=== PATIENT | female | born 1940 | race Caucasian/White ===

== ENCOUNTER 2021-03-12 18:55 | Inpatient (IN) ==
[2021-03-12] MEDS ORDERED: dilTIAZem HCl 5 MG/ML 5 ML VIAL IV STA (19:20)
[2021-03-12 19:34] LABS: Basophils # (auto) 0.01 K/uL (0-0.2); Basophils % (auto) 0.1 %; Eosinophils # (auto) 0.03 K/uL (0-0.5); Eosinophils % (auto) 0.2 %; Hematocrit (blood only) 48.7 % (37-47); Hemoglobin 17.2 g/dL (12.0-16.0); Immature Granulocytes # (auto) 0.07 K/uL (0.00-0.02); Immature Granulocytes % (auto) 0.4 %; Lymphocytes # (auto) 1.26 K/uL (1.2-3.4); Lymphocytes % (auto) 7.8 %; Mean Corpuscular Hgb Conc 35.3 g/dL (32-36); Mean Platelet Volume 10.3 fL (7.4-10.4); Monocytes # (auto) 0.76 K/uL (0.11-0.59); Monocytes % (auto) 4.7 %; Neutrophils # (auto) 14.06 K/uL (1.4-6.5); Neutrophils % (auto) 86.8 %; Platelet Count 441 K/uL (130-400); RDW Coefficient of Variation 13.1 % (11.5-14.5); RDW Standard Deviation 40.4 fL (36.4-46.3); Red Blood Count 5.73 M/uL (4.2-5.4); White Blood Count 16.19 K/uL (4.8-10.8)
[2021-03-12] MEDS ORDERED: STAT IV Infusion **Titration per Protocol STA (19:37)
--- NOTE | 2021-03-12 19:43 | Emergency Department Note ---
Impression & Plan Weakness, Atrial fibrillation with rapid ventricular response, Fall ED Provider Note Provider: Jsoeph Mcdaniel MD DATE OF SERVICE: 03/12/2021 CHIEF COMPLAINT: Weakness HISTORY OF PRESENT ILLNESS: Patient is a 80-year-old female denies significant past medical history lives at home by herself reports over the past week is developed head cold symptoms with generalized weakness and decreased appetite and food intake. Has been trying to hydrate. Occasional some nausea. Denies chest pain but at times has been a little bit winded. Evidently family have been hurt for several days and EMS was summoned. She was found on the floor of her house. Patient states she had been on the floor for several hours after trying to walk and became weak and lowered her self to the ground. She states she did mildly bump her head but did not lose consciousness and just felt generally weak. She denies sensation of palpitations or history of A. fib. EMS found the patient be in rapid A. fib without intervention otherwise prior to arrival. Patient denies new numbness or weakness. She denies significant neck pain or injury to the extremities. Patient denies Covid vaccination. She is concerned that she could have Covid. REVIEW OF SYSTEMS: A total of 10 review of systems was obtained and negative except as stated above in the HPI. PAST MEDICAL HISTORY: As noted above MEDICATIONS: No current prescription medications SOCIAL HISTORY: , lives at home, non-smoker PHYSICAL EXAM: GENERAL: alert and oriented in no acute distress on stretcher fatigued in appearance Head: normocephalic and atraumatic EYES: No injection, discharge or icterus. PERRL NECK: Trachea midline. Supple. ENT: Mucous membranes pink and moist. LUNGS: Airway patent. No retractions. Breath sounds clear HEART: Irregularly irregular tachycardic rate and rhythm. No chest wall tenderness ABDOMEN: Soft and non-tender, without guarding or rebound. SKIN: Acyanotic, warm, dry, without rashes EXTREMITIES: Without swelling, tenderness or deformity NEUROLOGICAL: No focal deficits. No aphasia. No facial droop or slurred speech. Normal strength and tone in the extremities. Sensation to gross touch normal. EK bpm atrial fibrillation with rapid ventricular response. QTC 557 with a right axis. Some inferior ST depression/T wave inversions noted. Some nonspecific anterior lateral elevation noted. CONTINUOUS CARDIAC MONITORING: was ordered and showed a heart rate of 100s-150s bpm in atrial fibrillation Patient's laboratory studies and imaging reviewed. Differential includes Infection, dehydration, metabolic abnormality, hypo/hyperglycemia, electrolyte disturbance, anemia, hypoxia, cardiac sources, intracerebral event, toxicologic, neurologic, as well as other pathologies. IMPRESSION/MEDICAL DECISION MAKING: High suspicion the patient who is unvaccinated to be suffering from Covid. R apid A. fib upon arrival. Given diltiazem and started diltiazem drip to help with rate control. X-ray, Covid test, basic labs sent. Given that she fell in with her age although no LOC or significant anticoagulation CT head and cervical spine were completed. No other evidence of significant traumatic injury on clinical exam. Patient without focal neurological deficit I doubt acute CVA or stroke. CK was sent to the edition to exclude rhabdomyolysis. Given a small amount of IV fluid hydration as she has had decreased intake. Heart rate did improve with diltiazem but drip being increased is still not great control. Afebrile here. White blood cell count is noticed with some elevated procalcitonin. Lactate and blood cultures ordered. Chest x-ray per radiology without concerning findings for pneumonia at this time. Covid and flu negative surprisingly. Again a fairly benign abdomen. CT of the head and cervical spine with acute traumatic injury. Make the patient aware of the qu estionable finding of the thoracic spine on the CT which will need follow-up. Given some potassium for hypokalemia. Will cover with broad-spectrum antibiotics with the lab findings. No indicative findings of acute rhabdomyolysis. Discussed the patient need for further care here at the hospital. Hospitalist was contacted. Urine without findings consistent with UTI. Blood cultures again are pending. DIAGNOSIS: Rapid atrial fibrillation, weakness, fall, hypokalemia DISPOSITION: Hospitalist will evaluate Patient was agreeable with this plan. Critical Care I have personally spent 38 minutes of critical care time in the direct management of this patient. This includes bedside care, interpretation of diagnostic studies, and testing, discussion with consultants, patient, and other required patient management activities. These 38 minutes is in excess of all separately billable procedures. Past Med/Surg History Social History Smoking Status: Never smoker Feels Safe at Home: Yes Results & Data (ED) Vital Signs Vital Signs - 24 hr 03/12/21 19:11 03/12/21 19:19 03/12/21 19:21 Temperature 36.5 C Temperature Source Oral Pulse Rate 142 H 150 H Pulse Rate [Finger] 152 H Pulse Rhythm Irregular Irregular Pulse Rhythm [Finger] Irregular Pulse Strength Normal Pulse Strength [Finger] Normal Respiratory Rate 20 20 18 Respiratory Effort / Characteristics Non-Labored Non-Labored Respiratory Depth Normal Normal Respiratory Pattern Regular Blood Pressure 103/69 Blood Pressure [Right Arm] 103/69 Blood Pressure Mean 80 Blood Pressure Mean [Right Arm] 80 Blood Pressure Position Lying Blood Pressure Position [Right Arm] Lying Pulse Oximetry 94 95 95 Oxygen Delivery Method Room Air Room Air Room Air Sepsis Recent Fever Within 48 Hours No Sepsis New/Unexplained Change in Mental Status No Sepsis Action Taken by Nursing No Action Required 03/12/21 19:31 03/12/21 21:00 03/12/21 21:13 Temperature Temperature Source Pulse Rate Pulse Rate [Finger] 118 H 133 H 129 H Pulse Rhythm Pulse Rhythm [Finger] Irregular Irregular Irregular Pulse Strength Pulse Strength [Finger] Normal Normal Normal Respiratory Rate 18 20 16 Respiratory Effort / Characteristics Non-Labored Non-Labored Non-Labored Respiratory Depth Normal Normal Normal Respiratory Pattern Regular Blood Pressure Blood Pressure [Right Arm] 121/72 101/64 108/79 Blood Pressure Mean Blood Pressure Mean [Right Arm] 88 76 88 Blood Pressure Position Blood Pressure Position [Right Arm] Lying Sitting Sitting Pulse Oximetry 95 93 93 Oxygen Delivery Method Room Air Room Air Room Air Sepsis Recent Fever Within 48 Hours Sepsis New/Unexplained Change in Mental Status Sepsis Action Taken by Nursing 03/12/21 21:46 03/12/21 21:51 03/12/21 22:11 Temperature Temperature Source Pulse Rate Pulse Rate [Finger] 119 H 128 H 128 H Pulse Rhythm Pulse Rhythm [Finger] Irregular Irregular Irregular Pulse Strength Pulse Strength [Finger] Normal Respiratory Rate 20 20 18 Respiratory Effort / Characteristics Non-Labored Non-Labored Non-Labored Respiratory Depth Normal Normal Normal Respiratory Pattern Blood Pressure Blood Pressure [Right Arm] 98/72 L 104/77 100/79 Blood Pressure Mean Blood Pressure Mean [Right Arm] 80 86 86 Blood Pressure Position Blood Pressure Position [Right Arm] Sitting Sitting Pulse Oximetry 93 93 Oxygen Delivery Method Room Air Room Air Sepsis Recent Fever Within 48 Hours Sepsis New/Unexplained Change in Mental Status Sepsis Action Taken by Nursing Laboratory Data Result diagrams: 03/12/21 19:20 03/12/21 19:20 Lab Results 12/03/12/21 03/12/21 Range/Units 19:20 19:20 19:20 WBC 16.19 H (4.8-10.8) K/uL RBC 5.73 H (4.2-5.4) M/uL Hgb 17.2 H (12.0-16.0) g/dL Hct 48.7 H (37-47) % MCV 85.0 (80-100) fL MCH 30.0 (25-34) pg MCHC 35.3 (32-36) g/dL RDW Std Deviation 40.4 (36.4-46.3) fL RDW Coeff of Mali[place] 13.1 (11.5-14.5) % Plt Count 441 H (130-400) K/uL MPV 10.3 (7.4-10.4) fL Immature Gran % (Auto) 0.4 % Neut % (Auto) 86.8 % Lymph % (Auto) 7.8 % Grady % (Auto) 4.7 % Eos % (Auto) 0.2 % Baso % (Auto) 0.1 % Neut # (Auto) 14.06 H (1.4-6.5) K/uL Lymph # (Auto) 1.26 (1.2-3.4) K/uL Grady # (Auto) 0.76 H (0.11-0.59) K/uL Eos # (Auto) 0.03 (0-0.5) K/uL Baso # (Auto) 0.01 (0-0.2) K/uL Immature Gran # (Auto) 0.07 H (0.00-0.02) K/uL PT 10.8 (9.0-12.0) Seconds INR 1.1 (0.9-1.1) APTT (21.0-31.0) Seconds PTT Ratio Sodium 130 L (136-145) mmol/L Potassium 3.0 L (3.5-5.1) mmol/L Chloride 84 L (98-107) mmol/L Carbon Dioxide 27 (21-32) mmol/L Anion Gap 18.0 H (3-11) BUN 85 H (7-18) mg/dl Creatinine 1.25 H (0.6-1.2) mg/dl Est Cr Clr Drug Dosing 33.6 ml/min Est GFR ( Amer) 47.0 ml/min Est GFR (Non-Af Amer) 40.6 ml/min BUN/Creatinine Ratio 68.2 H (10-20) Glucose 119 H (70-99) mg/dl Lactate (0.4-2.0) mmol/L Calcium 9.4 (8.5-10.1) mg/dl Magnesium 2.9 H (1.8-2.4) mg/dl Total Bilirubin 1.2 H (0.2-1) mg/dl AST 14 L (15-37) U/L ALT 22 (12-78) Alkaline Phosphatase 82 (45-117) U/L Total Creatine Kinase 72 (26-192) U/L Troponin I 0.108 H* (0-0.045) ng/ml Total Protein 7.8 (6.4-8.2) gm/dl Albumin 3.4 (3.4-5.0) gm/dl Globulin 4.4 H (2.5-4.0) gm/dl Albumin/Globulin Ratio 0.8 L (0.9-2) Lipase 263 (73-393) U/L Procalcitonin (0-0.5) ng/ml TSH 0.259 L (0.300-4.500) uIu/ml Free T4 1.88 H (0.8-1.6) ng/dl Urine Color Urine Appearance (Clear) Urine pH (4.5-7.5) Ur Specific [place] (1.000-1.030) Urine Protein (Negative) Urine Glucose (UA) (Negative) Urine Ketones (Negative) Urine Blood (Negative) Urine Nitrite (Negative) Urine Bilirubin (Negative) Urine Urobilinogen (Negative) Ur Leukocyte Esterase (Negative) Urine WBC (Auto) (0-5) /hpf Urine RBC (Auto) (0-4) /hpf U Hyaline Cast (Auto) (0-5) /lpf U Epithel Cells (Auto) (0-5) /lpf Urine Bacteria (Auto) (Negative) SARS-CoV-2 (PCR) (Negative) Influenza Type A (PCR) (Neg) Influenza Type B (PCR) (Neg) RSV (RT-PCR) (Neg) 03/12/21 03/12/21 03/12/21 Range/Units 19:20 19:20 19:35 WBC (4.8-10.8) K/uL RBC (4.2-5.4) M/uL Hgb (12.0-16.0) g/dL Hct (37-47) % MCV (80-100) fL MCH (25-34) pg MCHC (32-36) g/dL RDW Std Deviation (36.4-46.3) fL RDW Coeff of Maliha (11.5-14.5) % Plt Count (130-400) K/uL MPV (7.4-10.4) fL Immature Gran % (Auto) % Neut % (Auto) % Lymph % (Auto) % Grady % (Auto) % Eos % (Auto) % Baso % (Auto) % Neut # (Auto) (1.4-6.5) K/uL Lymph # (Auto) (1.2-3.4) K/uL Grady # (Auto) (0.11-0.59) K/uL Eos # (Auto) (0-0.5) K/uL Baso # (Auto) (0-0.2) K/uL Immature Gran # (Auto) (0.00-0.02) K/uL PT (9.0-12.0) Seconds INR (0.9-1.1) APTT 25.9 (21.0-31.0) Seconds PTT Ratio 1.0 Sodium (136-145) mmol/L Potassium (3.5-5.1) mmol/L Chloride (98-107) mmol/L Carbon Dioxide (21-32) mmol/L Anion Gap (3-11) BUN (7-18) mg/dl Creatinine (0.6-1.2) mg/dl Est Cr Clr Drug Dosing ml/min Est GFR ( Amer) ml/min Est GFR (Non-Af Amer) ml/min BUN/Creatinine Ratio (10-20) Glucose (70-99) mg/dl Lactate (0.4-2.0) mmol/L Calcium (8.5-10.1) mg/dl Magnesium (1.8-2.4) mg/dl Total Bilirubin (0.2-1) mg/dl AST (15-37) U/L ALT (12-78) Alkaline Phosphatase (45-117) U/L Total Creatine Kinase (26-192) U/L Troponin I (0-0.045) ng/ml Total Protein (6.4-8.2) gm/dl Albumin (3.4-5.0) gm/dl Globulin (2.5-4.0) gm/dl Albumin/Globulin Ratio (0.9-2) Lipase (73-393) U/L Procalcitonin 1.25 H (0-0.5) ng/ml TSH (0.300-4.500) uIu/ml Free T4 (0.8-1.6) ng/dl Urine Color Urine Appearance (Clear) Urine pH (4.5-7.5) Ur Specific [place] (1.000-1.030) Urine Protein (Negative) Urine Glucose (UA) (Negative) Urine Ketones (Negative) Urine Blood (Negative) Urine Nitrite (Negative) Urine Bilirubin (Negative) Urine Urobilinogen (Negative) Ur Leukocyte Esterase (Negative) Urine WBC (Auto) (0-5) /hpf Urine RBC (Auto) (0-4) /hpf U Hyaline Cast (Auto) (0-5) /lpf U Epithel Cells (Auto) (0-5) /lpf Urine Bacteria (Auto) (Negative) SARS-CoV-2 (PCR) NEGATIVE (Negative) Influenza Type A (PCR) Negative (Neg) Influenza Type B (PCR) Negative (Neg) RSV (RT-PCR) Negative (Neg) 03/12/21 03/12/21 Range/Units 21:39 21:50 WBC (4.8-10.8) K/uL RBC (4.2-5.4) M/uL Hgb (12.0-16.0) g/dL Hct (37-47) % MCV (80-100) fL MCH (25-34) pg MCHC (32-36) g/dL RDW Std Deviation (36.4-46.3) fL RDW Coeff of Maliha (11.5-14.5) % Plt Count (130-400) K/uL MPV (7.4-10.4) fL Immature Gran % (Auto) % Neut % (Auto) % Lymph % (Auto) % Grady % (Auto) % Eos % (Auto) % Baso % (Auto) % Neut # (Auto) (1.4-6.5) K/uL Lymph # (Auto) (1.2-3.4) K/uL Grady # (Auto) (0.11-0.59) K/uL Eos # (Auto) (0-0.5) K/uL Baso # (Auto) (0-0.2) K/uL Immature Gran # (Auto) (0.00-0.02) K/uL PT (9.0-12.0) Seconds INR (0.9-1.1) APTT (21.0-31.0) Seconds PTT Ratio Sodium (136-145) mmol/L Potassium (3.5-5.1) mmol/L Chloride (98-107) mmol/L Carbon Dioxide (21-32) mmol/L Anion Gap (3-11) BUN (7-18) mg/dl Creatinine (0.6-1.2) mg/dl Est Cr Clr Drug Dosing ml/min Est GFR ( Amer) ml/min Est GFR (Non-Af Amer) ml/min BUN/Creatinine Ratio (10-20) Glucose (70-99) mg/dl Lactate 2.1 H* (0.4-2.0) mmol/L Calcium (8.5-10.1) mg/dl Magnesium (1.8-2.4) mg/dl Total Bilirubin (0.2-1) mg/dl AST (15-37) U/L ALT (12-78) Alkaline Phosphatase (45-117) U/L Total Creatine Kinase (26-192) U/L Troponin I (0-0.045) ng/ml Total Protein (6.4-8.2) gm/dl Albumin (3.4-5.0) gm/dl Globulin (2.5-4.0) gm/dl Albumin/Globulin Ratio (0.9-2) Lipase (73-393) U/L Procalcitonin (0-0.5) ng/ml TSH (0.300-4.500) uIu/ml Free T4 (0.8-1.6) ng/dl Urine Color Yellow Urine Appearance Clear (Clear) Urine pH 5.0 (4.5-7.5) Ur Specific [place] 1.018 (1.000-1.030) Urine Protein Negative (Negative) Urine Glucose (UA) Negative (Negative) Urine Ketones 1+ H (Negative) Urine Blood 1+ H (Negative) Urine Nitrite Negative (Negative) Urine Bilirubin Negative (Negative) Urine Urobilinogen Negative (Negative) Ur Leukocyte Esterase Negative (Negative) Urine WBC (Auto) 1-5 (0-5) /hpf Urine RBC (Auto) 5-10 H (0-4) /hpf U Hyaline Cast (Auto) >30 H (0-5) /lpf U Epithel Cells (Auto) 5-10 H (0-5) /lpf Urine Bacteria (Auto) Negative (Negative) SARS-CoV-2 (PCR) (Negative) Influenza Type A (PCR) (Neg) Influenza Type B (PCR) (Neg) RSV (RT-PCR) (Neg) Administered Medications Diltiazem HCl 125 mg/ Dextrose 125 mls @ 5 mls/hr IV .Q24H [facility]; Protocol Stop: 04/11/21 19:44 Last Titration: 03/12/21 22:12 Dose: 15 mg/hr, 15 mls/hr Documented by: [id number] Cosigned by: [id number] Titration: 03/12/21 21:00 Dose: 10 mg/hr, 10 mls/hr Documented by: [id number] Cosigned by: [id number] Admin: 03/12/21 20:22 Dose: 5 mg/hr, 5 mls/hr Documented by: [id number] Cosigned by: [id number] Discontinued Medications Aspirin (Aspirin 81 Mg Chew) 324 mg PO NOW STA Stop: 03/12/21 20:27 Last Admin: 03/12/21 20:38 Dose: 324 mg Documented by: [id number] Diltiazem HCl (Diltiazem Hcl 5 Mg/Ml 5 Ml Vial) 10 mg IV NOW STA Stop: 03/12/21 19:21 Last Admin: 03/12/21 19:27 Dose: 10 mg Documented by: [id number] Cosigned by: [id number] Sodium Chloride (Nss 1000ml) 1,000 mls @ 999 mls/hr IV .Q1H1M ONE Stop: 03/12/21 21:25 Last Infusion: 03/12/21 22:29 Dose: 999 mls/hr Documented by: [id number] Infusion: 03/12/21 21:28 Dose: 999 mls/hr Documented by: [id number] Admin: 03/12/21 20:32 Dose: 999 mls/hr Documented by: [id number] Ceftriaxone Sodium (Rocephin) 2,000 mg in 70 mls @ 140 mls/hr IV NOW STA Stop: 03/12/21 21:04 Last Infusion: 03/12/21 22:35 Dose: 140 mls/hr Documented by: [id number] Admin: 03/12/21 22:05 Dose: 140 mls/hr Documented by: [id number] Miscellaneous (Stat Iv Infusion Titration Per Protocol) 1 ea N/A NOW STA Stop: 03/12/21 19:38 Last Admin: 03/12/21 23:36 Dose: Not Given Documented by: [id number] Potassium Chloride (Potassium Chloride Crtab 20 Meq Tabcr) 20 meq PO NOW STA Stop: 03/12/21 20:31 Last Admin: 03/12/21 20:38 Dose: 20 meq Documented by: [id number] Imaging Data Radiologist's Impression: Chest X-Ray 03/12/21 19:17 XR chest 1V portable HISTORY: Shortness of breath. Atypical chest pain. weakness COMPARISON: None. FINDINGS: The cardiac silhouette is mildly enlarged. Mild interstitial thick ening which is likely chronic. No focal lung consolidations to suggest pneumonia. No evidence for pulmonary edema. No pleural effusions. No pneumothorax. Advanced degenerative changes noted within the shoulders. IMPRESSION: Mild cardiomegaly. Otherwise, no acute process within the chest. ACT 112: Negative or not required by law. Electronically signed by: Samuel Gonzales M.D. 03/12/2021 8:[address] 03/12/21 19:[address] DOSE: HISTORY: fall weak TECHNIQUE: Multiaxial CT images of the head were performed without the use of intravenous contrast. Automated exposure control was utilized for this study. A dose lowering technique was utilized adhering to the principles of ALARA. Comparison: None. Findings: The paranasal sinuses and mastoid air cells are clear. The calvarium and skull base are intact. There is no mass, hematoma, midline shift, acute infarct. White matter hypodensity is nonspecific but suggestive of microvascular ischemic change. The ventricles and sulci demonstrate mild age-related involutional changes. Impression: No acute intracranial abnormality. Atrophy and microvascular ischemic changes. ACT 112: Negative or not required by law. Electronically signed by: Samuel Gonzales M.D. 03/12/2021 8:[address] 03/12/21 19:[address] DOSE: 920.33 mGy.cm HISTORY: Neck pain. fall TECHNIQUE: Multiaxial CT images of the cervical spine were performed and reformatted in the sagittal and coronal plane without the use of contrast. A dose lowering technique was utilized adhering to the principles of ALARA. COMPARISON: None. FINDINGS: No fractures. No subluxation. Prevertebral soft tissues and the C1-C2 interval are intact. No pneumothorax. Mild to moderate degenerative changes within the mid to lower cervical spine. There is a 1.3 cm lucent lesion within the T1 vertebral body. This is indeterminate but could represent a hemangioma given the sclerotic edges. No additional suspicious lesions identified within the cervical spine. IMPRESSION: 1. No fractures within the cervical spine. 2. An indeterminate 1.3 cm lucent lesion within the T1 vertebral body. The absence of the known malignancy this could represent a benign lesion such as a hemangioma. A follow-up nonemergent nuclear medicine bone scan can be used for further evaluation to assess for a metabolically active lesion. ACT 112: Negative or not required by law. Electronically signed by: Samuel Gonzales M.D. 03/12/2021 8:27 PM Discharge Plan Visit Data Chief Complaint: Illness Stated Complaint: illness ED Provider: Joseph Mcdaniel Discharge Problem: Weakness, Atrial fibrillation with rapid ventricular response, Fall Patient Disposition: Being Evaluated by Hospitalist Forms Stand Alone Forms: [facility] Referrals Referrals: Edison Saldana MD [Surgeon] - Discharge Problem: Fall Qualifiers: Encounter type: initial encounter Qualified Code(s): W19.XXXA - Unspecified fall, initial encounter
[2021-03-12 19:47] LABS: INR 1.1 (0.9-1.1); Prothrombin Time 10.8 Seconds (9.0-12.0)
[2021-03-12 19:58] LABS: Albumin Level 3.4 gm/dl (3.4-5.0); BUN Creatinine Ratio 68.2 (10-20); Calcium 9.4 mg/dl (8.5-10.1); Creatinine Clr Calc Pharmacy 33.6 ml/min; Est GFR (Non-African American) 40.6 ml/min; Magnesium 2.9 mg/dl (1.8-2.4)
[2021-03-12 20:01] LABS: Partial Thromboplastin Time 25.9 Seconds (21.0-31.0)
--- NOTE | 2021-03-12 20:10 | XRay Report ---
XR chest 1V portable HISTORY: Shortness of breath. Atypical chest pain. weakness COMPARISON: None. FINDINGS: The cardiac silhouette is mildly enlarged. Mild interstitial thickening which is likely chr onic. No focal lung consolidations to suggest pneumonia. No evidence for pulmonary edema. No pleural effusions. No pneumothorax. Advanced degenerative changes noted within the shoulders. IMPRESSION: Mild cardiomegaly. Otherwise, no acute process within the chest. ACT 112: Negative or not required by law. Electronically signed by: Samuel Gonzales M.D. 03/12/2021 8:08 PM
[2021-03-12 20:13] LABS: Albumin Globulin Ratio 0.8 (0.9-2); Bilirubin,Total 1.2 mg/dl (0.2-1); Globulin 4.4 gm/dl (2.5-4.0); Thyroid Stimulating Hormone 0.259 uIu/ml (0.300-4.500); Total Protein 7.8 gm/dl (6.4-8.2); Troponin I 0.108 ng/ml (0-0.045)
[2021-03-12] MEDS: dilTIAZem HCL 125 MG in DEXTROSE 5% 100 ML IV SCH (20:22)
--- NOTE | 2021-03-12 20:23 | CT Scan Report ---
HEAD CT NONCONTRAST CT DOSE: HISTORY: fall weak TECHNIQUE: Multiaxial CT images of the head were performed without the use of intravenous contrast. A utomated exposure control was utilized for this study. A dose lowering technique was utilized adheri ng to the principles of ALARA. Comparison: None. Findings: The paranasal sinuses and mastoid air cells are clear. The calvarium and skull base are int act. There is no mass, hematoma, midline shift, acute infarct. White matter hypodensity is nonspecifi c but suggestive of microvascular ischemic change. The ventricles and sulci demonstrate mild age-rela armen involutional changes. Impression: No acute intracranial abnormality. Atrophy and microvascular ischemic changes. ACT 112: Negative or not required by law. Electronically signed by: Samuel Gonzales M.D. 03/12/2021 8:21 PM
[2021-03-12] MEDS ORDERED: SODIUM CHLORIDE 0.9% 1000ML 1,000 ML IV ONE (20:25)
[2021-03-12] MEDS ORDERED: ASPIRIN 81 MG CHEW PO STA (20:26)
[2021-03-12 20:27] LABS: T4 Free Thyroxine 1.88 ng/dl (0.8-1.6)
--- NOTE | 2021-03-12 20:29 | CT Scan Report ---
CERVICAL SPINE CT CT DOSE: 920.33 mGy.cm HISTORY: Neck pain. fall TECHNIQUE: Multiaxial CT images of the cervical spine were performed and reformatted in the sagittal and coronal plane without the use of contrast. A dose lowering technique was utilized adhering to th e principles of ALARA. COMPARISON: None. FINDINGS: No fractures. No subluxation. Prevertebral soft tissues and the C1-C2 interval are intact. No pneumothorax. Mild to moderate degenerative changes within the mid to lower cervical spine. There is a 1.3 cm lucent lesion within the T1 vertebral body. This is indeterminate but could represent a h emangioma given the sclerotic edges. No additional suspicious lesions identified within the cervical spine. IMPRESSION: 1. No fractures within the cervical spine. 2. An indeterminate 1.3 cm lucent lesion within the T1 vertebral body. The absence of the known malig mukund this could represent a benign lesion such as a hemangioma. A follow-up nonemergent nuclear medi cine bone scan can be used for further evaluation to assess for a metabolically active lesion. ACT 112: Negative or not required by law. Electronically signed by: Samuel Gonzales M.D. 03/12/2021 8:27 PM
[2021-03-12] MEDS ORDERED: POTASSIUM CHLORIDE CRTAB 20 MEQ TABCR PO STA (20:30)
[2021-03-12 20:33] LABS: Influenza A virus by PCR Negative (Neg); Influenza B virus by PCR Negative (Neg); RSV by PCR Negative (Neg); SARS CoV2 RNA(COVID-19) InHosp NEGATIVE (Negative)
[2021-03-12] MEDS ORDERED: cefTRIAXone SODIUM 2,000 MG/70 ML BAG IV STA (20:35)
[2021-03-12 22:04] LABS: Appearance Urine Clear (Clear); Bacteria Urine Automated Negative (Negative); Bilirubin Urine Negative (Negative); Blood Urine 1+ (Negative); Color Urine Yellow; Glucose Urine UA Negative (Negative); Ketones Urine 1+ (Negative); Leukocyte Esterase Urine Negative (Negative); Nitrite Urine Negative (Negative); Protein Urine Negative (Negative); Specific Gravity Urine 1.018 (1.000-1.030); Urobilinogen Urine Negative (Negative)
[2021-03-12 22:18] LABS: Cast Urine Automated >30 /lpf (0-5)
[2021-03-13] MEDS ORDERED: ACETAMINOPHEN 325 MG TAB PO PRN (00:22)
[2021-03-13] MEDS ORDERED: Heparin IV Adult Wt-Based Standard *NO* Bolus Protocol IV ONE (00:22)
[2021-03-13] MEDS ORDERED: PATIENT'S ALLERGY INFO NEEDS ENTERED STA (00:30)
--- NOTE | 2021-03-13 00:45 | History & Physical Report ---
Date of Service March 12, 2021 Assessment & Plan (1) Fall: Plan: 80 yo F w/ no significant past medical history presents after acute illness and fall found to be in atrial fibrillation with rapid rate. Fall likely due to weakness from recent illness - IVF ordered NSS + 10mEq K X2 bags @ 125/h - PT ordered Atrial fibrillation w/ RVR, new onset [id number] 3 points for age and gender - cardiology consulted - Heparin drip ordered - patient states she does not wish to be on this medication right now. Would initiate DOAC if amenable after discussing risks and benefits - continue diltiazem drip for rate control with plan to calculate requirement and convert to oral over the day - ECHO ordered Hypokalemia, 3 likely due to poor intake and vomiting - given potassium in the ER - recheck and replete as needed Elevated Cr. to 1.25 likely due to prerenal given BUN/cr > 20 and pt has poor intake and vomiting - fluid as above - recheck in AM DVT: SCDs Code: DNR/DNI Diet: regular (2) Atrial fibrillation with rapid ventricular response: Admission and Anticipated Discharge Date Admission Date: March 12, 2021 History of Present Illness Chief Complaint: fall Primary Care Provider: Estevan Awad MD Dede Bowling has no past medical history but has not seen her PCP Dr. Awad in, "years". She does not take any prescriptions but takes vitamins and supplements. She has been sick for one week with sore throat, head cold, conge stion, and when her lung congestions started to clear she started to vomit with meals several times a day. Her last meal was on Thursday 7 days ago. She had a fall today where she fell to the ground while feeling weak. She did not lose consciousness and had a similar event a few days prior. She lives at home alone since her after and has 2 levels to her home. She does not use any assisted devices. When I brought up that she would potentially need to start custodial medication for her heart rate and potentially for a risk of stroke she was resistant stating that she would not like to be on medications. She has concerns about the side effects of the medications and would prefer natural medicine. I discussed that there may not be natural alternatives to the medications and that we would discuss the risks and benefits of medications with her. She was okay with all of her current treatments with the exception of her Heparin drip. ER course: ASA, Dilt. drip, Ceftriaxone, IVF 1L, KCl Allergies Allergy/AdvReac Type Severity Reaction Status Date / Time No Known Allergies Allergy Verified 03/13/21 02:00 Past Med/Surg History Social History Smoking Status: Never smoker Hx Alcohol Use: No Hx Substance Use: No Preferred Language: Yoruba Communication Ability: Effective Riveter Portable Machine Required: No Beliefs That Will Affect Care: None Current Living Situation: Alone Other Information That Helps Us Care for You: No Feels Safe at Home: Yes Safety Concerns: Feels Safe At This Time Assistive Devices: Glasses Review of Systems Review of Systems: Constitutional: denies fevers, chills admits nausea and vomiting Head: denies LOC, headache, vision changes admits lightheadedness ENT: denies current rhinorrhea, sore throat Cardiac: denies chest pain, palpitations, leg edema Pulm.: denies cough, shortness of breath GI: denies diarrhea, constipation, blood in stool admits indigestion LBM 1 week ago : denies urgency, dysuria admits polyuria chronically no worsened Physical Exam Constitutional: well developed and well nourished; no acute distress Eyes: PERRL, conjunctivae normal, anicteric sclerae ENMT: external ear and nose normal, oropharynx normal Neck: normal visual inspection Respiratory: normal respiratory effort, lungs clear to auscultation Cardiovascular: Rate/Rhythm: + tachycardic and + irregularly irregular Gastrointestinal (Abdomen): normal bowel sounds, soft, nontender, no hepatosplenomegaly Musculoskeletal: no cyanosis or clubbing, extremities motor strength 5/5 Skin: no rashes, warm and dry Neurologic: no focal motor deficits Psychiatric: Orientation: alert and oriented x 3 Results & Data Results & Data ([facility]) Vital Signs (Past 12 Hours) Vital Signs Temp Pulse Pulse Resp BP BP Pulse Ox 03/12/21 22:11 128 H 18 100/79 93 03/12/21 21:51 128 H 20 104/77 03/12/21 21:46 119 H 20 98/72 L 93 03/12/21 21:13 129 H 16 108/79 93 03/12/21 21:00 133 H 20 101/64 93 03/12/21 19:31 118 H 18 121/72 95 03/12/21 19:21 150 H 18 95 03/12/21 19:19 152 H 20 103/69 95 03/12/21 19:11 36.5 C 142 H 20 103/69 94 CBC Results Results Complete Blood Count Results: RBC 5.73 M/uL (4.2-5.4) H 03/12/21 WBC 16.19 K/uL (4.8-10.8) H 03/12/21 Hgb 17.2 g/dL (12.0-16.0) H 03/12/21 Hct 48.7 % (37-47) H 03/12/21 Plt Count 441 K/uL (130-400) H 03/12/21 Chemistry (BMP) Results BMP Results: 2 Sodium 130 mmol/L (136-145) L 03/12/21 Potassium 3.0 mmol/L (3.5-5.1) L 03/12/21 Chloride 84 mmol/L (98-107) L 03/12/21 Carbon Dioxide 27 mmol/L (21-32) 03/12/21 Anion Gap 18.0 (3-11) H 03/12/21 BUN 85 mg/dl (7-18) H 03/12/21 Creatinine 1.25 mg/dl (0.6-1.2) H 03/12/21 Glucose 119 mg/dl (70-99) H 03/12/21 Code Status & VTE Plan VTE Prophylaxis Plan VTE Prophylaxis will be ordered: Yes Supervising Physician Co-Signing Physician Notes Patient seen and examined, chart reviewed, case discussed with Dr. Hobson and I agree with his assessment and plan as above. In brief, patient is an 80yo female with no significant past medical or surgical history, she does not receive routine medical care - presenting with weakness, nausea, poor oral intake and congestion. Patient lives at home alone, is recently . On exam she is afebrile, tachycardic with stable BP. AA&O x 3 Skin - warm, dry , intact HEENT - dry MM, neck supple Heart - +S1/S2, irregularly irregular, 2/6 TITI Lungs - CTA, no rales/rhonchi/wheezes Abd - +BS, soft, NT, ND Ext - warm, well perfused, no clubbing/cyanosis or edema Labs and images reviewed Assessment/Plan - New onset atrial fibrillation. Patient presently on Cardizem gtt initiated in ER. She refuses heparin gtt at this time -Tele -Check Echo -Continue Cardizem - transition to PO in AM -Encourage blood thinner -Remainder of plan as above Resident Activity Tracking Resident Involvement: Resident Care Provided Care Provided: Adult Hospital Medicine (1) Fall Encounter type: initial encounter Qualified Code(s): W19.XXXA - Unspecified fall, initial encounter
[2021-03-13] MEDS: HEPARIN SODIUM/DEXTROSE 25,000 UNITS/500 ML BAG IV SCH (01:38)
--- NOTE | 2021-03-13 02:46 | Billing Data ---
Date of Service March 12, 2021 Coding Level of Care Code 94522 Initial Inpt Care Lvl 2
[2021-03-13] MEDS: POTASSIUM CHLORIDE 10 MEQ in SODIUM CHLORIDE 0.9% 1000ML 1,000 ML IV SCH ×2 (03:21→13:13)
[2021-03-13] MEDS: ONDANSETRON INJ 2 MG/ML 2 ML VIAL IV PRN ×2 (03:21→21:19)
[2021-03-13] MEDS: dilTIAZem HCL 125 MG in DEXTROSE 5% 100 ML IV SCH ×3 (04:48→23:03)
[2021-03-13 06:31] LABS: Basophils # (auto) 0.01 K/uL (0-0.2); Basophils % (auto) 0.1 %; Eosinophils # (auto) 0.02 K/uL (0-0.5); Eosinophils % (auto) 0.1 %; Hematocrit (blood only) 43.5 % (37-47); Immature Granulocytes # (auto) 0.03 K/uL (0.00-0.02); Immature Granulocytes % (auto) 0.2 %; Lymphocytes # (auto) 1.01 K/uL (1.2-3.4); Lymphocytes % (auto) 7.2 %; Mean Corpuscular Hemoglobin 29.1 pg (25-34); Mean Corpuscular Hgb Conc 34.5 g/dL (32-36); Mean Corpuscular Volume 84.5 fL (80-100); Mean Platelet Volume 10.4 fL (7.4-10.4); Monocytes # (auto) 1.06 K/uL (0.11-0.59); Monocytes % (auto) 7.5 %; Neutrophils # (auto) 11.97 K/uL (1.4-6.5); Neutrophils % (auto) 84.9 %; Platelet Count 418 K/uL (130-400); RDW Coefficient of Variation 13.1 % (11.5-14.5); RDW Standard Deviation 40.3 fL (36.4-46.3); Red Blood Count 5.15 M/uL (4.2-5.4)
[2021-03-13 07:09] LABS: BUN Creatinine Ratio 77.2 (10-20); Calcium 8.9 mg/dl (8.5-10.1); Creatinine Clr Calc Pharmacy 37.8 ml/min; Est GFR (African American) 54.3 ml/min; Est GFR (Non-African American) 46.9 ml/min; Potassium 2.6 mmol/L (3.5-5.1)
[2021-03-13] MEDS ORDERED: POTASSIUM CHLORIDE CRTAB 20 MEQ TABCR PO STA (07:17)
[2021-03-13 07:29] LABS: Troponin I 0.101 ng/ml (0-0.045)
[2021-03-13 08:38] LABS: Chol HDL Ratio 3; Cholesterol 134 mg/dl (0-200); HDL Cholesterol 48 mg/dl; LDL Cholesterol Calculated 60 mg/dl; Triglycerides 129 mg/dl (0-150); VLDL Cholesterol 26 mg/dl
[2021-03-13 09:03] LABS: Estimated Average Glucose 108 mg/dl; Hemoglobin A1C 5.4 % (4.5-5.6)
[2021-03-13] MEDS: POTASSIUM CHLORIDE / WTR 10 MEQ/100 ML PLCT IV SCH ×4 (09:04→13:14)
[2021-03-13 12:35] LABS: Partial Thromboplastin Ratio 1.5; Partial Thromboplastin Time 38.6 Seconds (21.0-31.0)
[2021-03-13 12:37] LABS: Hematocrit (blood only) 45.3 % (37-47); Hemoglobin 15.5 g/dL (12.0-16.0)
[2021-03-13] MEDS: PANTOprazole 40 MG TAB PO SCH (13:14)
--- NOTE | 2021-03-13 14:06 | XCELERA ---
[id number] [id number]
[2021-03-13 14:48] LABS: BUN Creatinine Ratio 57.2 (10-20); Calcium 8.7 mg/dl (8.5-10.1); Creatinine Clr Calc Pharmacy 33.6 ml/min; Est GFR (Non-African American) 40.6 ml/min; Potassium 3.8 mmol/L (3.5-5.1)
--- NOTE | 2021-03-13 16:32 | Medical Student Progress Note ---
Date of Service March 13, 2021 Assessment & Plan (1) Atrial fibrillation with rapid ventricular response: Plan: 80-year-old woman with no documented medical history last seen by a provider in 2006 presented to the ED after falling with a 1-week history of diffuse weakness and dysphagia Atrial fibrillation with rapid ventricular response: - EKG 03/12: A fib with premature ventricular or aberrantly conducted complexes, left bundle branch block, T wave amp increased in anterior leads, T wave inversion evident in lateral leads - Heparin drip for anticoagulation, can consider DOAC at discharge - troponin downtrending (.108 to .101) - Diltiazem drip for rate control, - ECHO- normal LV size/systolic function, EF 55-60%, septal motion consistent with conduction abn (bundle-branch block), no regional wall motion abnormalities, moderate concentric LV hypertrophy, severe left atrial dilation, sclerotic aortic valve, severe mitral annular calcification, trace to small pericardial effusion, A fib with PVCs - Electrolyte optimization: K>4, Mag >2, monitor calcium Hyperthyroidism - Free T3 1.86, TSH 0.259, T4 1.88 - may be interference in assays from biotin intake - will order thyroid US for evaluation Dysphagia: - consult GI - try antacids/PPI for reflux - EGD for assessment - IV Zofran for nausea/vomiting 4 mg q6h Fall: - secondary to weakness vs. ongoing afib RVR vs. orthostatic hypotension - blood cultures pending, procal 1.25 but without WBC elevation, fever - workup as above - IVF NSS + 10mEq potassium x 2 bags @ 125/hr - PT consult Electrolyte Disturbances Hypokalemia - potassium 2.6 this AM - likely secondary to decreased PO intake and vomiting - Potassium chloride 10 meq IV with maintenance fluid - Repleted 40 mEQ IV in addition to 40 meQ PO - Potassium improved to 3.8 after repletion Hyponatremia - Na 125, on normal saline maintenance fluid - downtrending despite fluds Elevated BUN/Cr ratio - BUN 72. CR 125 - BUN/CR >20, poor PO intake and vomiting - Fluids as above - trend BMPs daily - considered GIB as cause of elevated BUN however h&h stable, BUN improving with fluids Incidental CT finding: - complaining of chronic back pain - Spine CT: 1.3 lucent lesion within T1 vertebral body -DVT: heparin drip -Code: DNR/DNI -Diet: regular Dispo: PCU while continuing workup and stabilization of electrolytes (2) Dysphagia: (3) Fall: Encounter type: initial encounter Qualified Code(s): W19.XXXA - Unspecified fall, initial encounter (4) Elevated serum creatinine: (5) Hypokalemia: (6) Weakness: (7) Elevated BUN: (8) Back pain: (9) Hyperthyroidism: Admission and Anticipated Discharge Date Admission Date: March 12, 2021 Supervising Attestation Medical Student Supervision Note: I was personally present during medical student patient encounter and independently interviewed and examined the patient and verified the morris history and physical, reviewed labs and image studies, discussed the case with Sarai Hercules and agree with the findings and care plan. A fib with RVR - rate control, AC, echo, Dysphagia - GI consult. Full liquid diet. follow Troponin elevation - likely demand ischemia from RVR Hyperthyroid - thyroid US, Free T3, antibodies. Subjective No acute events overnight. Cardiac monitoring overnight and this morning 03/13: persistent Atrial fibrillation with IVCD, PVCs, rate in the 90s-110s. 80-year-old woman with no documented medical history last seen by a provider in 2006 presented to the ED after falling with a 1-week history of diffuse weakness and dysphagia. Approximately 1 week ago she had a new onset inability to keep down foods or liquids. She attests to symptoms of nausea, emesis, regurgitation of food. Denies hematemesis or coffee ground emesis. No bowel movements for the past week. She does have some mild abdominal pain near her sternum. She also reportedly experienced palpitations a few nights ago, but this has not been persistent. She is not on any prescribed medications, and takes multiple vitamins including: Vitamin D3, Garlique, CoQ-10, EDTA, Biotin, All-day energy greens, red beet juice. When she fell, she described a sensation of losing balance and passing out. She shares that she was independent before this, ambulating without any assistance. She says that since she has not been able to eat or drink, she noticed decrease strength in her arms and legs. She describes a sensation of fatigue throughout her body that was not isolated to any particular limb. says the weakness was always her whole body and didnt start with any limb. This morning, she shares that she is dizzy and her head is not right. She feels the same as she has for the last week. She denies headache, nausea, lightheadedness. She does feel warm but denies chills. She denies vision or hearing changes but states that she has cataracts and normally wears glasses but does not have them and that her hearing is normally pretty bad. She is still having issues with food/liquid lingering in her throat. She had eaten orange slices and orange juice this morning and was keeping it down. Review of Systems Constitutional: + fatigue and + weakness Respiratory: as per Subjective / HPI; no cough and no hemoptysis Cardiovascular: as per Subjective / HPI Additional Comments: chest discomfort with GI distress and when regurgitation Gastrointestinal: + abdominal pain, + nausea, + vomiting, + dysphagia and + change in bowel habits Genitourinary: no dysuria, no urinary frequency, no urinary hesitancy and no urinary urgency Musculoskeletal: + back pain Neurologic: + unsteadiness, + falls, + generalized weakness and + syncope Endocrine: + fatigue Physical Exam Constitutional: WD/WN, vitals as above well developed, well nourished, + ill appearing and + lethargic Eyes: PERRL, conjunctivae normal, anicteric sclerae ENMT: external ear and nose normal, oropharynx normal Neck: trachea midline, no thyromegaly Respiratory: normal respiratory effort, lungs clear to auscultation symmetric chest movement Cardiovascular: Rate/Rhythm: + irregularly irregular Gastrointestinal (Abdomen): Inspection/Auscultation: abdomen normal to inspe ction and + hypoactive bowel sounds Percussion/Palpation: + abdomen tender, abdomen soft and + abdominal mass LRQ small, non-mobile, non-tender lump Musculoskeletal: no cyanosis or clubbing, extremities motor strength 5/5 diffuse lower back pain Skin: no rashes, warm and dry Neurologic: patellar DTR's 2+ bilat, sensation intact and PERRL, EOMI, accommodation nl, no face palsy, no dysarthria Psychiatric: A+Ox3, euthymic affect Results & Data ([facility]) Vital Signs (Past 12 Hours) Vital Signs Temp Pulse Resp BP Pulse Ox 03/13/21 15:44 36.6 C 94 H 17 106/68 91 03/13/21 11:26 36.4 C L 91 H 16 109/64 91 03/13/21 06:44 36.4 C L 97 H 19 138/80 95 Laboratory Results Laboratory Results - last 24 hr 03/12/21 03/12/21 03/12/21 19:20 19:20 19:20 WBC 16.19 H RBC 5.73 H Hgb 17.2 H Hct 48.7 H MCV 85.0 MCH 30.0 MCHC 35.3 RDW Std Deviation 40.4 RDW Coeff of [place] 13.1 Plt Count 441 H MPV 10.3 Immature Gran % (Auto) 0.4 Neut % (Auto) 86.8 Lymph % (Auto) 7.8 [place] % (Auto) 4.7 Eos % (Auto) 0.2 Baso % (Auto) 0.1 Neut # (Auto) 14.06 H Lymph # (Auto) 1.26 [place] # (Auto) 0.76 H Eos # (Auto) 0.03 Baso # (Auto) 0.01 Immature Gran # (Auto) 0.07 H PT 10.8 INR 1.1 APTT PTT Ratio Sodium 130 L Potassium 3.0 L Chloride 84 L Carbon Dioxide 27 Anion Gap 18.0 H BUN 85 H Creatinine 1.25 H Est Cr Clr Drug Dosing 33.6 Est GFR ( Amer) 47.0 Est GFR (Non-Af Amer) 40.6 BUN/Creatinine Ratio 68.2 H Glucose 119 H Estimat Average Glucose Hemoglobin A1c Lactate Calcium 9.4 Magnesium 2.9 H Total Bilirubin 1.2 H AST 14 L ALT 22 Alkaline Phosphatase 82 Total Creatine Kinase 72 Troponin I 0.108 H* Total Protein 7.8 Albumin 3.4 Globulin 4.4 H Albumin/Globulin Ratio 0.8 L Triglycerides Cholesterol LDL Cholesterol, Calc VLDL Cholesterol, Calc HDL Cholesterol Cholesterol/HDL Ratio Lipase 263 Procalcitonin TSH 0.259 L Free T4 1.88 H Free T3 Urine Color Urine Appearance Urine pH Ur Specific [place] Urine Protein Urine Glucose (UA) Urine Ketones Urine Blood Urine Nitrite Urine Bilirubin Urine Urobilinogen Ur Leukocyte Esterase Urine WBC (Auto) Urine RBC (Auto) U Hyaline Cast (Auto) U Epithel Cells (Auto) Urine Bacteria (Auto) SARS-CoV-2 (PCR) Influenza Type A (PCR) Influenza Type B (PCR) RSV (RT-PCR) 03/12/21 03/12/21 03/12/21 19:20 19:20 19:35 WBC RBC Hgb Hct MCV MCH MCHC RDW Std Deviation RDW Coeff of [place] Plt Count MPV Immature Gran % (Auto) Neut % (Auto) Lymph % (Auto) [place] % (Auto) Eos % (Auto) Baso % (Auto) Neut # (Auto) Lymph # (Auto) [place] # (Auto) Eos # (Auto) Baso # (Auto) Immature Gran # (Auto) PT INR APTT 25.9 PTT Ratio 1.0 Sodium Potassium Chloride Carbon Dioxide Anion Gap BUN Creatinine Est Cr Clr Drug Dosing Est GFR ( Amer) Est GFR (Non-Af Amer) BUN/Creatinine Ratio Glucose Estimat Average Glucose Hemoglobin A1c Lactate Calcium Magnesium Total Bilirubin AST ALT Alkaline Phosphatase Total Creatine Kinase Troponin I Total Protein Albumin Globulin Albumin/Globulin Ratio Triglycerides Cholesterol LDL Cholesterol, Calc VLDL Cholesterol, Calc HDL Cholesterol Cholesterol/HDL Ratio Lipase Procalcitonin 1.25 H TSH Free T4 Free T3 Urine Color Urine Appearance Urine pH Ur Specific [place] Urine Protein Urine Glucose (UA) Urine Ketones Urine Blood Urine Nitrite Urine Bilirubin Urine Urobilinogen Ur Leukocyte Esterase Urine WBC (Auto) Urine RBC (Auto) U Hyaline Cast (Auto) U Epithel Cells (Auto) Urine Bacteria (Auto) SARS-CoV-2 (PCR) NEGATIVE Influenza Type A (PCR) Negative Influenza Type B (PCR) Negative RSV (RT-PCR) Negative 03/12/21 03/12/21 03/12/21 21:39 21:50 23:46 WBC RBC Hgb Hct MCV MCH MCHC RDW Std Deviation RDW Coeff of [place] Plt Count MPV Immature Gran % (Auto) Neut % (Auto) Lymph % (Auto) [place] % (Auto) Eos % (Auto) Baso % (Auto) Neut # (Auto) Lymph # (Auto) [place] # (Auto) Eos # (Auto) Baso # (Auto) Immature Gran # (Auto) PT INR APTT PTT Ratio Sodium Potassium Chloride Carbon Dioxide Anion Gap BUN Creatinine Est Cr Clr Drug Dosing Est GFR ( Amer) Est GFR (Non-Af Amer) BUN/Creatinine Ratio Glucose Estimat Average Glucose Hemoglobin A1c Lactate 2.1 H* 1.6 Calcium Magnesium Total Bilirubin AST ALT Alkaline Phosphatase Total Creatine Kinase Troponin I Total Protein Albumin Globulin Albumin/Globulin Ratio Triglycerides Cholesterol LDL Cholesterol, Calc VLDL Cholesterol, Calc HDL Cholesterol Cholesterol/HDL Ratio Lipase Procalcitonin TSH Free T4 Free T3 Urine Color Yellow Urine Appearance Clear Urine pH 5.0 Ur Specific [place] 1.018 Urine Protein Negative Urine Glucose (UA) Negative Urine Ketones 1+ H Urine Blood 1+ H Urine Nitrite Negative Urine Bilirubin Negative Urine Urobilinogen Negative Ur Leukocyte Esterase Negative Urine WBC (Auto) 1-5 Urine RBC (Auto) 5-10 H U Hyaline Cast (Auto) >30 H U Epithel Cells (Auto) 5-10 H Urine Bacteria (Auto) Negative SARS-CoV-2 (PCR) Influenza Type A (PCR) Influenza Type B (PCR) RSV (RT-PCR) 03/13/21 03/13/21 03/13/21 05:39 05:39 05:39 WBC 14.10 H RBC 5.15 Hgb 15.0 Hct 43.5 MCV 84.5 MCH 29.1 MCHC 34.5 RDW Std Deviation 40.3 RDW Coeff of [place] 13.1 Plt Count 418 H MPV 10.4 Immature Gran % (Auto) 0.2 Neut % (Auto) 84.9 Lymph % (Auto) 7.2 [place] % (Auto) 7.5 Eos % (Auto) 0.1 Baso % (Auto) 0.1 Neut # (Auto) 11.97 H Lymph # (Auto) 1.01 L [place] # (Auto) 1.06 H Eos # (Auto) 0.02 Baso # (Auto) 0.01 Immature Gran # (Auto) 0.03 H PT INR APTT PTT Ratio Sodium 127 L Potassium 2.6 L Chloride 84 L Carbon Dioxide 31 Anion Gap 12.0 H BUN 86 H Creatinine 1.11 Est Cr Clr Drug Dosing 37.8 Est GFR ( Amer) 54.3 Est GFR (Non-Af Amer) 46.9 BUN/Creatinine Ratio 77.2 H Glucose 158 H Estimat Average Glucose 108 Hemoglobin A1c 5.4 Lactate Calcium 8.9 Magnesium Total Bilirubin AST ALT Alkaline Phosphatase Total Creatine Kinase Troponin I 0.101 H* Total Protein Albumin Globulin Albumin/Globulin Ratio Triglycerides Cholesterol LDL Cholesterol, Calc VLDL Cholesterol, Calc HDL Cholesterol Cholesterol/HDL Ratio Lipase Procalcitonin TSH Free T4 Free T3 Urine Color Urine Appearance Urine pH Ur Specific [place] Urine Protein Urine Glucose (UA) Urine Ketones Urine Blood Urine Nitrite Urine Bilirubin Urine Urobilinogen Ur Leukocyte Esterase Urine WBC (Auto) Urine RBC (Auto) U Hyaline Cast (Auto) U Epithel Cells (Auto) Urine Bacteria (Auto) SARS-CoV-2 (PCR) Influenza Type A (PCR) Influenza Type B (PCR) RSV (RT-PCR) 03/13/21 03/13/21 03/13/21 05:39 12:03 12:03 WBC RBC Hgb 15.5 Hct 45.3 MCV MCH MCHC RDW Std Deviation RDW Coeff of [place] Plt Count MPV Immature Gran % (Auto) Neut % (Auto) Lymph % (Auto) [place] % (Auto) Eos % (Auto) Baso % (Auto) Neut # (Auto) Lymph # (Auto) [place] # (Auto) Eos # (Auto) Baso # (Auto) Immature Gran # (Auto) PT INR APTT PTT Ratio Sodium Potassium Chloride Carbon Dioxide Anion Gap BUN Creatinine Est Cr Clr Drug Dosing Est GFR ( Amer) Est GFR (Non-Af Amer) BUN/Creatinine Ratio Glucose Estimat Average Glucose Hemoglobin A1c Lactate Calcium Magnesium Total Bilirubin AST ALT Alkaline Phosphatase Total Creatine Kinase Troponin I Total Protein Albumin Globulin Albumin/Globulin Ratio Triglycerides 129 Cholesterol 134 LDL Cholesterol, Calc 60 VLDL Cholesterol, Calc 26 HDL Cholesterol 48 Cholesterol/HDL Ratio 3 Lipase Procalcitonin TSH Free T4 Free T3 1.86 L Urine Color Urine Appearance Urine pH Ur Specific [place] Urine Protein Urine Glucose (UA) Urine Ketones Urine Blood Urine Nitrite Urine Bilirubin Urine Urobilinogen Ur Leukocyte Esterase Urine WBC (Auto) Urine RBC (Auto) U Hyaline Cast (Auto) U Epithel Cells (Auto) Urine Bacteria (Auto) SARS-CoV-2 (PCR) Influenza Type A (PCR) Influenza Type B (PCR) RSV (RT-PCR) 03/13/21 03/13/21 12:15 13:55 WBC RBC Hgb Hct MCV MCH MCHC RDW Std Deviation RDW Coeff of [place] Plt Count MPV Immature Gran % (Auto) Neut % (Auto) Lymph % (Auto) [place] % (Auto) Eos % (Auto) Baso % (Auto) Neut # (Auto) Lymph # (Auto) [place] # (Auto) Eos # (Auto) Baso # (Auto) Immature Gran # (Auto) PT INR APTT 38.6 H PTT Ratio 1.5 Sodium 125 L Potassium 3.8 D Chloride 84 L Carbon Dioxide 31 Anion Gap 10.0 BUN 72 H Creatinine 1.25 H Est Cr Clr Drug Dosing 33.6 Est GFR ( Amer) 47.0 Est GFR (Non-Af Amer) 40.6 BUN/Creatinine Ratio 57.2 H Glucose 174 H Estimat Average Glucose Hemoglobin A1c Lactate Calcium 8.7 Magnesium Total Bilirubin AST ALT Alkaline Phosphatase Total Creatine Kinase Troponin I Total Protein Albumin Globulin Albumin/Globulin Ratio Triglycerides Cholesterol LDL Cholesterol, Calc VLDL Cholesterol, Calc HDL Cholesterol Cholesterol/HDL Ratio Lipase Procalcitonin TSH Free T4 Free T3 Urine Color Urine Appearance Urine pH Ur Specific [place] Urine Protein Urine Glucose (UA) Urine Ketones Urine Blood Urine Nitrite Urine Bilirubin Urine Urobilinogen Ur Leukocyte Esterase Urine WBC (Auto) Urine RBC (Auto) U Hyaline Cast (Auto) U Epithel Cells (Auto) Urine Bacteria (Auto) SARS-CoV-2 (PCR) Influenza Type A (PCR) Influenza Type B (PCR) RSV (RT-PCR)
--- NOTE | 2021-03-13 17:36 | Gastrointestinal Consultation ---
Date of Consultation March 13, 2021 Assessment & Plan (1) Nausea and vomiting: (2) Odynophagia: One week episode of odoynophagia, nausea and vomiting related to new onset of atrial fibrillation with RVR, resulting in severe dehydration, electrolyte abnormalities, prerenal azotemia. Currently the patient is tolerating some clear liquids and is refusing further testing and evluation for odynophagia, nausea, vomiting, she will not consent to any further testing. I recommend cautiously advancing the diet and observation for further symptoms, continue ondansetron for nausea/vomiting control. Advance to full liquids this evening and observe. We will follow and assist in care as needed History of Present Illness Reason for Consultation: Dysphagia, Nausea and Vomiting Attending Physician: Celeste Newman MD History of Present Illness Ms. Bowling is an 80 yo woman admitted with one week of intractable nausea and vomiting, unable to eat, and odynophagia, and found to have atrial fibrillation with rapid ventricular response. At the time of my consultation at 1700, the patient stated that she felt much better, nausea relieved and she was able to tolerate clear liquids without odynophagia, nausea, vomiting. She stated that she did not want any more tests done to evaluate nausea and vomiting. She denied any digestive problems prior to her symptoms over the past week. She denied symptoms of dysphagia, nausea and vomiting, and weight loss. There may have been some reduction in oral intake over the past 3 weeks due to stress over the of her spouse. Allergies Allergy/AdvReac Type Severity Reaction Status Date / Time No Known Allergies Allergy Verified 03/13/21 02:00 Patient History Social History Smoking Status: Never smoker Hx Alcohol Use: No Hx Substance Use: No Preferred Language: Cook Islander Communication Ability: Effective Behavioral Intervention Specialist Required: No Beliefs That Will Affect Care: None marital status: / Current Living Situation: Alone How many Children do You have: 2 Other Information That Helps Us Care for You: No Feels Safe at Home: Yes Safety Concerns: Feels Safe At This Time Assistive Devices: Cane and Walker Review of Systems Review of Systems: All systems reviewed & are unremarkable except as noted in Subjective Physical Exam Constitutional: She is in no distress at rest, denies nausea and vomiting Respiratory: normal respiratory effort, lungs clear to auscultation Cardiovascular: Irregularly Irregular rhythm with rate 90-100 and loud Grade 3/6 systolic murmur Gastrointestinal (Abdomen): normal bowel sounds, soft, nontender, no hepatosplenomegaly Neurologic: No focal neurologic signs Psychiatric: A+Ox3, euthymic affect Results & Data ([facility]) Vital Signs (Past 12 Hours) Vital Signs Temp Pulse Resp BP Pulse Ox 03/13/21 15:44 36.6 C 94 H 17 106/68 91 03/13/21 11:26 36.4 C L 91 H 16 109/64 91 03/13/21 06:44 36.4 C L 97 H 19 138/80 95
[2021-03-13 19:53] LABS: Partial Thromboplastin Time 51.3 Seconds (21.0-31.0)
[2021-03-14] MEDS: HEPARIN SODIUM/DEXTROSE 25,000 UNITS/500 ML BAG IV SCH (00:23)
[2021-03-14] MEDS: dilTIAZem HCL 125 MG in DEXTROSE 5% 100 ML IV SCH ×2 (07:54→13:39)
[2021-03-14 08:26] LABS: Basophils # (auto) 0.01 K/uL (0-0.2); Basophils % (auto) 0.1 %; Eosinophils # (auto) 0.04 K/uL (0-0.5); Eosinophils % (auto) 0.3 %; Hemoglobin 13.7 g/dL (12.0-16.0); Immature Granulocytes # (auto) 0.03 K/uL (0.00-0.02); Immature Granulocytes % (auto) 0.2 %; Lymphocytes # (auto) 0.98 K/uL (1.2-3.4); Lymphocytes % (auto) 8.1 %; Mean Corpuscular Hemoglobin 28.8 pg (25-34); Mean Corpuscular Hgb Conc 33.4 g/dL (32-36); Mean Corpuscular Volume 86.3 fL (80-100); Mean Platelet Volume 10.2 fL (7.4-10.4); Monocytes # (auto) 0.81 K/uL (0.11-0.59); Monocytes % (auto) 6.7 %; Neutrophils # (auto) 10.23 K/uL (1.4-6.5); Neutrophils % (auto) 84.6 %; Platelet Count 375 K/uL (130-400); RDW Coefficient of Variation 13.1 % (11.5-14.5); RDW Standard Deviation 41.7 fL (36.4-46.3); Red Blood Count 4.75 M/uL (4.2-5.4)
--- NOTE | 2021-03-14 08:32 | Ultrasound Report ---
THYROID ULTRASOUND HISTORY: new hyperthyroidism COMPARISON: None. FINDINGS: Right lobe: 5.4 x 1.6 x 2.4 cm. There are few scattered nodules. Dominant hypoechoic nodule within th e upper pole measures 15 x 12 x 7 mm. This is primarily solid with a few small cystic foci. There is an additional heterogeneous solid nodule within the lower pole measuring 14 x 13 x 12 mm. These do no t meet sonographic criteria for biopsy at this time but should be followed to ensure stability. Left lobe: 5.3 x 1.4 x 2.2 cm. There is a single subcentimeter cyst measuring 5 mm. Isthmus: 4 mm in thickness. No nodules. IMPRESSION: A few right thyroid nodules as described above. These do not meet sonographic criteria for biopsy at this time but should be followed to ensure stability ACT 112: Negative or not required by law. Electronically signed by: Samuel Gonzales M.D. 03/14/2021 8:31 AM
[2021-03-14] MEDS: PANTOprazole 40 MG TAB PO SCH (08:33)
[2021-03-14 08:53] LABS: Partial Thromboplastin Ratio 1.9; Prothrombin Time 10.4 Seconds (9.0-12.0)
[2021-03-14 09:01] LABS: Albumin Level 2.7 gm/dl (3.4-5.0); BUN Creatinine Ratio 53.5 (10-20); Calcium 8.7 mg/dl (8.5-10.1); Creatinine Clr Calc Pharmacy 43.3 ml/min; Est GFR (African American) 63.9 ml/min; Est GFR (Non-African American) 55.2 ml/min; Potassium 3.3 mmol/L (3.5-5.1)
[2021-03-14 09:14] LABS: Albumin Globulin Ratio 0.8 (0.9-2); Bilirubin,Total 0.7 mg/dl (0.2-1); Globulin 3.6 gm/dl (2.5-4.0); Total Protein 6.3 gm/dl (6.4-8.2)
--- NOTE | 2021-03-14 09:58 | Medical Student Progress Note ---
Date of Service March 14, 2021 Assessment & Plan (1) Atrial fibrillation with rapid ventricular response: Plan: 80-year-old woman with no documented medical history last seen by a provider in 2006 presented to the ED after falling with a 1-week history of diffuse weakness and dysphagia Atrial fibrillation with rapid ventricular response: - EKG 03/13: A fib with premature ventricular or aberrantly conducted complexes, LBBB, T wave amp increased in anterior leads, T wave inversion evident in lateral leads - Heparin drip for anticoagulation, can consider DOAC when able - Discontinue Diltiazem drip for rate control and switch to PO Beta Keith - ECHO- normal LV size/systolic function, EF 55-60%, septal motion consistent with conduction abn (bundle-branch block), no RWMA, moderate concentric LVH,severe left atrial dilation,sclerotic aortic valve, severe mitral annular calcification, trace to small pericardial effusion, A fib with PVCs - continue cardiac monitoring - Electrolyte optimization: K>4, Mag >2, monitor calcium Hyperthyroidism - Free T3 1.86, TSH 0.259, T4 1.88 - may be interference in assays from biotin intake in one of her at-home supplements - thyroid antibody tests pending - thyroid U/S 03/14: few scattered right thyroid nodules, right lobe measures 5.4 x 1.6 x 2.4 cm. There are few scattered nodules. Dominant hypoechoic nodule within the upper pole measures 15 x 12 x 7 mm. This is primarily solid with a few small cystic foci. There is an additional heterogeneous solid nodule within the lower pole measuring 14 x 13 x 12 mm. These do not meet sonographic criteria for biopsy at this time but should be followed to ensure stability. Left lobe: 5.3 x 1.4 x 2.2 cm. There is a single subcentimeter cyst measuring 5 mm. - follow up in outpatient setting Dysphagia: - agreeable to EGD, coordinating with GI - add PPI - IV Zofran for nausea/vomiting 4 mg q6h Elevated troponin/Demand ischemia due to RVR - troponin downtrending (.108, .101, .035), - no concern of ACS Electrolyte Disturbances Hypokalemia - potassium 3.3 this AM (03/14) - likely secondary to decreased PO intake and vomiting - Potassium improved to 3.8 after repletion (03/13) Hyponatremia - Na 128, - up to 128 from 125 on 03/13 - likely sec to vomiting and hypovolemia. - monitor. Elevated BUN/Cr ratio - BUN 52. CR .97 - BUN/CR >20, poor PO intake and vomiting - Fluids as above - trend BMPs daily - considered GIB as cause of elevated BUN however h&h stable, BUN improving with fluids Incidental CT finding: - complaining of chronic back pain - Spine CT: 1.3 lucent lesion within T1 vertebral body Fall: - secondary to weakness vs. ongoing afib RVR vs. orthostatic hypotension - blood cultures pending, procal 1.25 but without WBC elevation, fever - workup as above - PT consult -DVT: heparin drip -Code: DNR/DNI -Diet: regular Dispo: PCU while continuing workup and stabilization of electrolytes (2) Hyperthyroidism: (3) Dysphagia: (4) Elevated serum creatinine: (5) Hypokalemia: (6) Elevated BUN: (7) Back pain: (8) Fall: Encounter type: initial encounter Qualified Code(s): W19.XXXA - Unspecified fall, initial encounter Admission and Anticipated Discharge Date Admission Date: March 12, 2021 Supervising Attestation Medical Student Supervision Note: I was personally present during medical student patient encounter and independently interviewed and examined the patient and verified the morris history and physical, reviewed labs and image studies, discussed the case with Sarai Hercules and agree with the findings and care plan. A fib RVR - switch to b keith. dysphagia - for EGD. ? sec to severe atrial dilation monitor and replete electrolytes Subjective No acute events overnight. This morning she was resting flat, comfortably in bed. Yesterday evening, patient states she noticed pink on the toilet paper with wiping for the first time. She has had green emesis the last 2 days, though it was brown at home. She still has not had a bowel movement (>1 week). She is still concerned about her lower abdomen being tender and her chest hurting when she eats. She did eat a few spoonfuls of cream of wheat, orange juice, milk, and марина aaron this morning and has thus far kept it down. Patient denies palpitations since admission. Yesterday, she met with Dr. Lindo from GI and said that she did not want more testing. This morning, however, she shares that she is considering further testing. She is anxious about side effects and costs of tests. She has anxiety regarding issues at home and costs associated with the passing of her . On revisit this afternoon, she would like to proceed with EGD tomorrow morning and will be meeting with a GI provider for further instructions. Review of Systems Review of Systems: All systems reviewed & are unremarkable except as noted in HPI & below Constitutional: as per Subjective / HPI Eyes: as per Subjective / HPI Ear, Nose, Mouth, Throat: + dysphagia Cardiovascular: + chest pain (with eating) Gastrointestinal: + abdominal pain (lower abdominal pain) and + vomiting (green emesis ) Genitourinary: + hematuria (pink staining of toilet paper post-urination) Physical Exam Constitutional: WD/WN, vitals as above well developed, + ill appearing, + frail appearing and cooperative Eyes: PERRL, conjunctivae normal, anicteric sclerae ENMT: external ear and nose normal, oropharynx normal Neck: trachea midline, no thyromegaly normal visual inspection Respiratory: normal respiratory effort, lungs clear to auscultation Cardiovascular: Rate/Rhythm: + irregularly irregular Heart Sounds: + murmur Vessels: no JVD, no carotid bruit and no abdominal aortic bruit Gastrointestinal (Abdomen): Inspection/Auscultation: abdomen normal to in spection, + visible herniation (LRQ) and + hypoactive bowel sounds Percussion/Palpation: + abdomen tender (lower abdominal) Musculoskeletal: no cyanosis or clubbing, extremities motor strength 5/5 Skin: no rashes, warm and dry Neurologic: PERRL, EOMI, accommodation nl, no face palsy, no dysarthria Psychiatric: A+Ox3, euthymic affect Results & Data ([facility]) Vital Signs (Past 12 Hours) Vital Signs Temp Pulse Pulse Resp BP Pulse Ox 03/14/21 07:55 87 03/14/21 07:04 36.8 C 75 16 108/72 92 03/14/21 04:12 36.9 C 55 L 15 114/82 95 03/13/21 23:04 36.7 C 77 16 107/68 98 Laboratory Results Laboratory Results - last 24 hr 03/13/21 03/14/21 03/14/21 19:19 07:57 07:57 WBC 12.10 H RBC 4.75 Hgb 13.7 Hct 41.0 MCV 86.3 MCH 28.8 MCHC 33.4 RDW Std Deviation 41.7 RDW Coeff of Mali[place] 13.1 Plt Count 375 MPV 10.2 Immature Gran % (Auto) 0.2 Neut % (Auto) 84.6 Lymph % (Auto) 8.1 [facility] % (Auto) 6.7 Eos % (Auto) 0.3 Baso % (Auto) 0.1 Neut # (Auto) 10.23 H Lymph # (Auto) 0.98 L [facility] # (Auto) 0.81 H Eos # (Auto) 0.04 Baso # (Auto) 0.01 Immature Gran # (Auto) 0.03 H PT 10.4 INR 1.0 APTT 51.3 H* 49.3 H* PTT Ratio 2.0 1.9 Sodium Potassium Chloride Carbon Dioxide Anion Gap BUN Creatinine Est Cr Clr Drug Dosing Est GFR ( Amer) Est GFR (Non-Af Amer) BUN/Creatinine Ratio Glucose Calcium Total Bilirubin AST ALT Alkaline Phosphatase Troponin I Total Protein Albumin Globulin Albumin/Globulin Ratio 03/14/21 03/14/21 07:57 10:20 WBC RBC Hgb Hct MCV MCH MCHC RDW Std Deviation RDW Coeff of Mal[place]ha Plt Count MPV Immature Gran % (Auto) Neut % (Auto) Lymph % (Auto) [facility] % (Auto) Eos % (Auto) Baso % (Auto) Neut # (Auto) Lymph # (Auto) [facility] # (Auto) Eos # (Auto) Baso # (Auto) Immature Gran # (Auto) PT INR APTT PTT Ratio Sodium 128 L Potassium 3.3 L Chloride 87 L Carbon Dioxide 32 Anion Gap 9.0 BUN 52 H Creatinine 0.97 Est Cr Clr Drug Dosing 43.3 Est GFR ( Amer) 63.9 Est GFR (Non-Af Amer) 55.2 BUN/Creatinine Ratio 53.5 H Glucose 119 H Calcium 8.7 Total Bilirubin 0.7 D AST 10 L ALT 16 Alkaline Phosphatase 67 Troponin I 0.035 Total Protein 6.3 L Albumin 2.7 L Globulin 3.6 Albumin/Globulin Ratio 0.8 L
[2021-03-14] MEDS ORDERED: SODIUM CHLORIDE 0.9% 1000ML 500 ML IV ONE (10:06)
[2021-03-14 10:16] LABS: Partial Thromboplastin Time 49.3 Seconds (21.0-31.0)
[2021-03-14] MEDS: POTASSIUM CHLORIDE / WTR 10 MEQ/100 ML PLCT IV SCH ×4 (11:06→15:11)
[2021-03-14] MEDS ORDERED: ENOXAPARIN 80 MG/0.8 ML SYR SQ SCH (12:00)
[2021-03-14] MEDS: dilTIAZem HCl 60 MG TAB PO SCH ×2 (12:38→19:17)
[2021-03-14] MEDS ORDERED: MECLIZINE HCL 25 MG TAB PO STA (15:51)
[2021-03-15] MEDS: dilTIAZem HCl 60 MG TAB PO SCH ×5 (00:51→23:42)
[2021-03-15 06:06] LABS: Partial Thromboplastin Time 27.3 Seconds (21.0-31.0); Prothrombin Time 9.9 Seconds (9.0-12.0)
[2021-03-15 06:07] LABS: Basophils # (auto) 0.01 K/uL (0-0.2); Basophils % (auto) 0.1 %; Eosinophils # (auto) 0.11 K/uL (0-0.5); Eosinophils % (auto) 1.2 %; Hemoglobin 12.4 g/dL (12.0-16.0); Immature Granulocytes # (auto) 0.06 K/uL (0.00-0.02); Immature Granulocytes % (auto) 0.6 %; Lymphocytes # (auto) 1.47 K/uL (1.2-3.4); Lymphocytes % (auto) 15.6 %; Mean Corpuscular Hemoglobin 28.4 pg (25-34); Mean Corpuscular Hgb Conc 32.6 g/dL (32-36); Mean Corpuscular Volume 87.2 fL (80-100); Mean Platelet Volume 9.8 fL (7.4-10.4); Monocytes # (auto) 0.73 K/uL (0.11-0.59); Monocytes % (auto) 7.7 %; Neutrophils # (auto) 7.04 K/uL (1.4-6.5); Neutrophils % (auto) 74.8 %; Platelet Count 332 K/uL (130-400); RDW Coefficient of Variation 13.2 % (11.5-14.5); RDW Standard Deviation 42.1 fL (36.4-46.3); Red Blood Count 4.36 M/uL (4.2-5.4); White Blood Count 9.42 K/uL (4.8-10.8)
[2021-03-15 06:56] LABS: BUN Creatinine Ratio 35.7 (10-20); Calcium 8.7 mg/dl (8.5-10.1); Est GFR (African American) 94.8 ml/min; Est GFR (Non-African American) 81.8 ml/min; Magnesium 2.3 mg/dl (1.8-2.4); Phosphorus 2.2 mg/dl (2.5-4.9); Potassium 3.5 mmol/L (3.5-5.1)
[2021-03-15] MEDS ORDERED: POTASSIUM CHLORIDE CRTAB 20 MEQ TABCR PO SCH (08:30)
[2021-03-15] MEDS ORDERED: D5W AND LACTATED RINGERS 1,000 ML IV SCH (09:00)
--- NOTE | 2021-03-15 10:21 | Medical Student Progress Note ---
Date of Service March 15, 2021 Assessment & Plan (1) Atrial fibrillation with rapid ventricular response: Plan: 80-year-old woman with no documented medical history last seen by a provider in 2006 presented to the ED after falling with a 1-week history of diffuse weakness and dysphagia Atrial fibrillation with rapid ventricular response: - EKG 03/13: A fib with premature ventricular or aberrantly conducted complexes, LBBB, T wave amp increased in anterior leads, T wave inversion evident in lateral leads; similar findings on 03/14 EKG - Heparin drip for anticoagulation, can consider DOAC when able - Continue 60 mg Diltiazem PO q6h and switch to PO Beta Keith when able - ECHO: normal LV size/systolic function, EF 55-60%, septal motion consistent with conduction abn (bundle-branch block), no RWMA, moderate concentric LVH,severe left atrial dilation,sclerotic aortic valve, severe mitral annular calcification, trace to small pericardial effusion, A fib with PVCs - continue cardiac monitoring - Electrolyte optimization: K>4, Mag >2, monitor calcium Hyperthyroidism - Free T3 1.86, TSH 0.259, T4 1.88 - may be interference in assays from biotin intake in one of her at-home supplements - thyroid antibody tests pending - thyroid U/S 03/14: few scattered right thyroid nodules, right lobe measures 5.4 x 1.6 x 2.4 cm. There are few scattered nodules. Dominant hypoechoic nodule within the upper pole measures 15 x 12 x 7 mm. This is primarily solid with a few small cystic foci. There is an additional heterogeneous solid nodule within the lower pole measuring 14 x 13 x 12 mm. These do not meet sonographic criteria for biopsy at this time but should be followed to ensure stability. Left lobe: 5.3 x 1.4 x 2.2 cm. There is a single subcentimeter cyst measuring 5 mm. - follow up in outpatient setting Dysphagia: - EGD later today - add PPI - IV Zofran for nausea/vomiting 4 mg q6h - add IVF (D5W and Lactated Ringers) 100 mls/hour PRN for hunger due to NPO status for EGD Elevated troponin/Demand ischemia due to RVR - troponin downtrending (.108, .101, .035), - no concern of ACS Electrolyte Disturbances Hypokalemia - potassium 3.3 this AM (03/14) - likely secondary to decreased PO intake and vomiting - Potassium improved to 3.8 after repletion (03/13) Hyponatremia - Na 131 - up to 131 from 125on 03/15 - likely sec to vomiting and hypovolemia. - monitor Elevated BUN/Cr ratio - BUN 25. CR .7 - BUN/CR >20, poor PO intake and vomiting - Fluids as above - trend BMPs daily - considered GIB as cause of elevated BUN however h&h stable, BUN improving with fluids Incidental CT finding: - complaining of chronic back pain - Spine CT: 1.3 lucent lesion within T1 vertebral body Fall: - secondary to weakness vs. ongoing afib RVR vs. orthostatic hypotension - blood cultures pending, procal 1.25 but without WBC elevation, fever - workup as above - PT consult - able to ambulate to bathroom with minimal assistance -DVT: heparin drip -Code: DNR/DNI -Diet: regular Dispo: PCU while continuing workup and stabilization of electrolytes Admission and Anticipated Discharge Date Admission Date: March 12, 2021 Supervising Attestation I have seen and evaluated the patient. I have discussed the case with Sarai Hercules and agree with his plan as documented. Sterling Moreira MD PGY-3 Attending Physicain Medical Student Supervision Note: I independently interviewed and examined the patient and verified the morris history and physical, reviewed labs and image studies, discussed the case with the medical student Sarai Hercules and the Resident physician Dr. Ramila Moreira and agree with the findings and care plan. s/p EGD - had 1800ml fluid drained with severe esophagitis. PPI. advance diet continue rest same. anticipate d/c home in am. Subjective No acute events overnight. She appeared mildly uncomfortable and tired, laying flat in bed this morning. She was very hungry this morning and was nervous about having to wait several hours for her EGD procedure in order to eat solid food. She still has not passed a bowel movement in 1.5 weeks. She has been able to keep all of the food and drink she consumed yesterday down thus far. She states that it feels like she has "pills stuck in her throat". She denies pain in her chest, throat, and abdomen. She is able to urinate without dysuria, urgency, or frequency. Her abdominal pain and discomfort has resolved. She denied any headache, dizziness, shortness of breath, heart palpitations, chest pain, chest tightness, ligh theadedness, calf pain. Review of Systems Review of Systems: All systems reviewed & are unremarkable except as noted in HPI & below Constitutional: + fatigue, + weakness and + increased appetite Cardiovascular: no chest pain, no palpitations, no lightheadedness, no edema and no calf pain Gastrointestinal: + pain with swallowing and + change in bowel habits (no bm in 1.5 weeks) Genitourinary: no dysuria, no difficulty urinating, no urinary frequency, no urinary hesitancy and no urinary urgency Neurologic: + generalized weakness Psychiatric: + depression, + irritability and + anxiety Endocrine: + fatigue Physical Exam Constitutional: well developed, + ill appearing and + frail appearing Eyes: PERRL, conjunctivae normal, anicteric sclerae ENMT: external ear and nose normal, oropharynx normal Neck: trachea midline, no thyromegaly normal visual inspection Respiratory: normal respiratory effort, lungs clear to auscultation Cardiovascular: Rate/Rhythm: + irregularly irregular Heart Sounds: + murmur Vessels: no JVD Extremities: no calf tenderness, no pedal edema and no edema Gastrointestinal (Abdomen): Inspection/Auscultation: + hypoactive bowel sounds Percussion/Palpation: abdomen soft and + hernia (LRQ); abdomen nontender Musculoskeletal: Extremities: extremities normal to inspection Skin: no rashes, warm and dry Neurologic: PERRL, EOMI, accommodation nl, no face palsy, no dysarthria Psychiatric: Orientation: alert and oriented x 3 Affect: + depressed affect and + flat affect Mood: + depressed mood and + irritable mood Results & Data ([facility]) Vital Signs (Past 12 Hours) Vital Signs Temp Pulse Resp BP Pulse Ox 03/15/21 08:00 36.8 C 85 20 139/59 L 95 03/15/21 03:57 36.7 C 92 H 18 126/76 95 03/14/21 23:27 36.9 C 88 16 114/68 91 Laboratory Results Laboratory Results - last 24 hr 03/15/21 03/15/21 03/15/21 05:32 05:32 05:32 WBC 9.42 RBC 4.36 Hgb 12.4 Hct 38.0 MCV 87.2 MCH 28.4 MCHC 32.6 RDW Std Deviation 42.1 RDW Coeff of Maliha 13.2 Plt Count 332 MPV 9.8 Immature Gran % (Auto) 0.6 Neut % (Auto) 74.8 Lymph % (Auto) 15.6 [facility] % (Auto) 7.7 Eos % (Auto) 1.2 Baso % (Auto) 0.1 Neut # (Auto) 7.04 H Lymph # (Auto) 1.47 Henry # (Auto) 0.73 H Eos # (Auto) 0.11 Baso # (Auto) 0.01 Immature Gran # (Auto) 0.06 H PT 9.9 INR 1.0 APTT 27.3 PTT Ratio 1.0 Sodium 131 L Potassium 3.5 Chloride 94 L Carbon Dioxide 31 Anion Gap 6.0 BUN 25 H D Creatinine 0.70 Est Cr Clr Drug Dosing 60.0 Est GFR ( Amer) 94.8 Est GFR (Non-Af Amer) 81.8 BUN/Creatinine Ratio 35.7 H Glucose 96 Calcium 8.7 Phosphorus 2.2 L Magnesium 2.3
[2021-03-15] MEDS ORDERED: PANTOprazole 40 MG in SYRINGE 0 ML IV SCH (11:00)
[2021-03-15] MEDS: PANTOprazole 40 MG TAB PO SCH ×2 (12:00→20:01)
--- NOTE | 2021-03-15 13:49 | History & Physical Report ---
Date of Service March 15, 2021 Assessment & Plan (1) Dysphagia: Plan: EGD with prn dilatation for dysphagia. Procedure and risks explained to patient which include but not limited to medication reaction, bleeding, perforation, aspiration, and missed lesions. Admission and Anticipated Discharge Date Admission Date: March 12, 2021 History of Present Illness Chief Complaint: dysphagia, vomiting Primary Care Provider: Estevan Awad MD Pt with some dysphagia and vomiting for EGD today. Allergies Allergy/AdvReac Type Severity Reaction Status Date / Time No Known Allergies Allergy Verified 03/13/21 02:00 Past Med/Surg History Social History Smoking Status: Never smoker Hx Alcohol Use: No Hx Substance Use: No Preferred Language: Serbian Communication Ability: Effective Feather Separator Required: No Beliefs That Will Affect Care: None marital status: / Current Living Situation: Alone How many Children do You have: 2 Other Information That Helps Us Care for You: No Feels Safe at Home: Yes Safety Concerns: Feels Safe At This Time Assistive Devices: Walker Physical Exam Constitutional: WD/WN, vitals as above Respiratory: normal respiratory effort, lungs clear to auscultation Gastrointestinal (Abdomen): normal bowel sounds, soft, nontender, no hepatosplenomegaly Results & Data ([facility]) Vital Signs (Past 12 Hours) Vital Signs Temp Pulse Resp BP Pulse Ox 03/15/21 13:38 36.6 C 84 18 107/73 92 03/15/21 08:00 36.8 C 85 20 139/59 L 95 03/15/21 03:57 36.7 C 92 H 18 126/76 95 Code Status & VTE Plan VTE Prophylaxis Plan VTE Prophylaxis will be ordered: Yes
--- NOTE | 2021-03-15 13:57 | Anesthesiology Consultation ---
Date of Service March 15, 2021 Assessment & Plan Chart Review Chart Review: Acceptable Risk for Surgery and Patient NOT seen in Pre Admission Testing Consults Requested none ASA ASA3 Proposed Anesthesia Anesthesia Type: MAC Risk / Benefits Reviewed With: PT / POA / Parent / Guardian, Accepts Plan and Informed Consent Obtained History Surgery Operation Date: 03/15/21 15:30 Proposed Procedures p Esophagogastroduodenoscopy Dr Xuan Govea Height/Weight Height: 5 ft 6 in Weight: 70.1 kg Allergies Allergy/AdvReac Type Severity Reaction Status Date / Time No Known Allergies Allergy Verified 03/13/21 02:00 Medications Active Medications Generic Name Dose Route Start Last Admin Trade Name Freq PRN Reason Stop Dose Admin Diltiazem HCl 60 mg 03/14/21 12:00 03/15/21 12:00 Diltiazem Hcl 60 Mg Tab PO 04/13/21 11:59 60 mg Q6 KEREN Administration Enoxaparin Sodium 70 mg 03/14/21 12:00 03/14/21 12:38 Enoxaparin 80 Mg/0.8 Ml Syr SQ 04/13/21 11:59 70 mg Q12H KEREN Administration Dextrose/Lactated Ringer's 1,000 mls @ 100 mls/hr 03/15/21 09:00 03/15/21 09:36 D5w And Lactated Ringers IV 03/15/21 18:59 100 mls/hr .Q10H KEREN Administration Ondansetron HCl 4 mg 03/13/21 00:22 03/13/21 21:19 Ondansetron Inj 2 Mg/Ml 2 Ml Vial IV 04/12/21 00:21 4 mg Q6H PRN Administration Nausea Pantoprazole Sodium 40 mg 03/13/21 11:30 03/15/21 12:00 Pantoprazole 40 Mg Tab PO 04/12/21 11:29 40 mg QAM KEREN Administration NPO Date Last Intake of Fluids: 03/15/21 Time Last Intake of Fluids: 11:30 Last Intake of Fluids Comment: sips with meds Date Last Intake of Solids: 03/14/21 Time Last Intake of Solids: 17:00 Exercise / Class Metabolic Activity II 4-5 Yardwork/Stairs/Walk up hill Past Anesthesia History No Hx of Anesthesia Complications and No Family Hx of Anesthesia Complications History of PONV No Hx of PONV and No Hx of Motion Sickness Social History Smoking Status: Never smoker Hx Alcohol Use: No Hx Substance Use: No Physical Exam Vital Signs Last Vital Signs Temp 36.6 C 03/15/21 13:38 Pulse 84 03/15/21 13:38 Resp 18 03/15/21 13:38 BP 107/73 03/15/21 13:38 Pulse Ox 92 03/15/21 13:38 ENMT Mouth: no dentition abnormality Thyromental Distance: > or= 3.5 Finger Breadths Mallampati Class: II Neck normal visual inspection Respiratory normal respiratory effort Auscultation: lungs clear to auscultation bilaterally Cardiovascular Rate/Rhythm: regular rhythm; + abnormal rate (afib) Psychiatric Orientation: alert Testing Laboratory Results 03/15/21 05:32 03/15/21 05:32 PT 9.9 Seconds (9.0-12.0) 03/15/21 05:32 INR 1.0 (0.9-1.1) 03/15/21 05:32 APTT 27.3 Seconds (21.0-31.0) 03/15/21 05:32 Hemoglobin A1c 5.4 % (4.5-5.6) 03/13/21 05:39 Urine Color Yellow 03/12/21 21:50 Urine Appearance Clear (Clear) 03/12/21 21:50 Urine pH 5.0 (4.5-7.5) 03/12/21 21:50 Ur Specific [place] 1.018 (1.000-1.030) 03/12/21 21:50 Urine Protein Negative (Negative) 03/12/21 21:50 Urine Glucose (UA) Negative (Negative) 03/12/21 21:50 Urine Ketones 1+ (Negative) H 03/12/21 21:50 Urine Nitrite Negative (Negative) 03/12/21 21:50 Ur Leukocyte Esterase Negative (Negative) 03/12/21 21:50 Urine WBC (Auto) 1-5 /hpf (0-5) 03/12/21 21:50 Urine RBC (Auto) 5-10 /hpf (0-4) H 03/12/21 21:50 U Hyaline Cast (Auto) >30 /lpf (0-5) H 03/12/21 21:50 U Epithel Cells (Auto) 5-10 /lpf (0-5) H 03/12/21 21:50 Urine Bacteria (Auto) Negative (Negative) 03/12/21 21:50 03/12/21 21:39 Aerobic Blood Culture - Preliminary Blood No growth in Aerobic bottle after 48 hours. Anaerobic Blood Culture - Preliminary No growth in Anaerobic bottle after 48 hours. 03/12/21 21:40 Aerobic Blood Culture - Preliminary Blood No growth in Aerobic bottle after 48 hours. Anaerobic Blood Culture - Final
[2021-03-15] MEDS ORDERED: PROPOFOL IV EMULSION 10 MG/ML 20 ML VIAL IV ONE (14:22)
[2021-03-15] MEDS ORDERED: LIDOCAINE 2% 2 ML VIAL/AMP(20MG/ML) INFIL ONE (14:22)
--- NOTE | 2021-03-15 15:08 | GI REPORT ---
Patient Name: Dede Bowling Procedure Date: 03/15/2021 1:52 PM Date of : 1940 Admit Type: Inpatient Age: 80 Gender: Female Attending MD: Ralf Govea MD Procedure: Upper GI endoscopy Providers: Ralf Govea MD Referring MD: Celeste Newman Indications: Dysphagia, Nausea with vomiting Medicines: Monitored Anesthesia Care Complications: No immediate complications. Estimated blood loss: Minimal. Estimated Blood Loss: Estimated blood loss was minimal. Procedure: Pre-Anesthesia Assessment: - The risks and benefits of the procedure and the sedation options and risks were discussed with the patient. All questions were answered and informed consent was obtained. After obtaining informed consent, the endoscope was passed under direct vision. Throughout the procedure, the patient's blood pressure, pulse, and oxygen saturations were monitored continuously. The Endoscope was introduced through the mouth, and advanced to the second part of duodenum. The upper GI endoscopy was accomplished without difficulty. The patient tolerated the procedure well. Procedure and risks explained to patient which include but not limited to medication reaction, bleeding, perforation, aspiration , and missed lesions. Judicious gas insufflation was used and gas removal done on the way out. The lumen was always visualized when advancing the scope. Prep was good. Washes and suctioning used as needed to get good visualization of the mucosa. Retroflexion to look at the fundus and cardia of the stomach and GE junction was done. Findings: Esophagogastric landmarks were identified: the Z-line was found at 38 cm from the incisors. There were esophageal mucosal changes consistent with long-segment Johnson's esophagus present in the lower third of the esophagus. The maximum longitudinal extent of these mucosal changes was 8 cm in length. Biopsies were taken with a cold forceps for histology. Estimated blood loss was minimal. Few superficial esophageal ulcers were found in the lower third of the esophagus. 1800 ml of fluid removed from the stomach with some residual remaining. Lesions could be missed in the stomach. Excessive fluid was found in the entire examined stomach. Multiple diminutive sessile polyps were found in the gastric body. The in the duodenum was normal. The exam was otherwise without abnormality. Impression: - Esophagogastric landmarks identified. 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 Biopsied. - Esophageal ulcers. 1800 ml of fluid removed from the stomach with some residual remaining. Lesions could be missed in the stomach. - Excessive gastric fluid. - Multiple gastric polyps. - Normal. - The examination was otherwise normal. Recommendation: - Await pathology results. - [facility] care. - Increase PPI to bid. Full liquid diet or equivalent for gastroparesis. Would repeat EGD with general anesthesia as outpt on clear liquid diet for 24 hours prior to look for stomach lesions and also do more extensive biopsy of Barretts Ralf oGvea M.D. Ralf Govea MD 03/15/2021 3:07:57 PM This report has been signed electronically. Note Initiated On: 03/15/2021 1:52 PM Number of Addenda: 0 I attest to the content of the Intraoperative Record and orders documented therein, exceptions below {[id number]}
--- NOTE | 2021-03-15 16:07 | Anesthesiology Progress Note ---
Date of Service March 15, 2021 Anesthesia Post Procedure Vital Signs Vital Signs: Temp Pulse Pulse Resp BP Pulse Ox 03/15/21 15:16 79 18 110/59 L 94 03/15/21 15:01 75 16 91/59 L 94 03/15/21 13:38 36.6 C 84 18 107/73 92 03/15/21 08:00 36.8 C 85 20 139/59 L 95 03/15/21 03:57 36.7 C 92 H 18 126/76 95 03/14/21 23:27 36.9 C 88 16 114/68 91 03/14/21 19:52 36.7 C 92 H 20 116/69 91 03/14/21 16:57 92 H 03/14/21 15:57 36.7 C 59 L 18 107/70 90 Transfer of Care Handoff Completed per policy Notes Mental Status: alert / awake / arousable and participated in evaluation Patient Amnestic to Procedure: Yes Nausea / Vomiting: adequately controlled Pain: adequately controlled Airway Patency, RR, SpO2: stable & adequate BP & HR: stable & adequate Hydration State: stable & adequate Anesthetic Complications: no major complications apparent and Pt Satisfied with anesthetic care
--- NOTE | 2021-03-15 19:30 | Electrocardiogram Report ---
Test Reason : Blood Pressure : / mmHG Vent. Rate : 144 BPM Atrial Rate : 150 BPM P-R Int : 000 ms QRS Dur : 152 ms QT Int : 360 ms P-R-T Axes : 000 133 -20 degrees QTc Int : 557 ms Atrial fibrillation with rapid ventricular response Right axis deviation Left bundle branch block Abnormal ECG No previous ECGs available Confirmed by Yung Valerio ([id number]) on 03/15/2021 7:30:16 PM Referred By: REFERRED SELF Confirmed By:Yung Valerio
--- NOTE | 2021-03-15 19:45 | Electrocardiogram Report ---
Test Reason : Blood Pressure : / mmHG Vent. Rate : 098 BPM Atrial Rate : 089 BPM P-R Int : 000 ms QRS Dur : 166 ms QT Int : 370 ms P-R-T Axes : 000 033 263 degrees QTc Int : 472 ms Atrial fibrillation with premature ventricular or aberrantly conducted complexes Left bundle branch block Abnormal ECG When compared with ECG of 12-MAR-2021 19:11, (unconfirmed) HR has decreased QRS axis Shifted left T wave amplitude has increased in Anterior leads T wave inversion now evident in Lateral leads Confirmed by Yung Valerio ([id number]) on 03/15/2021 7:44:38 PM Referred By: REFERRED SELF Confirmed By:Yung Valerio
--- NOTE | 2021-03-15 21:50 | Electrocardiogram Report ---
Test Reason : Blood Pressure : / mmHG Vent. Rate : 097 BPM Atrial Rate : 110 BPM P-R Int : 000 ms QRS Dur : 152 ms QT Int : 428 ms P-R-T Axes : 000 035 247 degrees QTc Int : 543 ms Atrial fibrillation with premature ventricular or aberrantly conducted complexes Left bundle branch block Abnormal ECG When compared with ECG of 13-MAR-2021 03:42, (unconfirmed) No significant change Confirmed by Yung Valerio ([id number]) on 03/15/2021 9:50:21 PM Referred By: REFERRED SELF Confirmed By:Yung Valerio
[2021-03-16] MEDS: dilTIAZem HCl 60 MG TAB PO SCH ×2 (05:55→12:10)
[2021-03-16 07:21] LABS: Hematocrit (blood only) 40.1 % (37-47); Hemoglobin 13.4 g/dL (12.0-16.0); Mean Corpuscular Hemoglobin 29.3 pg (25-34); Mean Corpuscular Hgb Conc 33.4 g/dL (32-36); Mean Corpuscular Volume 87.6 fL (80-100); Mean Platelet Volume 9.9 fL (7.4-10.4); Platelet Count 358 K/uL (130-400); RDW Coefficient of Variation 13.3 % (11.5-14.5); RDW Standard Deviation 42.2 fL (36.4-46.3); Red Blood Count 4.58 M/uL (4.2-5.4); White Blood Count 10.09 K/uL (4.8-10.8)
[2021-03-16 07:35] LABS: Partial Thromboplastin Time 25.9 Seconds (21.0-31.0); Prothrombin Time 9.8 Seconds (9.0-12.0)
[2021-03-16 07:56] LABS: BUN Creatinine Ratio 23.1 (10-20); Calcium 8.9 mg/dl (8.5-10.1); Creatinine Clr Calc Pharmacy 61.8 ml/min; Est GFR (African American) 95.8 ml/min; Est GFR (Non-African American) 82.6 ml/min; Magnesium 2.1 mg/dl (1.8-2.4); Phosphorus 2.4 mg/dl (2.5-4.9); Potassium 3.4 mmol/L (3.5-5.1)
[2021-03-16] MEDS: PANTOprazole 40 MG TAB PO SCH (08:21)
--- NOTE | 2021-03-16 10:21 | Discharge Summary ---
Date of Service March 16, 2021 Admission HPI Per Admitting Provider Dede Bowling has no past medical history but has not seen her PCP Dr. Awad in, "years". She does not take any prescriptions but takes vitamins and supplements. She has been sick for one week with sore throat, head cold, congestion, and when her lung congestions started to clear she started to vomit with meals several times a day. Her last meal was on Thursday 7 days ago. She had a fall today where she fell to the ground while feeling weak. She did not lose consciousness and had a similar event a few days prior. She lives at home alone since her after [place] and has 2 levels to her home. She does not use any assisted devices. When I brought up that she would potentially need to start penitentiary medication for her heart rate and potentially for a risk of stroke she was resistant stating that she would not like to be on medications. She has concerns about the side effects of the medications and would prefer natural medicine. I discussed that there may not be natural alternatives to the medications and that we would discuss the risks and benefits of medications with her. She was okay with all of her current treatments with the exception of her Heparin drip. ER course: ASA, Dilt. drip, Ceftriaxone, IVF 1L, KCl Admission Exam Per Admitting Provider Constitutional: well developed and well nourished; no acute distress Eyes: PERRL, conjunctivae normal, anicteric sclerae ENMT: external ear and nose normal, oropharynx normal Neck: normal visual inspection Respiratory: normal respiratory effort, lungs clear to auscultation Cardiovascular: Rate/Rhythm: + tachycardic and + irregularly irregular Gastrointestinal (Abdomen): normal bowel sounds, soft, nontender, no hepatospl enomegaly Musculoskeletal: no cyanosis or clubbing, extremities motor strength 5/5 Skin: no rashes, warm and dry Neurologic: no focal motor deficits Psychiatric: Orientation: alert and oriented x 3 Principal Diagnosis Afib with RVR Discharge Data Allergies Allergy/AdvReac Type Severity Reaction Status Date / Time No Known Allergies Allergy Verified 03/13/21 02:00 Consultations 03/12/21 20:57 ED Decision to Admit Stat 03/14/21 10:08 Consult Gastroenterology Routine 03/15/21 16:05 Consult Behavioral Health Liaison Routine Procedures Performed Operation Date: 03/15/21 15:30 Actual Procedures p EGD Biopsy Cytology - Ralf Govea Ordered Studies 03/12/21 19:17 CT head/brain wo con Stat 03/12/21 19:36 CT cervical spine wo con Stat 03/13/21 15:40 US thyroid Routine Hospital Course (1) Atrial fibrillation with rapid ventricular response: Total Time Total Time Spent Total Time Spent (In Minutes): See attending attestation Discharge Plan Discharge Items Reason For Visit: AF WITH RVR Follow-up/Referrals: Estevan Awad MD [Primary Care Provider] - Admission Data Admit Date/Time: 03/12/21 22:34 Attending Provider: Celeste Newman Admit Provider: Christie Moreira Primary Care Provider: Estevan Awad Other Providers: Christie Moreira ; Alex Lindo ; Lala Herring at [place] ; [facility] ; [facility] Other Interventions: Discharge Summary Assessment (RN) Last Done: 03/15/21 15:28
--- NOTE | 2021-03-16 12:26 | Gastroenterology Progress Note ---
Date of Service March 16, 2021 Assessment & Plan (1) Dysphagia: Plan: - EGD with severe esophagitis - PPI BID - soft diet as tolerated (may need FLD, see below) - symptom control (2) Nausea and vomiting: Plan: - etiology unclear, timeline unclear, 1800mL in stomach suggest mechanical/motility issue - would obtain CT with IV and PO contrast - pending results, maybe due to constipation? - No BM in 2 weeks - recommend bowel regime (may need clean out) - will likely need repeat EGD to clear remainder of stomach - outpatient f/up w/ GES may be indicated (3) Esophagitis: Plan: - see above, outpt follow up Admission and Anticipated Discharge Date Admission Date: March 12, 2021 Subjective No acute events overnight. EGD yesterday with severe esophagitis and 1800 mL suctioned from stomach. No obvious obstruction. Denies any abdominal pain. Eat soft diet this AM, doesn't "sit well", no nausea or vomiting. Depressed with recent passing of . Reports weight loss 15 lbs and poor appetite since. No bowel movement. Physical Exam Physical Exam: NAD, resting comfortable in chair Respiratory: no resp distress Cardiovascular: see tele Gastrointestinal (Abdomen): soft, NT, ND, no guarding/rebound Skin: warm dry intact Neurologic: AOx3 moves all 4 ext Results & Data ([facility]) Vital Signs (Past 12 Hours) Vital Signs Temp Pulse Pulse Resp BP BP Pulse Ox 03/16/21 12:14 36.5 C 102 H 18 115/70 93 03/16/21 08:00 36.5 C 70 20 109/64 97 03/16/21 07:14 75 03/16/21 05:28 105/67 111/69 03/16/21 04:33 36.7 C 86 20 113/60 91 03/16/21 00:29 84
--- NOTE | 2021-03-16 15:08 | Hospitalist Progress Note ---
Date of Service March 16, 2021 Assessment & Plan (1) Atrial fibrillation with rapid ventricular response: Plan: 80-year-old woman with no documented medical history last seen by a provider in 2006 presented to the ED after falling with a 1-week history of diffuse weakness and dysphagia Atrial fibrillation with rapid ventricular response: - EKG 03/13: A fib with premature ventricular or aberrantly conducted complexes, LBBB, T wave amp increased in anterior leads, T wave inversion evident in lateral leads; similar findings on 03/14 EKG - ECHO: normal LV size/systolic function, EF 55-60%. Septal motion consistent with conduction abn (bundle-branch block). No RWMA, moderate concentric LVH, severe left atrial dilation,sclerotic aortic valve, severe mitral annular calcification, trace to small pericardial effusion, A fib with PVCs. - Heparin drip transitioned to lovenox - Transitioned to Eliquis 5mg po BID on 03/16. - Diltiazem drip started on admission. Converted to 60 mg Diltiazem PO q6h. Transitioned to metoprolol tartrate 50mg po BID as of 03/16. Can provide additional lopressor IV as needed. Dysphagia w/ Nausea/Vomiting, Esophagitis - GI consulted. 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 Biopsied, pending. Esophageal ulcers. 1800mL of fluid removed from the stomach w/ some residual remaining. Multiple gastric polyps. - Recommend repeat EGD with general anesthesia as outpatient on clear liquid diet x24 hours prior to look for stomach lesions and to do more extensive biopsy of Barretts. - Started on PPI BID on 03/15 - Started on Miralax BID on 03/16 per GI recommendations - CT abd/pelvis w/ oral and IV contrast ordered per GI recommendations to assess for possible gastric outlet obstruction - change diet to full liquid Elevated troponin/Demand ischemia due to RVR - Troponin appropriately downtrended after admission: .108, .101, .035 - No concern of ACS Hyperthyroidism - Free T3 1.86, TSH 0.259, T4 1.88 - Consider interference in assays from biotin intake in one of her at-home supplements - Thyroid antibody tests pending - Thyroid U/S 03/14: few scattered right thyroid nodules, right lobe measures5. 4 x 1.6 x 2.4 cm. There are few scattered nodules. Dominant hypoechoic nodule within the upper pole measures 15 x 12 x 7 mm. This is primarily solid with a few small cystic foci. There is an additional heterogeneous solid nodule within the lower pole measuring 14 x 13 x 12 mm. These do not meet sonographic criteria for biopsy at this time but should be followed to ensure stability. Left lobe: 5.3 x 1.4 x 2.2 cm. There is a single subcentimeter cyst measuring 5 mm. - Recommend follow up in outpatient setting Electrolyte Disturbances: corrected during hospitalization - Hypokalemia - likely secondary to decreased PO intake and vomiting - Hyponatremia - likely sec to vomiting and hypovolemia. - Continue to check BMP qAM and replete as indicated. Weakness/Deconditioning - PT evaluated patient and recommended inpatient rehab - Patient initially refusing rehab and home health/PT. However, as of 03/16, patient is now agreeable to rehab placement. - Appreciate case management's support and assistance. - Patient's daughter, Jennifer, called and updated on plan. She is in agreement with placement/rehab Incidental CT finding: - complaining of chronic back pain - Spine CT: 1.3 lucent lesion within T1 vertebral body - Recommend outpatient follow up Fall: - Secondary to weakness vs. ongoing afib RVR vs. orthostatic hypotension - Blood cultures negative - PT consult (see above) DVT: eliquis Code: DNR/DNI Diet: full liquid Dispo: PCU; pending placement for rehab Admission and Anticipated Discharge Date Admission Date: March 12, 2021 Supervising Physician Co-Signing Physician Notes Resident Physician Supervision Note: I independently interviewed and examined the patient and verified the morris history and physical, reviewed labs and image studies and agree with resident Dr. Mercado findings and care plan. Subjective No acute events overnight. Patient seen and evaluated at bedside this morning. Reports increasing fatigue and weakness. Patient w/ flat affect. She denies abdominal pain, nausea, vomiting, CP, or SOB. Review of Systems Review of Systems: See HPI Physical Exam Physical Exam: GENERAL: No acute distress. Well developed. Vital signs rev iewed as above. EYES: EOMI. Anicteric sclerae. HENT: Moist mucous membranes. RESPIRATORY: Clear to auscultation bilaterally. No wheezing, rales, or rhonchi. CARDIOVASCULAR: Regular rate. Irregularly irregular rhythm. + murmur. No edema. ABDOMEN: Soft, non-tender and non-distended. Normal bowel sounds. EXTREMITIES: No edema. Non-tender. SKIN: Warm, dry. NEUROLOGIC: A/O x3. No focal neurological deficits. PSYCHIATRIC: Cooperative. Flat affect. Results & Data Results & Data ([facility]) Vital Signs (Past 12 Hours) Vital Signs Temp Pulse Pulse Resp BP BP Pulse Ox 03/16/21 14:52 108 H 03/16/21 12:14 36.5 C 102 H 18 115/70 93 03/16/21 08:00 36.5 C 70 20 109/64 97 03/16/21 07:14 75 03/16/21 05:28 105/67 111/69 03/16/21 04:33 36.7 C 86 20 113/60 91 Laboratory Results 03/16/21 03/16/21 03/16/21 Range/Units 06:56 06:56 06:56 WBC 10.09 (4.8-10.8) K/uL RBC 4.58 (4.2-5.4) M/uL Hgb 13.4 (12.0-16.0) g/dL Hct 40.1 (37-47) % MCV 87.6 (80-100) fL MCH 29.3 (25-34) pg MCHC 33.4 (32-36) g/dL RDW Std Deviation 42.2 (36.4-46.3) fL RDW Coeff of [place] 13.3 (11.5-14.5) % Plt Count 358 (130-400) K/uL MPV 9.9 (7.4-10.4) fL PT 9.8 (9.0-12.0) Seconds INR 1.0 (0.9-1.1) APTT 25.9 (21.0-31.0) Seconds PTT Ratio 1.0 Sodium 134 L (136-145) mmol/L Potassium 3.4 L (3.5-5.1) mmol/L Chloride 96 L (98-107) mmol/L Carbon Dioxide 29 (21-32) mmol/L Anion Gap 8.0 (3-11) BUN 16 (7-18) mg/dl Creatinine 0.68 (0.6-1.2) mg/dl Est Cr Clr Drug Dosing 61.8 ml/min Est GFR ( Amer) 95.8 ml/min Est GFR (Non-Af Amer) 82.6 ml/min BUN/Creatinine Ratio 23.1 H (10-20) Glucose 99 (70-99) mg/dl Calcium 8.9 (8.5-10.1) mg/dl Phosphorus 2.4 L (2.5-4.9) mg/dl Magnesium 2.1 (1.8-2.4) mg/dl Resident Activity Tracking Resident Involvement: Resident Care Provided Care Provided: Adult [facility]
[2021-03-16] MEDS ORDERED: METOPROLOL TARTRATE 1 MG/ML VIAL IV STA (15:13)
[2021-03-16] MEDS ORDERED: OPTIRAY 320 100ml IV ONE (16:23)
--- NOTE | 2021-03-16 16:47 | CT Scan Report ---
CT SCAN OF THE ABDOMEN AND PELVIS WITH IV CONTRAST CLINICAL HISTORY: Nausea and vomiting. Recent endoscopy. COMPARISON STUDY: No priors. TECHNIQUE: Following the IV administration of 95 cc of Optiray 320, CT scan of the abdomen and pelvi s is performed from the lung bases to the proximal femora. Images are reviewed in the axial, sagittal , and coronal planes. IV contrast was administered without complication. Oral contrast was utilized. A dose lowering technique was utilized adhering to the principles of ALARA. CT DOSE: 777.27 mGycm FINDINGS: Lung bases: The heart is in the lower and without pericardial effusion. The mitral annulus is densely calcified. The lung bases are clear noting bibasilar scarring/atelectasis. Liver: The contrast-enhanced liver is normal in size, contour, and attenuation. There is no intrahepa tic biliary ductal dilatation. The hepatic veins and portal veins are patent. A 15 mm benign-appearin g calcification is incidentally noted in the dome of the liver. Gallbladder: There is calcification of the gallbladder wall. The gallbladder is otherwise normal as v isualized. Spleen: Normal in size and attenuation. Pancreas: There are scattered parenchymal calcifications. The pancreas is otherwise grossly unremarka ble. Adrenal glands: Unremarkable. Kidneys: The contrast enhanced kidneys are normal in size and without hydronephrosis. The kidneys enh ance symmetrically. There is a septated left renal cyst which measures up to 7.7 cm. Abdominal vasculature: The abdominal aorta is normal in course and caliber noting moderate to advance d atherosclerotic calcification. Bowel: The stomach is markedly distended and fluid-filled, as are the small bowel loops. Small bowel loops measure up to 4.5 cm in diameter. A loop of small bowel is contained within a right inguinal he rnia, and the small bowel loop distal to the hernia is decompressed, as is the colon. Findings are co nsistent with a high-grade small bowel obstruction secondary to an incarcerated inguinal hernia. The small bowel within the hernia is thick-walled and hyperemic as seen on image #376. There is a tiny fo cus of extra luminal gas seen on image #381. There is also fluid within the hernia sac. No pneumatosi s intestinalis or portal venous gas is seen. There is mild colonic diverticulosis without CT evidence of acute diverticulitis. The appendix is not visualized. Peritoneum: No intraperitoneal free air seen below the diaphragm. As noted above, there is a small fo cus of extraluminal gas present within the right inguinal hernia a small one of free fluid is seen in the pelvis.. There is a fat and fluid containing umbilical hernia. Lymphadenopathy: None. Pelvic viscera: The bladder is distended but otherwise normal in appearance. There are numerous uteri ne masses, several of which are calcified. These are typical for fibroids. No adnexal lesion is seen. Skeletal structures: The skeletal structures are osteopenic. There is advanced lumbar sacral spondylo sis. There is a severe chronic-appearing compression deformity of T12 with mildly retropulsed fragmen ts. Arthritic change is noted in the hips. No lytic or blastic lesions are seen. IMPRESSION: 1. Findings are consistent with a high-grade small bowel obstruction secondary to an incarcerated rig ht inguinal hernia. Surgical assessment is advised. 2. The loop of small bowel within the hernia appears thick-walled and hyperemic, and there is fluid a nd a small focus of extraluminal gas within the hernia sac. A small perforation is not excluded. 3. No intraperitoneal free air is seen below the diaphragm. No pneumatosis intestinalis or portal carmen ous gas is identified. 4. A small volume of free fluid in the pelvis is likely reactive. 5. Numerous calcified uterine masses are pathologically indeterminant but typical for fibroids. 6. There is calcification of the gallbladder wall which can be seen with porcelain gallbladder. 7. Cardiomegaly. 8. Additional findings as above. ACT 112: Negative or not required by law. Electronically signed by: Kaz Paredes M.D. 03/16/2021 4:46 PM
[2021-03-16] MEDS: POLYETHYLENE (MIRALAX) 17 GM PACK PO SCH (16:59)
[2021-03-16] MEDS: LACTATED RINGER'S 1,000 ML IV SCH (17:52)
[2021-03-16] MEDS ORDERED: ePHEDrine sulfate 50 MG/ML AMP IV PRN (19:08)
[2021-03-16] MEDS ORDERED: ONDANSETRON INJ 2 MG/ML 2 ML VIAL IV PRN (19:08)
[2021-03-16] MEDS ORDERED: ATROPINE SULFATE 0.1 MG/ML 10ML SYR IV PRN (19:08)
[2021-03-16] MEDS ORDERED: HYDROmorphone INJ 2 MG/ML SYR/VIAL IV PRN (19:08)
[2021-03-16] MEDS ORDERED: fentaNYL citrate 100 MCG/2 ML VIAL IV PRN (19:08)
--- NOTE | 2021-03-16 19:08 | Anesthesiology Consultation ---
Date of Service March 16, 2021 Assessment & Plan ASA ASA4E Proposed Anesthesia Anesthesia Type: General Risk / Benefits Reviewed With: PT / POA / Parent / Guardian, Accepts Plan and Informed Consent Obtained Additional Comments: will place ng tube prior to induction. rsi History Surgery Operation Date: 03/15/21 15:30 Proposed Procedures p Esophagogastroduodenoscopy Dr Govea - Ralf Govea Operation Date: 03/16/21 19:00 Proposed Procedures p Laparoscopic Bowel Resection - Kevin Mackey DO, FACS Height/Weight Height: 5 ft 6 in Weight: 68.2 kg Allergies Allergy/AdvReac Type Severity Reaction Status Date / Time No Known Allergies Allergy Verified 03/13/21 02:00 Medications Active Medications Generic Name Dose Route Start Last Admin Trade Name Freq PRN Reason Stop Dose Admin Lactated Ringer's 1,000 mls @ 100 mls/hr 03/16/21 17:15 03/16/21 17:52 Lr IV 04/15/21 17:14 100 mls/hr .Q10H KEREN Administration Ondansetron HCl 4 mg 03/13/21 00:22 03/16/21 19:20 Ondansetron Inj 2 Mg/Ml 2 Ml Vial IV 04/12/21 00:21 4 mg Q6H PRN Administration Nausea Pantoprazole Sodium 40 mg 03/15/21 21:00 03/16/21 08:21 Pantoprazole 40 Mg Tab PO 04/14/21 20:59 Not Given BID KEREN Polyethylene Glycol 17 gm 03/16/21 13:00 03/16/21 16:59 Polyethylene (Miralax) 17 Gm Pack PO 04/15/21 12:59 Not Given BID KEREN NPO Date Last Intake of Fluids: 03/15/21 Time Last Intake of Fluids: 11:30 Last Intake of Fluids Comment: sips with meds Date Last Intake of Solids: 03/14/21 Time Last Intake of Solids: 17:00 Past Medical History Medical History (Updated 03/16/21 @ 19:12 by Kevin Mackey DO, FACS) Incarcerated right inguinal hernia Small bowel obstruction Exercise / Class Metabolic Activity II 4-5 Yardwork/Stairs/Walk up hill Past Anesthesia History No Hx of Anesthesia Complications and No Family Hx of Anesthesia Complications History of PONV No Hx of PONV and No Hx of Motion Sickness Social History Smoking Status: Never smoker Hx Alcohol Use: No Hx Substance Use: No Review of Systems denies fever/cough/ colds/ chest pain/ SOB/ SHABANA denies SHABANA Physical Exam Vital Signs Last Vital Signs Temp 36.5 C 03/16/21 12:14 Pulse 121 H 03/16/21 15:39 Resp 18 03/16/21 15:39 BP 112/73 03/16/21 15:39 Pulse Ox 91 03/16/21 15:39 ENMT Mouth: no TMJ abnormality and no dentition abnormality Thyromental Distance: > or= 3.5 Finger Breadths Mallampati Class: II Neck neck extension not limited Respiratory normal respiratory effort; no respiratory distress Auscultation: lungs clear to auscultation bilaterally Cardiovascular Rate/Rhythm: + tachycardic; + abnormal rhythm Neurologic moves all extremities Psychiatric Orientation: alert and oriented x 3 Testing Laboratory Results 03/16/21 06:56 03/16/21 06:56 PT 9.8 Seconds (9.0-12.0) 03/16/21 06:56 INR 1.0 (0.9-1.1) 03/16/21 06:56 APTT 25.9 Seconds (21.0-31.0) 03/16/21 06:56 Hemoglobin A1c 5.4 % (4.5-5.6) 03/13/21 05:39 Urine Color Yellow 03/12/21 21:50 Urine Appearance Clear (Clear) 03/12/21 21:50 Urine pH 5.0 (4.5-7.5) 03/12/21 21:50 Ur Specific Sumner 1.018 (1.000-1.030) 03/12/21 21:50 Urine Protein Negative (Negative) 03/12/21 21:50 Urine Glucose (UA) Negative (Negative) 03/12/21 21:50 Urine Ketones 1+ (Negative) H 03/12/21 21:50 Urine Nitrite Negative (Negative) 03/12/21 21:50 Ur Leukocyte Esterase Negative (Negative) 03/12/21 21:50 Urine WBC (Auto) 1-5 /hpf (0-5) 03/12/21 21:50 Urine RBC (Auto) 5-10 /hpf (0-4) H 03/12/21 21:50 U Hyaline Cast (Auto) >30 /lpf (0-5) H 03/12/21 21:50 U Epithel Cells (Auto) 5-10 /lpf (0-5) H 03/12/21 21:50 Urine Bacteria (Auto) Negative (Negative) 03/12/21 21:50 03/12/21 21:39 Aerobic Blood Culture - Preliminary Blood No growth in Aerobic bottle after 48 hours. Anaerobic Blood Culture - Preliminary No growth in Anaerobic bottle after 48 hours. 03/12/21 21:40 Aerobic Blood Culture - Preliminary Blood No growth in Aerobic bottle after 48 hours. Anaerobic Blood Culture - Final
--- NOTE | 2021-03-16 19:18 | Surgery Consultation ---
Date of Consultation March 16, 2021 Assessment & Plan (1) Incarcerated right inguinal hernia: 80y/o female with incarcerated right inguinal hernia with small bowel obstruction and question of possible perforation or ischemia. plan for diagnostic laparoscopy, laparoscopic right inguinal hernia repair, possible open, possible bowel resection risks discussed to include but not limited to bleeding, infection, recurrence, chronic pain, damage to surrounding structures including testicle, need for future or more extensive surgery, and risks of anesthesia After discussion with the patient regarding her CODE STATUS she stated that she would agree to CPR and intubation for lifesaving measures in the perioperative period. She does not want to be kept alive artificially which as she defined it meant having to be on the ventilator for long periods of time or in a coma. We will update the daughter for an after surgery. (2) Small bowel obstruction: (3) Atrial fibrillation with rapid ventricular response: History of Present Illness Attending Physician: Celeste Newman MD History of Present Illness 80-year-old female admitted with A. fib with RVR and vertigo several days ago. She had increasing abdominal distention and had a EGD which showed distal esophagitis along with distended fluid-filled stomach. CT scan performed today showed small bowel obstruction with a right inguinal hernia as the lead point with possible ischemia or perforation. She denies any prior abdominal surgery. She knows she has the hernia but does not think it is changed much. It is tender. She feels like her abdomen is distended. Last dose of Lovenox yesterday, was to start Eliquis this evening. Allergies Allergy/AdvReac Type Severity Reaction Status Date / Time No Known Allergies Allergy Verified 03/13/21 02:00 Patient History Medical History (Updated 03/16/21 @ 19:12 by Kevin Mackey DO, FACS) Incarcerated right inguinal hernia Small bowel obstruction Social History Smoking Status: Never smoker Hx Alcohol Use: No Hx Substance Use: No Preferred Language: Yakut Communication Ability: Effective Continuous Improvement Intern Required: No Beliefs That Will Affect Care: None marital status: / Current Living Situation: Alone How many Children do You have: 2 Other Information That Helps Us Care for You: No Feels Safe at Home: Yes Safety Concerns: Feels Safe At This Time Assistive Devices: Walker Review of Systems Review of Systems: All systems reviewed & are unremarkable except as noted in HPI & below Physical Exam Constitutional: WD/WN, vitals as above + acute distress (Moderate) Respiratory: normal respiratory effort, lungs clear to auscultation Cardiovascular: Rate/Rhythm: + irregularly irregular Gastrointestinal (Abdomen): Inspection/Auscultation: + abdomen distended Percussion/Palpation: + abdomen tender, abdomen soft and + hernia (Incarcerated right inguinal hernia); no guarding, abdomen not rigid and no hepatosplenomegaly Results & Data ([facility]) Vital Signs (Past 12 Hours) Vital Signs Temp Pulse Pulse Resp BP BP BP 03/16/21 15:39 121 H 121 H 18 112/73 03/16/21 14:52 108 H 03/16/21 12:14 36.5 C 102 H 18 115/70 03/16/21 08:00 36.5 C 70 20 109/64 03/16/21 07:14 75 Pulse Ox 03/16/21 15:39 91 03/16/21 14:52 03/16/21 12:14 93 03/16/21 08:00 97 03/16/21 07:14 Laboratory Results Laboratory Results - last 24 hr 03/16/21 03/16/21 03/16/21 06:56 06:56 06:56 WBC 10.09 RBC 4.58 Hgb 13.4 Hct 40.1 MCV 87.6 MCH 29.3 MCHC 33.4 RDW Std Deviation 42.2 RDW Coeff of Maliha 13.3 Plt Count 358 MPV 9.9 PT 9.8 INR 1.0 APTT 25.9 PTT Ratio 1.0 Sodium 134 L Potassium 3.4 L Chloride 96 L Carbon Dioxide 29 Anion Gap 8.0 BUN 16 Creatinine 0.68 Est Cr Clr Drug Dosing 61.8 Est GFR ( Amer) 95.8 Est GFR (Non-Af Amer) 82.6 BUN/Creatinine Ratio 23.1 H Glucose 99 Calcium 8.9 Phosphorus 2.4 L Magnesium 2.1 Diagnostic Findings [place], [place] [phone] CT Scan Report Patient:PRABHAKAR DODSON Admit Date:03/12/21 MR#:[id number] Address1:[address] [place] [address] Acct ID:[id number] Address2: Date:1940 [facility] Zip:[place] [address] Age:80 Location: Sex:F Room/Bed:[facility] Att Phy:Celeste Newman MD Diagnosis:AF WITH RVR Petty Phy:Estevan Awad MD Service Date:03/16/21 [facility] Phy: Interpreting Phy:Kaz Paredes MDAdmit Phy:Christie Moreira D.O. Ordering Phy:Leelee Mercado DO cc: ~ CT SCAN OF THE ABDOMEN AND PELVIS WITH IV CONTRAST CLINICAL HISTORY: Nausea and vomiting. Recent endoscopy. COMPARISON STUDY: No priors. TECHNIQUE: Following the IV administration of 95 cc of Optiray 320, CT scan of the abdomen and pelvis is performed from the lung bases to the proximal femora. Images are reviewed in the axial, sagittal, and coronal planes. IV contrast was administered without complication. Oral contrast was utilized. A dose lowering technique was utilized adhering to the principles of ALARA. CT DOSE: 777.27 mGycm FINDINGS: Lung bases: The heart is in the lower and without pericardial effusion. The mitral annulus is densely calcified. The lung bases are clear noting bibasilar scarring/atelectasis. Liver: The contrast-enhanced liver is normal in size, contour, and attenuation. There is no intrahepatic biliary ductal dilatation. The hepatic veins and portal veins are patent. A 15 mm benign-appearing calcification is incidentally noted in the dome of the liver. Gallbladder: There is calcification of the gallbladder wall. The gallbladder is otherwise normal as visualized. Spleen: Normal in size and attenuation. Pancreas: There are scattered parenchymal calcifications. The pancreas is otherwise grossly unremarkable. Adrenal glands: Unremarkable. Kidneys: The contrast enhanced kidneys are normal in size and without hydronephrosis. The kidneys enhance symmetrically. There is a septated left renal cyst which measures up to 7.7 cm. Abdominal vasculature: The abdominal aorta is normal in course and caliber noting moderate to advanced atherosclerotic calcification. Bowel: The stomach is markedly distended and fluid-filled, as are the small bowel loops. Small bowel loops measure up to 4.5 cm in diameter. A loop of small bowel is contained within a right inguinal hernia, and the small bowel loop distal to the hernia is decompressed, as is the colon. Findings are consistent with a high-grade small bowel obstruction secondary to an incarcerated inguinal hernia. The small bowel within the hernia is thick-walled and hyperemic as seen on image #376. There is a tiny focus of extra luminal gas seen on image #381. There is also fluid within the hernia sac. No pneumatosis intestinalis or portal venous gas is seen. There is mild colonic diverticulosis without CT evidence of acute diverticulitis. The appendix is not visualized. Peritoneum: No intraperitoneal free air seen below the diaphragm. As noted above, there is a small focus of extraluminal gas present within the right inguinal hernia a small one of free fluid is seen in the pelvis.. There is a fat and fluid containing umbilical hernia. Lymphadenopathy: None. Pelvic viscera: The bladder is distended but otherwise normal in appearance. There are numerous uterine masses, several of which are calcified. These are typical for fibroids. No adnexal lesion is seen. Skeletal structures: The skeletal structures are osteopenic. There is advanced lumbar sacral spondylosis. There is a severe chronic-appearing compression deformity of T12 with mildly retropulsed fragments. Arthritic change is noted in the hips. No lytic or blastic lesions are seen. IMPRESSION: 1. Findings are consistent with a high-grade small bowel obstruction secondary to an incarcerated right inguinal hernia. Surgical assessment is advised. 2. The loop of small bowel within the hernia appears thick-walled and hyperemic, and there is fluid and a small focus of extraluminal gas within the hernia sac. A small perforation is not excluded. 3. No intraperitoneal free air is seen below the diaphragm. No pneumatosis intestinalis or portal venous gas is identified. 4. A small volume of free fluid in the pelvis is likely reactive. 5. Numerous calcified uterine masses are pathologically indeterminant but typical for fibroids. 6. There is calcification of the gallbladder wall which can be seen with porcelain gallbladder. 7. Cardiomegaly. 8. Additional findings as above. PG Care Time/CCT Total # of Minutes Spent Total Time Spent with Patient: Total time spent is greater than 50% in coordination of care (as documented) at patient's floor/unit and/or counseling patient: Coding Level of Care Code 83146 Initial Inpt Care Lvl 2 Diagnoses Incarcerated right inguinal hernia K40.30 Small bowel obstruction K56.609 Atrial fibrillation with rapid ventricular response I48.91
[2021-03-16] MEDS: ONDANSETRON INJ 2 MG/ML 2 ML VIAL IV PRN (19:20)
[2021-03-16] MEDS ORDERED: ROCURONIUM BROMIDE 10 MG/ML 5 ML VIAL IV ONE (19:46)
[2021-03-16] MEDS ORDERED: LIDOCAINE 2% 2 ML VIAL/AMP(20MG/ML) INFIL ONE (19:46)
[2021-03-16] MEDS ORDERED: SUCCINYLCHOLINE 100MG/5ML SYR IV ONE (19:46)
[2021-03-16] MEDS ORDERED: PROPOFOL IV EMULSION 10 MG/ML 20 ML VIAL IV ONE (19:46)
[2021-03-16] MEDS ORDERED: KETAMINE 50 MG/5 ML SYRINGE ONE (19:47)
[2021-03-16] MEDS ORDERED: MIDAZOLAM HCL 1 MG/ML 2ML VIAL ONE (19:47)
[2021-03-16] MEDS ORDERED: fentaNYL citrate 100 MCG/2 ML VIAL ONE ×3 (20:19→22:07)
[2021-03-16] MEDS ORDERED: ESMOLOL HCL INJ 10 MG/ML 10ML VIAL IV ONE (20:35)
[2021-03-16] MEDS ORDERED: ceFAZolin 2000MG 2,000 MG/15 ML SYR IV ONE (20:56)
[2021-03-16] MEDS ORDERED: APIXABAN 5 MG TABLET PO SCH (21:00)
[2021-03-16] MEDS ORDERED: METOPROLOL TARTRATE 50 MG TAB PO SCH (21:00)
[2021-03-16] MEDS ORDERED: NEOSTIGMINE METHYLSULFATE 1 MG/ML 10ML VIAL ONE (21:04)
[2021-03-16] MEDS ORDERED: GLYCOPYRROLATE 0.2 MG/ML VIAL ONE (21:04)
[2021-03-16] MEDS ORDERED: PHENYLEPHRINE 100MCG/ML 5ML SYR ONE (21:26)
[2021-03-16] MEDS ORDERED: BUPIVACAINE LIPOSOME 1.3% 266 MG/20 ML VIAL ONE (21:35)
[2021-03-16] MEDS ORDERED: ePHEDrine sulfate 50 MG/ML SYR ONE (22:07)
[2021-03-16] MEDS ORDERED: BUPIVACAINE 0.5 % 5 MG/1 ML MPF 30ML VIAL INFIL ONE (22:24)
--- NOTE | 2021-03-16 22:33 | Post Operative Brief Note ---
PG Immediate Post Op with CF Date of Surgery March 16, 2021 Pre & Post Diagnosis Operation Date: 03/16/21 19:00 Pre-Op Diagnosis: Incarcerated Right Inguinal Hernia Post-Op Diagnosis: Strangulated Right Femoral Hernia I identified the patient and participated in the time-out.: Yes Procedure Operation Date: 03/16/21 19:00 Actual Procedures p Diagnostic Laparoscopy, Open Right Femoral Hernia Repair, Laparotomy, Small Bowel Resection with Anastamosis(Right) - Kevin Mackey DO, FACS Surgeon Kevin Mackey DO, FACS [employer] [facility] Estimated Blood Loss 20 Findings Consistent with Post-Op Diagnosis Diagnostic laparoscopy performed, incarcerated right femoral hernia that began to tear with minimal manipulation. Converted to right femoral exploration. Hernia sac opened, ischemic bowel, unable to complete resection through femoral incision, small laparotomy performed, ischemic and perforated small bowel excised, [id number] functional end-to-end anastomosis completed. Abdomen irrigated. Femoral hernia closed with interrupted 0 Nurolon. Inguinal ligament closed with interrupted 0 Nurolon sutures. Prior to closure of the midline, bladder instilled with saline and no evidence of leak. Wounds irrigated, Exparel injected, skin closed with yajaira. Specimens Specimen Description: A. Hernia Sac (Right Inguinal) B. Strangulated Bowel with Perforation Drains Oliva Catheter Anesthesia Type General Complications none Disposition Accompanied Patient To Recovery: No Disposition: Recovery Room
--- NOTE | 2021-03-16 23:23 | Anesthesiology Progress Note ---
Date of Service March 16, 2021 Anesthesia Post Procedure Vital Signs Vital Signs: Temp Pulse Pulse Pulse Resp BP BP 03/16/21 23:05 105 H 22 03/16/21 22:55 99 H 20 03/16/21 22:46 36.8 C 111 H 18 03/16/21 15:39 121 H 121 H 18 112/73 03/16/21 14:52 108 H 03/16/21 12:14 36.5 C 102 H 18 03/16/21 08:00 36.5 C 70 20 109/64 03/16/21 07:14 75 03/16/21 05:28 105/67 03/16/21 04:33 36.7 C 86 20 03/16/21 00:29 84 03/15/21 23:40 37 C 89 18 BP Pulse Ox 03/16/21 23:05 101/54 L 96 03/16/21 22:55 92/51 L 97 03/16/21 22:46 101/57 L 96 03/16/21 15:39 91 03/16/21 14:52 03/16/21 12:14 115/70 93 03/16/21 08:00 97 03/16/21 07:14 03/16/21 05:28 111/69 03/16/21 04:33 113/60 91 03/16/21 00:29 03/15/21 23:40 120/74 92 Pain Intensity Abdomen: Pain Intensity: 3 Transfer of Care Handoff Completed per policy Notes Mental Status: alert / awake / arousable and participated in evaluation Patient Amnestic to Procedure: Yes Nausea / Vomiting: adequately controlled Pain: adequately controlled Airway Patency, RR, SpO2: stable & adequate BP & HR: stable & adequate Hydration State: stable & adequate Anesthetic Complications: no major complications apparent and Pt Satisfied with anesthetic care
--- NOTE | 2021-03-16 23:30 | Operative Report ---
PG Post Operative Report Pre & Post Diagnosis Operation Date: 03/16/21 19:00 Pre-Op Diagnosis: Incarcerated Right Inguinal Hernia Post-Op Diagnosis: Strangulated Right Femoral Hernia I identified the patient and participated in the time-out.: Yes Procedure Operation Date: 03/16/21 19:00 Actual Procedures p Diagnostic Laparoscopy, Open Right Femoral Hernia Repair, Laparotomy, Small Bowel Resection with Anastamosis(Right) - Kevin Mackey DO, JANET Surgeon Kevin Mackey DO, JANET [employer] [facility] Estimated Blood Loss 20 Findings Consistent with Post-Op Diagnosis Diagnostic laparoscopy performed, incarcerated right femoral hernia with perforation that began to tear with minimal manipulation. Converted to right femoral exploration. Hernia sac opened, ischemic bowel, unable to complete resection through femoral incision, small laparotomy performed, ischemic and perforated small bowel excised, [id number] functional end-to-end anastomosis completed. Abdomen irrigated. Femoral hernia closed with interrupted 0 Nurolon. Inguinal ligament closed with interrupted 0 Nurolon sutures. Prior to closure of the midline, bladder instilled with saline and no evidence of leak. Wounds irrigated, Exparel injected, skin closed with yajaira. Specimens hernia sac strangulated small bowel with perforation Anesthesia Type General Complications none Disposition Accompanied Patient To Recovery: No Disposition: Recovery Room Indications 80-year-old female admitted after fall for A. fib with RVR. During her hospital day she had increasing distention and a CT scan revealed an incarcerated right inguinal hernia with high-grade small bowel obstruction and possible perforation or ischemia. Plan for emergent diagnostic laparoscopy, laparoscopic right inguinal hernia repair, possible open, possible bowel resection. The risks of the procedure were discussed, all questions were answered, and the patient agreed to proceed with surgery as planned. Description of Procedure The patient was properly identified, consented, and taken to the operating room where she was placed in the supine position. An NG tube was placed. General endotracheal anesthesia was induced. SCDs, Oliva catheter, and a safety belt were placed. Preoperative antibiotics were administered. The patient's groins and abdomen were prepped and draped in the standard sterile fashion. A surgical timeout was performed and all parties were in agreement that this was the correct patient and procedure to be performed and we continued as planned. An incision was made in the left upper quadrant and the Veress needle was inserted. Saline drop test confirmed entry to the abdomen. The patient's abdomen was insufflated with carbon dioxide which she tolerated without incident. The abdomen was then entered using the Optiview technique with a 5 mm port and a 30 degree scope. Entry into the abdomen was confirmed. The abdomen is explored and no damage from initial trocar placement or Veress needle was noted. A 5 mm port was then placed in the right upper quadrant. The patient was placed in Trendelenburg position. Small bowel was dilated and there was a clear incarcerated right femoral hernia present. The bowel was decompressed distal to this. During examination of this area it was clear that there was a perforation that appeared to be right at the hernia ring and began to tear with minimal manipulation. At this point I elected to convert to open. Laparoscopy was ceased. An oblique incision was made in the right groin o verlying the femoral hernia and deepened down to subcutaneous tissue with electrocautery. The transversalis fascia was opened revealing the hernia sac. There was inflamed and partially necrotic preperitoneal fat and hernia sac The hernia sac was opened and strangulated bowel was identified along with the perforation. This was suctioned. In order to reduce the bowel a small incision was made in the femoral ring along the conjoined tendon. I attempted to eviscerate the bowel through the incision in order to attempt to resection through the groin incision. However I was unsuccessful at this and a laparotomy was required A low midline laparotomy was performed and deepened down through the subcutaneous tissue and into the fascia. Fascia was incised and the peritoneum was entered. The hernia was then reduced and the small bowel eviscerated. There was a 4 cm segment of ischemic bowel with a perforation. A window was created along the mesenteric border of the bowel. A rowland loaded 606mm Endo MARIA T stapler was used to divide the bowel at both these points. Approximately 15 cm of bowel were excised. The mesentery was scored with cautery and divided using the harmonic scalpel. This was passed off the table as specimen. The incision was draped with towels and the antimesenteric corner of the staple line was excised creating enterotomies in both pieces of small bowel. A pull sucker was inserted into the proximal bowel and approximately a liter of enteric contents was suctioned. A [id number] functional end and small bowel anastomosis was then created with sequential firings of the Endo MARIA T rowland loaded stapler x2. The staple line and common enterotomy were then excised using sequential firings of the Endo MARIA T rowland loaded stapler. Staple line was reinforced with 3-0 silk Lembert sutures. The mesenteric defect was closed with a running 3-0 Vicryl. The bowel was milked and there was no evidence of leak along the staple line. The remaining hernia sac with the inflamed and partially ischemic preperitoneal fat was then excised. It appeared that there may be a sliding component of the bladder and I was concerned about bladder injury. The bladder was then instill ed with 400 cc of saline and there was no evidence of a leak. The abdomen was irrigated with 2 L of saline. Attention then turned to the right femoral defect. Due to the spillage and strangulation I elected not to place mesh. The defect was not very large I elected for a primary interrupted repair. A interrupted Nivia repair was performed by suturing Antonio's ligament to to the conjoined tendon from the pubic tubercle laterally to the femoral vein. This was performed with interrupted 0 Nurolon sutures. The inguinal ligament was then sutured to the conjoined tendon starting medially at the rectus and working laterally with interrupted 0 Nurolon sutures. Care was taken not to compress the femoral vein. The rectus sheath was partially incised for a relaxing incision. The wound was irrigated. Hemostasis was confirmed. This was explored from the laparotomy incision and it appeared that the defect was closed. The NG tube placement was confirmed. Exparel mixed with 0.5% Marcaine was injected in the fascia and soft tissues of both the groin and low midline incisions. The wounds were irrigated. The skin was then closed with yajaira. Sterile dressings were applied. The patient was extubated in the operating room and taken to the PACU for recovery without apparent incident. The Oliva and NG tube remained in place. All sponge, instrument, and needle counts were correct at the conclusion of the procedure. The patient tolerated the procedure well. I attest to the content of the Intraoperative Record and any orders documented therein. Any exceptions are noted below.
[2021-03-16] MEDS ORDERED: MoRPHine SULFATE 4 MG/ML 1 ML CARP\\VIAL IV PRN (23:51)
[2021-03-16] MEDS ORDERED: ACETAMINOPHEN 1,000 MG/100 ML VIAL IV PRN (23:51)
[2021-03-16] MEDS ORDERED: PIPERACILL/TAZOBAC CONSULT ACTIVE PRN (23:51)
[2021-03-16] MEDS ORDERED: MoRPHine SULFATE 2 MG/ML CARP IV PRN (23:51)
[2021-03-17] MEDS ORDERED: PIPERACILLIN/TAZOBACTAM 3.375 GM in DEXTROSE 5% 100 ML IV STA (00:19)
[2021-03-17] MEDS: KETOROLAC TROMETHAMINE 15 MG/ML VIAL IV SCH ×4 (00:41→17:39)
[2021-03-17] MEDS ORDERED: METOPROLOL TARTRATE 1 MG/ML VIAL IV STA (00:48)
--- NOTE | 2021-03-17 00:51 | Communication Note ---
Date of Service: March 17, 2021 Contacted by nursing overnight for AFib with RVR HR 120-150 following surgery. In short, patient was admitted for fall with GI illness. Today CTAP showed incarcerated right inguinal hernia with small bowel obstruction and concern for possible perforation/ischemia. She underwent emergent surgery (laparoscopic ultimately transitioned to open) for small bowel perforation and incarceration femoral hernia repair. She was transferred to PACU and then to PCU in stable condition. Shortly after arriving upstairs the patient was noted to have elevation in HR. On my evaluation patient was complaining of pain but felt otherwise well. BP was 100s systolic. Patient was given toradol and metoprolol 5mg IV x1 with improvement in HR to 90s-100s, with drop in BP to 94/62. Did speak with daughter to update her on patient's surgery. Daughter questioned if AFib could be secondary to current clinical picture. I let her know that AFib is relatively common in her mother's age group, and given that she has not seen a doctor in over a decade it is certainly possible that she has had AFib and just has not had palpitations, especially given her significantly dilated left atrium. However, it is also possible that her HR has been better controlled at home prior to her acute illness. I let her know that her mother's need for AFib medications for home would ultimately be determined by the day team, with risk/benefit discussed with the patient and her daughter.
[2021-03-17] MEDS: PANTOprazole 40 MG TAB PO SCH ×2 (01:00→10:50)
[2021-03-17] MEDS: POLYETHYLENE (MIRALAX) 17 GM PACK PO SCH (01:01)
[2021-03-17] MEDS: LACTATED RINGER'S 1,000 ML IV SCH ×3 (01:25→21:16)
[2021-03-17] MEDS: ACETAMINOPHEN 1,000 MG/100 ML VIAL IV SCH ×4 (02:07→21:14)
[2021-03-17] MEDS ORDERED: SODIUM CHLORIDE 0.9% 1000ML 1,000 ML IV ONE (02:11)
[2021-03-17 05:43] LABS: Hematocrit (blood only) 35.3 % (37-47); Hemoglobin 11.5 g/dL (12.0-16.0); Mean Corpuscular Hemoglobin 29.3 pg (25-34); Mean Corpuscular Hgb Conc 32.6 g/dL (32-36); Mean Corpuscular Volume 90.1 fL (80-100); Mean Platelet Volume 9.4 fL (7.4-10.4); Platelet Count 345 K/uL (130-400); RDW Coefficient of Variation 13.6 % (11.5-14.5); RDW Standard Deviation 44.5 fL (36.4-46.3); Red Blood Count 3.92 M/uL (4.2-5.4)
[2021-03-17 06:14] LABS: BUN Creatinine Ratio 20.7 (10-20); Calcium 7.8 mg/dl (8.5-10.1); Creatinine Clr Calc Pharmacy 55.3 ml/min; Est GFR (African American) 85.9 ml/min; Est GFR (Non-African American) 74.1 ml/min; Magnesium 1.5 mg/dl (1.8-2.4); Phosphorus 2.7 mg/dl (2.5-4.9); Potassium 3.9 mmol/L (3.5-5.1)
[2021-03-17] MEDS: PIPERACILLIN/TAZOBACTAM 3.375 GM in DEXTROSE 5% 100 ML IV SCH ×3 (06:14→21:43)
[2021-03-17] MEDS ORDERED: POTASSIUM PHOS 3 MMOL/1 ML INFUSION IV STA (06:16)
[2021-03-17] MEDS: METOPROLOL TARTRATE 1 MG/ML VIAL IV SCH ×3 (06:29→17:38)
[2021-03-17] MEDS ORDERED: POTASSIUM PHOSPHATE 15 MMOL in SODIUM CHLORIDE 0.9% 250 ML IV ONE (06:30)
[2021-03-17] MEDS ORDERED: DIGOXIN 250 MCG in SYRINGE 9 ML IV ONE (06:30)
--- NOTE | 2021-03-17 06:54 | Hospitalist Progress Note ---
Date of Service March 17, 2021 Assessment & Plan (1) Atrial fibrillation with rapid ventricular response: Plan: 80-year-old woman with no documented medical history last seen by a provider in 2006 presented to the ED after falling with a 1-week history of diffuse weakness and dysphagia and found to be afib w/ rvr. Also found to have strangulated R femoral hernia hernia and s/p open femoral exploration w/ small part of small bowel resected. Strangulated femoral hernia repair with small bowel resection - noted on 03/16 CT abd ordered to assess persistent nausea after EGD. - s/p laparatomy and bowel resection/hernia repair 03/16 - NPO. Holding anticoagulation per surgery. - Continue Zosyn Atrial fibrillation with rapid ventricular response: - EKG 03/13: A fib with premature ventricular or aberrantly conducted complexes, LBBB, T wave amp increased in anterior leads, T wave inversion evident in lateral leads; similar findings on 03/14 EKG - ECHO: normal LV size/systolic function, EF 55-60%. Septal motion consistent with conduction abn (bundle-branch block). No RWMA, moderate concentric LVH,severe left atrial dilation,sclerotic aortic valve, severe mitral annular calcification, trace to small pericardial effusion, A fib with PVCs. - Currently on Metoprolol 5 IV pushes as pressure permits. As NPO, metoprolol succ PO on hold. Provided 1 dose Digoxin 250mcg 03/17 AM. Check Digoxin lvl in AM and continue Digoxin. - Heparin drip transitioned to lovenox - Planning to transition to Eliquis mg PO BID when able. Held s/p abd surgery - to resume anticoagulation once ok by surgery Hypomag - repleting Dysphagia w/ Nausea/Vomiting, Esophagitis - GI consulted. 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 Biopsied, pending. Esophageal ulcers. 1800mL of fluid removed from the stomach w/ some residual remaining. Multiple gastric polyps. - Started on PPI BID on 03/15. Transitioned to IV - presentation likely due to underlying strangulated bowel incarcerated hernia Elevated troponin/Demand ischemia due to RVR - demand ischemia Hyperthyroidism - Free T3 1.86, TSH 0.259, T4 1.88 - Thyroid U/S 03/14: few scattered right thyroid nodules, right lobe measures 5.4 x 1.6 x 2.4 cm. There are few scattered nodules. Dominant hypoechoic nodule within the upper pole measures 15 x 12 x 7 mm. This is primarily solid with a few small cystic foci. There is an additional heterogeneous solid nodule within the lower pole measuring 14 x 13 x 12 mm. These do not meet sonographic criteria for biopsy at this time but should be followed to ensure stability. Left lobe: 5.3 x 1.4 x 2.2 cm. There is a single subcentimeter cyst measuring 5 mm. - Recommend follow up in outpatient setting Electrolyte Disturbances: including hyponatremia corrected during hospitalization Weakness/Deconditioning - Patient initially refused rehab but later agreeable. - Patient's daughter, Jennifer updated on plan. - Per case management, most facilities require covid immunization - will need reassessment by PT after recovery from bowel surgery. Incidental CT finding: - complaining of chronic back pain - Spine CT: 1.3 lucent lesion within T1 vertebral body - Recommend outpatient follow up Fall: - Secondary to weakness vs. ongoing afib RVR vs. orthostatic hypotension Anticoag: held in setting of recent surgery Code: DNR/DNI Diet: NPO. LR 100/hr. Dispo: PCU; pending placement for rehab Admission and Anticipated Discharge Date Admission Date: March 12, 2021 Supervising Physician Co-Signing Physician Notes Resident Physician Supervision Note: I independently interviewed and examined the patient and verified the morris history and physical, reviewed labs and image studies and agree with resident Dr. Kerr findings and care plan. Subjective Feeling ok, better than yesterday. Tired. Some lower abd pain, mild. No f/c/v currently. No cp/sob. Inquiring about when she can go home and when NG can be removed. V last night before the surgery 1L vomiting 1800ng No BM x 2 wks Review of Systems Review of Systems: All systems reviewed & are unremarkable except as noted in HPI & below Physical Exam Physical Exam: General: Grossly A&O. NAD. Cooperative. HEENT: Atraumatic, normocephalic. Pulm: CTAB. -wheezes, -rales, -rhonchi. No respiratory distress. Cardiac: tachycardic, irregR, -mrg. No LE edema. Abdominal: nondistended, soft. Bandage is c/d/i. Results & Data Results & Data ([facility]) Vital Signs (Past 12 Hours) Vital Signs HR 100s-120s o/n. See telemetry. BP 90s/60. 2L NC 97% sat. afeb. bp 97/60 while in room Temp Pulse Pulse Resp BP BP Pulse Ox 03/17/21 06:29 110 H 94/59 L 03/17/21 06:19 124 H 92/59 L 03/17/21 05:32 103 H 93/62 L 03/17/21 04:40 100 H 100/62 03/17/21 04:04 110 H 97/62 L 03/17/21 02:21 36.6 C 100 H 20 90/51 L 95 03/17/21 01:21 36.8 C 105 H 18 94/62 L 97 03/17/21 00:56 130 H 101/57 L 03/17/21 00:53 130 H 101/57 L 03/17/21 00:21 37 C 115 H 18 99/58 L 97 03/16/21 23:51 37.3 C 113 H 16 105/63 95 03/16/21 23:35 112 H 22 107/58 L 93 03/16/21 23:15 36.7 C 119 H 22 105/63 93 03/16/21 23:05 105 H 22 101/54 L 96 03/16/21 22:55 99 H 20 92/51 L 97 03/16/21 22:46 36.8 C 111 H 18 101/57 L 96 Laboratory Results wbc 9.42->10.09->13.5. Hb 12.4->13.4->11.5. Na 133, stable/improving. K 3.4- >3.9. Cr .76 stable. Ca 8.9->7.8 (uncorrected). Mg 1.5L. 03/16 CT abd: see A/P. 03/17 cxr s/p NG tube. 03/12 BC NG x 48hrs. 03/14 ecg w/ afib w/ PVCs and LBBB. 03/13 echo EF 55-60, severe L atrial dilation and severe mitral annular calcif ication Diagnostic Findings Abdomen/Pelvis CT 03/16/21 12:55 CT SCAN OF THE ABDOMEN AND PELVIS WITH IV CONTRAST CLINICAL HISTORY: Nausea and vomiting. Recent endoscopy. COMPARISON STUDY: No priors. TECHNIQUE: Following the IV administration of 95 cc of Optiray 320, CT scan of the abdomen and pelvis is performed from the lung bases to the proximal femora. Images are reviewed in the axial, sagittal, and coronal planes. IV contrast was administered without complication. Oral contrast was utilized. A dose lowering technique was utilized adhering to the principles of ALARA. CT DOSE: 777.27 mGycm FINDINGS: Lung bases: The heart is in the lower and without pericardial effusion. The mitral annulus is densely calcified. The lung bases are clear noting bibasilar scarring/atelectasis. Liver: The contrast-enhanced liver is normal in size, contour, and attenuation. There is no intrahepatic biliary ductal dilatation. The hepatic veins and portal veins are patent. A 15 mm benign-appearing calcification is incidentally noted in the dome of the liver. Gallbladder: There is calcification of the gallbladder wall. The gallbladder is otherwise normal as visualized. Spleen: Normal in size and attenuation. Pancreas: There are scattered parenchymal calcifications. The pancreas is otherwise grossly unremarkable. Adrenal glands: Unremarkable. Kidneys: The contrast enhanced kidneys are normal in size and without hydronephrosis. The kidneys enhance symmetrically. There is a septated left renal cyst which measures up to 7.7 cm. Abdominal vasculature: The abdominal aorta is normal in course and caliber noting moderate to advanced atherosclerotic calcification. Bowel: The stomach is markedly distended and fluid-filled, as are the small bowel loops. Small bowel loops measure up to 4.5 cm in diameter. A loop of small bowel is contained within a right inguinal hernia, and the small bowel loop distal to the hernia is decompressed, as is the colon. Findings are consistent with a high-grade small bowel obstruction secondary to an incarcerated inguinal hernia. The small bowel within the hernia is thick-walled and hyperemic as seen on image #376. There is a tiny focus of extra luminal gas seen on image #381. There is also fluid within the hernia sac. No pneumatosis intestinalis or portal venous gas is seen. There is mild colonic diverticulosis without CT evidence of acute diverticulitis. The appendix is not visualized. Peritoneum: No intraperitoneal free air seen below the diaphragm. As noted above, there is a small focus of extraluminal gas present within the right inguinal hernia a small one of free fluid is seen in the pelvis.. There is a fat and fluid containing umbilical hernia. Lymphadenopathy: None. Pelvic viscera: The bladder is distended but otherwise normal in appearance. There are numerous uterine masses, several of which are calcified. These are typical for fibroids. No adnexal lesion is seen. Skeletal structures: The skeletal structures are osteopenic. There is advanced lumbar sacral spondylosis. There is a severe chronic-appearing compression defor mity of T12 with mildly retropulsed fragments. Arthritic change is noted in the hips. No lytic or blastic lesions are seen. IMPRESSION: 1. Findings are consistent with a high-grade small bowel obstruction secondary to an incarcerated right inguinal hernia. Surgical assessment is advised. 2. The loop of small bowel within the hernia appears thick-walled and hyperemic, and there is fluid and a small focus of extraluminal gas within the hernia sac. A small perforation is not excluded. 3. No intraperitoneal free air is seen below the diaphragm. No pneumatosis intestinalis or portal venous gas is identified. 4. A small volume of free fluid in the pelvis is likely reactive. 5. Numerous calcified uterine masses are pathologically indeterminant but typical for fibroids. 6. There is calcification of the gallbladder wall which can be seen with porcelain gallbladder. 7. Cardiomegaly. 8. Additional findings as above. ACT 112: Negative or not required by law. Electronically signed by: Kaz Paredes M.D. 03/16/2021 4:46 PM Chest X-Ray 03/17/21 01:39 XR chest 1V portable HISTORY: 80 years-old Female post NGT status post placement of an enteric tube COMPARISON: Chest radiograph 03/12/2021 TECHNIQUE: Portable AP view of the chest FINDINGS: Cardiac silhouette is enlarged. Calcified plaque of the thoracic aorta. No pneumothorax, pleural effusion, airspace consolidation or overt pulmonary edema. Unchanged mild interstitial coarsening. Status post placement of an enteric tube which terminates the expected location of the gastric body. IMPRESSION: Status post placement of an enteric tube which terminates within the gastric body. ACT 112: Negative or not required by law. The above report was generated using voice recognition software. It may contain grammatical, syntax or spelling errors. Electronically signed by: Piero Moreland M.D. 03/17/2021 7:55 AM Resident Activity Tracking Resident Involvement: Resident Care Provided Care Provided: [facility]
[2021-03-17] MEDS: MAGNESIUM SULFATE / D5W 1 GM/100 ML BAG IV SCH ×4 (07:39→13:48)
--- NOTE | 2021-03-17 07:56 | XRay Report ---
XR chest 1V portable HISTORY: 80 years-old Female post NGT status post placement of an enteric tube COMPARISON: Chest radiograph 03/12/2021 TECHNIQUE: Portable AP view of the chest FINDINGS: Cardiac silhouette is enlarged. Calcified plaque of the thoracic aorta. No pneumothorax, pleural effu debbie, airspace consolidation or overt pulmonary edema. Unchanged mild interstitial coarsening. Status post placement of an enteric tube which terminates the expected location of the gastric body. IMPRESSION: Status post placement of an enteric tube which terminates within the gastric body. ACT 112: Negative or not required by law. The above report was generated using voice recognition software. It may contain grammatical, syntax o r spelling errors. Electronically signed by: Piero Moreland M.D. 03/17/2021 7:55 AM
--- NOTE | 2021-03-17 11:08 | Surgery Progress Note ---
Date of Service March 17, 2021 Assessment & Plan (1) History of femoral hernia repair: Plan: POD #1 strangulated femoral hernia repair with small bowel resection and anastomosis Continue NG tube, continue Oliva Potential ambulation later this afternoon Continue antibiotics Await return of bowel function Hold anticoagulation Surgery will continue to follow, call with questions or concerns (2) History of resection of small bowel: Admission and Anticipated Discharge Date Admission Date: March 12, 2021 Subjective 80-year-old female POD #1 repair of strangulated right femoral hernia with small bowel resection and anastomosis. Somewhat somnolent this morning, likely due to anesthesia. Continues in A. fib with RVR. Physical Exam Constitutional: WD/WN, vitals as above Gastrointestinal (Abdomen): Inspection/Auscultation: + abdominal surgical incision (Dressings clean dry and intact) Percussion/Palpation: + abdomen tender (Probably tender to palpation); no guarding, abdomen not rigid and no hernia (No evidence of recurrence) Results & Data ([facility]) Vital Signs (Past 12 Hours) Vital Signs Temp Pulse Pulse Resp BP BP Pulse Ox 03/17/21 07:39 127 H 03/17/21 07:21 36.9 C 71 16 97/58 L 97 03/17/21 07:00 123 H 03/17/21 06:29 110 H 94/59 L 03/17/21 06:19 124 H 92/59 L 03/17/21 05:32 103 H 93/62 L 03/17/21 04:40 100 H 100/62 03/17/21 04:04 110 H 97/62 L 03/17/21 02:21 36.6 C 100 H 20 90/51 L 95 03/17/21 01:21 36.8 C 105 H 18 94/62 L 97 03/17/21 00:56 130 H 101/57 L 03/17/21 00:53 130 H 101/57 L 03/17/21 00:21 37 C 115 H 18 99/58 L 97 03/16/21 23:51 37.3 C 113 H 16 105/63 95 03/16/21 23:35 112 H 22 107/58 L 93 03/16/21 23:15 36.7 C 119 H 22 105/63 93 PG Care Time/CCT Total # of Minutes Spent Total Time Spent with Patient: Total time spent is greater than 50% in coordination of care (as documented) at patient's floor/unit and/or counseling patient: Coding Level of Care Code None Diagnoses History of femoral hernia repair Z98.890; Z87.19 History of resection of small bowel Z90.49
[2021-03-17] MEDS ORDERED: PIPERACILL/TAZOBAC CONSULT ACTIVE PRN (11:13)
[2021-03-17] MEDS ORDERED: PIPERACILLIN/TAZOBACTAM 3.375 GM in DEXTROSE 5% 100 ML IV SCH (11:15)
[2021-03-17] MEDS: PANTOprazole 40 MG in SYRINGE 0 ML IV SCH ×2 (11:16→21:15)
[2021-03-18] MEDS: KETOROLAC TROMETHAMINE 15 MG/ML VIAL IV SCH ×4 (00:47→18:10)
[2021-03-18] MEDS: METOPROLOL TARTRATE 1 MG/ML VIAL IV SCH ×3 (00:50→11:19)
[2021-03-18] MEDS: ACETAMINOPHEN 1,000 MG/100 ML VIAL IV SCH ×3 (06:10→21:42)
[2021-03-18] MEDS: PIPERACILLIN/TAZOBACTAM 3.375 GM in DEXTROSE 5% 100 ML IV SCH ×3 (06:12→22:41)
[2021-03-18] MEDS: LACTATED RINGER'S 1,000 ML IV SCH ×3 (07:16→20:19)
--- NOTE | 2021-03-18 07:29 | Hospitalist Progress Note ---
Date of Service March 18, 2021 Assessment & Plan (1) Atrial fibrillation with rapid ventricular response: Plan: 80-year-old woman with no documented medical history last seen by a provider in 2006 presented to the ED after falling with a 1-week history of diffuse weakness and dysphagia and found to be afib w/ rvr. Also found to have strangulated R femoral hernia hernia and s/p open femoral exploration w/ small part of small bowel resected. #Strangulated femoral hernia repair with small bowel resection POD 2 - noted on 03/16 CT abd ordered to assess persistent nausea after EGD. s/p laparatomy and bowel resection/hernia repair 03/16 -Surgery Consulted - NPO. Holding anticoagulation -NG tube still in place - Continue Zosyn #Atrial fibrillation with rapid ventricular response: - EKG 03/13: A fib with premature ventricular or aberrantly conducted complexes, LBBB, T wave amp increased in anterior leads, T wave inversion evident in lateral leads; similar findings on 03/14 EKG - ECHO: normal LV size/systolic function, EF 55-60%. Septal motion consistent with conduction abn (bundle-branch block). No RWMA, moderate concentric LVH,severe left atrial dilation,sclerotic aortic valve, severe mitral annular calcification, trace to small pericardial effusion, A fib with PVCs. - Currently on Metoprolol 5 IV pushes as pressure permits. As NPO, metoprolol succ PO on hold. Provided 1 dose Digoxin 250mcg 03/17 AM. Check Digoxin lvl in AM and continue Digoxin. -Hold metoprolol pending evaluation by cardiology -500 mL boluses as needed for BP - Heparin drip transitioned to lovenox - Planning to transition to Eliquis mg PO BID when able. Held s/p abd surgery - to resume anticoagulation once ok by surgery -consulted cardiology appreciate recs #Hypomag - repleting #Dysphagia w/ Nausea/Vomiting, Esophagitis - GI consulted. 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 Biopsied, pending. Esophageal ulcers. 1800mL of fluid removed from the stomach w/ some residual remaining. Multiple gastric polyps. - Started on PPI BID on 03/15. Transitioned to IV - presentation likely due to underlying strangulated bowel incarcerated hernia #Elevated troponin/Demand ischemia due to RVR - demand ischemia #Hyperthyroidism - Free T3 1.86, TSH 0.259, T4 1.88 - Thyroid U/S 03/14: few scattered right thyroid nodules, right lobe measures 5.4 x 1.6 x 2.4 cm. There are few scattered nodules. Dominant hypoechoic nodule within the upper pole measures 15 x 12 x 7 mm. This is primarily solid with a few small cystic foci. There is an additional heterogeneous solid nodule within the lower pole measuring 14 x 13 x 12 mm. These do not meet sonographic criteria for biopsy at this time but should be followed to ensure stability. Left lobe: 5.3 x 1.4 x 2.2 cm. There is a single subcentimeter cyst measuring 5 mm. - Recommend follow up in outpatient setting #Electrolyte Disturbances: including hyponatremia corrected during hospitalization #Weakness/Deconditioning - Patient initially refused rehab but later agreeable. - Patient's daughter, Jennifer updated on plan. - Per case management, most facilities require covid immunization - will need reassessment by PT after recovery from bowel surgery. #Incidental CT finding: - complaining of chronic back pain - Spine CT: 1.3 lucent lesion within T1 vertebral body - Recommend outpatient follow up #Fall: - Secondary to weakness vs. ongoing afib RVR vs. orthostatic hypotension Anticoag: held in setting of recent surgery Code: DNR/DNI Diet: NPO. LR 100/hr. Dispo: PCU; pending placement for rehab Admission and Anticipated Discharge Date Admission Date: March 12, 2021 Supervising Physician Co-Signing Physician Notes Patient seen and examined, chart reviewed, case discussed with Dr. Moreira and I agree with the assessment and plan as above except as otherwise noted 80-year-old female presents with dysphagia to is admitted for and treated for atrial fibrillation, weakness/deconditioning, strangulated femoral hernia status post operative repair 03/16/2021, SBO, and esophagitis. Continuing to follow for return of bowel function, intermittent hypotension fluid responsive. Patient feels she is doing okay today, and awakens easily from sleep. Reports she is passing flatus today. No bowel movements yet. NGT remains in place, Continue Zosyn., . Abdomen with mild tenderness at surgical site, otherwise soft without rigidity/guarding. Breathing unlabored, symmetrical chest rise. Radial pulse intact with regular rate. No acute distress. Continue Protonix twice daily for esophagitis, continue to follow for BM. N.p.o. at this time. Prophylactic Lovenox added, defer therapeutic anticoagulation per surgical recommendations. Patient with history of A. fib with RVR, currently with adequate rate control converted to metoprolol 5 mg IV pushes with pressure hold parameters while n.p.o. and digoxin. EF 55% on echo this admission. DVT anticoagulation at this time as noted, continue to hold A. fib anticoagulation as noted. Subjective Patient lying in bed this morning in no acute distress postoperative day 2 status post incarcerated femoral hernia repair. Patient reports pain is well controlled, denying resumption of bowel function, she is voiding, and sleeping well. Acute concerns relate to when her NG tube will be DC'd and resolution of SBO. Physical Exam Physical Exam: General: No acute distress HEENT: Normocephalic atraumatic Neck: Normal visual inspection Cardiac: Irregularly irregular, I did not appreciate significant murmurs rubs or gallops, 1+ pedal edema, no calf tenderness Respiratory: Clear to auscultation bilaterally with symmetrical chest expansion did not appreciate significant wheezes, rales, rhonchi GI: Soft, tender around the surgical site, surgical site is clean dry and intact, no rebound, no guarding MSK: Moves all extremities Neuro: Alert and oriented x4 Psych: Calm and cooperative with interview Results & Data Results & Data ([facility]) Vital Signs (Past 12 Hours) Vital Signs Temp Pulse Pulse Resp BP BP Pulse Ox 03/18/21 06:10 108 H 107/65 03/18/21 06:08 108 H 107/65 03/18/21 05:40 110 H 03/18/21 04:00 36.7 C 98 H 16 104/63 97 03/18/21 00:50 102 H 96/44 L 03/18/21 00:00 36.4 C L 102 H 16 96/44 L 95 03/17/21 20:00 36.5 C 102 H 18 106/57 L 98 Laboratory Results 03/18/21 03/18/21 03/18/21 Range/Units 07:42 07:42 07:42 WBC 13.10 H (4.8-10.8) K/uL RBC 3.92 L (4.2-5.4) M/uL Hgb 11.4 L (12.0-16.0) g/dL Hct 35.5 L (37-47) % MCV 90.6 (80-100) fL MCH 29.1 (25-34) pg MCHC 32.1 (32-36) g/dL RDW Std Deviation 45.8 (36.4-46.3) fL RDW Coeff of Maliha 13.9 (11.5-14.5) % Plt Count 337 (130-400) K/uL MPV 9.2 (7.4-10.4) fL Immature Gran % (Auto) 0.3 % Neut % (Auto) 89.5 % Lymph % (Auto) 6.9 % [facility] % (Auto) 2.0 % Eos % (Auto) 1.2 % Baso % (Auto) 0.1 % Neut # (Auto) 11.72 H (1.4-6.5) K/uL Lymph # (Auto) 0.91 L (1.2-3.4) K/uL [facility] # (Auto) 0.26 (0.11-0.59) K/uL Eos # (Auto) 0.16 (0-0.5) K/uL Baso # (Auto) 0.01 (0-0.2) K/uL Immature Gran # (Auto) 0.04 H (0.00-0.02) K/uL Sodium 136 (136-145) mmol/L Potassium 3.7 (3.5-5.1) mmol/L Chloride 100 (98-107) mmol/L Carbon Dioxide 29 (21-32) mmol/L Anion Gap 7.0 (3-11) BUN 14 (7-18) mg/dl Creatinine 0.74 (0.6-1.2) mg/dl Est Cr Clr Drug Dosing 56.8 ml/min Est GFR ( Amer) 88.7 ml/min Est GFR (Non-Af Amer) 76.5 ml/min BUN/Creatinine Ratio 18.8 (10-20) Glucose 91 (70-99) mg/dl Calcium 8.1 L (8.5-10.1) mg/dl Magnesium 2.4 (1.8-2.4) mg/dl Total Bilirubin 0.5 (0.2-1) mg/dl AST 20 (15-37) U/L ALT 24 (12-78) Alkaline Phosphatase 62 (45-117) U/L Total Protein 5.0 L (6.4-8.2) gm/dl Albumin 1.7 L (3.4-5.0) gm/dl Globulin 3.3 (2.5-4.0) gm/dl Albumin/Globulin Ratio 0.5 L (0.9-2) Digoxin 0.7 L (0.8-2.0) ng/ml Medications Administered Current Inpatient Medications Lactated Ringer's (Lr) 1,000 mls @ 100 mls/hr IV .Q10H [facility], 1928[facility]1983 Stop: 04/15/21 17:14 Last Admin: 03/17/21 21:16 Dose: 100 mls/hr Documented by: Piperacillin Sod/Tazobactam (Sod 3.375 gm/ Dextrose) 115 mls @ 28.75 mls/hr IV Q8H [facility], [facility]1983; Protocol Stop: 03/24/21 23:59 Last Admin: 03/18/21 06:12 Dose: 28.8 mls/hr Documented by: Acetaminophen (Ofirmev) 1,000 mg in 100 mls @ 400 mls/hr IV Q8 [facility], [facility]1983 Stop: 03/20/21 00:59 Last Admin: 03/18/21 06:10 Dose: Not Given Documented by: Pantoprazole Sodium 40 mg/ (Syringe) 10 mls @ 5 mls/min IV BID [facility], [facility]1983 Stop: 04/16/21 10:44 Last Admin: 03/17/21 21:15 Dose: 5 mls/min Documented by: Ketorolac Tromethamine (Ketorolac Tromethamine 15 Mg/Ml Vial) 15 mg IV Q6 [facility]1983 Stop: 03/22/21 00:14 Last Admin: 03/18/21 06:10 Dose: 15 mg Documented by: Metoprolol Tartrate (Metoprolol Tartrate 1 Mg/Ml Vial) 5 mg IV Q6 [facility]1983 Stop: 04/16/21 05:59 Last Admin: 03/18/21 06:10 Dose: 5 mg Documented by: Miscellaneous Information (Piperacill/Tazobac Consult Active) 1 ea N/A UD PRN PRN Reason: Consult Stop: 04/15/21 23:50 Morphine Sulfate (Morphine Sulfate 2 Mg/Ml Carp) 2 mg IV Q3H PRN PRN Reason: Pain (1,2,3,4,5) & Pre PT Stop: 03/30/21 23:50 Morphine Sulfate (Morphine Sulfate 4 Mg/Ml 1 Ml Carp\Vial) 4 mg IV Q3H PRN PRN Reason: Pain (6,7,8,9,10) Stop: 03/30/21 23:50 Ondansetron HCl (Ondansetron Inj 2 Mg/Ml 2 Ml Vial) 4 mg IV Q6H PRN PRN Reason: Nausea Stop: 04/12/21 00:21 Last Admin: 03/16/21 19:20 Dose: 4 mg Documented by:
[2021-03-18 08:00] LABS: Basophils # (auto) 0.01 K/uL (0-0.2); Basophils % (auto) 0.1 %; Eosinophils # (auto) 0.16 K/uL (0-0.5); Eosinophils % (auto) 1.2 %; Hematocrit (blood only) 35.5 % (37-47); Hemoglobin 11.4 g/dL (12.0-16.0); Immature Granulocytes # (auto) 0.04 K/uL (0.00-0.02); Immature Granulocytes % (auto) 0.3 %; Lymphocytes # (auto) 0.91 K/uL (1.2-3.4); Lymphocytes % (auto) 6.9 %; Mean Corpuscular Hemoglobin 29.1 pg (25-34); Mean Corpuscular Hgb Conc 32.1 g/dL (32-36); Mean Corpuscular Volume 90.6 fL (80-100); Mean Platelet Volume 9.2 fL (7.4-10.4); Monocytes # (auto) 0.26 K/uL (0.11-0.59); Neutrophils # (auto) 11.72 K/uL (1.4-6.5); Neutrophils % (auto) 89.5 %; Platelet Count 337 K/uL (130-400); RDW Coefficient of Variation 13.9 % (11.5-14.5); RDW Standard Deviation 45.8 fL (36.4-46.3); Red Blood Count 3.92 M/uL (4.2-5.4)
[2021-03-18] MEDS: PANTOprazole 40 MG in SYRINGE 0 ML IV SCH ×2 (08:18→20:21)
[2021-03-18 08:29] LABS: Albumin Level 1.7 gm/dl (3.4-5.0); BUN Creatinine Ratio 18.8 (10-20); Calcium 8.1 mg/dl (8.5-10.1); Creatinine Clr Calc Pharmacy 56.8 ml/min; Est GFR (African American) 88.7 ml/min; Est GFR (Non-African American) 76.5 ml/min; Magnesium 2.4 mg/dl (1.8-2.4); Potassium 3.7 mmol/L (3.5-5.1)
[2021-03-18 08:35] LABS: Albumin Globulin Ratio 0.5 (0.9-2); Bilirubin,Total 0.5 mg/dl (0.2-1); Globulin 3.3 gm/dl (2.5-4.0)
--- NOTE | 2021-03-18 09:39 | Gastroenterology Progress Note ---
Date of Service March 18, 2021 Assessment & Plan (1) Dysphagia: Plan: - EGD with severe esophagitis - Continue PPI BID - soft diet as tolerated (may need FLD, see below) - symptom control (2) Nausea and vomiting: Plan: - Will require outpatient follow-up with family and EGD as outpatient - outpatient f/up w/ [facility] may be indicated (3) Esophagitis: Plan: - see above, outpatient follow up (4) Small bowel obstruction: Plan: - follow surgery recommendations - appreciate input on calcified gallbladder noted on CT A/P Admission and Anticipated Discharge Date Admission Date: March 12, 2021 Supervising Physician Co-Signing Physician Notes I have seen and examined the patient. I agree with note above by GABRIEL Patricio except as noted below. HPI Pt awake and alert. 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 Subjective The patient was sleeping but woke with verbal stimuli. She reports her pain is a 5-6 out of 10 with any movement or feeding tube tube manipulation. Well- controlled pain at rest. Reports she is passing flatus. Denies bowel movement. Reports some nausea last night but denies nausea or vomiting this morning. Review of Systems Review of Systems: All systems reviewed & are unremarkable except as noted in HPI & below Physical Exam Constitutional: WD/WN, vitals as above Gastrointestinal (Abdomen): Inspection/Auscultation: + abdominal surgical incision (Dressings clean dry and intact) Percussion/Palpation: + abdomen tender (Probably tender to palpation); no guarding and abdomen not rigid Results & Data ([facility]) Vital Signs (Past 12 Hours) Vital Signs Temp Pulse Pulse Resp BP BP Pulse Ox 03/18/21 07:56 36.5 C 87 18 89/51 L 96 03/18/21 07:08 101 H 03/18/21 06:10 108 H 107/65 03/18/21 06:08 108 H 107/65 03/18/21 05:40 110 H 03/18/21 04:00 36.7 C 98 H 16 104/63 97 03/18/21 00:50 102 H 96/44 L 03/18/21 00:00 36.4 C L 102 H 16 96/44 L 95 Laboratory Results Laboratory Results - last 24 hr 03/18/21 03/18/21 03/18/21 07:42 07:42 07:42 WBC 13.10 H RBC 3.92 L Hgb 11.4 L Hct 35.5 L MCV 90.6 MCH 29.1 MCHC 32.1 RDW Std Deviation 45.8 RDW Coeff of Maliha 13.9 Plt Count 337 MPV 9.2 Immature Gran % (Auto) 0.3 Neut % (Auto) 89.5 Lymph % (Auto) 6.9 [place] % (Auto) 2.0 Eos % (Auto) 1.2 Baso % (Auto) 0.1 Neut # (Auto) 11.72 H Lymph # (Auto) 0.91 L [place] # (Auto) 0.26 Eos # (Auto) 0.16 Baso # (Auto) 0.01 Immature Gran # (Auto) 0.04 H Sodium 136 Potassium 3.7 Chloride 100 Carbon Dioxide 29 Anion Gap 7.0 BUN 14 Creatinine 0.74 Est Cr Clr Drug Dosing 56.8 Est GFR ( Amer) 88.7 Est GFR (Non-Af Amer) 76.5 BUN/Creatinine Ratio 18.8 Glucose 91 Calcium 8.1 L Magnesium 2.4 Total Bilirubin 0.5 AST 20 ALT 24 Alkaline Phosphatase 62 Total Protein 5.0 L Albumin 1.7 L Globulin 3.3 Albumin/Globulin Ratio 0.5 L Digoxin 0.7 L
[2021-03-18] MEDS ORDERED: LACTATED RINGER'S 500 ML IV ONE ×2 (10:26→18:29)
--- NOTE | 2021-03-18 12:43 | Surgery Progress Note ---
Date of Service March 18, 2021 Assessment & Plan (1) History of femoral hernia repair: Plan: POD #2 strangulated femoral hernia repair with small bowel resection and anastomosis, continues to improve Continue NG tube until return of bowel function continue Oliva, may DC if ambulating PT/OT consults Ambulation, out of bed to chair, incentive spirometry Continue antibiotics Await return of bowel function May restart prophylactic Lovenox, hold on therapeutic anticoagulation Surgery will continue to follow, call with questions or concerns (2) History of resection of small bowel: Admission and Anticipated Discharge Date Admission Date: March 12, 2021 Subjective 80-year-old female POD #2 repair of strangulated femoral hernia with small bowel resection and anastomosis. More awake this morning. Feels weak but not having any abdominal pain except at the incisions. No flatus. Physical Exam Constitutional: WD/WN, vitals as above Cardiovascular: Rate/Rhythm: regular rate Gastrointestinal (Abdomen): Inspection/Auscultation: + abdominal surgical incision (No evidence of infection); abdomen not distended Percussion/Palpation: + abdomen tender (Appropriately tender to palpation at incision sites) and abdomen soft; no guarding, abdomen not rigid and no hepatosplenomegaly Results & Data ([facility]) Vital Signs (Past 12 Hours) Vital Signs Temp Pulse Pulse Resp BP BP Pulse Ox 03/18/21 11:17 36.6 C 95 H 19 98/64 L 95 03/18/21 07:56 36.5 C 87 18 89/51 L 96 03/18/21 07:08 101 H 03/18/21 06:10 108 H 107/65 03/18/21 06:08 108 H 107/65 03/18/21 05:40 110 H 03/18/21 04:00 36.7 C 98 H 16 104/63 97 03/18/21 00:50 102 H 96/44 L PG Care Time/CCT Total # of Minutes Spent Total Time Spent with Patient: Total time spent is greater than 50% in coordination of care (as documented) at patient's floor/unit and/or counseling patient: Coding Level of Care Code None Diagnoses History of femoral hernia repair Z98.890; Z87.19 History of resection of small bowel Z90.49
[2021-03-18] MEDS ORDERED: DIGOXIN 0.125 MG/2.5 ML UDP PO SCH (17:15)
--- NOTE | 2021-03-18 17:38 | Cardiology Consultation ---
Date of Consultation March 18, 2021 Assessment & Plan (1) Atrial fibrillation with rapid ventricular response: (2) LBBB (left bundle branch block): (3) Hypotension: ASSESSMENT/PLAN: 1. Atrial fibrillation: AFib appears persistent. Has severe left atrial dilation and therefore may be difficult to achieve rhythm control. She adamantly refuses anticoagulation therapy. We discussed increased stroke risk and the role of anticoagulation for stroke risk reduction. She still refuses. She is not yet cleared for anticoagulation therapy by surgery but if she is not willing to use anticoagulation therapy on discharge, would not likely initiate here, especially in postoperative state. We discussed the diagnosis in detail and treatment strategies. She is not interested in cardioversion, which is not a great option given that she has been in AFib for greater than 48 hours and ref uses anticoagulation therapy. She also has severe esophagitis and would require transesophageal echo. Recommend rate control strategy. Heart rate has improved on digoxin. When blood pressure improves, would recommend beta-michelle therapy. She states that she plans on using holistic approach on discharge in hopes of weaning off any prescribed medications but she would at least be willing to use a rate-controlling medication to begin with. Continue digoxin for now. Monitor level. 2. Left bundle-branch block: Asymptomatic. 3. Hypotension: Blood pressure intermittently hypotensive. If she becomes symptomatic or more profoundly hypotensive, or with evidence of end-organ damage, would increase IV fluids. No changes made at this time. Defer to primary service. 4. Disposition: Cardiology will continue to follow. Please call with questions or concerns. Thank you for allowing me to participate in the care of your patient. Please call for any other questions or concerns. Sincerely, Richy Herman M.D. History of Present Illness Reason for Consultation: Atrial fibrillation with rapid ventricular response. Requesting Physician: Sterling Moreira Attending Physician: Apolinar Reyes MD History of Present Illness Mrs. Bowling is a pleasant 80-year-old female who was admitted on 03/12/2021 with strangulated femoral hernia, AFib with RVR, Johnson's esophagus, esophageal ulcers and multiple gastric polyps. Her presenting symptoms were nausea and vomiting. She was unable to keep any food or drink down for several days prior to presentation. Prior to that, she was ill with sore throat, congestion, and head cold. She underwent repair of her strangulated femoral hernia with small bowel resection on 03/16/[address] Mackey. She underwent EGD on 03/15/2021 which demonstrated Johnson's esophagus, esophageal ulcers, and multiple gastric polyps. She was noted to be in AFib with RVR on presentation. She has received intermittent metoprolol 5 mg IV for rate control. She received 1 dose this morning at 6:10 a.m., which is the only dose today/yesterday. She has intermittently been mildly hypotensive, but asymptomatic. She received digoxin 250 mcg on 03/17/2021 and is written for 125 mcg p.o. to start today. She is completely asymptomatic in regards to AFib. She denies palpitations, chest pain, shortness of breath. She denies edema, melena, hematochezia, hematuria, or hematemesis. She has not been seen by a physician since at least 2006. She denies any past medical history and does not take any medications at home. She stated today that she prefers holistic approach. Her abdominal pain is improving postoperatively. When she is at home, she is active, including lawn care and other activities. Review of systems: As above. Review of systems otherwise negative/unremarkable. Family history: Mother and father from [place] in their late 60s. Social history: She denies tobacco, alcohol, or drug abuse. She is a . Her the day following Thanksgiving in 2020. She has 2 children, 1 in [place] and 1 year [place]. She has a grandchild in [place]. She worked at [employer] in [place] but is now retired. She was unaccompanied in her hospital room. Allergies Allergy/AdvReac Type Severity Reaction Status Date / Time No Known Allergies Allergy Verified 03/13/21 02:00 Patient History Medical History (Updated 03/18/21 @ 17:49 by Juan Carlos Herman MD) Incarcerated right inguinal hernia Small bowel obstruction Surgical History (Updated 03/18/21 @ 09:50 by Roma Briceño RN) History of femoral hernia repair (03/16/21) Diagnostic Laparoscopy, Open Right Femoral Hernia Repair, Laparotomy, Small Bowel Resection with Anastamosis(Right) - Kevin Mackey DO, FACS 03/16/2021 History of resection of small bowel (03/16/21) Diagnostic Laparoscopy, Open Right Femoral Hernia Repair, Laparotomy, Small Bowel Resection with Anastamosis(Right) - Kevin Mackey DO, FACS 03/16/2021 Social History Smoking Status: Never smoker Hx Alcohol Use: No Hx Substance Use: No Preferred Language: Bruneian Communication Ability: Effective Board Runner Required: No Beliefs That Will Affect Care: None marital status: / Current Living Situation: Alone How many Children do You have: 2 Other Information That Helps Us Care for You: No Feels Safe at Home: Yes Safety Concerns: Feels Safe At This Time Physical Exam Physical Exam: Gen.: No acute distress. Alert and oriented. HEENT: Anicteric sclera. Neck: No JVD. No bruits. Normal carotid upstrokes bilaterally. Cardiac: PMI was nondisplaced. No ventricular heave. Irregularly irregular. Normal S1-S2. 1/6 systolic murmur. No rubs or gallops. Pulmonary: Clear to auscultation bilaterally without wheezes, rales, or rhonchi. Abdomen: Soft and nondistended. Quiet abdomen (no auscultated bowel sounds). No bruits noted. Extremities: 2+ radial pulses bilaterally. 2+ posterior tibialis pulses bilaterally. No edema or cyanosis. Psychiatric: Affect appears appropriate. Results & Data ([facility]) Vital Signs (Past 12 Hours) Vital Signs Temp Pulse Pulse Resp BP BP Pulse Ox 03/18/21 16:02 37.4 C 84 84/54 L 94 03/18/21 15:00 114 H 03/18/21 11:17 36.6 C 95 H 19 98/64 L 95 03/18/21 07:56 36.5 C 87 18 89/51 L 96 03/18/21 07:08 101 H 03/18/21 06:10 108 H 107/65 03/18/21 06:08 108 H 107/65 03/18/21 05:40 110 H Laboratory Results Laboratory Results - last 24 hr 03/18/21 03/18/21 03/18/21 07:42 07:42 07:42 WBC 13.10 H RBC 3.92 L Hgb 11.4 L Hct 35.5 L MCV 90.6 MCH 29.1 MCHC 32.1 RDW Std Deviation 45.8 RDW Coeff of [place] 13.9 Plt Count 337 MPV 9.2 Immature Gran % (Auto) 0.3 Neut % (Auto) 89.5 Lymph % (Auto) 6.9 [place] % (Auto) 2.0 Eos % (Auto) 1.2 Baso % (Auto) 0.1 Neut # (Auto) 11.72 H Lymph # (Auto) 0.91 L [place] # (Auto) 0.26 Eos # (Auto) 0.16 Baso # (Auto) 0.01 Immature Gran # (Auto) 0.04 H Sodium 136 Potassium 3.7 Chloride 100 Carbon Dioxide 29 Anion Gap 7.0 BUN 14 Creatinine 0.74 Est Cr Clr Drug Dosing 56.8 Est GFR ( Amer) 88.7 Est GFR (Non-Af Amer) 76.5 BUN/Creatinine Ratio 18.8 Glucose 91 Calcium 8.1 L Magnesium 2.4 Total Bilirubin 0.5 AST 20 ALT 24 Alkaline Phosphatase 62 Total Protein 5.0 L Albumin 1.7 L Globulin 3.3 Albumin/Globulin Ratio 0.5 L Digoxin 0.7 L Diagnostic Findings Telemetry personally reviewed: AFib mostly in the 100s today. Heart rate has improved throughout the hospitalization. Echo 03/13/2021: Normal LV size, wall motion, systolic function. EF 55-60%. Septal motion consistent with conduction abnormality. Moderate LVH. Severe left atrial dilation. Sclerotic aortic valve. Severe MAC. Normal RVSP. Trace to small pericardial effusion. ECGs personally reviewed: ECG 03/12/2021 at 7:11 p.m.: AFib with RVR 144 beats per minute. LBBB. ECG 03/13/2021 at 3:42 a.m.: AFib 98 beats per minute. PVCs versus aberrantly conducted complexes. LBBB. ECG 03/14/2021 at 10:01 a.m.: AFib 97 beats per minute. LBBB. Chart reviewed. EGD report reviewed from 03/15/2021. Operative note reviewed from 03/16/2021. Medications Administered Current Inpatient Medications Digoxin (Digoxin 0.125 Mg/2.5 Ml Udp) 0.125 mg PO DAILY@1600 [facility] Stop: 04/17/21 17:14 Enoxaparin Sodium (Enoxaparin Inj 40 Mg/0.4 Ml Syr) 40 mg SQ Q24H [facility] Stop: 04/17/21 16:59 Lactated Ringer's (Lr) 1,000 mls @ 100 mls/hr IV .Q10H [facility] Stop: 04/15/21 17:14 Last Admin: 03/18/21 12:54 Dose: 100 mls/hr Documented by: Piperacillin Sod/Tazobactam (Sod 3.375 gm/ Dextrose) 115 mls @ 28.75 mls/hr IV Q8H [facility]; Protocol Stop: 03/24/21 23:59 Last Admin: 03/18/21 16:06 Dose: 28.8 mls/hr Documented by: Acetaminophen ([facility]) 1,000 mg in 100 mls @ 400 mls/hr IV Q8 [facility] Stop: 03/20/21 00:59 Last Infusion: 03/18/21 15:08 Dose: Infused Documented by: Pantoprazole Sodium 40 mg/ (Syringe) 10 mls @ 5 mls/min IV BID [facility] Stop: 04/16/21 10:44 Last Admin: 03/18/21 08:18 Dose: 5 mls/min Documented by: Ketorolac Tromethamine (Ketorolac Tromethamine 15 Mg/Ml Vial) 15 mg IV Q6 [facility] Stop: 03/22/21 00:14 Last Admin: 03/18/21 11:32 Dose: Not Given Documented by: Metoprolol Tartrate (Metoprolol Tartrate 1 Mg/Ml Vial) 5 mg IV Q6 [facility] Stop: 04/16/21 05:59 Last Admin: 03/18/21 11:19 Dose: Not Given Documented by: Miscellaneous Information (Piperacill/Tazobac Consult Active) 1 ea N/A UD PRN PRN Reason: Consult Stop: 04/15/21 23:50 Morphine Sulfate (Morphine Sulfate 2 Mg/Ml Carp) 2 mg IV Q3H PRN PRN Reason: Pain (1,2,3,4,5) & Pre PT Stop: 03/30/21 23:50 Morphine Sulfate (Morphine Sulfate 4 Mg/Ml 1 Ml Carp\Vial) 4 mg IV Q3H PRN PRN Reason: Pain (6,7,8,9,10) Stop: 03/30/21 23:50 Ondansetron HCl (Ondansetron Inj 2 Mg/Ml 2 Ml Vial) 4 mg IV Q6H PRN PRN Reason: Nausea Stop: 04/12/21 00:21 Last Admin: 03/16/21 19:20 Dose: 4 mg Documented by: PG Care Time/CCT Total # of Minutes Spent Total Time Spent with Patient: Total time spent is greater than 50% in coordination of care (as documented) at patient's floor/unit and/or counseling patient: Coding Level of Care Code 31153 Initial Inpt Care Lvl 3 Diagnoses Atrial fibrillation with rapid ventricular response I48.91 LBBB (left bundle branch block) I44.7 Hypotension I95.9
[2021-03-18] MEDS: ENOXAPARIN INJ 40 MG/0.4 ML SYR SQ SCH (17:58)
[2021-03-18] MEDS: DIGOXIN 0.125 MG/2.5 ML UDP NG SCH (19:35)
[2021-03-19] MEDS: KETOROLAC TROMETHAMINE 15 MG/ML VIAL IV SCH ×4 (01:12→17:03)
[2021-03-19] MEDS: LACTATED RINGER'S 1,000 ML IV SCH ×3 (04:24→22:45)
[2021-03-19] MEDS: ACETAMINOPHEN 1,000 MG/100 ML VIAL IV SCH ×3 (05:38→22:19)
[2021-03-19] MEDS: PIPERACILLIN/TAZOBACTAM 3.375 GM in DEXTROSE 5% 100 ML IV SCH ×3 (05:40→22:21)
[2021-03-19 07:29] LABS: Basophils # (auto) 0.01 K/uL (0-0.2); Basophils % (auto) 0.1 %; Eosinophils # (auto) 0.16 K/uL (0-0.5); Eosinophils % (auto) 1.4 %; Hematocrit (blood only) 30.9 % (37-47); Hemoglobin 9.8 g/dL (12.0-16.0); Immature Granulocytes # (auto) 0.04 K/uL (0.00-0.02); Immature Granulocytes % (auto) 0.3 %; Lymphocytes # (auto) 0.76 K/uL (1.2-3.4); Lymphocytes % (auto) 6.6 %; Mean Corpuscular Hemoglobin 28.5 pg (25-34); Mean Corpuscular Hgb Conc 31.7 g/dL (32-36); Mean Corpuscular Volume 89.8 fL (80-100); Mean Platelet Volume 9.1 fL (7.4-10.4); Monocytes % (auto) 5.2 %; Neutrophils # (auto) 10.02 K/uL (1.4-6.5); Neutrophils % (auto) 86.4 %; Platelet Count 302 K/uL (130-400); RDW Coefficient of Variation 13.9 % (11.5-14.5); RDW Standard Deviation 45.8 fL (36.4-46.3); Red Blood Count 3.44 M/uL (4.2-5.4); White Blood Count 11.59 K/uL (4.8-10.8)
[2021-03-19 08:13] LABS: Albumin Globulin Ratio 0.5 (0.9-2); Albumin Level 1.5 gm/dl (3.4-5.0); Bilirubin,Total 0.5 mg/dl (0.2-1); Calcium 8.1 mg/dl (8.5-10.1); Creatinine Clr Calc Pharmacy 93.1 ml/min; Est GFR (African American) 106.6 ml/min; Globulin 3.3 gm/dl (2.5-4.0); Potassium 3.1 mmol/L (3.5-5.1); Total Protein 4.8 gm/dl (6.4-8.2)
--- NOTE | 2021-03-19 08:16 | Hospitalist Progress Note ---
Date of Service March 19, 2021 Assessment & Plan (1) Atrial fibrillation with rapid ventricular response: Plan: 80-year-old woman with no documented medical history last seen by a provider in 2006 presented to the ED after falling with a 1-week history of diffuse weakness and dysphagia and found to be afib w/ rvr. Also found to have strangulated R femoral hernia hernia and s/p open femoral exploration w/ small part of small bowel resected. #Strangulated femoral hernia repair with small bowel resection POD 3 noted on 03/16 CT abd ordered to assess persistent nausea after EGD. s/p laparatomy and bowel resection/hernia repair 03/16 -Surgery Consulted - May resume prophylactic Lovenox, no therapeutic anticoagulation yet - DC NG tube -> sips and chips - Continue Zosyn - Continue NG until bowel function returns - Plan to address calcified gallbladder as an outpatient #Atrial fibrillation with rapid ventricular response: EKG 03/13: A fib with premature ventricular or aberrantly conducted complexes, LBBB, T wave amp increased in anterior leads, T wave inversion evident in lateral leads; similar findings on 03/14 EKG. ECHO: normal LV size/systolic function, EF 55-60%. Septal motion consistent with conduction abn (bundle-branch block). No RWMA, moderate concentric LVH,severe left atrial dilation,sclerotic aortic valve, severe mitral annular calcification, trace to small pericardial effusion, A fib with PVCs. Heparin drip transitioned to lovenox - Planning to transition to Eliquis mg PO BID when able. - A/C Held s/p abd surgery -to resume anticoagulation once ok by surgery -Consulted cardiology following recs -patient refuses anticoagulation therapy -Recommend rate control strategy -start metoprolol succinate 50 mg daily -Continue digoxin as long as patient will tolerate it -500 mL boluses as required to maintain pressures #Dysphagia w/ Nausea/Vomiting, Esophagitis - GI consulted. 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 Biopsied, pending. Esophageal ulcers. 1800mL of fluid removed from the stomach w/ some residual remaining. Multiple gastric polyps. - Started on PPI BID on 03/15. Transitioned to IV - presentation likely due to underlying strangulated bowel incarcerated hernia #Elevated troponin/Demand ischemia due to RVR - demand ischemia #Hyperthyroidism - Free T3 1.86, TSH 0.259, T4 1.88 - Thyroid U/S 03/14: few scattered right thyroid nodules, right lobe measures 5.4 x 1.6 x 2.4 cm. There are few scattered nodules. Dominant hypoechoic nodule within the upper pole measures 15 x 12 x 7 mm. This is primarily solid with a few small cystic foci. There is an additional heterogeneous solid nodule within the lower pole measuring 14 x 13 x 12 mm. These do not meet sonographic criteria for biopsy at this time but should be followed to ensure stability. Left lobe: 5.3 x 1.4 x 2.2 cm. There is a single subcentimeter cyst measuring 5 mm. - Recommend follow up in outpatient setting #Electrolyte Disturbances: including hyponatremia corrected during hospitalization -repleted KCL #Weakness/Deconditioning - Patient initially refused rehab but later agreeable. - Patient's daughter, Jennifer updated on plan. - Per case management, most facilities require covid immunization - will need reassessment by PT after recovery from bowel surgery. #Incidental CT finding: - complaining of chronic back pain - Spine CT: 1.3 lucent lesion within T1 vertebral body - Recommend outpatient follow up #Fall: - Secondary to weakness vs. ongoing afib RVR vs. orthostatic hypotension Anticoag: held in setting of recent surgery Code: DNR/DNI Diet: NPO. LR 100/hr. Dispo: PCU Admission and Anticipated Discharge Date Admission Date: March 12, 2021 Supervising Physician Co-Signing Physician Notes Patient seen and examined, chart reviewed, case discussed with Dr. Moreira and I agree with the assessment and plan as above except as otherwise noted 80-year-old female presents with dysphagia to is admitted for and treated for atrial fibrillation, weakness/deconditioning, strangulated femoral hernia status post operative repair 03/16/2021, SBO, and esophagitis. At bedside is nondistressed, lying in bed. Reports she is passing gas, no nausea, feels better overall and would like to start trying liquids. Reportedly refused to get up to bed today, she reports "I am too tired, I just cannot ". Encouragement provided, discussed importance of getting up to chair and also mobility to help continue her clinical progression. Patient agreeable with encouragement to get up to the chair today. Abdomen soft, no rebound, no guarding. Appropriate postsurgical tenderness overlying surgical incisions. Irregularly irregular pulse, tachycardic to 97. Small bowel obstruction: Progressing well, diet advancing today, continuing to have flatus and loose BM. 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 Recommended by GI for elective gallbladder surgery as this has malignant potential. Discussed with surgery. Esophagitis: Continue Protonix twice daily A. fib: Persistent. Has refused anticoagulation on stroke risk discussion with both cardiology and primary team. Patient also does not want to take multiple medications. Willing to take metoprolol for rate control. Again discussed and encouraged to consider anticoagulation for stroke risk reduction patient reports will consider and at this time will continue digoxin, continue metoprolol. Seen by cardiology, appreciate recommendations Subjective Patient lying in bed this morning in no acute distress. Reporting significant improvement since yesterday. She reports that she has been passing gas and feels that her bowels function is beginning to resume. She has been voiding, n.p.o., sleeping overnight. NG tube was in place, plan to DC today. Patient is eager to be discharged. We spent an extensive amount of time reviewing the r isks and benefits related to chronic atrial fibrillation and the need for anticoagulation. Acute concerns are related to improvement in her overall condition and desire to be discharged. Physical Exam Physical Exam: General: No acute distress HEENT: Normocephalic atraumatic Neck: Normal visual inspection Cardiac: Irregularly irregular, I did not appreciate significant murmurs rubs or gallops, 1+ pedal edema, no calf tenderness Respiratory: Clear to auscultation bilaterally with symmetrical chest expansion did not appreciate significant wheezes, rales, rhonchi GI: Soft, tender around the surgical site, surgical site is clean dry and intact, no rebound, no guarding MSK: Moves all extremities Neuro: Alert and oriented x4 Psych: Calm and cooperative with interview Results & Data Results & Data ([facility]) Vital Signs (Past 12 Hours) Vital Signs Temp Pulse Pulse Resp BP Pulse Ox 03/19/21 07:08 36.5 C 96 H 16 110/72 93 03/19/21 00:20 104 H 03/18/21 23:09 36.8 C 98 H 18 129/69 94 Laboratory Results 03/19/21 03/19/21 03/19/21 Range/Units 07:09 07:09 07:09 WBC 11.59 H (4.8-10.8) K/uL RBC 3.44 L (4.2-5.4) M/uL Hgb 9.8 L (12.0-16.0) g/dL Hct 30.9 L (37-47) % MCV 89.8 (80-100) fL MCH 28.5 (25-34) pg MCHC 31.7 L (32-36) g/dL RDW Std Deviation 45.8 (36.4-46.3) fL RDW Coeff of Maliha 13.9 (11.5-14.5) % Plt Count 302 (130-400) K/uL MPV 9.1 (7.4-10.4) fL Immature Gran % (Auto) 0.3 % Neut % (Auto) 86.4 % Lymph % (Auto) 6.6 % [place] % (Auto) 5.2 % Eos % (Auto) 1.4 % Baso % (Auto) 0.1 % Neut # (Auto) 10.02 H (1.4-6.5) K/uL Lymph # (Auto) 0.76 L (1.2-3.4) K/uL [place] # (Auto) 0.60 H (0.11-0.59) K/uL Eos # (Auto) 0.16 (0-0.5) K/uL Baso # (Auto) 0.01 (0-0.2) K/uL Immature Gran # (Auto) 0.04 H (0.00-0.02) K/uL Sodium 137 (136-145) mmol/L Potassium 3.1 L D (3.5-5.1) mmol/L Chloride 103 (98-107) mmol/L Carbon Dioxide 25 (21-32) mmol/L Anion Gap 9.0 (3-11) BUN 14 (7-18) mg/dl Creatinine 0.49 L (0.6-1.2) mg/dl Est Cr Clr Drug Dosing 93.1 ml/min Est GFR ( Amer) 106.6 ml/min Est GFR (Non-Af Amer) 92.0 ml/min BUN/Creatinine Ratio 29.0 H (10-20) Glucose 74 (70-99) mg/dl Calcium 8.1 L (8.5-10.1) mg/dl Magnesium (1.8-2.4) mg/dl Total Bilirubin 0.5 (0.2-1) mg/dl AST 13 L (15-37) U/L ALT 17 (12-78) Alkaline Phosphatase 61 (45-117) U/L Total Protein 4.8 L (6.4-8.2) gm/dl Albumin 1.5 L (3.4-5.0) gm/dl Globulin 3.3 (2.5-4.0) gm/dl Albumin/Globulin Ratio 0.5 L (0.9-2) Digoxin Pending (0.8-2.0) ng/ml 03/18/21 03/18/21 Range/Units 07:42 07:42 WBC (4.8-10.8) K/uL RBC (4.2-5.4) M/uL Hgb (12.0-16.0) g/dL Hct (37-47) % MCV (80-100) fL MCH (25-34) pg MCHC (32-36) g/dL RDW Std Deviation (36.4-46.3) fL RDW Coeff of Mal[place]ha (11.5-14.5) % Plt Count (130-400) K/uL MPV (7.4-10.4) fL Immature Gran % (Auto) % Neut % (Auto) % Lymph % (Auto) % [place] % (Auto) % Eos % (Auto) % Baso % (Auto) % Neut # (Auto) (1.4-6.5) K/uL Lymph # (Auto) (1.2-3.4) K/uL [place] # (Auto) (0.11-0.59) K/uL Eos # (Auto) (0-0.5) K/uL Baso # (Auto) (0-0.2) K/uL Immature Gran # (Auto) (0.00-0.02) K/uL Sodium 136 (136-145) mmol/L Potassium 3.7 (3.5-5.1) mmol/L Chloride 100 (98-107) mmol/L Carbon Dioxide 29 (21-32) mmol/L Anion Gap 7.0 (3-11) BUN 14 (7-18) mg/dl Creatinine 0.74 (0.6-1.2) mg/dl Est Cr Clr Drug Dosing 56.8 ml/min Est GFR ( Amer) 88.7 ml/min Est GFR (Non-Af Amer) 76.5 ml/min BUN/Creatinine Ratio 18.8 (10-20) Glucose 91 (70-99) mg/dl Calcium 8.1 L (8.5-10.1) mg/dl Magnesium 2.4 (1.8-2.4) mg/dl Total Bilirubin 0.5 (0.2-1) mg/dl AST 20 (15-37) U/L ALT 24 (12-78) Alkaline Phosphatase 62 (45-117) U/L Total Protein 5.0 L (6.4-8.2) gm/dl Albumin 1.7 L (3.4-5.0) gm/dl Globulin 3.3 (2.5-4.0) gm/dl Albumin/Globulin Ratio 0.5 L (0.9-2) Digoxin 0.7 L (0.8-2.0) ng/ml Medications Administered Current Inpatient Medications Digoxin (Digoxin 0.125 Mg/2.5 Ml Udp) 0.125 mg NG DAILY@1600 [facility] Stop: 04/17/21 17:59 Last Admin: 03/18/21 19:35 Dose: 0.125 mg Documented by: Enoxaparin Sodium (Enoxaparin Inj 40 Mg/0.4 Ml Syr) 40 mg SQ Q24H [facility] Stop: 04/17/21 16:59 Last Admin: 03/18/21 17:58 Dose: 40 mg Documented by: Lactated Ringer's (Lr) 1,000 mls @ 100 mls/hr IV .Q10H [facility] Stop: 04/15/21 17:14 Last Admin: 03/19/21 04:24 Dose: 100 mls/hr Documented by: Piperacillin Sod/Tazobactam (Sod 3.375 gm/ Dextrose) 115 mls @ 28.75 mls/hr IV Q8H [facility]; Protocol Stop: 03/24/21 23:59 Last Admin: 03/19/21 05:40 Dose: 28.8 mls/hr Documented by: Acetaminophen (Ofirmev) 1,000 mg in 100 mls @ 400 mls/hr IV Q8 [facility] Stop: 03/20/21 00:59 Last Admin: 03/19/21 05:38 Dose: Not Given Documented by: Pantoprazole Sodium 40 mg/ (Syringe) 10 mls @ 5 mls/min IV BID [facility] Stop: 04/16/21 10:44 Last Admin: 03/18/21 20:21 Dose: Not Given Documented by: Potassium Chloride (K Chris / Wtr) 10 meq in 100 mls @ 100 mls/hr IV Q1H [facility]; Protocol Stop: 03/19/21 09:14 Ketorolac Tromethamine (Ketorolac Tromethamine 15 Mg/Ml Vial) 15 mg IV Q6 [facility] Stop: 03/22/21 00:14 Last Admin: 03/19/21 05:38 Dose: Not Given Documented by: Metoprolol Tartrate (Metoprolol Tartrate 1 Mg/Ml Vial) 5 mg IV Q6 [facility] Stop: 04/16/21 05:59 Last Admin: 03/18/21 11:19 Dose: Not Given Documented by: Miscellaneous Information (Piperacill/Tazobac Consult Active) 1 ea N/A UD PRN PRN Reason: Consult Stop: 04/15/21 23:50 Morphine Sulfate (Morphine Sulfate 2 Mg/Ml Carp) 2 mg IV Q3H PRN PRN Reason: Pain (1,2,3,4,5) & Pre PT Stop: 03/30/21 23:50 Morphine Sulfate (Morphine Sulfate 4 Mg/Ml 1 Ml Carp\\Vial) 4 mg IV Q3H PRN PRN Reason: Pain (6,7,8,9,10) Stop: 03/30/21 23:50 Ondansetron HCl (Ondansetron Inj 2 Mg/Ml 2 Ml Vial) 4 mg IV Q6H PRN PRN Reason: Nausea Stop: 04/12/21 00:21 Last Admin: 03/16/21 19:20 Dose: 4 mg Documented by:
[2021-03-19] MEDS: PANTOprazole 40 MG in SYRINGE 0 ML IV SCH ×2 (08:19→22:18)
--- NOTE | 2021-03-19 09:19 | Surgery Progress Note ---
Date of Service March 19, 2021 Assessment & Plan (1) History of femoral hernia repair: Plan: POD#3 laparoscopic converted to open right femoral hernia repair with small bowel resection + anastomosis Patient feeling well this AM. WBC 11 NGT with no output...pt believes she is passing flatus. We will trial removing NGT today. Can start sips/chips Abdomen is soft, some expected discomfort to palpation nicole-incisionally. Wounds c/d/i with yajaira Recommend pt getting OOB today, work with PT/OT Rose may be removed when patient more ambulatory...it required to be flushed overnight apparently Admission and Anticipated Discharge Date Admission Date: March 12, 2021 Supervising Physician Co-Signing Physician Notes pnt S&E, agree with above. POD#3 strangulated right femoral hernia repair with small bowel resection. Feeling better, +bm. ng tube removed, tolerating clears. abd soft, mild ttp, incision w/o infection. wbc down to 11.6. hgb down slightly, continue to monitor. cont clears, likely advance diet tomorrow. Subjective Patient says she is feeling better this AM. Denies nausea/vomiting. She believes she has been starting to pass flatus. No BM yet. No nausea/vomiting. Is thirsty. Has not been out of bed yet but wants to. Said her rose catheter needed flushed overnight. Physical Exam Physical Exam: awake Gastrointestinal (Abdomen): Inspection/Auscultation: + abdominal surgical incision (c/d/i with surgical yajaira, no signs of infection); abdomen not distended Percussion/Palpation: + abdomen tender (nicole-incisional ttp) and abdomen soft Results & Data ([facility]) Vital Signs (Past 12 Hours) Vital Signs Temp Pulse Pulse Resp BP Pulse Ox 03/19/21 07:08 36.5 C 96 H 16 110/72 93 03/19/21 00:20 104 H 03/18/21 23:09 36.8 C 98 H 18 129/69 94 PG Care Time/CCT Total # of Minutes Spent Total Time Spent with Patient: Total time spent is greater than 50% in coordination of care (as documented) at patient's floor/unit and/or counseling patient: Coding Level of Care Code None Diagnoses History of femoral hernia repair Z98.890; Z87.19
[2021-03-19] MEDS: POTASSIUM CHLORIDE / WTR 10 MEQ/100 ML PLCT IV SCH ×4 (09:22→12:58)
--- NOTE | 2021-03-19 09:31 | Gastroenterology Progress Note ---
Date of Service March 19, 2021 Assessment & Plan (1) Esophagitis: Plan: Dysphagia: - EGD with severe esophagitis - Continue PPI BID Nausea and vomiting: - Will require outpatient follow-up with family and EGD as outpatient - outpatient f/up w/ GES may be indicated Esophagitis: - see above, outpatient follow up Small bowel obstruction: - follow surgery recommendations - appreciate input on calcified gallbladder (? porcelain gallbladder) noted on CT A/P (2) Odynophagia: Admission and Anticipated Discharge Date Admission Date: March 12, 2021 Supervising Physician Co-Signing Physician Notes I have seen and examined the patient. I agree with note above by GABRIEL Patricio except as noted below. HPI Pt awake and alert. Denies abd pain. Per pateint tolerating liquid diet. Per nursing 8 loose bms today PE Abdomen pos bs, soft, no guarding nor rebound A/P esophagitis--reviewed path from EGD and no Barretts seen--recommend PPI bid and repeat EGD as outpt to document healing and assess for barretts ? porcelain GB--recommend elective GB surgery if patient/family are agreeable as this has malignant potential SB obstruction from hernia--post op--bowels moving, further per surgery Subjective Patient sleeping. EMR and nursing notes are reviewed. No nausea or vomiting. NGT intact to right nare. Remains NPO. Physical Exam Constitutional: + ill appearing Respiratory: normal respiratory effort; no respiratory distress and no labored breathing Results & Data ([facility]) Vital Signs (Past 12 Hours) Vital Signs Temp Pulse Pulse Resp BP Pulse Ox 03/19/21 07:08 36.5 C 96 H 16 110/72 93 03/19/21 00:20 104 H 03/18/21 23:09 36.8 C 98 H 18 129/69 94 Laboratory Results Laboratory Results - last 24 hr 03/19/21 03/19/21 03/19/21 07:09 07:09 07:09 WBC 11.59 H RBC 3.44 L Hgb 9.8 L Hct 30.9 L MCV 89.8 MCH 28.5 MCHC 31.7 L RDW Std Deviation 45.8 RDW Coeff of [place] 13.9 Plt Count 302 MPV 9.1 Immature Gran % (Auto) 0.3 Neut % (Auto) 86.4 Lymph % (Auto) 6.6 [place] % (Auto) 5.2 Eos % (Auto) 1.4 Baso % (Auto) 0.1 Neut # (Auto) 10.02 H Lymph # (Auto) 0.76 L [place] # (Auto) 0.60 H Eos # (Auto) 0.16 Baso # (Auto) 0.01 Immature Gran # (Auto) 0.04 H Sodium 137 Potassium 3.1 L D Chloride 103 Carbon Dioxide 25 Anion Gap 9.0 BUN 14 Creatinine 0.49 L Est Cr Clr Drug Dosing 93.1 Est GFR ( Amer) 106.6 Est GFR (Non-Af Amer) 92.0 BUN/Creatinine Ratio 29.0 H Glucose 74 Calcium 8.1 L Total Bilirubin 0.5 AST 13 L ALT 17 Alkaline Phosphatase 61 Total Protein 4.8 L Albumin 1.5 L Globulin 3.3 Albumin/Globulin Ratio 0.5 L Digoxin Pending
[2021-03-19] MEDS ORDERED: METOPROLOL SUCC 50MG EXT REL TAB PO STA (12:10)
--- NOTE | 2021-03-19 13:34 | Cardiology Progress Note ---
Date of Service March 19, 2021 Assessment & Plan (1) Atrial fibrillation with rapid ventricular response: (2) LBBB (left bundle branch block): (3) Hypotension: Plan: ASSESSMENT/PLAN: 1. Atrial fibrillation: AFib appears persistent. Has severe left atrial dil ation and therefore may be difficult to achieve rhythm control. She adamantly refuses anticoagulation therapy despite discussions regarding stroke risk reduction. Heart rate not adequately controlled. Notified by nursing staff after initial visit today stating that she is now okay for p.o. medications. Start metoprolol succinate 50 mg once daily. She has been open about that she is not likely to take medication long after discharge after initiating her holistic approach. Nursing staff has reported that she has refused medications while here as well, orally and IV. Will attempt to achieve adequate rate control with 1 medication to hopefully improve medication compliance. She is also on digoxin currently. Can continue for now if she is willing to take. Monitor digoxin level periodically. 2. Left bundle-branch block: Asymptomatic. 3. Hypotension: Normotensive today. 4. Disposition: Cardiology will continue to follow. Please call with questions or concerns. Admission and Anticipated Discharge Date Admission Date: March 12, 2021 Subjective She was seen this morning. She denies chest pain, shortness of breath, palpitations, syncope. She has some abdominal discomfort. She was wishing to eat. She still had NG tube in place at that time. Review of systems: As above. Physical Exam Physical Exam: Gen.: No acute distress. Alert and oriented. HEENT: Anicteric sclera. Neck: No JVD. Cardiac: PMI was nondisplaced. No ventricular heave. Irregularly irregular. Normal S1-S2. 1/6 systolic murmur. No rubs or gallops. Pulmonary: Clear to auscultation bilaterally without wheezes, rales, or rhonchi. Abdomen: Soft and nondistended. Hypoactive bowel sounds. No bruits noted. Extremities: 2+ radial pulses bilaterally. 2+ posterior tibialis pulses b ilaterally. No edema or cyanosis. Psychiatric: Affect appears appropriate. Results & Data ([facility]) Vital Signs (Past 12 Hours) Vital Signs Temp Pulse Pulse Resp BP Pulse Ox 03/19/21 12:16 36.4 C L 90 136/80 94 03/19/21 11:19 109 H 03/19/21 07:08 36.5 C 96 H 16 110/72 93 Laboratory Results Laboratory Results - last 24 hr 03/19/21 03/19/21 03/19/21 07:09 07:09 07:09 WBC 11.59 H RBC 3.44 L Hgb 9.8 L Hct 30.9 L MCV 89.8 MCH 28.5 MCHC 31.7 L RDW Std Deviation 45.8 RDW Coeff of [place] 13.9 Plt Count 302 MPV 9.1 Immature Gran % (Auto) 0.3 Neut % (Auto) 86.4 Lymph % (Auto) 6.6 [place] % (Auto) 5.2 Eos % (Auto) 1.4 Baso % (Auto) 0.1 Neut # (Auto) 10.02 H Lymph # (Auto) 0.76 L [place] # (Auto) 0.60 H Eos # (Auto) 0.16 Baso # (Auto) 0.01 Immature Gran # (Auto) 0.04 H Sodium 137 Potassium 3.1 L D Chloride 103 Carbon Dioxide 25 Anion Gap 9.0 BUN 14 Creatinine 0.49 L Est Cr Clr Drug Dosing 93.1 Est GFR ( Amer) 106.6 Est GFR (Non-Af Amer) 92.0 BUN/Creatinine Ratio 29.0 H Glucose 74 Calcium 8.1 L Total Bilirubin 0.5 AST 13 L ALT 17 Alkaline Phosphatase 61 Total Protein 4.8 L Albumin 1.5 L Globulin 3.3 Albumin/Globulin Ratio 0.5 L Digoxin 0.5 L Diagnostic Findings Telemetry personally reviewed: Atrial fibrillation with rapid ventricular response. Medications Administered Current Inpatient Medications Digoxin (Digoxin 0.125 Mg/2.5 Ml Udp) 0.125 mg NG DAILY@1600 [facility] Stop: 04/17/21 17:59 Last Admin: 03/18/21 19:35 Dose: 0.125 mg Documented by: Enoxaparin Sodium (Enoxaparin Inj 40 Mg/0.4 Ml Syr) 40 mg SQ Q24H [facility] Stop: 04/17/21 16:59 Last Admin: 03/18/21 17:58 Dose: 40 mg Documented by: Lactated Ringer's (Lr) 1,000 mls @ 115 mls/hr IV .Q8H42M [facility] Stop: 04/15/21 17:14 Last Infusion: 03/19/21 12:01 Dose: 115 mls/hr Documented by: Piperacillin Sod/Tazobactam (Sod 3.375 gm/ Dextrose) 115 mls @ 28.75 mls/hr IV Q8H [facility]; Protocol Stop: 03/24/21 23:59 Last Infusion: 03/19/21 09:40 Dose: Infused Documented by: Acetaminophen (Ofirmev) 1,000 mg in 100 mls @ 400 mls/hr IV Q8 [facility] Stop: 03/20/21 00:59 Last Admin: 03/19/21 05:38 Dose: Not Given Documented by: Pantoprazole Sodium 40 mg/ (Syringe) 10 mls @ 5 mls/min IV BID [facility] Stop: 04/16/21 10:44 Last Admin: 03/19/21 08:19 Dose: 5 mls/min Documented by: Ketorolac Tromethamine (Ketorolac Tromethamine 15 Mg/Ml Vial) 15 mg IV Q6 [facility] Stop: 03/22/21 00:14 Last Admin: 03/19/21 12:30 Dose: 15 mg Documented by: Metoprolol Succinate (Metoprolol Succ 50mg Ext Rel Tab) 50 mg PO QAM [facility] Stop: 04/19/21 08:59 Metoprolol Tartrate (Metoprolol Tartrate 1 Mg/Ml Vial) 5 mg IV Q6 [facility] Stop: 04/16/21 05:59 Last Admin: 03/18/21 11:19 Dose: Not Given Documented by: Miscellaneous Information (Piperacill/Tazobac Consult Active) 1 ea N/A UD PRN PRN Reason: Consult Stop: 04/15/21 23:50 Morphine Sulfate (Morphine Sulfate 2 Mg/Ml Carp) 2 mg IV Q3H PRN PRN Reason: Pain (1,2,3,4,5) & Pre PT Stop: 03/30/21 23:50 Morphine Sulfate (Morphine Sulfate 4 Mg/Ml 1 Ml Carp\Vial) 4 mg IV Q3H PRN PRN Reason: Pain (6,7,8,9,10) Stop: 03/30/21 23:50 Ondansetron HCl (Ondansetron Inj 2 Mg/Ml 2 Ml Vial) 4 mg IV Q6H PRN PRN Reason: Nausea Stop: 04/12/21 00:21 Last Admin: 03/16/21 19:20 Dose: 4 mg Documented by: PG Care Time/CCT Total # of Minutes Spent Total Time Spent with Patient: Total time spent is greater than 50% in coordination of care (as documented) at patient's floor/unit and/or counseling patient: Coding Level of Care Code 81781 Subseq Hosp Care Lvl 3 Diagnoses Atrial fibrillation with rapid ventricular response I48.91 LBBB (left bundle branch block) I44.7 Hypotension I95.9
[2021-03-19] MEDS: DIGOXIN 0.125 MG/2.5 ML UDP NG SCH (17:03)
[2021-03-19] MEDS: ENOXAPARIN INJ 40 MG/0.4 ML SYR SQ SCH (17:05)
[2021-03-20] MEDS: KETOROLAC TROMETHAMINE 15 MG/ML VIAL IV SCH ×5 (01:28→23:41)
[2021-03-20] MEDS: PIPERACILLIN/TAZOBACTAM 3.375 GM in DEXTROSE 5% 100 ML IV SCH ×3 (05:18→22:01)
--- NOTE | 2021-03-20 07:12 | Hospitalist Progress Note ---
Date of Service March 20, 2021 Assessment & Plan (1) Atrial fibrillation with rapid ventricular response: Plan: 80-year-old woman with no documented medical history last seen by a provider in 2006 presented to the ED after falling with a 1-week history of diffuse weakness and dysphagia and found to be afib w/ rvr. Also found to have strangulated R femoral hernia hernia and s/p open femoral exploration w/ small part of small bowel resected. #Strangulated femoral hernia repair with small bowel resection POD 3 noted on 03/16 CT abd ordered to assess persistent nausea after EGD. s/p laparatomy and bowel resection/hernia repair 03/16 -Surgery Consulted - May resume prophylactic Lovenox, no therapeutic anticoagulation yet - Continue Zosyn - Tolerating sips and chips diet has been advanced to Full liquids, if she tolerates could consider low fiber - Plan to address calcified gallbladder as an outpatient #Atrial fibrillation with rapid ventricular response: EKG 03/13: A fib with premature ventricular or aberrantly conducted complexes, LBBB, T wave amp increased in anterior leads, T wave inversion evident in lateral leads; similar findings on 03/14 EKG. ECHO: normal LV size/systolic function, EF 55-60%. Septal motion consistent with conduction abn (bundle-branch block). No RWMA, moderate concentric LVH,severe left atrial dilation,sclerotic aortic valve, severe mitral annular calcification, trace to small pericardial effusion, A fib with PVCs. Heparin drip transitioned to lovenox - Planning to transition to Eliquis mg PO BID when able. -Consulted cardiology following recs -patient refuses anticoagulation therapy -Recommend rate control strategy -start metoprolol succinate 50 mg daily -Continue digoxin as long as patient will continue to take the medication - patient's pressures have been stable #Dysphagia w/ Nausea/Vomiting, Esophagitis - GI consulted. 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 Biopsied, pending. Esophageal ulcers. 1800mL of fluid removed from the stomach w/ some residual remaining. Multiple gastric polyps. - Started on PPI BID on 03/15. Transitioned to IV - presentation likely due to underlying strangulated bowel incarcerated hernia - requires outpt followup #Elevated troponin/Demand ischemia due to RVR - demand ischemia #Hyperthyroidism - Free T3 1.86, TSH 0.259, T4 1.88 - Thyroid U/S 03/14: few scattered right thyroid nodules, right lobe measures 5.4 x 1.6 x 2.4 cm. There are few scattered nodules. Dominant hypoechoic nodule within the upper pole measures 15 x 12 x 7 mm. This is primarily solid with a few small cystic foci. There is an additional heterogeneous solid nodule within the lower pole measuring 14 x 13 x 12 mm. These do not meet sonographic criteria for biopsy at this time but should be followed to ensure stability. Left lobe: 5.3 x 1.4 x 2.2 cm. There is a single subcentimeter cyst measuring 5 mm. - Recommend follow up in outpatient setting #Electrolyte Disturbances: including hyponatremia corrected during hospitalization -repleted KCL #Weakness/Deconditioning - Patient initially refused rehab but later agreeable. - Patient's daughter, Jennifer updated on plan. - Per case management, most facilities require covid immunization -Patient will ultimately need SNF on discharge. Stressed the importance of her need to participate in daily physical and occupational therapy to improve her overall condition and progress towards discharge #Incidental CT finding: - complaining of chronic back pain - Spine CT: 1.3 lucent lesion within T1 vertebral body - Recommend outpatient follow up #Fall: - Secondary to weakness vs. ongoing afib RVR vs. orthostatic hypotension Anticoag: Lovenox, refusing full anticoagulation for atrial fibrillation Code: DNR/DNI Diet: Full liquids, if she tolerates advance to low fiber Dispo: PCU Admission and Anticipated Discharge Date Admission Date: March 12, 2021 Supervising Physician Co-Signing Physician Notes Patient seen and examined, chart reviewed, case discussed with Dr. Moreira and I agree with the assessment and plan as above except as otherwise noted 80-year-old female presented with dysphagia to is admitted for and treated for atrial fibrillation, weakness/deconditioning, strangulated femoral hernia status post operative repair 03/16/2021, SBO, and esophagitis. Chest rise symmetrical, radial pulse intact irregularly irregular without tachycardia, respirations clear and unlabored without wheezes/rales/rhonchi. Abdomen: Postsurgical incisions intact, 2X port sites on right/left lower abdomen, infraumbilical incision, and aortic incision all intact and well- healing without dehiscence/discharge/erythema. [place] remain in place, initially placed 03/16. Abdomen with appropriate postsurgical tenderness overlying incisions, otherwise nontender//without rebound. Passing flatus, diet advanced to full liquids and anticipate to low fiber if continuing to do well. Hemodynamically stable. A. fib/RVR with adequate rate control at this time, continue metoprolol 100 mg every morning. Discussed with cardiology, patient is highly resistant to multiple medications and unlikely to be compliant with multiple medications will attempt to manage with maximized metoprolol and hold on digoxin at this time. Continues on DVT prophylactic anticoagulation, continues to refuse therapeutic anticoagulation for A. fib despite risk/benefits discussion regarding risk of stroke and morbidity of cardioembolic stroke. Subjective Patient lying in bed this morning reports that she is feeling down. She reports she did well overnight, tolerating her diet, voiding, stooling, no acute distress. She states that she is upset because normally at home she eats organic food however at the hospital she has been required to eat processed food. She is very eager for discharge. We discussed discharge criteria including active participation with PT and OT. Otherwise patient's bowel function appears to be returning, she has not had a bowel movement today, she is tolerating her diet, voiding, sleeping at night. Acute concerns relate to discharge and advancing her diet. Physical Exam Physical Exam: General: No acute distress HEENT: Normocephalic atraumatic Neck: Normal visual inspection Cardiac: Irregularly irregular, I did not appreciate significant murmurs rubs or gallops, 1+ pedal edema, no calf tenderness Respiratory: Clear to auscultation bilaterally with symmetrical chest expansion did not appreciate significant wheezes, rales, rhonchi GI: Soft, tender around the surgical site, surgical site is clean dry and intact, no rebound, no guarding MSK: Moves all extremities Neuro: Alert and oriented x4 Psych: Calm and cooperative with interview Results & Data Results & Data ([facility]) Vital Signs (Past 12 Hours) Vital Signs Temp Pulse Pulse Resp BP Pulse Ox 03/20/21 03:48 36.6 C 76 18 108/57 L 99 03/19/21 23:52 36.5 C 55 L 18 113/72 90 03/19/21 22:20 92 H 03/19/21 19:24 36.4 C L 84 18 106/66 99 Laboratory Results 03/19/21 03/19/21 03/19/21 Range/Units 07:09 07:09 07:09 WBC 11.59 H (4.8-10.8) K/uL RBC 3.44 L (4.2-5.4) M/uL Hgb 9.8 L (12.0-16.0) g/dL Hct 30.9 L (37-47) % MCV 89.8 (80-100) fL MCH 28.5 (25-34) pg MCHC 31.7 L (32-36) g/dL RDW Std Deviation 45.8 (36.4-46.3) fL RDW Coeff of [place]ha 13.9 (11.5-14.5) % Plt Count 302 (130-400) K/uL MPV 9.1 (7.4-10.4) fL Immature Gran % (Auto) 0.3 % Neut % (Auto) 86.4 % Lymph % (Auto) 6.6 % [place] % (Auto) 5.2 % Eos % (Auto) 1.4 % Baso % (Auto) 0.1 % Neut # (Auto) 10.02 H (1.4-6.5) K/uL Lymph # (Auto) 0.76 L (1.2-3.4) K/uL [place] # (Auto) 0.60 H (0.11-0.59) K/uL Eos # (Auto) 0.16 (0-0.5) K/uL Baso # (Auto) 0.01 (0-0.2) K/uL Immature Gran # (Auto) 0.04 H (0.00-0.02) K/uL Sodium 137 (136-145) mmol/L Potassium 3.1 L D (3.5-5.1) mmol/L Chloride 103 (98-107) mmol/L Carbon Dioxide 25 (21-32) mmol/L Anion Gap 9.0 (3-11) BUN 14 (7-18) mg/dl Creatinine 0.49 L (0.6-1.2) mg/dl Est Cr Clr Drug Dosing 93.1 ml/min Est GFR ( Amer) 106.6 ml/min Est GFR (Non-Af Amer) 92.0 ml/min BUN/Creatinine Ratio 29.0 H (10-20) Glucose 74 (70-99) mg/dl Calcium 8.1 L (8.5-10.1) mg/dl Total Bilirubin 0.5 (0.2-1) mg/dl AST 13 L (15-37) U/L ALT 17 (12-78) Alkaline Phosphatase 61 (45-117) U/L Total Protein 4.8 L (6.4-8.2) gm/dl Albumin 1.5 L (3.4-5.0) gm/dl Globulin 3.3 (2.5-4.0) gm/dl Albumin/Globulin Ratio 0.5 L (0.9-2) Digoxin 0.5 L (0.8-2.0) ng/ml Medications Administered Current Inpatient Medications Digoxin (Digoxin 0.125 Mg/2.5 Ml Udp) 0.125 mg NG DAILY@1600 [facility] Stop: 04/17/21 17:59 Last Admin: 03/19/21 17:03 Dose: 0.125 mg Documented by: Enoxaparin Sodium (Enoxaparin Inj 40 Mg/0.4 Ml Syr) 40 mg SQ Q24H [facility] Stop: 04/17/21 16:59 Last Admin: 03/19/21 17:05 Dose: Not Given Documented by: Lactated Ringer's (Lr) 1,000 mls @ 115 mls/hr IV .Q8H42M [facility] Stop: 04/15/21 17:14 Last Admin: 03/19/21 22:45 Dose: 115 mls/hr Documented by: Piperacillin Sod/Tazobactam (Sod 3.375 gm/ Dextrose) 115 mls @ 28.75 mls/hr IV Q8H [facility]; Protocol Stop: 03/24/21 23:59 Last Admin: 03/20/21 05:18 Dose: 28.8 mls/hr Documented by: Pantoprazole Sodium 40 mg/ (Syringe) 10 mls @ 5 mls/min IV BID [facility] Stop: 04/16/21 10:44 Last Admin: 03/19/21 22:18 Dose: 5 mls/min Documented by: Ketorolac Tromethamine (Ketorolac Tromethamine 15 Mg/Ml Vial) 15 mg IV Q6 [facility] Stop: 03/22/21 00:14 Last Admin: 03/20/21 05:21 Dose: Not Given Documented by: Metoprolol Succinate (Metoprolol Succ 50mg Ext Rel Tab) 50 mg PO QAM [facility] Stop: 04/19/21 08:59 Metoprolol Tartrate (Metoprolol Tartrate 1 Mg/Ml Vial) 5 mg IV Q6 [facility] Stop: 04/16/21 05:59 Last Admin: 03/18/21 11:19 Dose: Not Given Documented by: Miscellaneous Information (Piperacill/Tazobac Consult Active) 1 ea N/A UD PRN PRN Reason: Consult Stop: 04/15/21 23:50 Morphine Sulfate (Morphine Sulfate 2 Mg/Ml Carp) 2 mg IV Q3H PRN PRN Reason: Pain (1,2,3,4,5) & Pre PT Stop: 03/30/21 23:50 Morphine Sulfate (Morphine Sulfate 4 Mg/Ml 1 Ml Carp\Vial) 4 mg IV Q3H PRN PRN Reason: Pain (6,7,8,9,10) Stop: 03/30/21 23:50 Ondansetron HCl (Ondansetron Inj 2 Mg/Ml 2 Ml Vial) 4 mg IV Q6H PRN PRN Reason: Nausea Stop: 04/12/21 00:21 Last Admin: 03/16/21 19:20 Dose: 4 mg Documented by:
[2021-03-20 07:35] LABS: Basophils # (auto) 0.02 K/uL (0-0.2); Basophils % (auto) 0.2 %; Eosinophils # (auto) 0.22 K/uL (0-0.5); Eosinophils % (auto) 2.4 %; Immature Granulocytes # (auto) 0.08 K/uL (0.00-0.02); Immature Granulocytes % (auto) 0.9 %; Lymphocytes # (auto) 1.13 K/uL (1.2-3.4); Lymphocytes % (auto) 12.3 %; Mean Corpuscular Hgb Conc 32.1 g/dL (32-36); Mean Corpuscular Volume 90.3 fL (80-100); Monocytes # (auto) 0.48 K/uL (0.11-0.59); Monocytes % (auto) 5.2 %; Neutrophils # (auto) 7.25 K/uL (1.4-6.5); Platelet Count 327 K/uL (130-400); RDW Standard Deviation 46.2 fL (36.4-46.3); White Blood Count 9.18 K/uL (4.8-10.8)
[2021-03-20 08:07] LABS: Calcium 7.8 mg/dl (8.5-10.1); Creatinine Clr Calc Pharmacy 84.3 ml/min; Est GFR (African American) 102.7 ml/min; Est GFR (Non-African American) 88.6 ml/min; Potassium 3.3 mmol/L (3.5-5.1)
--- NOTE | 2021-03-20 08:10 | Surgery Progress Note ---
Date of Service March 20, 2021 Assessment & Plan (1) History of femoral hernia repair: Plan: POD#4 laparoscopic converted to open right femoral hernia repair with small bowel resection + anastomosis Patient appears to be improving. WBC 9. Hbg 9 (9.8) Pt is tolerating clear liquids, no BM yet today but was having + bowel function yesterday Abdomen is soft, expected tenderness around incisions. no signs of infection Can trial advancing diet to full liquids this AM, and then to low fiber if continues to do well Reviewed findings of calcified gallbladder on imaging, will discuss this with pt at outpt follow up Continue to encourage patient getting out of bed and ambulating Admission and Anticipated Discharge Date Admission Date: March 12, 2021 Supervising Physician Co-Signing Physician Notes pnt S&E, agree with above. POD#4 strangulated right femoral hernia repair with small bowel resection. Feeling better, +bm. tolerating fulls. abd soft, mild ttp, incision w/o infection. wbc normal. hgb down slightly, continue to monitor. ambulate, is, oobtc, pt/ot Subjective Patient says she's "not sure how i feel yet this am". She is sitting up in her bed drinking her clears. She is tolerating them without issue. Had + BM's yesterday. Denies nausea/vomiting. Pain is controlled. She is hungry for something more substantial. Physical Exam Physical Exam: awake, sitting up in bed eating bfast Respiratory: normal respiratory effort Gastrointestinal (Abdomen): Inspection/Auscultation: + abdominal surgical incision (c/d/i with surgical yajaira in place. no signs of infection); abdomen not distended Percussion/Palpation: + abdomen tender (some expected nicole- incisional ttp) and abdomen soft Results & Data ([facility]) Vital Signs (Past 12 Hours) Vital Signs Temp Pulse Pulse Resp BP Pulse Ox 03/20/21 07:00 101 H 03/20/21 03:48 36.6 C 76 18 108/57 L 99 03/19/21 23:52 36.5 C 55 L 18 113/72 90 03/19/21 22:20 92 H PG Care Time/CCT Total # of Minutes Spent Total Time Spent with Patient: Total time spent is greater than 50% in coordination of care (as documented) at patient's floor/unit and/or counseling patient: Coding Level of Care Code None Diagnoses History of femoral hernia repair Z98.890; Z87.19
--- NOTE | 2021-03-20 08:23 | Gastroenterology Progress Note ---
Date of Service March 20, 2021 Assessment & Plan (1) Esophagitis: Plan: Esophagitis: Continue PPI twice daily and repeat EGD as outpatient to document healing and assess for Johnson's Small bowel obstruction from hernia: Postop, bowels moving, follow surgery sebastián mmendations Calcified gallbladder: Surgical notes are reviewed. Will discuss plan for findings of calcified gallbladder (? Porcelain gallbladder) noted on CT A/P at outpatient follow-up visit. Please refer to supervising physician addendum for further recommendations. Admission and Anticipated Discharge Date Admission Date: March 12, 2021 Supervising Physician Co-Signing Physician Notes I have seen and examined the patient. I agree with note above by GABRIEL Patricio except as noted below. HPI Pt denies abd pain. Per nursing the diet is being advanced to solid food for supper. PE Abdomen pos bs, soft, no guarding nor rebound A/P A/P esophagitis-- path from EGD no Barretts seen--recommend PPI bid and repeat EGD as outpt to document healing and assess for barretts ? porcelain GB--recommend elective GB surgery if patient/family are agreeable as this has malignant potential SB obstruction from hernia--post op- further per surgery Will sign off. Please call for further questions. Subjective Patient awake alert and oriented this morning.'s states she feels rather hopeless this morning. She just does not see an end in sight with her admission. She is tolerating a clear liquid diet this morning. She is very unhappy with her dietary choices as she eats primarily organic foods at home. Denies any abdominal pain. NG tube was removed. She did have a bowel movement yesterday and through the night. Review of Systems Review of Systems: All systems reviewed & are unremarkable except as noted in Subjective Physical Exam Gastrointestinal (Abdomen): Inspection/Auscultation: normal bowel sounds Results & Data ([facility]) Vital Signs (Past 12 Hours) Vital Signs Temp Pulse Pulse Resp BP Pulse Ox 03/20/21 08:03 37.0 C 99 H 18 115/70 98 03/20/21 07:00 101 H 03/20/21 03:48 36.6 C 76 18 108/57 L 99 03/19/21 23:52 36.5 C 55 L 18 113/72 90 03/19/21 22:20 92 H Laboratory Results Laboratory Results - last 24 hr 03/19/21 03/20/21 03/20/21 07:09 07:14 07:14 WBC 9.18 RBC 3.10 L Hgb 9.0 L Hct 28.0 L MCV 90.3 MCH 29.0 MCHC 32.1 RDW Std Deviation 46.2 RDW Coeff of Maliha 14.0 Plt Count 327 MPV 9.0 Immature Gran % (Auto) 0.9 Neut % (Auto) 79.0 Lymph % (Auto) 12.3 [place] % (Auto) 5.2 Eos % (Auto) 2.4 Baso % (Auto) 0.2 Neut # (Auto) 7.25 H Lymph # (Auto) 1.13 L [place] # (Auto) 0.48 Eos # (Auto) 0.22 Baso # (Auto) 0.02 Immature Gran # (Auto) 0.08 H Sodium 139 Potassium 3.3 L Chloride 105 Carbon Dioxide 28 Anion Gap 7.0 BUN 13 Creatinine 0.55 L Est Cr Clr Drug Dosing 84.3 Est GFR ( Amer) 102.7 Est GFR (Non-Af Amer) 88.6 BUN/Creatinine Ratio 23.0 H Glucose 150 H Calcium 7.8 L Digoxin 0.5 L 03/20/21 07:14 WBC RBC Hgb Hct MCV MCH MCHC RDW Std Deviation RDW Coeff of Maliha Plt Count MPV Immature Gran % (Auto) Neut % (Auto) Lymph % (Auto) [place] % (Auto) Eos % (Auto) Baso % (Auto) Neut # (Auto) Lymph # (Auto) [place] # (Auto) Eos # (Auto) Baso # (Auto) Immature Gran # (Auto) Sodium Potassium Chloride Carbon Dioxide Anion Gap BUN Creatinine Est Cr Clr Drug Dosing Est GFR ( Amer) Est GFR (Non-Af Amer) BUN/Creatinine Ratio Glucose Calcium Digoxin Pending
[2021-03-20] MEDS: PANTOprazole 40 MG in SYRINGE 0 ML IV SCH ×2 (08:38→21:55)
[2021-03-20] MEDS ORDERED: METOPROLOL SUCC 50MG EXT REL TAB PO SCH (09:00)
[2021-03-20] MEDS ORDERED: METOPROLOL SUCC 50MG EXT REL TAB PO STA (12:01)
--- NOTE | 2021-03-20 13:28 | Cardiology Progress Note ---
Date of Service March 20, 2021 Assessment & Plan (1) Atrial fibrillation with rapid ventricular response: (2) LBBB (left bundle branch block): (3) Hypotension: Plan: ASSESSMENT/PLAN: 1. Atrial fibrillation: Persistent. Has severe left atrial dilation and the refore may be difficult to achieve rhythm control. She adamantly refuses anticoagulation therapy despite discussions regarding stroke risk reduction. Heart rate has been elevated but improving. Metoprolol succinate initiated on 03/19/2021 when able to take p.o.. Would increase metoprolol succinate to 100 mg today. Discontinue digoxin as she admits that she may not continue medical therapy after she leaves the hospital. One rate-controlling medication may improve compliance. This was discussed with her. Also, would be concerned about follow-up with digoxin as she does not and has not followed with providers and would try to avoid medication that requires monitoring of levels. 2. Left bundle-branch block: Asymptomatic. 3. Hypotension: Resolved. Now normotensive. 4. Disposition: Cardiology will continue to follow. Please call with questions or concerns. Plan of care discussed with Dr. Moreland and team. Admission and Anticipated Discharge Date Admission Date: March 12, 2021 Subjective She was seen earlier today seated in a chair at the bedside. She admits that she feels better today than yesterday. She was able to consume soup today. Abdominal pain has improved. She denies chest pain, shortness of breath, palpitations, edema, or bleeding. Review of systems: As above. Physical Exam Physical Exam: Gen.: No acute distress. Alert and oriented. HEENT: Anicteric sclera. Neck: No JVD. Cardiac: Irregularly irregular. Normal S1-S2. 1/6 systolic murmur. No rubs or gallops. Pulmonary: Clear to auscultation bilaterally without wheezes, rales, or rhonchi. Abdomen: Soft and nondistended. Improved bowel sounds. No bruits noted. Extremities: 2+ radial pulses bilaterally. 2+ posterior tibialis pulses bilaterally. No edema or cyanosis. Psychiatric: Affect appears appropriate. Results & Data ([facility]) Vital Signs (Past 12 Hours) Vital Signs Temp Pulse Pulse Resp BP Pulse Ox 03/20/21 11:55 37.0 C 97 H 20 115/66 98 03/20/21 08:03 37.0 C 99 H 18 115/70 98 03/20/21 07:00 101 H 03/20/21 03:48 36.6 C 76 18 108/57 L 99 Laboratory Results Laboratory Results - last 24 hr 03/20/21 03/20/21 03/20/21 07:14 07:14 07:14 WBC 9.18 RBC 3.10 L Hgb 9.0 L Hct 28.0 L MCV 90.3 MCH 29.0 MCHC 32.1 RDW Std Deviation 46.2 RDW Coeff of Maliha 14.0 Plt Count 327 MPV 9.0 Immature Gran % (Auto) 0.9 Neut % (Auto) 79.0 Lymph % (Auto) 12.3 [place] % (Auto) 5.2 Eos % (Auto) 2.4 Baso % (Auto) 0.2 Neut # (Auto) 7.25 H Lymph # (Auto) 1.13 L [place] # (Auto) 0.48 Eos # (Auto) 0.22 Baso # (Auto) 0.02 Immature Gran # (Auto) 0.08 H Sodium 139 Potassium 3.3 L Chloride 105 Carbon Dioxide 28 Anion Gap 7.0 BUN 13 Creatinine 0.55 L Est Cr Clr Drug Dosing 84.3 Est GFR ( Amer) 102.7 Est GFR (Non-Af Amer) 88.6 BUN/Creatinine Ratio 23.0 H Glucose 150 H Calcium 7.8 L Digoxin 0.6 L Diagnostic Findings Telemetry personally reviewed: Atrial fibrillation. Heart rate improved. Medications Administered Current Inpatient Medications Enoxaparin Sodium (Enoxaparin Inj 40 Mg/0.4 Ml Syr) 40 mg SQ Q24H [facility] Stop: 04/17/21 16:59 Last Admin: 03/19/21 17:05 Dose: Not Given Documented by: Lactated Ringer's (Lr) 1,000 mls @ 115 mls/hr IV .Q8H42M [facility] Stop: 04/15/21 17:14 Last Infusion: 03/20/21 10:17 Dose: Infused Documented by: Piperacillin Sod/Tazobactam (Sod 3.375 gm/ Dextrose) 115 mls @ 28.75 mls/hr IV Q8H [facility]; Protocol Stop: 03/24/21 23:59 Last Infusion: 03/20/21 10:16 Dose: Infused Documented by: Pantoprazole Sodium 40 mg/ (Syringe) 10 mls @ 5 mls/min IV BID [facility] Stop: 04/16/21 10:44 Last Admin: 03/20/21 08:38 Dose: 5 mls/min Documented by: Ketorolac Tromethamine (Ketorolac Tromethamine 15 Mg/Ml Vial) 15 mg IV Q6 [facility] Stop: 03/22/21 00:14 Last Admin: 03/20/21 13:12 Dose: 15 mg Documented by: Metoprolol Succinate (Metoprolol Succ 50mg Ext Rel Tab) 100 mg PO QAM [facility] Stop: 04/20/21 08:59 Metoprolol Tartrate (Metoprolol Tartrate 1 Mg/Ml Vial) 5 mg IV Q6 [facility] Stop: 04/16/21 05:59 Last Admin: 03/18/21 11:19 Dose: Not Given Documented by: Miscellaneous Information (Piperacill/Tazobac Consult Active) 1 ea N/A UD PRN PRN Reason: Consult Stop: 04/15/21 23:50 Morphine Sulfate (Morphine Sulfate 2 Mg/Ml Carp) 2 mg IV Q3H PRN PRN Reason: Pain (1,2,3,4,5) & Pre PT Stop: 03/30/21 23:50 Morphine Sulfate (Morphine Sulfate 4 Mg/Ml 1 Ml Carp\Vial) 4 mg IV Q3H PRN PRN Reason: Pain (6,7,8,9,10) Stop: 03/30/21 23:50 Ondansetron HCl (Ondansetron Inj 2 Mg/Ml 2 Ml Vial) 4 mg IV Q6H PRN PRN Reason: Nausea Stop: 04/12/21 00:21 Last Admin: 03/16/21 19:20 Dose: 4 mg Documented by: PG Care Time/CCT Total # of Minutes Spent Total Time Spent with Patient: Total time spent is greater than 50% in coordination of care (as documented) at patient's floor/unit and/or counseling patient: Coding Level of Care Code 08742 Subseq Hosp Care Lvl 3 Diagnoses Atrial fibrillation with rapid ventricular response I48.91 LBBB (left bundle branch block) I44.7 Hypotension I95.9
[2021-03-20] MEDS: LACTATED RINGER'S 1,000 ML IV SCH (16:30)
[2021-03-20] MEDS: ENOXAPARIN INJ 40 MG/0.4 ML SYR SQ SCH (16:32)
--- NOTE | 2021-03-20 17:39 | Billing Data ---
Date of Service March 20, 2021 Coding Level of Care Code 55899 Subseq Hosp Care Lvl 2
[2021-03-21] MEDS: LACTATED RINGER'S 1,000 ML IV SCH (01:21)
[2021-03-21] MEDS: PIPERACILLIN/TAZOBACTAM 3.375 GM in DEXTROSE 5% 100 ML IV SCH ×3 (05:53→22:11)
[2021-03-21] MEDS: KETOROLAC TROMETHAMINE 15 MG/ML VIAL IV SCH ×3 (05:54→17:27)
[2021-03-21 06:49] LABS: Creatinine Clr Calc Pharmacy 81.3 ml/min; Est GFR (African American) 101.5 ml/min; Est GFR (Non-African American) 87.6 ml/min
[2021-03-21 08:21] LABS: Basophils # (auto) 0.02 K/uL (0-0.2); Basophils % (auto) 0.2 %; Eosinophils # (auto) 0.31 K/uL (0-0.5); Eosinophils % (auto) 3.8 %; Hematocrit (blood only) 27.8 % (37-47); Hemoglobin 8.8 g/dL (12.0-16.0); Immature Granulocytes # (auto) 0.08 K/uL (0.00-0.02); Lymphocytes # (auto) 1.49 K/uL (1.2-3.4); Lymphocytes % (auto) 18.5 %; Mean Corpuscular Hemoglobin 28.7 pg (25-34); Mean Corpuscular Hgb Conc 31.7 g/dL (32-36); Mean Corpuscular Volume 90.6 fL (80-100); Mean Platelet Volume 8.9 fL (7.4-10.4); Monocytes # (auto) 0.54 K/uL (0.11-0.59); Monocytes % (auto) 6.7 %; Neutrophils # (auto) 5.62 K/uL (1.4-6.5); Neutrophils % (auto) 69.8 %; Platelet Count 352 K/uL (130-400); RDW Coefficient of Variation 14.2 % (11.5-14.5); RDW Standard Deviation 46.6 fL (36.4-46.3); Red Blood Count 3.07 M/uL (4.2-5.4); White Blood Count 8.06 K/uL (4.8-10.8)
--- NOTE | 2021-03-21 08:26 | Hospitalist Progress Note ---
Date of Service March 21, 2021 Assessment & Plan (1) Atrial fibrillation with rapid ventricular response: Plan: 80-year-old woman with no documented medical history last seen by a provider in 2006 presented to the ED after falling with a 1-week history of diffuse weakness and dysphagia and found to be afib w/ rvr. Also found to have strangulated R femoral hernia hernia and s/p open femoral exploration w/ small part of small bowel resected. #Strangulated femoral hernia repair with small bowel resection POD 5 noted on 03/16 CT abd ordered to assess persistent nausea after EGD. s/p laparatomy and bowel resection/hernia repair 03/16 -Surgery Consulted - May resume prophylactic Lovenox, no therapeutic anticoagulation yet - Continue Zosyn -Tolerating low fiber diet - Plan to address calcified gallbladder as an outpatient #Atrial fibrillation with rapid ventricular response: EKG 03/13: A fib with premature ventricular or aberrantly conducted complexes, LBBB, T wave amp increased in anterior leads, T wave inversion evident in lateral leads; similar findings on 03/14 EKG. ECHO: normal LV size/systolic function, EF 55-60%. Septal motion consistent with conduction abn (bundle-branch block). No RWMA, moderate concentric LVH,severe left atrial dilation,sclerotic aortic valve, severe mitral annular calcification, trace to small pericardial effusion, A fib with PVCs. Heparin drip transitioned to lovenox - Planning to transition to Eliquis mg PO BID when able. -Consulted cardiology following recs -patient refuses anticoagulation therapy -Recommend rate control strategy - HR has been increasing on 100mg Metoprolol Succinate -> increase to 150 - patient's pressures have been stable #Dysphagia w/ Nausea/Vomiting, Esophagitis - GI consulted. 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 Biopsied, pending. Esophageal ulcers. 1800mL of fluid removed from the stomach w/ some residual remaining. Multiple gastric polyps. - Started on PPI BID on 03/15. Transitioned to IV - presentation likely due to underlying strangulated bowel incarcerated hernia - requires outpt followup #Elevated troponin/Demand ischemia due to RVR - demand ischemia #Hyperthyroidism - Free T3 1.86, TSH 0.259, T4 1.88 - Thyroid U/S 03/14: few scattered right thyroid nodules, right lobe measures 5.4 x 1.6 x 2.4 cm. There are few scattered nodules. Dominant hypoechoic nodule within the upper pole measures 15 x 12 x 7 mm. This is primarily solid with a few small cystic foci. There is an additional heterogeneous solid nodule within the lower pole measuring 14 x 13 x 12 mm. These do not meet sonographic criteria for biopsy at this time but should be followed to ensure stability. Left lobe: 5.3 x 1.4 x 2.2 cm. There is a single subcentimeter cyst measuring 5 mm. - Recommend follow up in outpatient setting #Electrolyte Disturbances: including hyponatremia corrected during hospitalization -repleted KCL #Weakness/Deconditioning - Patient initially refused rehab but later agreeable. Patient's daughter, Jennifer updated on plan. -Awaiting placement for SNF, per case management notes beds will not be available till next week #Incidental CT finding: - complaining of chronic back pain - Spine CT: 1.3 lucent lesion within T1 vertebral body - Recommend outpatient follow up #Fall: - Secondary to weakness vs. ongoing afib RVR vs. orthostatic hypotension Anticoag: Lovenox, refusing full anticoagulation for atrial fibrillation Code: DNR/DNI Diet: Low Fiber Dispo: PCU Admission and Anticipated Discharge Date Admission Date: March 12, 2021 Supervising Physician Co-Signing Physician Notes Patient seen and examined, chart reviewed, case discussed with Dr. Moreira and I agree with the assessment and plan as above except as otherwise noted 80-year-old female presented with dysphagia to is admitted for and treated for atrial fibrillation, weakness/deconditioning, strangulated femoral hernia status post operative repair 03/16/2021, SBO, and esophagitis. Chest rise symmetrical, radial pulse intact irregularly irregular without tachycardia, respirations clear and unlabored. Abdomen: Postsurgical incisions intact, 2X port sites on right/left lower abdomen, infraumbilical incision, and aortic incision all intact and well-healing without dehiscence/discharge/erythema. [place] remain in place, initially placed 03/16. Abdomen with appropriate postsurgical tenderness overlying incisions, otherwise nontender//without rebound. Passing flatus, advanced to and tolerating low fiber diet. Hemodynamically stable. A. fib/RVR with 100-110s today. MTP increased to 150mg succinate daily, BP normotensive. As noted previously discussed with cardiology, patient is highly resistant to multiple medications and unlikely to be compliant with multiple medications will attempt to manage with maximized metoprolol and hold on digoxin at this time. Continues on DVT prophylactic anticoagulation, refuesed therapeutic anticoagulation for A. fib despite risk/benefits discussion regarding risk of stroke and morbidity of cardioembolic stroke. Pending placement and with intermittent adjustments for rate control at this time Subjective Patient sitting up in her chair today in no acute distress. Patient reports she has been improving overall. Noting that she slept well overnight, she states her bowel function is returning, Hazel was DC'd today voiding on her own, tolerating low fiber diet. Acute concerns related to placement. Physical Exam Physical Exam: General: No acute distress HEENT: Normocephalic atraumatic Neck: Normal visual inspection Cardiac: Irregularly irregular, I did not appreciate significant murmurs rubs or gallops, 1+ pedal edema, no calf tenderness Respiratory: Clear to auscultation bilaterally with symmetrical chest expansion did not appreciate significant wheezes, rales, rhonchi GI: Soft, tender around the surgical site, surgical site is clean dry and intact, no rebound, no guarding MSK: Moves all extremities Neuro: Alert and oriented x4 Psych: Calm and cooperative with interview Results & Data Results & Data ([facility]) Vital Signs (Past 12 Hours) Vital Signs Temp Pulse Resp BP BP Pulse Ox 03/21/21 07:00 36.7 C 112 H 16 133/70 95 03/21/21 03:42 36.8 C 94 H 18 125/83 94 03/20/21 23:45 36.8 C 98 H 16 119/73 95 Laboratory Results 03/21/21 03/21/21 03/21/21 Range/Units 05:58 05:58 05:58 WBC 8.06 (4.8-10.8) K/uL RBC 3.07 L (4.2-5.4) M/uL Hgb 8.8 L (12.0-16.0) g/dL Hct 27.8 L (37-47) % MCV 90.6 (80-100) fL MCH 28.7 (25-34) pg MCHC 31.7 L (32-36) g/dL RDW Std Deviation 46.6 H (36.4-46.3) fL RDW Coeff of Maliha 14.2 (11.5-14.5) % Plt Count 352 (130-400) K/uL MPV 8.9 (7.4-10.4) fL Immature Gran % (Auto) 1.0 % Neut % (Auto) 69.8 % Lymph % (Auto) 18.5 % [place] % (Auto) 6.7 % Eos % (Auto) 3.8 % Baso % (Auto) 0.2 % Neut # (Auto) 5.62 (1.4-6.5) K/uL Lymph # (Auto) 1.49 (1.2-3.4) K/uL [place] # (Auto) 0.54 (0.11-0.59) K/uL Eos # (Auto) 0.31 (0-0.5) K/uL Baso # (Auto) 0.02 (0-0.2) K/uL Immature Gran # (Auto) 0.08 H (0.00-0.02) K/uL Sodium 140 (136-145) mmol/L Potassium 3.2 L (3.5-5.1) mmol/L Chloride 108 H (98-107) mmol/L Carbon Dioxide 27 (21-32) mmol/L Anion Gap 5.0 (3-11) BUN 13 (7-18) mg/dl Creatinine 0.56 L 0.57 L (0.6-1.2) mg/dl Est Cr Clr Drug Dosing 82.7 81.3 ml/min Est GFR ( Amer) 102.1 101.5 ml/min Est GFR (Non-Af Amer) 88.1 87.6 ml/min BUN/Creatinine Ratio 23.8 H (10-20) Glucose 93 (70-99) mg/dl Calcium 8.1 L (8.5-10.1) mg/dl Total Bilirubin 0.3 (0.2-1) mg/dl AST 22 (15-37) U/L ALT 25 (12-78) Alkaline Phosphatase 57 (45-117) U/L Total Protein 4.9 L (6.4-8.2) gm/dl Albumin 1.5 L (3.4-5.0) gm/dl Globulin 3.4 (2.5-4.0) gm/dl Albumin/Globulin Ratio 0.4 L (0.9-2) Medications Administered Current Inpatient Medications Enoxaparin Sodium (Enoxaparin Inj 40 Mg/0.4 Ml Syr) 40 mg SQ Q24H [facility] Stop: 04/17/21 16:59 Last Admin: 03/21/21 16:00 Dose: 40 mg Documented by: Lactated Ringer's (Lr) 1,000 mls @ 115 mls/hr IV .Q8H42M [facility] Stop: 04/15/21 17:14 Last Admin: 03/21/21 01:21 Dose: 115 mls/hr Documented by: Piperacillin Sod/Tazobactam (Sod 3.375 gm/ Dextrose) 115 mls @ 28.75 mls/hr IV Q8H [facility]; Protocol Stop: 03/24/21 23:59 Last Admin: 03/21/21 15:59 Dose: 28.8 mls/hr Documented by: Ketorolac Tromethamine (Ketorolac Tromethamine 15 Mg/Ml Vial) 15 mg IV Q6 [facility] Stop: 03/22/21 00:14 Last Admin: 03/21/21 11:48 Dose: Not Given Documented by: Metoprolol Succinate (Metoprolol Succ 50mg Ext Rel Tab) 150 mg PO QAM [facility] Stop: 04/20/21 08:59 Last Admin: 03/21/21 08:55 Dose: 150 mg Documented by: Metoprolol Tartrate (Metoprolol Tartrate 1 Mg/Ml Vial) 5 mg IV Q6 [facility] Stop: 04/16/21 05:59 Last Admin: 03/18/21 11:19 Dose: Not Given Documented by: Miscellaneous Information (Piperacill/Tazobac Consult Active) 1 ea N/A UD PRN PRN Reason: Consult Stop: 04/15/21 23:50 Morphine Sulfate (Morphine Sulfate 2 Mg/Ml Carp) 2 mg IV Q3H PRN PRN Reason: Pain (1,2,3,4,5) & Pre PT Stop: 03/30/21 23:50 Morphine Sulfate (Morphine Sulfate 4 Mg/Ml 1 Ml Carp\Vial) 4 mg IV Q3H PRN PRN Reason: Pain (6,7,8,9,10) Stop: 03/30/21 23:50 Ondansetron HCl (Ondansetron Inj 2 Mg/Ml 2 Ml Vial) 4 mg IV Q6H PRN PRN Reason: Nausea Stop: 04/12/21 00:21 Last Admin: 03/16/21 19:20 Dose: 4 mg Documented by: Pantoprazole Sodium (Pantoprazole 40 Mg Tab) 40 mg PO BID [facility]; Protocol Stop: 04/20/21 20:59
--- NOTE | 2021-03-21 08:52 | Surgery Progress Note ---
Date of Service March 21, 2021 Assessment & Plan (1) History of femoral hernia repair: Plan: POD#5 laparoscopic converted to open right femoral hernia repair with small bowel resection + anastomosis Patient continues to improve. WBC 8, Hbg 8.8 Patient is tolerating a low fiber diet without issues Abdomen is soft, expected tenderness around incisions. no signs of infection Reviewed findings of calcified gallbladder on imaging, will discuss this with pt at outpt follow up Continue to encourage patient getting out of bed and ambulating Will need f/u with Dr. Mackey within 1-1.5 weeks upon dispo for staple removal Admission and Anticipated Discharge Date Admission Date: March 12, 2021 Supervising Physician Co-Signing Physician Notes Pnt S&E, agree with above. POD#5 strangulated femoral hernia repair with small bowel resection. Tolerated low fiber diet, having bm's. af, afib w/ rvr, abd soft, nt, nd. Incision with yajaira, c/d/i. wbc normal, h/h stable. okay for d/c from surgery standpoint. okay from a/c. f/u in gen surg clinic in 1-2 weeks for staple removal. Subjective Patient sitting up in chair, says she feels weak. Some incisional discomfort to palpation, otherwise denies belly pain/nausea/vomiting. + bowel function. Tolerating regular diet. Physical Exam Physical Exam: awake/alert, sitting up in chair Gastrointestinal (Abdomen): Inspection/Auscultation: + abdominal surgical incision (c/d/i); abdomen not distended Percussion/Palpation: + abdomen tender (some expected nicole-incisional pain to palpation) and abdomen soft Results & Data ([facility]) Vital Signs (Past 12 Hours) Vital Signs Temp Pulse Resp BP BP Pulse Ox 03/21/21 07:00 36.7 C 112 H 16 133/70 95 03/21/21 03:42 36.8 C 94 H 18 125/83 94 03/20/21 23:45 36.8 C 98 H 16 119/73 95 PG Care Time/CCT Total # of Minutes Spent Total Time Spent with Patient: Total time spent is greater than 50% in coordination of care (as documented) at patient's floor/unit and/or counseling patient: Coding Level of Care Code None Diagnoses History of femoral hernia repair Z98.890; Z87.19
[2021-03-21 08:53] LABS: Albumin Level 1.5 gm/dl (3.4-5.0); BUN Creatinine Ratio 23.8 (10-20); Bilirubin,Total 0.3 mg/dl (0.2-1); Calcium 8.1 mg/dl (8.5-10.1); Creatinine Clr Calc Pharmacy 82.7 ml/min; Est GFR (African American) 102.1 ml/min; Est GFR (Non-African American) 88.1 ml/min; Potassium 3.2 mmol/L (3.5-5.1)
[2021-03-21 08:54] LABS: Albumin Globulin Ratio 0.4 (0.9-2); Globulin 3.4 gm/dl (2.5-4.0); Total Protein 4.9 gm/dl (6.4-8.2)
[2021-03-21] MEDS: PANTOprazole 40 MG in SYRINGE 0 ML IV SCH (08:55)
[2021-03-21] MEDS: METOPROLOL SUCC 50MG EXT REL TAB PO SCH (08:55)
[2021-03-21] MEDS ORDERED: METOPROLOL SUCC 50MG EXT REL TAB PO SCH (09:00)
[2021-03-21] MEDS: POTASSIUM CHLORIDE CRTAB 20 MEQ TABCR PO SCH ×2 (11:48→14:28)
[2021-03-21] MEDS: ENOXAPARIN INJ 40 MG/0.4 ML SYR SQ SCH (16:00)
--- NOTE | 2021-03-21 16:47 | Cardiology Progress Note ---
Date of Service March 21, 2021 Assessment & Plan (1) Atrial fibrillation with rapid ventricular response: (2) LBBB (left bundle branch block): (3) Hypotension: Plan: ASSESSMENT/PLAN: 1. Atrial fibrillation: Persistent/permanent. Has severe left atrial dilation and therefore may be difficult to achieve rhythm control. She adamantly refuses anticoagulation therapy despite discussions regarding stroke risk reduction. Overall, heart rate has improved but still mildly tachycardic at times during the day. Metoprolol succinate initiated on 03/19/2021 when able to take p.o.. Metoprolol increased by primary hospitalist service to 150 mg today. Can furthe r increase to 200 mg tomorrow if necessary. Digoxin was discontinued as she has been clear that she may not continue medical therapy after leaving the hospital and there is also concern that she may not be compliant with follow-up and digoxin requires monitoring of levels. If she requires another rate-controlling medication, would recommend diltiazem. 2. Left bundle-branch block: Asymptomatic. 3. Hypotension: Resolved. Blood pressure has mostly been normal today. 4. Disposition: I will be away from the hospital for the next several days. Please call on-call claims attorney, Dr. Aguayo, for any questions or concerns. Patient care has been communicated with Dr. Aguayo. If she is willing to follow up upon discharge, would be happy to see her in the outpatient setting. Admission and Anticipated Discharge Date Admission Date: March 12, 2021 Subjective Patient seen at lunch time, while she was eating lunch. She states that she is not having a good day. She is uncomfortable in her abdomen. She denies chest pain, shortness of breath, palpitations, edema, or bleeding. She was unaccompanied in her hospital room. Review of systems: As above. Physical Exam Physical Exam: Gen.: No acute distress. Alert. HEENT: Anicteric sclera. Neck: No JVD. Cardiac: Irregularly irregular. Normal S1-S2. 1/6 systolic murmur. No rubs or gallops. Pulmonary: Clear to auscultation bilaterally without wheezes, rales, or rhonchi. Abdomen: Soft and nondistended. Normal active bowel sounds. No bruits noted. Extremities: 2+ radial pulses bilaterally. 2+ posterior tibialis pulses bilaterally.Trace bilateral lower extremity edema. No cyanosis. Psychiatric: Affect appears appropriate. Results & Data ([facility]) Vital Signs (Past 12 Hours) Vital Signs Temp Pulse Resp BP Pulse Ox 03/21/21 11:00 36.5 C 112 H 18 141/69 H 98 03/21/21 07:00 36.7 C 112 H 16 133/70 95 Laboratory Results Laboratory Results - last 24 hr 03/21/21 03/21/21 03/21/21 05:58 05:58 05:58 WBC 8.06 RBC 3.07 L Hgb 8.8 L Hct 27.8 L MCV 90.6 MCH 28.7 MCHC 31.7 L RDW Std Deviation 46.6 H RDW Coeff of Maliha 14.2 Plt Count 352 MPV 8.9 Immature Gran % (Auto) 1.0 Neut % (Auto) 69.8 Lymph % (Auto) 18.5 [place] % (Auto) 6.7 Eos % (Auto) 3.8 Baso % (Auto) 0.2 Neut # (Auto) 5.62 Lymph # (Auto) 1.49 [place] # (Auto) 0.54 Eos # (Auto) 0.31 Baso # (Auto) 0.02 Immature Gran # (Auto) 0.08 H Sodium 140 Potassium 3.2 L Chloride 108 H Carbon Dioxide 27 Anion Gap 5.0 BUN 13 Creatinine 0.57 L 0.56 L Est Cr Clr Drug Dosing 81.3 82.7 Est GFR ( Amer) 101.5 102.1 Est GFR (Non-Af Amer) 87.6 88.1 BUN/Creatinine Ratio 23.8 H Glucose 93 Calcium 8.1 L Total Bilirubin 0.3 AST 22 ALT 25 Alkaline Phosphatase 57 Total Protein 4.9 L Albumin 1.5 L Globulin 3.4 Albumin/Globulin Ratio 0.4 L Diagnostic Findings Telemetry personally reviewed: Atrial fibrillation. Heart rate was at acceptable overnight but mildly elevated at times during the day today. Medications Administered Current Inpatient Medications Enoxaparin Sodium (Enoxaparin Inj 40 Mg/0.4 Ml Syr) 40 mg SQ Q24H [facility] Stop: 04/17/21 16:59 Last Admin: 03/21/21 16:00 Dose: 40 mg Documented by: Lactated Ringer's (Lr) 1,000 mls @ 115 mls/hr IV .Q8H42M [facility] Stop: 04/15/21 17:14 Last Admin: 03/21/21 01:21 Dose: 115 mls/hr Documented by: Piperacillin Sod/Tazobactam (Sod 3.375 gm/ Dextrose) 115 mls @ 28.75 mls/hr IV Q8H [facility]; Protocol Stop: 03/24/21 23:59 Last Admin: 03/21/21 15:59 Dose: 28.8 mls/hr Documented by: Ketorolac Tromethamine (Ketorolac Tromethamine 15 Mg/Ml Vial) 15 mg IV Q6 [facility] Stop: 03/22/21 00:14 Last Admin: 03/21/21 11:48 Dose: Not Given Documented by: Metoprolol Succinate (Metoprolol Succ 50mg Ext Rel Tab) 150 mg PO QAM [facility] Stop: 04/20/21 08:59 Last Admin: 03/21/21 08:55 Dose: 150 mg Documented by: Metoprolol Tartrate (Metoprolol Tartrate 1 Mg/Ml Vial) 5 mg IV Q6 [facility] Stop: 04/16/21 05:59 Last Admin: 03/18/21 11:19 Dose: Not Given Documented by: Miscellaneous Information (Piperacill/Tazobac Consult Active) 1 ea N/A UD PRN PRN Reason: Consult Stop: 04/15/21 23:50 Morphine Sulfate (Morphine Sulfate 2 Mg/Ml Carp) 2 mg IV Q3H PRN PRN Reason: Pain (1,2,3,4,5) & Pre PT Stop: 03/30/21 23:50 Morphine Sulfate (Morphine Sulfate 4 Mg/Ml 1 Ml Carp\Vial) 4 mg IV Q3H PRN PRN Reason: Pain (6,7,8,9,10) Stop: 03/30/21 23:50 Ondansetron HCl (Ondansetron Inj 2 Mg/Ml 2 Ml Vial) 4 mg IV Q6H PRN PRN Reason: Nausea Stop: 04/12/21 00:21 Last Admin: 03/16/21 19:20 Dose: 4 mg Documented by: Pantoprazole Sodium (Pantoprazole 40 Mg Tab) 40 mg PO BID [facility]; Protocol Stop: 04/20/21 20:59 PG Care Time/CCT Total # of Minutes Spent Total Time Spent with Patient: Total time spent is greater than 50% in coordination of care (as documented) at patient's floor/unit and/or counseling patient: Coding Level of Care Code 76839 Subseq Hosp Care Lvl 3 Diagnoses Atrial fibrillation with rapid ventricular response I48.91 LBBB (left bundle branch block) I44.7 Hypotension I95.9
--- NOTE | 2021-03-21 17:24 | Billing Data ---
Date of Service March 21, 2021 Coding Level of Care Code 65973 Subseq Hosp Care Lvl 1
[2021-03-21] MEDS: PANTOprazole 40 MG TAB PO SCH (22:11)
[2021-03-22] MEDS: KETOROLAC TROMETHAMINE 15 MG/ML VIAL IV SCH (01:21)
[2021-03-22] MEDS: PIPERACILLIN/TAZOBACTAM 3.375 GM in DEXTROSE 5% 100 ML IV SCH ×3 (08:06→22:39)
[2021-03-22] MEDS: PANTOprazole 40 MG TAB PO SCH ×2 (08:06→21:28)
--- NOTE | 2021-03-22 08:10 | Hospitalist Progress Note ---
Date of Service March 22, 2021 Assessment & Plan (1) Atrial fibrillation with rapid ventricular response: Plan: 80-year-old woman with no documented medical history last seen by a provider in 2006 presented to the ED after falling with a 1-week history of diffuse weakness and dysphagia and found to be afib w/ rvr. Also found to have strangulated R femoral hernia hernia and s/p open femoral exploration w/ small part of small bowel resected. #Strangulated femoral hernia repair with small bowel resection POD 6 noted on 03/16 CT abd ordered to assess persistent nausea after EGD. s/p laparatomy and bowel resection/hernia repair 03/16 -Surgery Consulted - May resume prophylactic Lovenox, no therapeutic anticoagulation yet - Continue Zosyn - Tolerating low fiber diet - Plan to address calcified gallbladder as an outpatient #Atrial fibrillation with rapid ventricular response: EKG 03/13: A fib with premature ventricular or aberrantly conducted complexes, LBBB, T wave amp increased in anterior leads, T wave inversion evident in lateral leads; similar findings on 03/14 EKG. ECHO: normal LV size/systolic function, EF 55-60%. Septal motion consistent with conduction abn (bundle-branch block). No RWMA, moderate concentric LVH,severe left atrial dilation,sclerotic aortic valve, severe mitral annular calcification, trace to small pericardial effusion, A fib with PVCs. Heparin drip transitioned to lovenox - Planning to transition to Eliquis mg PO BID when able. 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 Biopsied, pending. Esophageal ulcers. 1800mL of fluid removed from the stomach w/ some residual remaining. Multiple gastric polyps. presentation likely due to underlying strangulated bowel incarcerated hernia - requires outpt followup #Elevated troponin/Demand ischemia due to RVR - demand ischemia #Hyperthyroidism - Free T3 1.86, TSH 0.259, T4 1.88 - Thyroid U/S 03/14: few scattered right thyroid nodules, right lobe measures 5.4 x 1.6 x 2.4 cm. There are few scattered nodules. Dominant hypoechoic nodule within the upper pole measures 15 x 12 x 7 mm. This is primarily solid with a few small cystic foci. There is an additional heterogeneous solid nodule within the lower pole measuring 14 x 13 x 12 mm. These do not meet sonographic criteria for biopsy at this time but should be followed to ensure stability. Left lobe: 5.3 x 1.4 x 2.2 cm. There is a single subcentimeter cyst measuring 5 mm. - Recommend follow up in outpatient setting #Electrolyte Disturbances: including hyponatremia corrected during hospitalization -repleted KCL #Weakness/Deconditioning Patient initially refused rehab but later agreeable. Patient's daughter, Jennifer updated on plan. -Awaiting placement for SNF, per case management notes beds will not be available till next week #Incidental CT finding: - complaining of chronic back pain - Spine CT: 1.3 lucent lesion within T1 vertebral body - Recommend outpatient follow up #Fall: - Secondary to weakness vs. ongoing afib RVR vs. orthostatic hypotension #Covid vaccination Provided patient on the benefits of vaccination, and repeatedly offer the patient she repeatedly refused. Anticoag: Lovenox, refusing full anticoagulation for atrial fibrillation Code: DNR/DNI Diet: Low Fiber Dispo: PCU Admission and Anticipated Discharge Date Admission Date: March 12, 2021 Supervising Physician Co-Signing Physician Notes Patient seen and examined, chart reviewed, case discussed with Dr. Moreira and I agree with the assessment and plan as above except as otherwise noted 80-year-old female presented with dysphagia to is admitted for and treated for atrial fibrillation, weakness/deconditioning, strangulated femoral hernia status post operative repair 03/16/2021, SBO, and esophagitis. Doing well on low fiber diet. Bowel function remains normal. No nausea/vomiting/diarrhea today. Patient without acute complaints in bed today. No shortness of breath, chest pain, chest pressure. Chest rise symmetrical, radial pulse intact irregularly irregular without tachycardia, respirations clear and unlabored. Abdomen: Postsurgical incisions intact, 2X port sites on right/left lower abdomen, infraumbilical incision, and aortic incision all intact and well-healing without dehiscence/discharge/erythema. [place] remain in place, initially placed 03/16. Abdomen with appropriate postsurgical tenderness overlying incisions, otherwise nontender//without rebound. A. fib Adequately rate controlled today. Continue metoprolol. Has refused anticoagulation for A. fib on multiple risk/benefit discussions. From surgical perspective is doing well, and is medically stable for discharge. Placement pending at this time, case management following. Downgraded from PCU status. Subjective Patient sitting upright in chair this morning in no acute distress. Patient reports doing well overnight and has been tolerating her diet. Her bowel function is slowly returning she denies any nausea or vomiting. Overall she is significantly improving and eager to participate in PT/OT. Acute concerns are related to placement. Patient is eager to be discharged. Physical Exam Physical Exam: General: No acute distress HEENT: Normocephalic atraumatic Neck: Normal visual inspection Cardiac: Irregularly irregular, I did not appreciate significant murmurs rubs or gallops, 1+ pedal edema, no calf tenderness Respiratory: Clear to auscultation bilaterally with symmetrical chest expansion did not appreciate significant wheezes, rales, rhonchi GI: Soft, tender around the surgical site, surgical site is clean dry and intact, no rebound, no guarding MSK: Moves all extremities Neuro: Alert and oriented x4 Psych: Calm and cooperative with interview Results & Data Results & Data ([facility]) Vital Signs (Past 12 Hours) Vital Signs Temp Pulse Pulse Resp BP Pulse Ox 03/22/21 07:34 37 C 69 18 99/64 L 94 03/22/21 03:01 36.8 C 90 17 101/59 L 95 03/22/21 00:31 86 03/21/21 23:00 36.6 C 89 16 109/60 94 Laboratory Results 03/22/21 03/21/21 03/21/21 Range/Units 07:19 05:58 05:58 WBC 8.06 (4.8-10.8) K/uL RBC 3.07 L (4.2-5.4) M/uL Hgb 8.8 L (12.0-16.0) g/dL Hct 27.8 L (37-47) % MCV 90.6 (80-100) fL MCH 28.7 (25-34) pg MCHC 31.7 L (32-36) g/dL RDW Std Deviation 46.6 H (36.4-46.3) fL RDW Coeff of Maliha 14.2 (11.5-14.5) % Plt Count 352 (130-400) K/uL MPV 8.9 (7.4-10.4) fL Immature Gran % (Auto) 1.0 % Neut % (Auto) 69.8 % Lymph % (Auto) 18.5 % [place] % (Auto) 6.7 % Eos % (Auto) 3.8 % Baso % (Auto) 0.2 % Neut # (Auto) 5.62 (1.4-6.5) K/uL Lymph # (Auto) 1.49 (1.2-3.4) K/uL [place] # (Auto) 0.54 (0.11-0.59) K/uL Eos # (Auto) 0.31 (0-0.5) K/uL Baso # (Auto) 0.02 (0-0.2) K/uL Immature Gran # (Auto) 0.08 H (0.00-0.02) K/uL Sodium Pending 140 (136-145) mmol/L Potassium Pending 3.2 L (3.5-5.1) mmol/L Chloride Pending 108 H (98-107) mmol/L Carbon Dioxide Pending 27 (21-32) mmol/L Anion Gap Pending 5.0 (3-11) BUN Pending 13 (7-18) mg/dl Creatinine Pending 0.56 L (0.6-1.2) mg/dl Est Cr Clr Drug Dosing Pending 82.7 ml/min Est GFR ( Amer) Pending 102.1 ml/min Est GFR (Non-Af Amer) Pending 88.1 ml/min BUN/Creatinine Ratio Pending 23.8 H (10-20) Glucose Pending 93 (70-99) mg/dl Calcium Pending 8.1 L (8.5-10.1) mg/dl Total Bilirubin 0.3 (0.2-1) mg/dl AST 22 (15-37) U/L ALT 25 (12-78) Alkaline Phosphatase 57 (45-117) U/L Total Protein 4.9 L (6.4-8.2) gm/dl Albumin 1.5 L (3.4-5.0) gm/dl Globulin 3.4 (2.5-4.0) gm/dl Albumin/Globulin Ratio 0.4 L (0.9-2) Medications Administered Current Inpatient Medications Enoxaparin Sodium (Enoxaparin Inj 40 Mg/0.4 Ml Syr) 40 mg SQ Q24H [facility] Stop: 04/17/21 16:59 Last Admin: 03/21/21 16:00 Dose: 40 mg Documented by: Lactated Ringer's (Lr) 1,000 mls @ 115 mls/hr IV .Q8H42M [facility] Stop: 04/15/21 17:14 Last Admin: 03/21/21 01:21 Dose: 115 mls/hr Documented by: Piperacillin Sod/Tazobactam (Sod 3.375 gm/ Dextrose) 115 mls @ 28.75 mls/hr IV Q8H [facility]; Protocol Stop: 03/24/21 23:59 Last Admin: 03/22/21 08:06 Dose: 28.8 mls/hr Documented by: Metoprolol Succinate (Metoprolol Succ 50mg Ext Rel Tab) 150 mg PO QAM [facility] Stop: 04/20/21 08:59 Last Admin: 03/21/21 08:55 Dose: 150 mg Documented by: Metoprolol Tartrate (Metoprolol Tartrate 1 Mg/Ml Vial) 5 mg IV Q6 [facility] Stop: 04/16/21 05:59 Last Admin: 03/18/21 11:19 Dose: Not Given Documented by: Miscellaneous Information (Piperacill/Tazobac Consult Active) 1 ea N/A UD PRN PRN Reason: Consult Stop: 04/15/21 23:50 Morphine Sulfate (Morphine Sulfate 2 Mg/Ml Carp) 2 mg IV Q3H PRN PRN Reason: Pain (1,2,3,4,5) & Pre PT Stop: 03/30/21 23:50 Morphine Sulfate (Morphine Sulfate 4 Mg/Ml 1 Ml Carp\Vial) 4 mg IV Q3H PRN PRN Reason: Pain (6,7,8,9,10) Stop: 03/30/21 23:50 Ondansetron HCl (Ondansetron Inj 2 Mg/Ml 2 Ml Vial) 4 mg IV Q6H PRN PRN Reason: Nausea Stop: 04/12/21 00:21 Last Admin: 03/16/21 19:20 Dose: 4 mg Documented by: Pantoprazole Sodium (Pantoprazole 40 Mg Tab) 40 mg PO BID [facility]; Protocol Stop: 04/20/21 20:59 Last Admin: 03/22/21 08:06 Dose: 40 mg Documented by:
[2021-03-22 08:18] LABS: BUN Creatinine Ratio 23.7 (10-20); Calcium 8.3 mg/dl (8.5-10.1); Creatinine Clr Calc Pharmacy 87.3 ml/min; Est GFR (African American) 103.3 ml/min; Est GFR (Non-African American) 89.1 ml/min; Potassium 3.7 mmol/L (3.5-5.1)
--- NOTE | 2021-03-22 10:07 | Surgery Progress Note ---
Date of Service March 22, 2021 Assessment & Plan (1) History of femoral hernia repair: Plan: POD#6 laparoscopic converted to open right femoral hernia repair with small bowel resection + anastomosis Patient appears to be doing clinically well Patient is tolerating a low fiber diet without issues, + bowel function Reviewed findings of calcified gallbladder on imaging, will discuss this with pt at outpt follow up Continue to encourage patient getting out of bed and ambulating She is stable for discharge from our standpoint when cleared by medicine Will need f/u with Dr. Mackey within 1-1.5 weeks upon dispo for staple removal We will follow peripherally, please call with any questions/concerns. [facility] surgery will be covering the wknd if questions Admission and Anticipated Discharge Date Admission Date: March 12, 2021 Supervising Physician Co-Signing Physician Notes Pnt S&E, agree with above. POD#6 strangulated femoral hernia repair with small bowel resection. Tolerated low fiber diet, having bm's. af, afib rate controlled, abd soft, nt, nd. Incision with yajaira, c/d/i. wbc normal, h/h stable. okay for d/c from surgery standpoint. okay for therapeutic anticoagulation. f/u in gen surg clinic in 1-2 weeks for staple removal. Subjective Patient sitting up at the edge of bed brushing her teeth. Offers no complaints. Tolerating a diet. + bowel function. Pain controlled. Physical Exam Physical Exam: awake/alert, sitting up at edge of bed Gastrointestinal (Abdomen): Inspection/Auscultation: + abdominal surgical incision (c/d/i with surgical yajaira) Results & Data ([facility]) Vital Signs (Past 12 Hours) Vital Signs Temp Pulse Pulse Resp BP Pulse Ox 03/22/21 07:34 37 C 69 18 99/64 L 94 03/22/21 03:01 36.8 C 90 17 101/59 L 95 03/22/21 00:31 86 03/21/21 23:00 36.6 C 89 16 109/60 94 PG Care Time/CCT Total # of Minutes Spent Total Time Spent with Patient: Total time spent is greater than 50% in coordination of care (as documented) at patient's floor/unit and/or counseling patient: Coding Level of Care Code None Diagnoses History of femoral hernia repair Z98.890; Z87.19
[2021-03-22] MEDS: METOPROLOL SUCC 50MG EXT REL TAB PO SCH (15:15)
--- NOTE | 2021-03-22 18:29 | Billing Data ---
Date of Service March 22, 2021 Coding Level of Care Code 48347 Subseq Hosp Care Lvl 1
[2021-03-22] MEDS: ENOXAPARIN INJ 40 MG/0.4 ML SYR SQ SCH (19:06)
[2021-03-23] MEDS: PIPERACILLIN/TAZOBACTAM 3.375 GM in DEXTROSE 5% 100 ML IV SCH ×3 (05:20→21:43)
--- NOTE | 2021-03-23 07:19 | Hospitalist Progress Note ---
Date of Service March 23, 2021 Assessment & Plan (1) Atrial fibrillation with rapid ventricular response: Plan: 80-year-old woman with no documented medical history (last seen by a provider in 2006) presented to the ED after falling with a 1-week history of diffuse weakness and dysphagia, subsequently found to have a strangulate R femoral hernia requiring repair and partial small bowel resection on 03/16; she was also found to be AFib w/ RVR on admission. Strangulated Femoral Hernia - s/p repair and small bowel resection on 03/16 - Noted on 03/[address]-A/P after EGD. s/p laparotomy and bowel resection/hernia repair 03/16 - Surgery Consulted and following: - May resume prophylactic Lovenox, no therapeutic anticoagulation yet - Continue Zosyn until 03/24, then discontinue - Tolerating low fiber diet - Plan to address calcified gallbladder as an outpatient - Will require 1-2 week follow-up as outpatient for staple removal Post-operative Anemia - Admission Hgb normal on admission, noted now to be stable in the high 8s-low 9 range on multiple checks - Likely secondary to small amount of post-operative hemorrhage - Hemodynamically stable - Opt to transfuse if symptomatic or if Hgb < 7.5 Atrial Fibrillation with RVR -- rates stable - Noted on admission, alongside LBBB and anterolateral repolarization abnormalities since 2015 - TTE: Normal LV function, LVEF 55-60%; evidence of LBBB. No RWMAs. Mod cLVH. Severe L atrial dilation, sclerotic aortic valve, severe mitral annular calcification, - Consulted cardiology: Rate control. Patient continues to refuse anticoagulation. - Patient not interested in anticoagulation outside of the hospital despite multiple r/b discussions - Continue prophylactic dosing of Lovenox while here - Metoprolol succinate 150mg qAM -- can increase to 200mg qAM should lyte repletion not aid with rates - K > 4, Mg > 2 - Hyperthyroidism follow-up with be required as outpatient. Dysphagia, Nausea/Vomiting -- in setting of strangulated bowel, esophagitis - GI consulted. 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 Ulcers present. Large amount of fluid removed from stomach in setting of strangulated bowel. - Continue protonix 40mg b.i.d. - Will require f/u of biopsies when available - Recommend establishing with GI as outpatient Elevated Troponin - Noted on admission in setting of RVR - No acute conduction/repolarization abnormalities concerning for ACS - TTE as outlined above - Likely secondary to RVR and pre-existing CAD, demand-ischemia Hyperthyroidism - Admission labs notable for TSH 0.259, Free T3 1.86, T4 1.88 - Thyroid U/S 03/14: Scattered nodules. Do not meet criteria for biopsy at present, but outpatient follow-up US will be required. Electrolyte Disturbances - resolved Weakness/Deconditioning Patient initially refused rehab but later agreeable. Patient's daughter, Jennifer updated on plan. -Awaiting placement for SNF, per case management; anticipate discharge next week Vertebral Lesion (T1) -- in setting of normal Ca, ALP; no cancer history - Patient complaining of chronic upper back pain - Spinal CT revealing of 1.3cm lucent lesion within T1 vertebrae, possibly a hemangioma - Consider outpatient nuclear medicine bone scan for further evaluation of metabolic activity Fall - Reason for admission. Multifactorial: weakness, AFib w/ RVR +/- HoTN - PT, OT, Rehab - as above Not Vaccinated Against COVID-19 - Provided patient on the benefits of vaccination, and repeatedly offer the patient she repeatedly refused. Anticoag: PPX Lovenox, refusing full anticoagulation for atrial fibrillation Code: DNR/DNI Diet: Low Fiber Dispo: MS/T Admission and Anticipated Discharge Date Admission Date: March 12, 2021 Supervising Physician Co-Signing Physician Notes Patient seen and examined, chart reviewed, case discussed with Dr. Newton and I agree with the assessment and plan as above except as otherwise noted 80-year-old female presented with dysphagia to is admitted for and treated for atrial fibrillation, weakness/deconditioning, strangulated femoral hernia status post operative repair 03/16/2021, SBO, and esophagitis. Doing well on low fiber diet. Bowel function remains normal. No nausea/vomiting/diarrhea today. Patient without acute complaints in bed today. No shortness of breath, chest pain, chest pressure. Chest rise symmetrical, radial pulse intact irregularly irregular without tachycardia, respirations clear and unlabored. Abdomen: Postsurgical incisions intact, 2X port sites on right/left lower abdomen, infraumbilical incision, and aortic incision all intact and well-healing without dehiscence/discharge/erythema. [place] remain in place, initially placed 03/16. Abdomen with appropriate postsurgical tenderness overlying incisions, otherwise nontender//without rebound. A. fib Adequately rate controlled today. Continue metoprolol. Has refused anticoagulation for A. fib on multiple risk/benefit discussions. Patient today is agreeable to anticoagulation. will start Eliquis. will increase metoprolol From surgical perspective is doing well, and is medically stable for discharge. Placement pending at this time, case management following. Downgraded from PCU status. Subjective NAEO. Feeling OK this morning - some pain going down her leg that results in crampiness. Otherwise feeling ok. No CP/palpitations/SOB. Spirits aren't high today with it being the holiday. Review of Systems Review of Systems: as per HPI Physical Exam Physical Exam: General: Tired but well appearing 80yoF in NAD. HEENT: NCAT. Eyes - Sclera are white, anicteric, and without injection. MMM. No JVD. Cardiac: Tachycardic with irregular rhythm; S1 and S2 present with no murmurs, rubs, or gallops. Pulmonary: Good respiratory effort with symmetric expansion of the chest. No use of accessory muscles. Lungs were clear to auscultation bilaterally with no crackles or wheezes. Abdominal: Normoactive bowel sounds. Abdomen was soft, nondistended, and non- tender to palpation. Stapes in-place. Incision is c/d/i. No oozing. Palpable 2x1cm indurated area just inferior to the surgical margin in the RLQ. Non-TTP. Extremities: Upper and lower extremities are warm and well perfused. 1+ pitting edema in RLE. Results & Data Results & Data ([facility]) Vital Signs (Past 12 Hours) Vital Signs Temp Pulse Resp BP Pulse Ox 03/23/21 04:22 36.5 C 94 H 16 113/74 98 03/22/21 23:12 36.4 C L 108 H 20 126/74 95 03/22/21 19:31 36.7 C 106 H 16 131/82 96 Resident Activity Tracking Resident Involvement: Resident Care Provided Care Provided: [facility]
[2021-03-23] MEDS: PANTOprazole 40 MG TAB PO SCH ×2 (09:18→21:42)
[2021-03-23] MEDS: METOPROLOL SUCC 50MG EXT REL TAB PO SCH (09:18)
[2021-03-23 10:19] LABS: Basophils # (auto) 0.01 K/uL (0-0.2); Basophils % (auto) 0.2 %; Eosinophils # (auto) 0.13 K/uL (0-0.5); Hematocrit (blood only) 29.1 % (37-47); Hemoglobin 9.4 g/dL (12.0-16.0); Immature Granulocytes # (auto) 0.12 K/uL (0.00-0.02); Immature Granulocytes % (auto) 1.9 %; Lymphocytes # (auto) 1.04 K/uL (1.2-3.4); Lymphocytes % (auto) 16.2 %; Mean Corpuscular Hemoglobin 29.2 pg (25-34); Mean Corpuscular Hgb Conc 32.3 g/dL (32-36); Mean Corpuscular Volume 90.4 fL (80-100); Mean Platelet Volume 8.4 fL (7.4-10.4); Monocytes # (auto) 0.54 K/uL (0.11-0.59); Monocytes % (auto) 8.4 %; Neutrophils # (auto) 4.58 K/uL (1.4-6.5); Neutrophils % (auto) 71.3 %; Platelet Count 367 K/uL (130-400); RDW Coefficient of Variation 14.2 % (11.5-14.5); RDW Standard Deviation 47.2 fL (36.4-46.3); Red Blood Count 3.22 M/uL (4.2-5.4); White Blood Count 6.42 K/uL (4.8-10.8)
[2021-03-23 10:36] LABS: BUN Creatinine Ratio 12.7 (10-20); Calcium 7.9 mg/dl (8.5-10.1); Creatinine Clr Calc Pharmacy 67.3 ml/min; Est GFR (African American) 94.8 ml/min; Est GFR (Non-African American) 81.8 ml/min; Magnesium 1.6 mg/dl (1.8-2.4); Phosphorus 2.7 mg/dl (2.5-4.9); Potassium 3.2 mmol/L (3.5-5.1)
--- NOTE | 2021-03-23 10:45 | Electrocardiogram Report ---
Test Reason : Blood Pressure : / mmHG Vent. Rate : 102 BPM Atrial Rate : 101 BPM P-R Int : 000 ms QRS Dur : 152 ms QT Int : 368 ms P-R-T Axes : 000 -13 121 degrees QTc Int : 479 ms Atrial fibrillation with rapid ventricular response Left bundle branch block Abnormal ECG When compared with ECG of 14-MAR-2021 10:01, T wave inversion no longer evident in Inferior leads T wave amplitude has decreased in Anterior leads T wave inversion no longer evident in Lateral leads QT has shortened Confirmed by Estevan Aguayo ([id number]) on 03/23/2021 10:45:39 AM Referred By: REFERRED SELF Confirmed By:Estevan Aguayo
[2021-03-23] MEDS ORDERED: MAGNESIUM SULFATE / D5W 1 GM/100 ML BAG IV ONE (12:00)
[2021-03-23] MEDS: POTASSIUM CHLORIDE CRTAB 20 MEQ TABCR PO SCH (12:17)
[2021-03-23] MEDS: APIXABAN 2.5 MG TAB PO SCH (21:42)
[2021-03-24] MEDS: PIPERACILLIN/TAZOBACTAM 3.375 GM in DEXTROSE 5% 100 ML IV SCH ×3 (05:35→20:36)
--- NOTE | 2021-03-24 07:04 | Hospitalist Progress Note ---
Date of Service March 24, 2021 Assessment & Plan (1) Atrial fibrillation with rapid ventricular response: Plan: 80-year-old woman with no documented medical history (last seen by a provider in 2006) presented to the ED after falling with a 1-week history of diffuse weakness and dysphagia, subsequently found to have a strangulate R femoral hernia requiring repair and partial small bowel resection on 03/16; she was also found to be AFib w/ RVR on admission. Strangulated Femoral Hernia - s/p repair and small bowel resection on 03/16 - Noted on 03/[address]-A/P after EGD. s/p laparotomy and bowel resection/hernia repair 03/16 - Surgery Consulted and following: - OK to resume therapeutic anticoagulation - Discontinue antibiotics 03/24 - Tolerating low fiber diet - Plan to address calcified gallbladder as an outpatient - Will require 1-2 week follow-up as outpatient for staple removal Post-operative Anemia - Admission Hgb normal on admission, noted now to be stable in the high 8s-low 9 range on multiple checks - Likely secondary to small amount of post-operative hemorrhage - Hemodynamically stable - Opt to transfuse if symptomatic or if Hgb < 7.5 Atrial Fibrillation with RVR -- rates improving, RVR now intermittent - Noted on admission, alongside LBBB and anterolateral repolarization abnormalities since 2016 - TTE: Normal LV function, LVEF 55-60%; evidence of LBBB. No RWMAs. Mod cLVH. Severe L atrial dilation, sclerotic aortic valve, severe mitral annular calcification - Consulted cardiology: Rate control, anticoagulation - Initiated Eliquis 5mg b.i.d. on 03/23 (CHADSVASC = 3) after extensive discussion of r/b/a - Metoprolol succinate: increase to 200mg qAM - K > 4, Mg > 2 - Recommend close outpatient cardiology follow-up - Hyperthyroidism follow-up with be required as outpatient. Dysphagia, Nausea/Vomiting -- in setting of strangulated bowel, esophagitis - GI consulted. 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 Ulcers present. Large amount of fluid removed from stomach in setting of strangulated bowel. - Biopsies demonstrating ulcerative esophagitis - Continue Protonix 40mg b.i.d. - Recommend establishing with GI as outpatient Elevated Troponin - Noted on admission in setting of RVR, no acute conduction/repolarization abnormalities concerning for ACS - TTE as outlined above - no specific RWMAs - Likely secondary to RVR and pre-existing CAD, demand-ischemia Hyperthyroidism - Admission labs notable for TSH 0.259, Free T3 1.86, T4 1.88 - Thyroid U/S 03/14: Scattered nodules. Do not meet criteria for biopsy at present, but outpatient follow-up US will be required. Electrolyte Disturbances - resolved Weakness/Deconditioning Patient initially refused rehab but later agreeable. Patient's daughter, Jennifer updated on plan. -Awaiting placement for SNF, per case management; anticipate discharge next week Vertebral Lesion (T1) -- in setting of normal Ca, ALP; no cancer history - Patient complaining of chronic upper back pain - Spinal CT revealing of 1.3cm lucent lesion within T1 vertebrae, possibly a hemangioma - Consider outpatient nuclear medicine bone scan for further evaluation of metabolic activity Fall - Reason for admission. Multifactorial: weakness, AFib w/ RVR +/- HoTN - PT, OT, Rehab - as above Not Vaccinated Against COVID-19 - Provided patient on the benefits of vaccination, and repeatedly offer the patient she repeatedly refused. Anticoag: Justice b.i.dori for AFib Code: DNR/DNI Diet: Low Fiber Dispo: MS/T Admission and Anticipated Discharge Date Admission Date: March 12, 2021 Supervising Physician Co-Signing Physician Notes Patient seen and examined, chart reviewed, case discussed with Dr. Newton and I agree with the assessment and plan as above except as otherwise noted 80-year-old female presented with dysphagia to is admitted for and treated for atrial fibrillation, weakness/deconditioning, strangulated femoral hernia status post operative repair 03/16/2021, SBO, and esophagitis. Doing well on low fiber diet. Bowel function remains normal. No nausea/vomiting/diarrhea today. Patient without acute complaints in bed today. No shortness of breath, chest pain, chest pressure. Chest rise symmetrical, radial pulse intact irregularly irregular without tachycardia, respirations clear and unlabored. Abdomen: Postsurgical incisions intact, 2X port sites on right/left lower abdomen, infraumbilical incision, and aortic incision all intact and well-healing without dehiscence/discharge/erythema. [place] remain in place, initially placed 03/16. Abdomen with appropriate postsurgical tenderness overlying incisions, otherwise nontender//without rebound. A. fib Adequately rate controlled today. Continue metoprolol. Has refused anticoagulation for A. fib on multiple risk/benefit discussions. Continue Eliquis (started on 03/23.) HR appears to be better today after increasing metoprolol to 200 mg in AM (03/24) From surgical perspective is doing well, and is medically stable for discharge. Placement pending at this time, case management following. Downgraded from PCU status. Subjective NAEO. Reports feeling OK this morning. Mood still not great - wants to go home. Unhappy with the idea of rehab despite extensive discussion and reasoning. Denies palpitations. No CP/SOB. Leg pain much improved following administration of pressure stocking. No n/v/d. Appetite good. Review of Systems Review of Systems: as per HPI Physical Exam Physical Exam: General: Tired but well appearing 80yoF in NAD. HEENT: NCAT. Eyes - Sclera are white, anicteric, and without injection. MMM. No JVD. Cardiac: Tachycardic with irregular rhythm; S1 and S2 present with no murmurs, rubs, or gallops. Pulmonary: Good respiratory effort with symmetric expansion of the chest. No use of accessory muscles. Lungs were clear to auscultation bilaterally with no crackles or wheezes. Abdominal: Normoactive bowel sounds. Abdomen was soft, nondistended, and non- tender to palpation. Stapes in-place. Incision is c/d/i. No oozing. Palpable 2x1cm indurated area just inferior to the surgical margin in the RLQ. Non-TTP. Extremities: Upper and lower extremities are warm and well perfused. RLE in stocking. Results & Data Results & Data ([facility]) Vital Signs (Past 12 Hours) Vital Signs Temp Pulse Pulse Resp BP Pulse Ox 03/24/21 03:06 36.4 C L 64 18 110/74 90 03/24/21 00:42 108 H 03/23/21 23:25 37 C 89 16 120/69 96 03/23/21 19:47 36.5 C 69 16 117/74 93 Resident Activity Tracking Resident Involvement: Resident Care Provided Care Provided: [facility]
[2021-03-24 07:29] LABS: BUN Creatinine Ratio 14.6 (10-20); Calcium 8.3 mg/dl (8.5-10.1); Creatinine Clr Calc Pharmacy 60.5 ml/min; Est GFR (African American) 83.2 ml/min; Est GFR (Non-African American) 71.8 ml/min; Magnesium 1.9 mg/dl (1.8-2.4); Potassium 3.8 mmol/L (3.5-5.1)
[2021-03-24] MEDS: PANTOprazole 40 MG TAB PO SCH ×2 (09:10→20:41)
[2021-03-24] MEDS: METOPROLOL SUCC 50MG EXT REL TAB PO SCH (09:10)
[2021-03-24] MEDS: POTASSIUM CHLORIDE CRTAB 20 MEQ TABCR PO SCH (09:10)
[2021-03-24] MEDS: APIXABAN 2.5 MG TAB PO SCH ×2 (09:10→20:40)
--- NOTE | 2021-03-24 10:07 | Billing Data ---
Date of Service March 23, 2021 Coding Level of Care Code 14541 Subseq Hosp Care Lvl 2 Time Spent (min) 25
[2021-03-24] MEDS ORDERED: POTASSIUM CHLORIDE CRTAB 20 MEQ TABCR PO STA (10:41)
--- NOTE | 2021-03-24 22:03 | Billing Data ---
Date of Service March 24, 2021 Coding Level of Care Code 76357 Subseq Hosp Care Lvl 2
--- NOTE | 2021-03-25 06:36 | Hospitalist Progress Note ---
Date of Service March 25, 2021 Assessment & Plan (1) Atrial fibrillation with rapid ventricular response: Plan: 80-year-old woman with no documented medical history (last seen by a provider in 2006) presented to the ED after falling with a 1-week history of diffuse weakness and dysphagia, subsequently found to have a strangulate R femoral hernia requiring repair and partial small bowel resection on 03/16; she was also found to be AFib w/ RVR on admission. Strangulated Femoral Hernia - s/p repair and small bowel resection on 03/16 - Noted on 03/[address]-A/P after EGD. s/p laparotomy and bowel resection/hernia repair 03/16 - Surgery Consulted and following: - OK to resume therapeutic anticoagulation - Discontinue antibiotics 03/24 - Tolerating low fiber diet - Plan to address calcified gallbladder as an outpatient - Will require 1-2 week follow-up as outpatient for staple removal Post-operative Anemia - Admission Hgb normal on admission, noted now to be stable in the high 8s-low 9 range on multiple checks - Likely secondary to small amount of post-operative hemorrhage - Hemodynamically stable - Opt to transfuse if symptomatic or if Hgb < 7.5 Atrial Fibrillation with RVR -- rates improving, RVR now intermittent - Noted on admission, alongside LBBB and anterolateral repolarization abnormalities since 2015 - TTE: Normal LV function, LVEF 55-60%; evidence of LBBB. No RWMAs. Mod cLVH. Severe L atrial dilation, sclerotic aortic valve, severe mitral annular calcification - Consulted cardiology: Rate control, anticoagulation - 03/25 patient refusing Eliquis 5mg BID despite CHADSVASC = 3 and after extensive discussion of r/b/a - Metoprolol succinate decreased to 100mg daily today as pt complaining of feeling very fatigued and this could possibly contribute - K > 4, Mg > 2 - Recommend close outpatient cardiology follow-up - Hyperthyroidism follow-up recommended as outpatient Dysphagia, Nausea/Vomiting -- in setting of strangulated bowel, esophagitis - GI consulted. 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 Ulcers present. Large amount of fluid removed from stomach in setting of strangulated bowel. - Biopsies demonstrating ulcerative esophagitis - Continue Protonix 40mg b.i.d. - Recommend establishing with GI as outpatient Elevated Troponin - Noted on admission in setting of RVR, no acute conduction/repolarization abnormalities concerning for ACS - TTE as outlined above - no specific RWMAs - Likely secondary to RVR and pre-existing CAD, demand-ischemia Hyperthyroidism - Admission labs notable for TSH 0.259, Free T3 1.86, T4 1.88 - Thyroid U/S 03/14: Scattered nodules. Do not meet criteria for biopsy at present, but outpatient follow-up US will be required. Electrolyte Disturbances - resolved Weakness/Deconditioning Patient initially refused rehab but later agreeable. Patient's daughter, Jennifer updated on plan. -Awaiting placement for SNF, per case management - 03/25 patient refusing SNF placement and adamant that she prefers to go home. Recommended Insists she has support at home. However, per RN, daughter communicated that she would prefer mother to go to SNF as she does not feel patient could safely be cared for at home. I attempted to communicate with her by phone several times but was unable to reach her. I will continue to attempt communication as able. Vertebral Lesion (T1) -- in setting of normal Ca, ALP; no cancer history - Patient complaining of chronic upper back pain - Spinal CT revealing of 1.3cm lucent lesion within T1 vertebrae, possibly a hemangioma - Consider outpatient nuclear medicine bone scan for further evaluation of metabolic activity Fall - Reason for admission. Multifactorial: weakness, AFib w/ RVR +/- HoTN - PT, OT, Rehab - as above Not Vaccinated Against COVID-19 - Provided patient on the benefits of vaccination, and repeatedly offer the patient she repeatedly refused. Anticoag: Eliquis b.i.d. for AFib recommended but patient refusing Code: DNR/DNI Diet: Low Fiber Dispo: MS/T Admission and Anticipated Discharge Date Admission Date: March 12, 2021 Supervising Physician Co-Signing Physician Notes Also saw the patient confirmed morris portions of the history and the physical examination. Agree with the impression and plan as noted the resident documentation. 80-year-old female presented with dysphagia to is admitted for and treated for atrial fibrillation, weakness/deconditioning, strangulated femoral hernia status post operative repair 03/16/2021, SBO, and esophagitis. She has no complaints today. She had refused to take the Eliquis and metoprolol this morning. She also has plans on returning home and lieu of inpatient physical therapy. She tells me that her daughter will be home tomorrow and will be able to assist her at home. We did discuss the advantages of inpatient therapy as well as the possible complications of returning home when she is not able to care for herself. EXAM 137/87, 72, 20, 36.7, 96% on room air Alert and oriented. Nontoxic. No distress. Heart is regular rate and rhythm Lungs are clear Abdomen soft and nontender DATA WBC 9.84, hemoglobin 8.5. 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 She reports that she has been feeling very fatigued since starting on these new medications and she would rather not take anything as she previously did not take any medications. I explained to her the role of her current medications and how they would be helpful in avoiding future health issues. She was agreeable to trying a reduced dose of metoprolol but wants to stop anticoagulation. She seems to be open to using her pantoprazole for a limited period as well. Patient is also adamant that she does not want to go to a facility for rehabilitation. States that she is safe to be at home as she "has support."She says that she has a daughter coming in tomorrow who would be able to care for her. Shortly thereafter patient's daughter called and expressi ng concern to RN about patient being discharged home, feels her mother needs nursing facility. Attempted to call the daughter several times but was unable to reach her. From chart review, daughter was apparently able to communicate with case management and will be attempting to convince her mother to go to rehabilitation facility. Review of Systems Review of Systems: per subjective Physical Exam Physical Exam: General: Tired but well appearing. NAD. HEENT: NCAT. Eyes - Sclera are white, anicteric, and without injection. MMM. Cardiac: Tachycardic with irregular rhythm; S1 and S2 present with no murmurs, rubs, or gallops. Pulmonary: Good respiratory effort with symmetric expansion of the chest. No use of accessory muscles. Lungs were clear to auscultation bilaterally with no crackles or wheezes. Abdominal: Normoactive bowel sounds. Abdomen was soft, nondistended, and non- tender to palpation. [place] in-place. Incision is c/d/i. No oozing. Extremities: Upper and lower extremities are warm and well perfused Results & Data Results & Data ([facility]) Vital Signs (Past 12 Hours) Vital Signs Temp Pulse Pulse Resp BP BP Pulse Ox 03/25/21 04:20 36.3 C L 78 20 112/77 94 03/25/21 01:15 94 H 03/24/21 23:00 37.1 C 86 20 125/70 94 03/24/21 19:55 36.8 C 75 20 139/83 97 Resident Activity Tracking Resident Involvement: Resident Care Provided Care Provided: [facility]
[2021-03-25 07:40] LABS: Basophils # (auto) 0.02 K/uL (0-0.2); Basophils % (auto) 0.2 %; Eosinophils # (auto) 0.22 K/uL (0-0.5); Eosinophils % (auto) 2.2 %; Hematocrit (blood only) 26.7 % (37-47); Hemoglobin 8.5 g/dL (12.0-16.0); Immature Granulocytes # (auto) 0.06 K/uL (0.00-0.02); Immature Granulocytes % (auto) 0.6 %; Lymphocytes # (auto) 1.27 K/uL (1.2-3.4); Lymphocytes % (auto) 12.9 %; Mean Corpuscular Hemoglobin 29.1 pg (25-34); Mean Corpuscular Hgb Conc 31.8 g/dL (32-36); Mean Corpuscular Volume 91.4 fL (80-100); Mean Platelet Volume 8.8 fL (7.4-10.4); Monocytes # (auto) 0.51 K/uL (0.11-0.59); Monocytes % (auto) 5.2 %; Neutrophils # (auto) 7.76 K/uL (1.4-6.5); Neutrophils % (auto) 78.9 %; Platelet Count 360 K/uL (130-400); RDW Standard Deviation 49.4 fL (36.4-46.3); Red Blood Count 2.92 M/uL (4.2-5.4); White Blood Count 9.84 K/uL (4.8-10.8)
[2021-03-25 08:12] LABS: Albumin Level 1.9 gm/dl (3.4-5.0); BUN Creatinine Ratio 21.3 (10-20); Calcium 8.5 mg/dl (8.5-10.1); Creatinine Clr Calc Pharmacy 73.8 ml/min; Est GFR (African American) 97.7 ml/min; Est GFR (Non-African American) 84.3 ml/min; Potassium 4.2 mmol/L (3.5-5.1)
[2021-03-25 08:15] LABS: Albumin Globulin Ratio 0.5 (0.9-2); Globulin 3.6 gm/dl (2.5-4.0); Total Protein 5.5 gm/dl (6.4-8.2)
[2021-03-25] MEDS ORDERED: METOPROLOL SUCC 50MG EXT REL TAB PO SCH (09:00)
[2021-03-25] MEDS: APIXABAN 2.5 MG TAB PO SCH (09:43)
[2021-03-25] MEDS: POTASSIUM CHLORIDE CRTAB 20 MEQ TABCR PO SCH (09:43)
[2021-03-25] MEDS: PANTOprazole 40 MG TAB PO SCH ×2 (09:43→20:33)
[2021-03-25 10:53] LABS: Bilirubin,Total 0.3 mg/dl (0.2-1)
[2021-03-25] MEDS ORDERED: METOPROLOL TARTRATE 1 MG/ML VIAL IV PRN (19:41)
[2021-03-25] MEDS ORDERED: METOPROLOL SUCC 50MG EXT REL TAB PO ONE (20:00)
[2021-03-25] MEDS: APIXABAN 5 MG TABLET PO SCH (20:33)
[2021-03-26] MEDS ORDERED: MAGNESIUM SULFATE / D5W 1 GM/100 ML BAG IV ONE (02:45)
[2021-03-26 06:19] LABS: Basophils # (auto) 0.02 K/uL (0-0.2); Basophils % (auto) 0.2 %; Eosinophils % (auto) 2.4 %; Hematocrit (blood only) 26.1 % (37-47); Hemoglobin 8.2 g/dL (12.0-16.0); Immature Granulocytes # (auto) 0.04 K/uL (0.00-0.02); Immature Granulocytes % (auto) 0.5 %; Lymphocytes # (auto) 1.22 K/uL (1.2-3.4); Lymphocytes % (auto) 14.8 %; Mean Corpuscular Hemoglobin 28.9 pg (25-34); Mean Corpuscular Hgb Conc 31.4 g/dL (32-36); Mean Corpuscular Volume 91.9 fL (80-100); Mean Platelet Volume 8.9 fL (7.4-10.4); Monocytes # (auto) 0.48 K/uL (0.11-0.59); Monocytes % (auto) 5.8 %; Neutrophils # (auto) 6.29 K/uL (1.4-6.5); Neutrophils % (auto) 76.3 %; Platelet Count 379 K/uL (130-400); RDW Coefficient of Variation 15.1 % (11.5-14.5); RDW Standard Deviation 50.2 fL (36.4-46.3); Red Blood Count 2.84 M/uL (4.2-5.4); White Blood Count 8.25 K/uL (4.8-10.8)
[2021-03-26 06:59] LABS: BUN Creatinine Ratio 21.2 (10-20); Calcium 8.7 mg/dl (8.5-10.1); Creatinine Clr Calc Pharmacy 72.8 ml/min; Est GFR (African American) 97.7 ml/min; Est GFR (Non-African American) 84.3 ml/min; Potassium 4.1 mmol/L (3.5-5.1)
--- NOTE | 2021-03-26 07:49 | Hospitalist Progress Note ---
Date of Service March 26, 2021 Assessment & Plan (1) Atrial fibrillation with rapid ventricular response: Plan: 80-year-old woman with no documented medical history (last seen by a provider in 2006) presented to the ED after falling with a 1-week history of diffuse weakness and dysphagia, subsequently found to have a strangulate R femoral hernia requiring repair and partial small bowel resection on 03/16; she was also found to be AFib w/ RVR on admission. Strangulated Femoral Hernia - s/p repair and small bowel resection on 03/16 - Noted on 03/[address]-A/P after EGD. s/p laparotomy and bowel resection/hernia repair 03/16 - Surgery Consulted and following: - OK to resume therapeutic anticoagulation - Discontinue antibiotics 03/24 - Tolerating low fiber diet - Plan to address calcified gallbladder as an outpatient - Will require 1-2 week follow-up as outpatient for staple removal Post-operative Anemia - Admission Hgb normal on admission, noted now to be stable in the high 8s-low 9 range on multiple checks - Likely secondary to small amount of post-operative hemorrhage - Hemodynamically stable - Opt to transfuse if symptomatic or if Hgb < 7.5 Atrial Fibrillation with RVR -- rates improving, RVR now intermittent - Noted on admission, alongside LBBB and anterolateral repolarization abnormalities since 2015 - TTE: Normal LV function, LVEF 55-60%; evidence of LBBB. No RWMAs. Mod cLVH. Severe L atrial dilation, sclerotic aortic valve, severe mitral annular calcification - Consulted cardiology: Rate control, anticoagulation - 03/25 patient refusing Eliquis 5mg BID despite CHADSVASC = 3 and after extensive discussion of r/b/a - Metoprolol succinate decreased to 100mg daily 03/26 as pt complaining of feeling very fatigued and this could possibly contribute - K > 4, Mg > 2 - Recommend close outpatient cardiology follow-up - Hyperthyroidism follow-up recommended as outpatient Dysphagia, Nausea/Vomiting -- in setting of strangulated bowel, esophagitis - GI consulted. 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 Ulcers present. Large amount of fluid removed from stomach in setting of strangulated bowel. - Biopsies demonstrating ulcerative esophagitis - Continue Protonix 40mg b.i.d. - Recommend establishing with GI as outpatient Elevated Troponin - Noted on admission in setting of RVR, no acute conduction/repolarization abnormalities concerning for ACS - TTE as outlined above - no specific RWMAs - Likely secondary to RVR and pre-existing CAD, demand-ischemia Hyperthyroidism - Admission labs notable for TSH 0.259, Free T3 1.86, T4 1.88 - Thyroid U/S 03/14: Scattered nodules. Do not meet criteria for biopsy at present, but outpatient follow-up US will be required. Electrolyte Disturbances - resolved Weakness/Deconditioning Patient initially refused rehab but later agreeable. Patient's daughter, Jennifer updated on plan. -Awaiting placement for SNF, per case management - 03/25 patient refusing SNF placement and adamant that she prefers to go home. Her adult children reported being unable to care for her at [facility] and prefer she go to a facility. - 03/26 patient open to facility for a week as her children unable to care for her at home - CM to work on placement at SNF Vertebral Lesion (T1) -- in setting of normal Ca, ALP; no cancer history - Patient complaining of chronic upper back pain - Spinal CT revealing of 1.3cm lucent lesion within T1 vertebrae, possibly a hemangioma - Consider outpatient nuclear medicine bone scan for further evaluation of metabolic activity Fall - Reason for admission. Multifactorial: weakness, AFib w/ RVR +/- HoTN - PT, OT, Rehab - as above Not Vaccinated Against COVID-19 - Provided patient on the benefits of vaccination, and repeatedly offer the patient she repeatedly refused. Anticoag: Eliquis b.i.d. for AFib recommended but patient refusing Code: DNR/DNI Diet: Low Fiber Dispo: MS/T Admission and Anticipated Discharge Date Admission Date: March 12, 2021 Supervising Physician Co-Signing Physician Notes Also saw the patient confirmed morris portions of the history and the physical examination. Agree with the impression and plan as noted the resident documentation. 80-year-old female presented with dysphagia to is admitted for and treated for atrial fibrillation, weakness/deconditioning, strangulated femoral hernia status post operative repair 03/16/2021, SBO, and esophagitis. Overnight she had an episode of tachycardia which she actually felt herself. Does not look to have been atrial fibrillation but rather a sinus tachycardia. At this point she consented to taking her metoprolol. This morning, she is seated in the bedside chair. While she was resistant to inpatient physical therapy yesterday, after talking with her children, she is amendable to a short stay (less than 7 days). EXAM 118/86, 106, 20, 36.5, 95% on room air Alert and oriented. Nontoxic. No distress. Heart is regular rate and rhythm Lungs are clear Abdomen soft and nontender DATA WBC 8.25, hemoglobin 8.2. Sodium 139, potassium 4.1, BUN 14, creatinine 0.64 A/P Strangulated femoral hernia, status post repair and small bowel resection 03/16 Tolerating diet; no abdominal discomfort Postoperative anemia Essentially stable Monitor with addition of anticoagulation (see below) Atrial fibrillation with RVR Now in normal sinus rhythm Refusing anticoagulation; if she continues to decline systemic anticoagulation, would need to add DVT prophylaxis. She does not appear to have a history of atrial fibrillation (although she rarely sees a physician), but suspect that it was precipitated by the acute illness. While optimal would be chronic anticoagulation pending a event monitor as an outpatient (and discontinuing anticoagulation if no a atrial fibrillation on outpatient monitoring), given her anemia, holding off on anticoagulation at this point is reasonable since she is refusing anyway. She really wants to take minimal medicines and if I had to convince her to take one, would like to see her take the beta-michelle so that please get some rate control if she does flip back into A. fib. 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 Reporting mild fatigue but overall feeling "pretty good". She denies any fever, chills, n/v, diarrhea, CP, SOB. Says she is open to placement at a facility at this time for "a week or less". Review of Systems Review of Systems: per subjective Physical Exam Physical Exam: General: Tired but well appearing. NAD. HEENT: NCAT. Eyes - Sclera are white, anicteric, and without injection. MMM. Cardiac: RRR; S1 and S2 present with no murmurs, rubs, or gallops. Pulmonary: Good respiratory effort with symmetric expansion of the chest. No use of accessory muscles. Extremities: Upper and lower extremities are warm and well perfused Results & Data Results & Data ([facility]) Vital Signs (Past 12 Hours) Vital Signs Temp Pulse Pulse Resp BP BP Pulse Ox 03/26/21 07:43 36.7 C 78 18 125/72 90 03/26/21 03:45 36.5 C 90 20 127/80 95 03/25/21 23:30 36.4 C L 84 20 132/91 98 03/25/21 22:20 87 Resident Activity Tracking Resident Involvement: Resident Care Provided Care Provided: Adult Hospital Medicine
[2021-03-26] MEDS: PANTOprazole 40 MG TAB PO SCH ×2 (08:12→20:44)
[2021-03-26] MEDS: APIXABAN 5 MG TABLET PO SCH ×2 (08:13→20:44)
[2021-03-26] MEDS: METOPROLOL SUCC 50MG EXT REL TAB PO SCH (08:13)
[2021-03-26] MEDS: POTASSIUM CHLORIDE CRTAB 20 MEQ TABCR PO SCH (08:15)
--- NOTE | 2021-03-26 17:45 | Electrocardiogram Report ---
Test Reason : Blood Pressure : / mmHG Vent. Rate : 134 BPM Atrial Rate : 098 BPM P-R Int : 000 ms QRS Dur : 136 ms QT Int : 332 ms P-R-T Axes : 000 039 023 degrees QTc Int : 495 ms Atrial fibrillation with rapid ventricular response Non-specific intra-ventricular conduction block Abnormal ECG When compared with ECG of 23-MAR-2021 09:24, Nonspecific T wave abnormality now evident in Inferior leads Nonspecific T wave abnormality no longer evident in Lateral leads Confirmed by Lon Stapleton ([id number]) on 03/26/2021 5:45:36 PM Referred By: REFERRED SELF Confirmed By:Hiren Stapleton
[2021-03-27 06:33] LABS: Calcium 8.4 mg/dl (8.5-10.1); Creatinine Clr Calc Pharmacy 75.2 ml/min; Est GFR (African American) 98.7 ml/min; Est GFR (Non-African American) 85.2 ml/min
--- NOTE | 2021-03-27 07:01 | Hospitalist Progress Note ---
Date of Service March 27, 2021 Assessment & Plan (1) Atrial fibrillation with rapid ventricular response: Plan: 80-year-old woman with no documented medical history (last seen by a provider in 2006) presented to the ED after falling with a 1-week history of diffuse weakness and dysphagia, subsequently found to have a strangulate R femoral hernia requiring repair and partial small bowel resection on 03/16; she was also found to be AFib w/ RVR on admission. Strangulated Femoral Hernia - s/p repair and small bowel resection on 03/16 - Noted on 03/[address]-A/P after EGD. s/p laparotomy and bowel resection/hernia repair 03/16 - Surgery Consulted and following: - OK to resume therapeutic anticoagulation - Discontinue antibiotics 03/24 - Tolerating low fiber diet - Plan to address calcified gallbladder as an outpatient - Will require 1-2 week follow-up as outpatient for staple removal Post-operative Anemia - Admission Hgb normal on admission, noted now to be stable in the high 8s-low 9 range on multiple checks - Likely secondary to small amount of post-operative hemorrhage - Hemodynamically stable - Opt to transfuse if symptomatic or if Hgb < 7.5 Atrial Fibrillation with RVR -- rates improving, RVR now intermittent - Noted on admission, alongside LBBB and anterolateral repolarization abnormalities since 2015 - TTE: Normal LV function, LVEF 55-60%; evidence of LBBB. No RWMAs. Mod cLVH. Severe L atrial dilation, sclerotic aortic valve, severe mitral annular calcification - Consulted cardiology: Rate control, anticoagulation - Patient now taking Eliquis 5mg BID again - Metoprolol succinate decreased to 100mg daily 03/26 as pt complaining of feeling very fatigued and this could possibly contribute - K > 4, Mg > 2 - Recommend close outpatient cardiology follow-up - Hyperthyroidism follow-up recommended as outpatient Dysphagia, Nausea/Vomiting -- in setting of strangulated bowel, esophagitis - GI consulted. 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 Ulcers present. Large amount of fluid removed from stomach in setting of strangulated bowel. - Biopsies demonstrating ulcerative esophagitis - Continue Protonix 40mg b.i.d. - Recommend establishing with GI as outpatient Elevated Troponin - Noted on admission in setting of RVR, no acute conduction/repolarization abnormalities concerning for ACS - TTE as outlined above - no specific RWMAs - Likely secondary to RVR and pre-existing CAD, demand-ischemia Hyperthyroidism - Admission labs notable for TSH 0.259, Free T3 1.86, T4 1.88 - Thyroid U/S 03/14: Scattered nodules. Do not meet criteria for biopsy at present, but outpatient follow-up US will be required. Electrolyte Disturbances - resolved Weakness/Deconditioning Patient initially refused rehab but later agreeable. Patient's daughter, Jennifer updated on plan. -Awaiting placement for SNF, per case management - 03/25 patient refusing SNF placement and adamant that she prefers to go home. Her adult children reported being unable to care for her at [facility] and prefer she go to a facility. - 03/26 patient open to facility for a week as her children unable to care for her at home - CM to work on placement at SNF per discussion with family -- placement pending Vertebral Lesion (T1) -- in setting of normal Ca, ALP; no cancer history - Patient complaining of chronic upper back pain - Spinal CT revealing of 1.3cm lucent lesion within T1 vertebrae, possibly a hemangioma - Consider outpatient nuclear medicine bone scan for further evaluation of meta bolic activity Fall - Reason for admission. Multifactorial: weakness, AFib w/ RVR +/- HoTN - PT, OT, Rehab - as above Not Vaccinated Against COVID-19 - Provided patient on the benefits of vaccination, and repeatedly offer the patient she repeatedly refused. Anticoag: Eliquis b.i.d. for AFib -- patient taking med again Code: DNR/DNI Diet: Low Fiber Dispo: MS/T, placement pending as above Admission and Anticipated Discharge Date Admission Date: March 12, 2021 Supervising Physician Co-Signing Physician Notes Also saw the patient confirmed morris portions of the history and the physical examination. Agree with the impression and plan as noted the resident documentation. 80-year-old female presented with dysphagia to is admitted for and treated for atrial fibrillation, weakness/deconditioning, strangulated femoral hernia status post operative repair 03/16/2021, SBO, and esophagitis. Overnight she had an episode of tachycardia which she actually felt herself. EXAM 114/74, 90, 20, 36.5, 93% room air Alert and oriented. Nontoxic. No distress. Heart is regular rate and rhythm Lungs are clear Abdomen soft and nontender DATA Sodium 142, potassium 4, BUN 16, creatinine 0.62 A/P Strangulated femoral hernia, status post repair and small bowel resection 03/16 Tolerating diet; no abdominal discomfort Postoperative anemia Essentially stable Monitor with addition of anticoagulation Atrial fibrillation with RVR Remains in normal sinus rhythm Eliquis 5 mg daily She does not appear to have a history of atrial fibrillation (although she rarely sees a physician), but suspect that it was precipitated by the acute illness. Consider outpatient event monitor to document A. fib burden; if none, could discontinue anticoagulation Dysphagia, nausea vomiting Status post EGD with changes concerning for Johnson's Protonix 40 mg twice daily Weakness/deconditioning Placement for inpatient physical therapy Else per resident documentation Subjective Seen at bedside this morning. Patient reports that she has some intermittent discomfort in her legs and swelling when she is sitting at bedside chair. Says it feels better when she is able to move around a little bit or when she is laying in bed with her feet elevated. Denies shortness of breath, cough, chest pain, palpitations. Review of Systems Review of Systems: per subjective Physical Exam Physical Exam: General: Tired but well appearing. NAD. HEENT: NCAT. Eyes - Sclera are white, anicteric, and without injection. MMM. Cardiac: RRR; S1 and S2 present with no murmurs, rubs, or gallops. Pulmonary: Good respiratory effort with symmetric expansion of the chest. No use of accessory muscles. Extremities: Upper and lower extremities are warm and well perfused, right leg with trace edema. Results & Data Results & Data ([place]) Vital Signs (Past 12 Hours) Vital Signs Temp Pulse Pulse Resp BP BP Pulse Ox 03/27/21 03:47 36.5 C 68 16 104/61 95 03/26/21 23:16 36.6 C 87 16 122/83 94 03/26/21 23:00 84 03/26/21 19:24 36.3 C L 88 16 104/56 L 95 Resident Activity Tracking Resident Involvement: Resident Care Provided Care Provided: Adult Hospital Medicine
[2021-03-27] MEDS: PANTOprazole 40 MG TAB PO SCH ×2 (07:48→21:16)
[2021-03-27] MEDS: APIXABAN 5 MG TABLET PO SCH ×2 (07:48→21:16)
[2021-03-27] MEDS: POTASSIUM CHLORIDE CRTAB 20 MEQ TABCR PO SCH (07:50)
[2021-03-27] MEDS: METOPROLOL SUCC 50MG EXT REL TAB PO SCH (07:51)
--- NOTE | 2021-03-28 07:55 | Hospitalist Progress Note ---
Date of Service March 28, 2021 Assessment & Plan (1) Atrial fibrillation with rapid ventricular response: Plan: 80-year-old woman with no documented medical history (last seen by a provider in 2006) presented to the ED after falling with a 1-week history of diffuse weakness and dysphagia, subsequently found to have a strangulate R femoral hernia requiring repair and partial small bowel resection on 03/16; she was also found to be AFib w/ RVR on admission. Strangulated Femoral Hernia - s/p repair and small bowel resection on 03/16 - Noted on 03/[address]-A/P after EGD. s/p laparotomy and bowel resection/hernia repair 03/16 - Surgery Consulted and following: - OK to resume therapeutic anticoagulation - Discontinue antibiotics 03/24 - Tolerating low fiber diet - Plan to address calcified gallbladder as an outpatient - Will require 1-2 week follow-up as outpatient for staple removal Post-operative Anemia - Admission Hgb normal on admission, noted now to be stable in the high 8s-low 9 range on multiple checks - Likely secondary to small amount of post-operative hemorrhage - Hemodynamically stable - Opt to transfuse if symptomatic or if Hgb < 7.5 Atrial Fibrillation with RVR -- rates improving, RVR now intermittent - Noted on admission, alongside LBBB and anterolateral repolarization abnormalities since 2015 - TTE: Normal LV function, LVEF 55-60%; evidence of LBBB. No RWMAs. Mod cLVH. Severe L atrial dilation, sclerotic aortic valve, severe mitral annular calcification - Consulted cardiology: Rate control, anticoagulation - Patient now taking Eliquis 5mg BID again - 03/26: Metoprolol succinate decreased to 100mg daily as pt complaining of feeling very fatigued and this could possibly contribute - 03/28: Patient having elevated heart rate with minimal movement, increased metoprolol succinate to 100 mg twice daily - K > 4, Mg > 2 - Recommend close outpatient cardiology follow-up - Hyperthyroidism follow-up recommended as outpatient Dysphagia, Nausea/Vomiting -- in setting of strangulated bowel, esophagitis - GI consulted. 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 Ulcers present. Large amount of fluid removed from stomach in setting of strangulated bowel. - Biopsies demonstrating ulcerative esophagitis - Continue Protonix 40mg b.i.d. - Recommend establishing with GI as outpatient Elevated Troponin - Noted on admission in setting of RVR, no acute conduction/repolarization abnormalities concerning for ACS - TTE as outlined above - no specific RWMAs - Likely secondary to RVR and pre-existing CAD, demand-ischemia Hyperthyroidism - Admission labs notable for TSH 0.259, Free T3 1.86, T4 1.88 - Thyroid U/S 03/14: Scattered nodules. Do not meet criteria for biopsy at present, but outpatient follow-up US will be required. Electrolyte Disturbances - resolved Weakness/Deconditioning Patient initially refused rehab but later agreeable. Patient's daughter, Jennifer updated on plan. -Awaiting placement for SNF, per case management - 03/25 patient refusing SNF placement and adamant that she prefers to go home. Her adult children reported being unable to care for her at [facility] and prefer she go to a facility. - 03/26 patient open to facility for a week as her children unable to care for her at home - CM to work on placement at SNF per discussion with family -- placement pending -Per note [facility] reviewing referral, patient's insurance likely to deny await further developments Vertebral Lesion (T1) -- in setting of normal Ca, ALP; no cancer history - Patient complaining of chronic upper back pain - Spinal CT revealing of 1.3cm lucent lesion within T1 vertebrae, possibly a hemangioma - Consider outpatient nuclear medicine bone scan for further evaluation of metabolic activity Fall - Reason for admission. Multifactorial: weakness, AFib w/ RVR +/- HoTN - PT, OT, Rehab - as above Not Vaccinated Against COVID-19 - Provided patient on the benefits of vaccination, and repeatedly offer the patient she repeatedly refused. Anticoag: Justice b.i.d. for AFib -- patient taking med again Code: DNR/DNI Diet: Low Fiber Dispo: MS/T, placement pending as above Admission and Anticipated Discharge Date Admission Date: March 12, 2021 Supervising Physician Co-Signing Physician Notes I also saw the patient confirmed morris portions of the history and the physical examination. Agree with the impression and plan as noted the resident documentation. 80-year-old female presented with dysphagia to is admitted for and treated for atrial fibrillation, weakness/deconditioning, strangulated femoral hernia status post operative repair 03/16/2021, SBO, and esophagitis. She generally feels well today. Nursing does note that the patient would have heart rates exceeding 100 with activity (ambulation in hallway). This is confirmed with telemetry EXAM 127/77, 118, 18, 36.4, 96% on room air Alert and oriented. Nontoxic. No distress. 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 Reports feeling fairly well. Feels she is somewhat stronger and has been able to ambulate on her own more. She does say that she is using the walker to make sure that she maintains stability. Otherwise denying any current symptoms including fever, chills, nausea, vomiting, abdominal pain, chest pain, shortness of breath. Review of Systems Review of Systems: per subjective Physical Exam Physical Exam: General: Tired but well appearing. NAD. HEENT: NCAT. Eyes - Sclera are white, anicteric, and without injection. MMM. Cardiac: RRR; S1 and S2 present with no murmurs, rubs, or gallops. Pulmonary: Good respiratory effort with symmetric expansion of the chest. No use of accessory muscles. Extremities: Upper and lower extremities are warm and well perfused, right leg with trace edema. Results & Data Results & Data ([facility]) Vital Signs (Past 12 Hours) Vital Signs Temp Pulse Resp BP Pulse Ox 03/28/21 07:51 36.6 C 77 18 121/72 93 03/28/21 04:20 36.6 C 69 18 112/65 94 03/27/21 23:09 36.7 C 76 18 109/55 L 96 Resident Activity Tracking Resident Involvement: Resident Care Provided Care Provided: [facility]
[2021-03-28] MEDS: METOPROLOL SUCC 50MG EXT REL TAB PO SCH ×2 (08:02→20:13)
[2021-03-28] MEDS: PANTOprazole 40 MG TAB PO SCH ×2 (08:02→20:14)
[2021-03-28] MEDS: APIXABAN 5 MG TABLET PO SCH ×2 (08:02→20:13)
[2021-03-28] MEDS: POTASSIUM CHLORIDE CRTAB 20 MEQ TABCR PO SCH (08:04)
--- NOTE | 2021-03-28 13:46 | Surgery Progress Note ---
Date of Service March 28, 2021 Assessment & Plan (1) History of femoral hernia repair: Plan: s/p laparoscopic converted to open right femoral hernia repair with small bowel resection + anastomosis on 03/16 -patient doing well -removed R groin yajaira today -pt has some erythema/induration around midline wound, will obtain US to evaluate for ?underlying hematoma. If confirms hematoma we will come back to remove remainder of yajaira tomorrow -she may f/u with Dr. Mackey in clinic in 1 month Admission and Anticipated Discharge Date Admission Date: March 12, 2021 Supervising Physician Co-Signing Physician Notes pnt s&e, agree with above. S/P strangulated femoral hernia repair with bowel resection. Doing well, no pain, tolerating diet, normal bm's. afvss, nad, aaox3. right groin incision healing well, yajaira removed. Midline incision with likely hematoma after starting a/c, will order US to confirm. likely remove yajaira tomorrow. no heavy lifting for 2 weeks, otherwise activity as tolerated. f/u in 1 month. Subjective Patient is feeling well. Tolerating a diet. She is awaiting placement. Physical Exam Physical Exam: awake/alert Gastrointestinal (Abdomen): Inspection/Auscultation: + abdominal surgical incision (some induration/erythema to midline wound. groin wound c/d/i) Percussion/Palpation: abdomen soft Results & Data ([facility]) Vital Signs (Past 12 Hours) Vital Signs Temp Pulse Resp BP Pulse Ox 03/28/21 11:13 36.6 C 99 H 18 112/64 96 03/28/21 07:51 36.6 C 77 18 121/72 93 03/28/21 04:20 36.6 C 69 18 112/65 94 PG Care Time/CCT Total # of Minutes Spent Total Time Spent with Patient: Total time spent is greater than 50% in coordination of care (as documented) at patient's floor/unit and/or counseling patient: Coding Level of Care Code None Diagnoses History of femoral hernia repair Z98.890; Z87.19
--- NOTE | 2021-03-28 15:48 | Ultrasound Report ---
ABDOMINAL ULTRASOUND TO ASSESS FOR HEMATOMA HISTORY: Evaluate midline abdominal wound for ?hematoma. COMPARISON: CT of the abdomen and pelvis March 16, 2021. TECHNIQUE: Sonography of the mid abdomen at site of incision was performed. FINDINGS: No anterior abdominal wall hematoma, abscess or other sonographic abnormality was identifie d. IMPRESSION: No sonographic abnormality within the anterior abdominal wall. ACT 112: Negative or not required by law. Electronically signed by: José Rangel M.D. 03/28/2021 3:46 PM
--- NOTE | 2021-03-29 07:10 | Hospitalist Progress Note ---
Date of Service March 29, 2021 Assessment & Plan (1) Atrial fibrillation with rapid ventricular response: Plan: 80-year-old woman with no documented medical history (last seen by a provider in 2006) presented to the ED after falling with a 1-week history of diffuse weakness and dysphagia, subsequently found to have a strangulate R femoral hernia requiring repair and partial small bowel resection on 03/16; she was also found to be AFib w/ RVR on admission. Strangulated Femoral Hernia - s/p repair and small bowel resection on 03/16 - Noted on 03/[address]-A/P after EGD. s/p laparotomy and bowel resection/hernia repair 03/16 - Surgery Consulted and following: - OK to resume therapeutic anticoagulation - Discontinue antibiotics 03/24 - Tolerating low fiber diet - Plan to address calcified gallbladder as an outpatient - Will require 1-2 week follow-up as outpatient for staple removal Post-operative Anemia - Admission Hgb normal on admission, noted now to be stable in the high 8s-low 9 range on multiple checks - Likely secondary to small amount of post-operative hemorrhage - Hemodynamically stable - Opt to transfuse if symptomatic or if Hgb < 7.5 Atrial Fibrillation with RVR -- rates improving, RVR now intermittent - Noted on admission, alongside LBBB and anterolateral repolarization abnormalities since 2015 - TTE: Normal LV function, LVEF 55-60%; evidence of LBBB. No RWMAs. Mod cLVH. Severe L atrial dilation, sclerotic aortic valve, severe mitral annular calcification - Consulted cardiology: Rate control, anticoagulation - Patient now taking Eliquis 5mg BID again - 03/26: Metoprolol succinate decreased to 100mg daily as pt complaining of feeling very fatigued and this could possibly contribute - 03/28: Patient having elevated heart rate with minimal movement, increased metoprolol succinate to 100 mg twice daily - K > 4, Mg > 2 - Recommend close outpatient cardiology follow-up - Hyperthyroidism follow-up recommended as outpatient Dysphagia, Nausea/Vomiting -- in setting of strangulated bowel, esophagitis - GI consulted. 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 Ulcers present. Large amount of fluid removed from stomach in setting of strangulated bowel. - Biopsies demonstrating ulcerative esophagitis - Continue Protonix 40mg b.i.d. -- patient currently unsure if she wishes to use this med; recommended strongly she continue due to Johnson's - Recommend establishing with GI as outpatient Elevated Troponin - Noted on admission in setting of RVR, no acute conduction/repolarization abnormalities concerning for ACS - TTE as outlined above - no specific RWMAs - Likely secondary to RVR and pre-existing CAD, demand-ischemia Hyperthyroidism - Admission labs notable for TSH 0.259, Free T3 1.86, T4 1.88 - Thyroid U/S 03/14: Scattered nodules. Do not meet criteria for biopsy at pres ent, but outpatient follow-up US will be required. Electrolyte Disturbances - resolved Weakness/Deconditioning Patient initially refused rehab but later agreeable. Patient's daughter, Jennifer updated on plan. -Awaiting placement for SNF, per case management - 03/25 patient refusing SNF placement and adamant that she prefers to go home. Her adult children reported being unable to care for her at [facility] and prefer she go to a facility. - 03/26 patient open to facility for a week as her children unable to care for her at home - to work on placement at SNF per discussion with family -- placement pending -Per note [facility] reviewing referral, patient's insurance likely to deny await further developments Vertebral Lesion (T1) -- in setting of normal Ca, ALP; no cancer history - Patient complaining of chronic upper back pain - Spinal CT revealing of 1.3cm lucent lesion within T1 vertebrae, possibly a hemangioma - Consider outpatient nuclear medicine bone scan for further evaluation of metabolic activity Fall - Reason for admission. Multifactorial: weakness, AFib w/ RVR +/- HoTN - PT, OT, Rehab - as above Not Vaccinated Against COVID-19 - Provided patient on the benefits of vaccination, and repeatedly offer the patient she repeatedly refused. Anticoag: Eliquis b.i.d. for AFib -- patient taking med again Code: DNR/DNI Diet: Low Fiber Dispo: MS/T, placement pending as above Admission and Anticipated Discharge Date Admission Date: March 12, 2021 Supervising Physician Co-Signing Physician Notes Attending attestation Pt seen and examined in concert with Dr. Mcgrath. In agreement with the documented findings as noted in the resident documentation with any exceptions or additions as noted here. Complaining of intermittent GI upset with medications, especially qHS. Continues to request d/c medications including PPI, K+. On examination, S1/S2 nl RRR no MCG. CTAB. Abd NT/ND BS+ve Strangulated hernia s/p repair with postop anemia - counseling re: continue PPI and benefits therefrom. Zofran PRN Atrial fibrilation with RVR, rate controlled - counseling re: importance of AC and BB in the setting of CVA prevention with atrial fibrillation and adherence to thereapy HyPokalemia - espouses desire to transition toa more natural source of K+ and follow w/ naturopathic physician. Encouraged f/u with Dr. Awad to ensure appropriate care with integrative medicine in the setting of complicated medical condition. Else see resident documentation as noted. Subjective Patient seen at bedside this AM. No current issues/complaints but mentions that she intermittently has GI discomfort and feels it is due to meds. She feels this may be due to the protonix. I explained that it is possible it may be due to the metoprolol and Eliquis, which she needs, and that the protonix will likely be helpful. She is concerned that this medication has been shown to predispose to gastric cancer. 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 She expresses understanding and says she will consider going forward. Review of Systems Review of Systems: per subjective Physical Exam Physical Exam: General: Tired but well appearing. NAD. HEENT: NCAT. Eyes - Sclera are white, anicteric, and without injection. MMM. Cardiac: RRR; S1 and S2 present with no murmurs, rubs, or gallops. Pulmonary: Good respiratory effort with symmetric expansion of the chest. No use of accessory muscles. Extremities: Upper and lower extremities are warm and well perfused, right leg with trace edema. Results & Data Results & Data ([facility]) Vital Signs (Past 12 Hours) Vital Signs Temp Pulse Resp BP BP Pulse Ox 03/29/21 03:44 36.9 C 70 18 161/71 H 95 03/29/21 03:36 36.4 C L 64 18 106/65 94 03/28/21 23:21 36.9 C 59 L 18 103/67 94 03/28/21 19:34 36.6 C 70 18 111/72 93 Resident Activity Tracking Resident Involvement: Resident Care Provided Care Provided: Adult Hospital Medicine
[2021-03-29] MEDS: PANTOprazole 40 MG TAB PO SCH ×2 (08:17→20:10)
[2021-03-29] MEDS: METOPROLOL SUCC 50MG EXT REL TAB PO SCH ×2 (08:17→20:10)
[2021-03-29] MEDS: APIXABAN 5 MG TABLET PO SCH ×2 (08:17→20:11)
[2021-03-29 08:18] LABS: Basophils # (auto) 0.02 K/uL (0-0.2); Basophils % (auto) 0.3 %; Eosinophils % (auto) 1.3 %; Hematocrit (blood only) 27.5 % (37-47); Hemoglobin 8.5 g/dL (12.0-16.0); Lymphocytes # (auto) 0.97 K/uL (1.2-3.4); Lymphocytes % (auto) 12.7 %; Mean Corpuscular Hemoglobin 28.8 pg (25-34); Mean Corpuscular Hgb Conc 30.9 g/dL (32-36); Mean Corpuscular Volume 93.2 fL (80-100); Monocytes # (auto) 0.35 K/uL (0.11-0.59); Monocytes % (auto) 4.6 %; Neutrophils # (auto) 6.17 K/uL (1.4-6.5); Neutrophils % (auto) 81.1 %; Platelet Count 493 K/uL (130-400); RDW Coefficient of Variation 15.5 % (11.5-14.5); RDW Standard Deviation 52.5 fL (36.4-46.3); Red Blood Count 2.95 M/uL (4.2-5.4); White Blood Count 7.61 K/uL (4.8-10.8)
[2021-03-29] MEDS: POTASSIUM CHLORIDE CRTAB 20 MEQ TABCR PO SCH (08:19)
[2021-03-29 08:53] LABS: BUN Creatinine Ratio 23.7 (10-20); Creatinine Clr Calc Pharmacy 66.4 ml/min; Est GFR (African American) 94.8 ml/min; Est GFR (Non-African American) 81.8 ml/min; Potassium 4.4 mmol/L (3.5-5.1)
--- NOTE | 2021-03-29 09:20 | Surgery Progress Note ---
Date of Service March 29, 2021 Assessment & Plan (1) History of femoral hernia repair: Plan: s/p laparoscopic converted to open right femoral hernia repair with small bowel resection + anastomosis on 03/16 -patient doing well s/p surgery. she is awaiting placement -R groin yajaiar removed yesterday -US of midline wound revealed no evidence of hematoma or underlying fluid collection. remainder of midline yajaira removed -july shower; no soaking in tubs/pools for couple more wks -july f/u with Dr. Mackey within 1 month if she prefers Admission and Anticipated Discharge Date Admission Date: March 12, 2021 Supervising Physician Co-Signing Physician Notes pnt s&e, agree with above. US yesterday with no abnormality. Still likely small hematoma in midline incision. [place] removed. f/u as outpatient, no heavy lifting for 2 weeks. surgery will sign off, call with questions or concerns Subjective Patient doing well. Pain controlled. Tolerating diet. + bowel function. Awaiting placement. Physical Exam Physical Exam: awake/alert Gastrointestinal (Abdomen): Inspection/Auscultation: + abdominal surgical incision (c/d/i, some erythema/induration nicole midline wound); abdomen not distended Percussion/Palpation: abdomen soft; abdomen nontender Results & Data ([place]) Vital Signs (Past 12 Hours) Vital Signs Temp Pulse Pulse Resp BP BP Pulse Ox 03/29/21 09:05 110 H 03/29/21 07:39 36.6 C 64 18 121/76 94 03/29/21 03:44 36.9 C 70 18 161/71 H 95 03/29/21 03:36 36.4 C L 64 18 106/65 94 03/28/21 23:21 36.9 C 59 L 18 103/67 94 PG Care Time/CCT Total # of Minutes Spent Total Time Spent with Patient: Total time spent is greater than 50% in coordination of care (as documented) at patient's floor/unit and/or counseling patient: Coding Level of Care Code None Diagnoses History of femoral hernia repair Z98.890; Z87.19
--- NOTE | 2021-03-30 06:45 | Hospitalist Progress Note ---
Date of Service March 30, 2021 Assessment & Plan (1) Atrial fibrillation with rapid ventricular response: Plan: 80-year-old woman with no documented medical history (last seen by a provider in 2006) presented to the ED after falling with a 1-week history of diffuse weakness and dysphagia, subsequently found to have a strangulate R femoral hernia requiring repair and partial small bowel resection on 03/16; she was also found to be AFib w/ RVR on admission. Strangulated femoral hernia s/p repair and small bowel resection - Noted on 03/[address]-A/P after EGD, s/p laparotomy and bowel resection/hernia repair 03/16 - Surgery consulted: - OK to resume therapeutic anticoagulation - Discontinue antibiotics 03/24 - Tolerating low fiber diet - Plan to address calcified gallbladder as an outpatient - Will require 1-2 week follow-up as outpatient for staple removal Post-operative anemia - Admission Hgb normal on admission, noted now to be stable in the high 8s-low 9 range on multiple checks - Likely secondary to small amount of post-operative hemorrhage - Hemodynamically stable - Opt to transfuse if symptomatic or if Hgb < 7.5 Atrial fibrillation with RVR -- rates improving, RVR now intermittent - Noted on admission, alongside LBBB and anterolateral repolarization abnormalities since 2015 - TTE: Normal LV function, LVEF 55-60%; evidence of LBBB. No RWMAs. Mod cLVH. Severe L atrial dilation, sclerotic aortic valve, severe mitral annular calcification - Consulted cardiology: Rate control, anticoagulation - Patient now taking Eliquis 5mg BID again - 03/26: Metoprolol succinate decreased to 100mg daily as pt complaining of feeling very fatigued and this could possibly contribute - 03/28: Patient having elevated heart rate with minimal movement, increased metoprolol succinate to 100 mg twice daily - K > 4, Mg > 2 - Recommend close outpatient cardiology follow-up - Hyperthyroidism follow-up recommended as outpatient Dysphagia, nausea, vomiting - GI consulted. 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 Ulcers present. Large amount of fluid removed from stomach in setting of strangulated bowel. - Biopsies demonstrating ulcerative esophagitis - Continue Protonix 40mg b.i.d. -- patient currently unsure if she wishes to use this med; recommended strongly she continue due to Johnson's - Recommend establishing with GI as outpatient Elevated troponin - Noted on admission in setting of RVR, no acute conduction/repolarization abnormalities concerning for ACS - TTE as outlined above - no specific RWMAs - Likely secondary to RVR and pre-existing CAD, demand-ischemia Hyperthyroidism - Admission labs notable for TSH 0.259, Free T3 1.86, T4 1.88 - Thyroid U/S 03/14: Scattered nodules. Do not meet criteria for biopsy at present, but outpatient follow-up US will be required. Electrolyte disturbances - resolved Weakness/deconditioning Patient initially refused rehab but later agreeable. Patient's daughter, Jennifer updated on plan. -Awaiting placement for SNF, per case management - 03/25 patient refusing SNF placement and adamant that she prefers to go home. Her adult children reported being unable to care for her at [facility] and prefer she go to a facility. - 03/26 patient open to facility for a week as her children unable to care for her at home - CM to work on placement at SNF per discussion with family -- placement pending - Per note [facility] reviewing referral, patient's insurance likely to deny await further developments Vertebral Lesion (T1) -- in setting of normal Ca, ALP; no cancer history - Patient complaining of chronic upper back pain - Spinal CT revealing of 1.3cm lucent lesion within T1 vertebrae, possibly a hemangioma - Consider outpatient nuclear medicine bone scan for further evaluation of metabolic activity Fall - Reason for admission. Multifactorial: weakness, AFib w/ RVR +/- HoTN - PT, OT, Rehab - as above Not Vaccinated Against COVID-19 - Provided patient on the benefits of vaccination, and repeatedly offer the patient she repeatedly refused. FEN: low fiber Code status: DNR/DNI DVT ppx: eliquis Case management: following Dispo: med/surg Admission and Anticipated Discharge Date Admission Date: March 12, 2021 Supervising Physician Co-Signing Physician Notes Attending attestation Pt seen and examined in concert with Dr. Alamo. In agreement with the documented findings as noted in the resident documentation with any exceptions or additions as noted here. Interval resolution of GI complaint, reports feeling overall well On examination, S1/S2 nl RRR no MCG. CTAB. Abd NT/ND BS+ve Strangulated hernia s/p repair with postop anemia - continue PPI with ondansetron PRN Atrial fibrillation with RVR, rate controlled - continue Eliquis and metoprolol Hypokalemia - espouses desire to transition to a more natural source of K+ and follow w/ naturopathic physician. Encouraged f/u with Dr. Awad to ensure appropriate care with integrative medicine in the setting of complicated medical condition. Else see resident documentation as noted. Subjective Patient seen and evaluated at bedside this morning. No acute events overnight. Patient feels well today and has no complaints. Denies pain. Reports her breathing feels fine today. No other concerns at this time. Patient denies CP, SOB, abdominal pain, nausea, vomiting, lightheadedness, dizziness, and diarrhea. Review of Systems Review of Systems: See HPI Physical Exam Physical Exam: Constitutional: well-appearing, no acute distress, laying in bed CV: heart sounds distant, trace LE edema Resp: CTABL, no wheezes/rales/rhonchi appreciated, no increased work of breathing GI: soft, nondistended, BS present Skin: abdominal incision with minimal surrounding erythema, no drainage Neuro: alert, oriented, no focal neurologic deficit appreciated Results & Data Results & Data ([facility]) Vital Signs (Past 12 Hours) Vital Signs Temp Pulse Pulse Resp BP Pulse Ox 03/30/21 05:26 88 03/30/21 04:42 36.5 C 87 18 117/78 93 03/29/21 22:20 91 H 03/29/21 22:19 36.7 C 86 18 117/76 95 03/29/21 19:44 36.7 C 88 18 111/74 94 Resident Activity Tracking Resident Involvement: Resident Care Provided Care Provided: Adult Hospital Medicine
[2021-03-30] MEDS: METOPROLOL SUCC 50MG EXT REL TAB PO SCH ×2 (09:24→20:12)
[2021-03-30] MEDS: APIXABAN 5 MG TABLET PO SCH ×2 (09:24→20:13)
[2021-03-30] MEDS: PANTOprazole 40 MG TAB PO SCH ×2 (09:24→20:14)
[2021-03-30] MEDS: POTASSIUM CHLORIDE CRTAB 20 MEQ TABCR PO SCH (09:27)
--- NOTE | 2021-03-31 07:03 | Hospitalist Progress Note ---
Date of Service March 31, 2021 Assessment & Plan (1) Atrial fibrillation with rapid ventricular response: Plan: 80-year-old woman with no documented medical history (last seen by a provider in 2006) presented to the ED after falling with a 1-week history of diffuse weakness and dysphagia, subsequently found to have a strangulate R femoral hernia requiring repair and partial small bowel resection on 03/16; she was also found to be AFib w/ RVR on admission. Strangulated femoral hernia s/p repair and small bowel resection - Noted on 03/[address]-A/P after EGD, s/p laparotomy and bowel resection/hernia repair 03/16 - Surgery consulted: - OK to resume therapeutic anticoagulation - Discontinue antibiotics 03/24 - Tolerating low fiber diet - Plan to address calcified gallbladder as an outpatient - Will require 1-2 week follow-up as outpatient for staple removal - Incision healing well Post-operative anemia - Admission Hgb normal on admission, noted now to be stable in the high 8s-low 9 range on multiple checks - Likely secondary to small amount of post-operative hemorrhage - Hemodynamically stable - Opt to transfuse if symptomatic or if Hgb < 7.5 Atrial fibrillation with RVR -- rates improving, RVR now intermittent - Noted on admission, alongside LBBB and anterolateral repolarization abnormalities since 2015 - TTE: Normal LV function, LVEF 55-60%; evidence of LBBB. No RWMAs. Mod cLVH. Severe L atrial dilation, sclerotic aortic valve, severe mitral annular calcification - Consulted cardiology: Rate control, anticoagulation - Patient now taking Eliquis 5mg BID again - 03/26: Metoprolol succinate decreased to 100mg daily as pt complaining of feeling very fatigued and this could possibly contribute - 03/28: Patient having elevated heart rate with minimal movement, increased metoprolol succinate to 100 mg twice daily - K > 4, Mg > 2 - Recommend close outpatient cardiology follow-up - Hyperthyroidism follow-up recommended as outpatient Dysphagia, nausea, vomiting, Johnson's esophagus - GI consulted. 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 Ulcers present. Large amount of fluid removed from stomach in setting of strangulated bowel. - Biopsies demonstrating ulcerative esophagitis - Patient continues to refuse protonix; continue to recommend she consider it due to Johnson's - Recommend establishing with GI as outpatient Elevated troponin - Noted on admission in setting of RVR, no acute conduction/repolarization abnormalities concerning for ACS - TTE as outlined above - no specific RWMAs - Likely secondary to RVR and pre-existing CAD, demand-ischemia Hyperthyroidism - Admission labs notable for TSH 0.259, Free T3 1.86, T4 1.88 - Thyroid U/S 03/14: Scattered nodules. Do not meet criteria for biopsy at present, but outpatient follow-up US will be required. Electrolyte disturbances - resolved Weakness/deconditioning Patient initially refused rehab but later agreeable. Patient's daughter, Jennifer updated on plan. -Awaiting placement for SNF, per case management - 03/25 patient refusing SNF placement and adamant that she prefers to go home. Her adult children reported being unable to care for her at [facility] and prefer she go to a facility. - 03/26 patient open to facility for a week as her children unable to care for her at home - CM to work on placement at SNF per discussion with family -- placement pending - Per CM note [facility] reviewing referral, patient's insurance likely to deny await further developments Vertebral Lesion (T1) -- in setting of normal Ca, ALP; no cancer history - Patient complaining of chronic upper back pain - Spinal CT revealing of 1.3cm lucent lesion within T1 vertebrae, possibly a hemangioma - Consider outpatient nuclear medicine bone scan for further evaluation of metabolic activity Fall - Reason for admission. Multifactorial: weakness, AFib w/ RVR +/- HoTN - PT, OT, Rehab - as above Not Vaccinated Against COVID-19 - Provided patient on the benefits of vaccination, and repeatedly offer the patient she repeatedly refused. FEN: low fiber Code status: DNR/DNI DVT ppx: eliquis Case management: following Dispo: med/surg Admission and Anticipated Discharge Date Admission Date: March 12, 2021 Supervising Physician Co-Signing Physician Notes Attending attestation Pt seen and examined in concert with Dr. Alamo. In agreement with the documented findings as noted in the resident documentation with any exceptions or additions as noted here. No acute complaints at present, doing stretches and isometric leg exercises at bedside. On examination, S1/S2 nl RRR no MCG. CTAB. Abd NT/ND BS+ve Pending placement - CM to connect w/ [facility] on Thursday Strangulated hernia s/p repair with postop anemia - continue PPI with ondansetron PRN Atrial fibrillation with RVR, rate controlled - continue Eliquis and metoprolol Hypokalemia - espouses desire to transition to a more natural source of K+ and follow w/ naturopathic physician. Encouraged f/u with Dr. Awad to ensure appropriate care with integrative medicine in the setting of complicated medical condition. Else see resident documentation as noted. Subjective Patient seen and evaluated at bedside this morning. No acute events overnight. Patient feels well today and has no complaints. No pain at this time. Reports she slept well last night and feels fine today. Reports being in a good mood. Patient denies CP, SOB, abdominal pain, nausea, vomiting, lightheadedness, dizziness, and diarrhea. Review of Systems Review of Systems: See HPI Physical Exam Physical Exam: Constitutional: well-appearing, no acute distress, laying in bed CV: heart sounds distant Resp: CTABL, no wheezes/rales/rhonchi appreciated, no increased work of breathing GI: soft, nondistended, minimally tender around incision site, BS present Skin: abdominal incision with minimal surrounding erythema, no drainage Neuro: alert, oriented, no focal neurologic deficit appreciated Results & Data Results & Data ([facility]) Vital Signs (Past 12 Hours) Vital Signs Temp Pulse Pulse Resp BP Pulse Ox 03/31/21 04:03 36.4 C L 80 18 115/63 94 03/31/21 03:12 77 03/30/21 22:59 36.6 C 77 18 115/85 94 03/30/21 19:17 36.4 C L 77 18 105/65 94 Resident Activity Tracking Resident Involvement: Resident Care Provided Care Provided: Adult Hospital Medicine
[2021-03-31] MEDS: PANTOprazole 40 MG TAB PO SCH ×2 (08:07→21:24)
[2021-03-31] MEDS: APIXABAN 5 MG TABLET PO SCH ×2 (08:07→21:24)
[2021-03-31] MEDS: METOPROLOL SUCC 50MG EXT REL TAB PO SCH ×2 (08:07→21:24)
[2021-03-31] MEDS: POTASSIUM CHLORIDE CRTAB 20 MEQ TABCR PO SCH (08:08)
[2021-03-31 08:14] LABS: Basophils # (auto) 0.02 K/uL (0-0.2); Basophils % (auto) 0.3 %; Eosinophils # (auto) 0.13 K/uL (0-0.5); Eosinophils % (auto) 2.1 %; Hematocrit (blood only) 27.4 % (37-47); Hemoglobin 8.5 g/dL (12.0-16.0); Immature Granulocytes # (auto) 0.01 K/uL (0.00-0.02); Immature Granulocytes % (auto) 0.2 %; Lymphocytes # (auto) 0.81 K/uL (1.2-3.4); Lymphocytes % (auto) 13.3 %; Mean Corpuscular Hemoglobin 28.8 pg (25-34); Mean Corpuscular Volume 92.9 fL (80-100); Mean Platelet Volume 9.2 fL (7.4-10.4); Monocytes # (auto) 0.52 K/uL (0.11-0.59); Monocytes % (auto) 8.6 %; Neutrophils # (auto) 4.59 K/uL (1.4-6.5); Neutrophils % (auto) 75.5 %; Platelet Count 508 K/uL (130-400); RDW Coefficient of Variation 15.7 % (11.5-14.5); RDW Standard Deviation 52.1 fL (36.4-46.3); Red Blood Count 2.95 M/uL (4.2-5.4); White Blood Count 6.08 K/uL (4.8-10.8)
[2021-03-31 08:38] LABS: BUN Creatinine Ratio 28.5 (10-20); Calcium 8.9 mg/dl (8.5-10.1); Creatinine Clr Calc Pharmacy 65.7 ml/min; Est GFR (African American) 93.2 ml/min; Est GFR (Non-African American) 80.4 ml/min
[2021-04-01 07:01] LABS: Basophils # (auto) 0.02 K/uL (0-0.2); Basophils % (auto) 0.4 %; Eosinophils # (auto) 0.14 K/uL (0-0.5); Eosinophils % (auto) 2.6 %; Hematocrit (blood only) 27.3 % (37-47); Hemoglobin 8.6 g/dL (12.0-16.0); Immature Granulocytes # (auto) 0.01 K/uL (0.00-0.02); Immature Granulocytes % (auto) 0.2 %; Lymphocytes # (auto) 0.84 K/uL (1.2-3.4); Lymphocytes % (auto) 15.8 %; Mean Corpuscular Hemoglobin 29.3 pg (25-34); Mean Corpuscular Hgb Conc 31.5 g/dL (32-36); Mean Corpuscular Volume 92.9 fL (80-100); Mean Platelet Volume 8.6 fL (7.4-10.4); Monocytes # (auto) 0.43 K/uL (0.11-0.59); Monocytes % (auto) 8.1 %; Neutrophils # (auto) 3.86 K/uL (1.4-6.5); Neutrophils % (auto) 72.9 %; Platelet Count 458 K/uL (130-400); RDW Coefficient of Variation 15.7 % (11.5-14.5); Red Blood Count 2.94 M/uL (4.2-5.4)
--- NOTE | 2021-04-01 07:33 | Hospitalist Progress Note ---
Date of Service April 01, 2021 Assessment & Plan (1) Atrial fibrillation with rapid ventricular response: Plan: 80-year-old woman with no documented medical history (last seen by a provider in 2006) presented to the ED after falling with a 1-week history of diffuse weakness and dysphagia, subsequently found to have a strangulate R femoral hernia requiring repair and partial small bowel resection on 03/16; she was also found to be AFib w/ RVR on admission. Strangulated femoral hernia s/p repair and small bowel resection - Noted on 03/[address]-A/P after EGD, s/p laparotomy and bowel resection/hernia repair 03/16 - Surgery consulted: - OK to resume therapeutic anticoagulation - Discontinue antibiotics 03/24 - Tolerating low fiber diet - Plan to address calcified gallbladder as an outpatient - Courtney removed - Incision healing well Post-operative anemia - Admission Hgb normal on admission, noted now to be stable in the high 8s-low 9 range on multiple checks - Likely secondary to small amount of post-operative hemorrhage - Hemodynamically stable - Opt to transfuse if symptomatic or if Hgb < 7.5 Atrial fibrillation with RVR -- rates improving, RVR now intermittent - Noted on admission, alongside LBBB and anterolateral repolarization abnormalities since 2015 - TTE: Normal LV function, LVEF 55-60%; evidence of LBBB. No RWMAs. Mod cLVH. Severe L atrial dilation, sclerotic aortic valve, severe mitral annular calcification - Consulted cardiology: Rate control, anticoagulation - Patient now taking Eliquis 5mg BID again - 03/26: Metoprolol succinate decreased to 100mg daily as pt complaining of feeling very fatigued and this could possibly contribute - 03/28: Patient having elevated heart rate with minimal movement, increased metoprolol succinate to 100 mg twice daily - K > 4, Mg > 2 - Recommend close outpatient cardiology follow-up - Hyperthyroidism follow-up recommended as outpatient Dysphagia, nausea, vomiting, Johnson's esophagus - GI consulted. 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 Ulcers present. Large amount of fluid removed from stomach in setting of strangulated bowel. - Biopsies demonstrating ulcerative esophagitis - Patient continues to refuse protonix; continue to recommend she consider it due to Johnson's - Recommend establishing with GI as outpatient Elevated troponin - Noted on admission in setting of RVR, no acute conduction/repolarization abnormalities concerning for ACS - TTE as outlined above - no specific RWMAs - Likely secondary to RVR and pre-existing CAD, demand-ischemia Hyperthyroidism - Admission labs notable for TSH 0.259, Free T3 1.86, T4 1.88 - Thyroid U/S 03/14: Scattered nodules. Do not meet criteria for biopsy at present, but outpatient follow-up US will be required. Electrolyte disturbances - resolved Weakness/deconditioning Patient initially refused rehab but later agreeable. Patient's daughter, Jennifer updated on plan. -Awaiting placement for SNF, per case management - 03/25 patient refusing SNF placement and adamant that she prefers to go home. Her adult children reported being unable to care for her at [facility] and prefer she go to a facility. - 03/26 patient open to facility for a week as her children unable to care for her at home - CM to work on placement at SNF per discussion with family -- placement pending - Per CM note [facility] reviewing and planning applying for insurance auth today -- they expect to need [id number]; follow developments Vertebral Lesion (T1) -- in setting of normal Ca, ALP; no cancer history - Patient complaining of chronic upper back pain - Spinal CT revealing of 1.3cm lucent lesion within T1 vertebrae, possibly a hemangioma - Consider outpatient nuclear medicine bone scan for further evaluation of metabolic activity Fall - Reason for admission. Multifactorial: weakness, AFib w/ RVR +/- HoTN - PT, OT, Rehab - as above Not Vaccinated Against COVID-19 - Provided patient on the benefits of vaccination, and repeatedly offer the patient she repeatedly refused. FEN: low fiber Code status: DNR/DNI DVT ppx: eliquis Case management: following Dispo: med/surg Admission and Anticipated Discharge Date Admission Date: March 12, 2021 Supervising Physician Co-Signing Physician Notes Attending attestation Pt seen and examined in concert with Dr. Chirinos. In agreement with the documented findings as noted in the resident documentation with any exceptions or additions as noted here. Interval resolution of GI complaint, reports feeling overall well On examination, S1/S2 nl RRR no MCG. CTAB. Abd NT/ND BS+ve Strangulated hernia s/p repair with postop anemia - continue PPI with ondansetron PRN Atrial fibrillation with RVR, rate controlled - continue Eliquis and metoprolol Hypokalemia -Potassium has improved. expresses desire to transition to a more natural source of K+ and follow w/ naturopathic physician. Encouraged f/u with Dr. Awad to ensure appropriate care with integrative medicine in the setting of complicated medical condition. Awaiting placement. Else see resident documentation as noted. Subjective No acute events overnight. Patient reports that she is doing well. No current pain or discomfort. She denies fever, chills, nausea, vomiting, abdominal pain, chest pain, shortness of breath. She is very anxious to find out about her resolution in her case for going to [facility]. Feeling that if she is not able to go there prefers to go home with home health. Discussed that she does have steps in the home, specifically for doing laundry, she feels she would be safe for this. Review of Systems Review of Systems: See HPI Physical Exam Physical Exam: General: Tired but well appearing. NAD. HEENT: NCAT. Eyes - Sclera are white, anicteric, and without injection. MMM. Cardiac: RRR; S1 and S2 present with no murmurs, rubs, or gallops. Pulmonary: Good respiratory effort with symmetric expansion of the chest. No use of accessory muscles. Extremities: Upper and lower extremities are warm and well perfused, right leg with trace edema. Results & Data Results & Data ([facility]) Vital Signs (Past 12 Hours) Vital Signs Temp Pulse Resp BP Pulse Ox 04/01/21 04:00 36.4 C L 74 18 134/79 96 03/31/21 23:00 36.5 C 77 18 123/76 95 03/31/21 19:38 36.3 C L 82 18 112/63 82 L Resident Activity Tracking Resident Involvement: Resident Care Provided Care Provided: Adult Hospital Medicine
[2021-04-01 09:03] LABS: BUN Creatinine Ratio 23.4 (10-20); Creatinine Clr Calc Pharmacy 59.2 ml/min; Est GFR (African American) 83.2 ml/min; Est GFR (Non-African American) 71.8 ml/min; Potassium 4.1 mmol/L (3.5-5.1)
[2021-04-01] MEDS: POTASSIUM CHLORIDE CRTAB 20 MEQ TABCR PO SCH (10:02)
[2021-04-01] MEDS: PANTOprazole 40 MG TAB PO SCH ×2 (10:03→20:13)
[2021-04-01] MEDS: METOPROLOL SUCC 50MG EXT REL TAB PO SCH ×2 (10:03→20:13)
[2021-04-01] MEDS: APIXABAN 5 MG TABLET PO SCH ×2 (10:03→20:13)
--- NOTE | 2021-04-01 19:50 | Billing Data ---
Date of Service April 01, 2021 Coding Level of Care Code 09472 Subseq Hosp Care Lvl 2
--- NOTE | 2021-04-02 07:22 | Hospitalist Progress Note ---
Date of Service April 02, 2021 Assessment & Plan (1) Atrial fibrillation with rapid ventricular response: Plan: 80-year-old woman with no documented medical history (last seen by a provider in 2006) presented to the ED after falling with a 1-week history of diffuse weakness and dysphagia, subsequently found to have a strangulate R femoral hernia requiring repair and partial small bowel resection on 03/16; she was also found to be AFib w/ RVR on admission. Weakness/deconditioning Patient initially refused rehab but later agreeable. Patient's daughter, Jennifer updated on plan. -Awaiting placement for SNF, per case management - 03/25 patient refusing SNF placement and adamant that she prefers to go home. Her adult children reported being unable to care for her at [facility] and prefer she go to a facility. - 03/26 patient open to facility for a week as her children unable to care for her at home - CM to work on placement at SNF per discussion with family -- placement pending - Per CM note [facility] reviewing and applying for insurance auth today due to some issues with her insurance - Patient insists she prefers to go home if unable to go to [facility] today -- recommendation from medical team and PT/OT continues to be rehabilitation Strangulated femoral hernia s/p repair and small bowel resection - Noted on 03/[address]-A/P after EGD, s/p laparotomy and bowel resection/hernia repair 03/16 - Surgery consulted: - OK to resume therapeutic anticoagulation - Discontinue antibiotics 03/24 - Tolerating low fiber diet - Plan to address calcified gallbladder as an outpatient - Surgical yajaira removed - Incision healing well Post-operative anemia - Admission Hgb normal on admission, noted now to be stable in the high 8s-low 9 range on multiple checks - Likely secondary to small amount of post-operative hemorrhage - Hemodynamically stable - Opt to transfuse if symptomatic or if Hgb < 7.5 Atrial fibrillation with RVR -- rates improving, RVR now intermittent - Noted on admission, alongside LBBB and anterolateral repolarization abnormalities since 2015 - TTE: Normal LV function, LVEF 55-60%; evidence of LBBB. No RWMAs. Mod cLVH. Severe L atrial dilation, sclerotic aortic valve, severe mitral annular calcification - Consulted cardiology: Rate control, anticoagulation - Patient now taking Eliquis 5mg BID again - 03/26: Metoprolol succinate decreased to 100mg daily as pt complaining of feeling very fatigued and this could possibly contribute - 03/28: Patient having elevated heart rate with minimal movement, increased metoprolol succinate to 100 mg twice daily - K > 4, Mg > 2 - Recommend close outpatient cardiology follow-up - Hyperthyroidism follow-up recommended as outpatient Dysphagia, nausea, vomiting, Johnson's esophagus - GI consulted. 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 Ulcers present. Large amount of fluid removed from stomach in setting of strangulated bowel. - Biopsies demonstrating ulcerative esophagitis - Patient continues to refuse protonix; continue to recommend she consider it due to Johnson's - Recommend establishing with GI as outpatient Elevated troponin - Noted on admission in setting of RVR, no acute conduction/repolarization abnormalities concerning for ACS - TTE as outlined above - no specific RWMAs - Likely secondary to RVR and pre-existing CAD, demand-ischemia Hyperthyroidism - Admission labs notable for TSH 0.259, Free T3 1.86, T4 1.88 - Thyroid U/S 03/14: Scattered nodules. Do not meet criteria for biopsy at present, but outpatient follow-up US will be required. Electrolyte disturbances - resolved Vertebral Lesion (T1) -- in setting of normal Ca, ALP; no cancer history - Patient complaining of chronic upper back pain - Spinal CT revealing of 1.3cm lucent lesion within T1 vertebrae, possibly a hemangioma - Consider outpatient nuclear medicine bone scan for further evaluation of metabolic activity Fall - Reason for admission. Multifactorial: weakness, AFib w/ RVR +/- HoTN - PT, OT, Rehab - as above Not Vaccinated Against COVID-19 - Provided patient on the benefits of vaccination, and repeatedly offer the patient she repeatedly refused. FEN: low fiber Code status: DNR/DNI DVT ppx: eliquis Case management: following Dispo: med/surg Admission and Anticipated Discharge Date Admission Date: March 12, 2021 Supervising Physician Co-Signing Physician Notes Attending attestation Pt seen and examined in concert with Dr. Chirinos. In agreement with the documented findings as noted in the resident documentation with any exceptions or additions as noted here. Interval resolution of GI complaint, reports feeling overall well On examination, S1/S2 nl RRR no MCG. CTAB. Abd NT/ND BS+ve Strangulated hernia s/p repair with postop anemia - continue PPI with ondansetron PRN Atrial fibrillation with RVR, rate controlled - continue Eliquis and metoprolol Hypokalemia -Potassium has improved. expresses desire to transition to a more natural source of K+ and follow w/ naturopathic physician. Encouraged f/u with Dr. Awad to ensure appropriate care with integrative medicine in the setting of complicated medical condition. Awaiting placement. Else see resident documentation as noted. Subjective Seen at bedside this AM. SHe remains very frustrated with the situation of her placement for rehab. Continues to say that if placement not possible at [facility] today would like to go home. Explained that it is a matter that [facility] and insurance are handling and not that we are trying to delay her di scharged. Denies issues including SOB, cough, CP, palp, abd pain, n/v, diarrhea, constipation, fever, chills. Review of Systems Review of Systems: See HPI Physical Exam Physical Exam: General: Tired but well appearing. NAD. HEENT: NCAT. Eyes - Sclera are white, anicteric, and without injection. MMM. Cardiac: RRR; S1 and S2 present with no murmurs, rubs, or gallops. Pulmonary: Good respiratory effort with symmetric expansion of the chest. No use of accessory muscles. Extremities: Upper and lower extremities are warm and well perfused, right leg with trace edema. Results & Data Results & Data ([facility]) Vital Signs (Past 12 Hours) Vital Signs Temp Pulse Pulse Resp BP Pulse Ox 04/02/21 03:10 36.7 C 71 18 133/58 L 92 04/02/21 01:52 96 H 04/01/21 23:00 36.6 C 88 18 111/73 92 Resident Activity Tracking Resident Involvement: Resident Care Provided Care Provided: Adult Hospital Medicine
[2021-04-02] MEDS: METOPROLOL SUCC 50MG EXT REL TAB PO SCH ×2 (08:14→20:18)
[2021-04-02] MEDS: APIXABAN 5 MG TABLET PO SCH ×2 (08:14→20:18)
[2021-04-02] MEDS: PANTOprazole 40 MG TAB PO SCH ×2 (08:14→20:18)
[2021-04-02] MEDS: POTASSIUM CHLORIDE CRTAB 20 MEQ TABCR PO SCH (08:16)
--- NOTE | 2021-04-02 20:04 | Billing Data ---
Date of Service April 02, 2021 Coding Level of Care Code 14695 Subseq Hosp Care Lvl 2
--- NOTE | 2021-04-03 07:18 | Hospitalist Progress Note ---
Date of Service April 03, 2021 Assessment & Plan (1) Atrial fibrillation with rapid ventricular response: Plan: 80-year-old woman with no documented medical history (last seen by a provider in 2006) presented to the ED after falling with a 1-week history of diffuse weakness and dysphagia, subsequently found to have a strangulate R femoral hernia requiring repair and partial small bowel resection on 03/16; she was also found to be AFib w/ RVR on admission. Weakness/deconditioning Patient initially refused rehab but later agreeable. Patient's daughter, Jennifer updated on plan. -Awaiting placement for SNF, per case management - 03/25 patient refusing SNF placement and adamant that she prefers to go home. Her adult children reported being unable to care for her at [facility] and prefer she go to a facility. - 03/26 patient open to facility for a week as her children unable to care for her at home - CM to work on placement at SNF per discussion with family -- placement pending - Per note [facility] reviewing and applying for insurance auth 04/03 due to some issues with her insurance -- further info pending - Patient insists she prefers to go home if unable to go to [facility] -- recommendation from medical team and PT/OT continues to be rehabilitation Strangulated femoral hernia s/p repair and small bowel resection - Noted on 03/[address]-A/P after EGD, s/p laparotomy and bowel resection/hernia repair 03/16 - Surgery consulted: - OK to resume therapeutic anticoagulation - Discontinue antibiotics 03/24 - Tolerating low fiber diet - Plan to address calcified gallbladder as an outpatient - Surgical yajaira removed while in hospital Post-operative anemia - Admission Hgb normal on admission, noted now to be stable in the high 8s-low 9 range on multiple checks - Likely secondary to small amount of post-operative hemorrhage - Hemodynamically stable - Opt to transfuse if symptomatic or if Hgb < 7.5 Atrial fibrillation with RVR -- rates improving, RVR now intermittent - Noted on admission, alongside LBBB and anterolateral repolarization abnormalities since 2015 - TTE: Normal LV function, LVEF 55-60%; evidence of LBBB. No RWMAs. Mod cLVH. Severe L atrial dilation, sclerotic aortic valve, severe mitral annular calcification - Consulted cardiology: Rate control, anticoagulation - Patient now taking Eliquis 5mg BID again - 03/26: Metoprolol succinate decreased to 100mg daily as pt complaining of feeling very fatigued and this could possibly contribute - 03/28: Patient having elevated heart rate with minimal movement, increased metoprolol succinate to 100 mg twice daily - K > 4, Mg > 2 - Recommend close outpatient cardiology follow-up - Hyperthyroidism follow-up recommended as outpatient Dysphagia, nausea, vomiting, Johnson's esophagus - GI consulted. 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 Ulcers present. Large amount of fluid removed from stomach in setting of strangulated bowel. - Biopsies demonstrating ulcerative esophagitis - Patient continues to refuse protonix; continue to recommend she consider it due to Johnson's - Recommend establishing with GI as outpatient Elevated troponin - Noted on admission in setting of RVR, no acute conduction/repolarization abnormalities concerning for ACS - TTE as outlined above - no specific RWMAs - Likely secondary to RVR and pre-existing CAD, demand-ischemia Hyperthyroidism - Admission labs notable for TSH 0.259, Free T3 1.86, T4 1.88 - Thyroid U/S 03/14: Scattered nodules. Do not meet criteria for biopsy at present, but outpatient follow-up US will be required. Electrolyte disturbances - resolved Vertebral Lesion (T1) -- in setting of normal Ca, ALP; no cancer history - Patient complaining of chronic upper back pain - Spinal CT revealing of 1.3cm lucent lesion within T1 vertebrae, possibly a hemangioma - Consider outpatient nuclear medicine bone scan for further evaluation of metabolic activity Fall - Reason for admission. Multifactorial: weakness, AFib w/ RVR +/- HoTN - PT, OT, Rehab - as above Not Vaccinated Against COVID-19 - Provided patient on the benefits of vaccination, and repeatedly offer the patient she repeatedly refused. FEN: low fiber Code status: DNR/DNI DVT ppx: eliquis Case management: following Dispo: med/surg, DC planning as above Admission and Anticipated Discharge Date Admission Date: March 12, 2021 Supervising Physician Co-Signing Physician Notes Attending attestation Pt seen and examined in concert with Dr. Chirinos. In agreement with the documented findings as noted in the resident documentation with any exceptions or additions as noted here. Interval resolution of GI complaint, reports feeling overall well On examination, S1/S2 nl RRR no MCG. CTAB. Abd NT/ND BS+ve Strangulated hernia s/p repair with postop anemia - continue PPI with ondansetron PRN Atrial fibrillation with RVR, rate controlled - continue Eliquis and metoprolol Hypokalemia -Potassium has improved. expresses desire to transition to a more natural source of K+ and follow w/ naturopathic physician. Encouraged f/u with Dr. Awad to ensure appropriate care with integrative medicine in the setting of complicated medical condition. Awaiting placement. Else see resident documentation as noted. Subjective Seen at bedside this AM. Again asking to be discharged home if [facility] denies. I explained that this is not our recommendation and that it's possible she would have to make that decision AMA. She understands this and knows this could mean insurance not covering her hospitalization. She will await further info from CM. Denies issues including SOB, cough, CP, palp, abd pain, n/v, diarrhea, constipation, fever, chills. Review of Systems Review of Systems: See subjective Physical Exam Physical Exam: General: Tired but well appearing. NAD. HEENT: NCAT. Eyes - Sclera are white, anicteric, and without injection. MMM. Cardiac: RRR; S1 and S2 present with no murmurs, rubs, or gallops. Pulmonary: Good respiratory effort with symmetric expansion of the chest. No use of accessory muscles. Extremities: Upper and lower extremities are warm and well perfused, right leg with trace edema. Results & Data Results & Data ([facility]) Vital Signs (Past 12 Hours) Vital Signs Temp Pulse Resp BP Pulse Ox 04/03/21 04:05 36.4 C L 78 18 131/68 94 04/02/21 22:32 36.5 C 86 18 123/67 93 04/02/21 19:34 37.0 C 77 18 123/80 100 Resident Activity Tracking Resident Involvement: Resident Care Provided Care Provided: Adult Hospital Medicine
[2021-04-03] MEDS: METOPROLOL SUCC 50MG EXT REL TAB PO SCH ×2 (08:09→20:06)
[2021-04-03] MEDS: APIXABAN 5 MG TABLET PO SCH ×2 (08:09→20:05)
[2021-04-03] MEDS: PANTOprazole 40 MG TAB PO SCH ×2 (08:09→20:05)
[2021-04-03] MEDS: POTASSIUM CHLORIDE CRTAB 20 MEQ TABCR PO SCH (08:11)
--- NOTE | 2021-04-03 20:06 | Billing Data ---
Date of Service April 03, 2021 Coding Level of Care Code 30683 Subseq Hosp Care Lvl 2
--- NOTE | 2021-04-04 08:03 | Hospitalist Progress Note ---
Date of Service April 04, 2021 Assessment & Plan (1) Atrial fibrillation with rapid ventricular response: Plan: 80-year-old woman with no documented medical history (last seen by a provider in 2006) presented to the ED after falling with a 1-week history of diffuse weakness and dysphagia, subsequently found to have a strangulate R femoral hernia requiring repair and partial small bowel resection on 03/16; she was also found to be AFib w/ RVR on admission. Weakness/deconditioning Patient initially refused rehab but later agreeable. Patient's daughter, Jennifer updated on plan. -Awaiting placement for SNF, per case management - 03/25 patient refusing SNF placement and adamant that she prefers to go home. Her adult children reported being unable to care for her at [facility] and prefer she go to a facility. - 03/26 patient open to facility for a week as her children unable to care for her at home - CM to work on placement at SNF per discussion with family -- placement pending - Per note [facility] reviewing and applying for insurance auth 04/03 due to some issues with her insurance -- auth still pending 04/04 Strangulated femoral hernia s/p repair and small bowel resection - Noted on 03/[address]-A/P after EGD, s/p laparotomy and bowel resection/hernia repair 03/16 - Surgery consulted: - OK to resume therapeutic anticoagulation - Discontinue antibiotics 03/24 - Tolerating low fiber diet - Plan to address calcified gallbladder as an outpatient - Surgical yajaira removed while in hospital Post-operative anemia - Admission Hgb normal on admission, noted now to be stable in the high 8s-low 9 range on multiple checks - Likely secondary to small amount of post-operative hemorrhage - Hemodynamically stable - Opt to transfuse if symptomatic or if Hgb < 7.5 Atrial fibrillation with RVR -- rates improving, RVR now intermittent - Noted on admission, alongside LBBB and anterolateral repolarization abnormalities since 2015 - TTE: Normal LV function, LVEF 55-60%; evidence of LBBB. No RWMAs. Mod cLVH. Severe L atrial dilation, sclerotic aortic valve, severe mitral annular calcification - Consulted cardiology: Rate control, anticoagulation - Patient now taking Eliquis 5mg BID again - 03/26: Metoprolol succinate decreased to 100mg daily as pt complaining of feeling very fatigued and this could possibly contribute - 03/28: Patient having elevated heart rate with minimal movement, increased metoprolol succinate to 100 mg twice daily - K > 4, Mg > 2 - Recommend close outpatient cardiology follow-up - Hyperthyroidism follow-up recommended as outpatient Dysphagia, nausea, vomiting, Johnson's esophagus - GI consulted. 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 Ulcers present. Large amount of fluid removed from stomach in setting of strangulated bowel. - Biopsies demonstrating ulcerative esophagitis - Patient continues to refuse protonix; continue to recommend she consider it due to Johnson's - Recommend establishing with GI as outpatient Elevated troponin - Noted on admission in setting of RVR, no acute conduction/repolarization abnormalities concerning for ACS - TTE as outlined above - no specific RWMAs - Likely secondary to RVR and pre-existing CAD, demand-ischemia Hyperthyroidism - Admission labs notable for TSH 0.259, Free T3 1.86, T4 1.88 - Thyroid U/S 03/14: Scattered nodules. Do not meet criteria for biopsy at present, but outpatient follow-up US will be required. Electrolyte disturbances - resolved Vertebral Lesion (T1) -- in setting of normal Ca, ALP; no cancer history - Patient complaining of chronic upper back pain - Spinal CT revealing of 1.3cm lucent lesion within T1 vertebrae, possibly a hemangioma - Consider outpatient nuclear medicine bone scan for further evaluation of metabolic activity Fall - Reason for admission. Multifactorial: weakness, AFib w/ RVR +/- HoTN - PT, OT, Rehab - as above Not Vaccinated Against COVID-19 - Provided patient on the benefits of vaccination, and repeatedly offer the patient she repeatedly refused. FEN: low fiber Code status: DNR/DNI DVT ppx: eliquis Case management: following Dispo: med/surg, DC planning as above Admission and Anticipated Discharge Date Admission Date: March 12, 2021 Supervising Physician Co-Signing Physician Notes Pt seen and examined in concert with Dr. Chirinos. In agreement with the documented findings as noted in the resident documentation with any exceptions or additions as noted here. Interval resolution of GI complaint, reports feeling overall well On examination, S1/S2 nl RRR no MCG. CTAB. Abd NT/ND BS+ve Strangulated hernia s/p repair with postop anemia - continue PPI with ondansetron PRN Atrial fibrillation with RVR, rate controlled - continue Eliquis and metoprolol Hypokalemia -Potassium has improved. expresses desire to transition to a more natural source of K+ and follow w/ naturopathic physician. Encouraged f/u with Dr. Awad to ensure appropriate care with integrative medicine in the setting of complicated medical condition. awaiting placement Subjective No acute events overnight. Seen at bedside this morning. She continues to be comfortable, has been working with PT as able. She continues to express some frustration with the slow process of her insurance authorization, but it is less intent on going home today. Denies F/C, N/V, CP, palpitations, SOB, cough, ABD pain, MSK pain. Review of Systems Review of Systems: per subjective Physical Exam Physical Exam: General: Tired but well appearing. NAD. HEENT: NCAT. Eyes - Sclera are white, anicteric, and without injection. MMM. Cardiac: RRR; S1 and S2 present with no murmurs, rubs, or gallops. Pulmonary: Good respiratory effort with symmetric expansion of the chest. No use of accessory muscles. Extremities: Upper and lower extremities are warm and well perfused, right leg with trace edema. Results & Data Results & Data ([facility]) Vital Signs (Past 12 Hours) Vital Signs Temp Pulse Resp BP Pulse Ox 04/04/21 07:11 36.3 C L 73 20 131/86 94 04/03/21 22:58 36.5 C 89 18 115/67 97 Resident Activity Tracking Resident Involvement: Resident Care Provided Care Provided: Adult Hospital Medicine
[2021-04-04] MEDS: APIXABAN 5 MG TABLET PO SCH ×2 (10:06→20:15)
[2021-04-04] MEDS: METOPROLOL SUCC 50MG EXT REL TAB PO SCH ×2 (10:06→20:15)
[2021-04-04] MEDS: PANTOprazole 40 MG TAB PO SCH ×2 (10:06→20:15)
[2021-04-04] MEDS: POTASSIUM CHLORIDE CRTAB 20 MEQ TABCR PO SCH (10:23)
--- NOTE | 2021-04-04 22:10 | Billing Data ---
Date of Service April 04, 2021 Coding Level of Care Code 41047 Subseq Hosp Care Lvl 1
[2021-04-05] MEDS: METOPROLOL SUCC 50MG EXT REL TAB PO SCH ×2 (07:59→21:18)
[2021-04-05] MEDS: APIXABAN 5 MG TABLET PO SCH ×2 (07:59→21:18)
[2021-04-05] MEDS: PANTOprazole 40 MG TAB PO SCH ×2 (08:00→21:18)
[2021-04-05] MEDS: POTASSIUM CHLORIDE CRTAB 20 MEQ TABCR PO SCH (08:04)
--- NOTE | 2021-04-05 08:14 | Hospitalist Progress Note ---
Date of Service April 05, 2021 Assessment & Plan (1) Atrial fibrillation with rapid ventricular response: Plan: 80-year-old woman with no documented medical history (last seen by a provider in 2006) presented to the ED after falling with a 1-week history of diffuse weakness and dysphagia, subsequently found to have a strangulate R femoral hernia requiring repair and partial small bowel resection on 03/16; she was also found to be AFib w/ RVR on admission. Weakness/deconditioning Patient initially refused rehab but later agreeable. Patient's daughter, Jennifer updated on plan. -Awaiting placement for SNF, per case management - 03/25 patient refusing SNF placement and adamant that she prefers to go home. Her adult children reported being unable to care for her at [facility] and prefer she go to a facility. - 03/26 patient open to facility for a week as her children unable to care for her at home - CM to work on placement at SNF per discussion with family -- placement pending - Per note [facility] reviewing and applying for insurance auth 04/03 due to some issues with her insurance -- auth still pending, further information to follow; refer to CM note for details Strangulated femoral hernia s/p repair and small bowel resection - Noted on 03/[address]-A/P after EGD, s/p laparotomy and bowel resection/hernia repair 03/16 - Surgery consulted: - OK to resume therapeutic anticoagulation - Discontinue antibiotics 03/24 - Tolerating low fiber diet - Plan to address calcified gallbladder as an outpatient - Surgical yajaira removed while in hospital Post-operative anemia - Admission Hgb normal on admission, noted now to be stable in the high 8s-low 9 range on multiple checks - Likely secondary to small amount of post-operative hemorrhage - Hemodynamically stable - Opt to transfuse if symptomatic or if Hgb < 7.5 Atrial fibrillation with RVR -- rates improving, RVR now intermittent - Noted on admission, alongside LBBB and anterolateral repolarization abnormalities since 2015 - TTE: Normal LV function, LVEF 55-60%; evidence of LBBB. No RWMAs. Mod cLVH. Severe L atrial dilation, sclerotic aortic valve, severe mitral annular calcification - Consulted cardiology: Rate control, anticoagulation - Patient now taking Eliquis 5mg BID again - 03/26: Metoprolol succinate decreased to 100mg daily as pt complaining of feeling very fatigued and this could possibly contribute - 03/28: Patient having elevated heart rate with minimal movement, increased metoprolol succinate to 100 mg twice daily - K > 4, Mg > 2 - Recommend close outpatient cardiology follow-up - Hyperthyroidism follow-up recommended as outpatient Dysphagia, nausea, vomiting, Johnson's esophagus - GI consulted. 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 Ulcers present. Large amount of fluid removed from stomach in setting of strangulated bowel. - Biopsies demonstrating ulcerative esophagitis - Patient continues to refuse protonix; continue to recommend she consider it due to Johnson's - Recommend establishing with GI as outpatient Elevated troponin - Noted on admission in setting of RVR, no acute conduction/repolarization abnormalities concerning for ACS - TTE as outlined above - no specific RWMAs - Likely secondary to RVR and pre-existing CAD, demand-ischemia Hyperthyroidism - Admission labs notable for TSH 0.259, Free T3 1.86, T4 1.88 - Thyroid U/S 03/14: Scattered nodules. Do not meet criteria for biopsy at present, but outpatient follow-up US will be required. Electrolyte disturbances - resolved Vertebral Lesion (T1) -- in setting of normal Ca, ALP; no cancer history - Patient complaining of chronic upper back pain - Spinal CT revealing of 1.3cm lucent lesion within T1 vertebrae, possibly a hemangioma - Consider outpatient nuclear medicine bone scan for further evaluation of metabolic activity Fall - Reason for admission. Multifactorial: weakness, AFib w/ RVR +/- HoTN - PT, OT, Rehab - as above Not Vaccinated Against COVID-19 - Provided patient on the benefits of vaccination, and repeatedly offer the patient she repeatedly refused. FEN: low fiber Code status: DNR/DNI DVT ppx: eliquis Case management: following Dispo: med/surg, DC planning as above Admission and Anticipated Discharge Date Admission Date: March 12, 2021 Supervising Physician Co-Signing Physician Notes Patient seen and examined, chart reviewed, case discussed with Dr. Karl Diaz and I agree with the assessment and plan as above except as otherwise noted General: Sleeping comfortably NAD. Cooperative. HEENT: Atraumatic, normocephalic. Pulm: Symmetrical chest rise. No increase work of breathing. No respiratory distress. Cardiac: Radial pulses intact and symmetrical. All labs and images reviewed Patient sleeping comfortably, arouses transiently for provider exam with no complaints for going back to sleep. Patient is postop following strangulated hernia repair and SBO intervention.Omer horowitz remains reasonably rate controlled, anticoagulated on DOAC. Pending placement at this time. Subjective No acute events overnight. Doing well this AM. Mentions her stools have been somewhat looser the last few days and would like a probiotic if possible. Hopeful for insurance auth resolution. Review of Systems Review of Systems: Denies fever, chills, n/v, abd pain, CP, palp, SOB, MEJIA, dizziness Physical Exam Physical Exam: General: Tired but well appearing. NAD. HEENT: NCAT. Eyes - Sclera are white, anicteric, and without injection. MMM. Cardiac: RRR; S1 and S2 present with no murmurs, rubs, or gallops. Pulmonary: Good respiratory effort with symmetric expansion of the chest. No use of accessory muscles. Extremities: Upper and lower extremities are warm and well perfused, right leg with trace edema. Results & Data Results & Data ([facility]) Vital Signs (Past 12 Hours) Vital Signs Temp Pulse Resp BP Pulse Ox 04/04/21 22:34 36.3 C L 98 H 18 127/85 94 Resident Activity Tracking Resident Involvement: Resident Care Provided Care Provided: Adult Hospital Medicine
[2021-04-05] MEDS: ADVANCED PROBIOTIC 1250 MG CAPSULE PO SCH (16:39)
--- NOTE | 2021-04-05 17:46 | Billing Data ---
Date of Service April 05, 2021 Coding Level of Care Code 84420 Subseq Hosp Care Lvl 1
--- NOTE | 2021-04-06 07:13 | Hospitalist Progress Note ---
Date of Service April 06, 2021 Assessment & Plan (1) Atrial fibrillation with rapid ventricular response: Plan: 80-year-old woman with no documented medical history (last seen by a provider in 2006) presented to the ED after falling with a 1-week history of diffuse weakness and dysphagia, subsequently found to have a strangulate R femoral hernia requiring repair and partial small bowel resection on 03/16; she was also found to be AFib w/ RVR on admission. Weakness/deconditioning Patient initially refused rehab but later agreeable. Patient's daughter, Jennifer updated on plan. -Awaiting placement for SNF, per case management - 03/25 patient refusing SNF placement and adamant that she prefers to go home. Her adult children reported being unable to care for her at [facility] and prefer she go to a facility. - 03/26 patient open to facility for a week as her children unable to care for her at home - CM to work on placement at SNF per discussion with family -- placement pending - Per CM note [facility] reviewing and applying for insurance auth 04/03 due to some issues with her insurance -- auth still pending, further information to follow; refer to CM note for details - Attempt made by CM for [facility] but no beds available; [facility] still pending Strangulated femoral hernia s/p repair and small bowel resection - Noted on 03/[address]-A/P after EGD, s/p laparotomy and bowel resection/hernia repair 03/16 - Surgery consulted: - OK to resume therapeutic anticoagulation - Discontinue antibiotics 03/24 - Tolerating low fiber diet - Plan to address calcified gallbladder as an outpatient - Surgical yajaira removed while in hospital Post-operative anemia - Admission Hgb normal on admission, noted now to be stable in the high 8s-low 9 range on multiple checks - Likely secondary to small amount of post-operative hemorrhage - Hemodynamically stable - Opt to transfuse if symptomatic or if Hgb < 7.5 Atrial fibrillation with RVR -- rates improving, RVR now intermittent - Noted on admission, alongside LBBB and anterolateral repolarization abnormalities since 2015 - TTE: Normal LV function, LVEF 55-60%; evidence of LBBB. No RWMAs. Mod cLVH. Severe L atrial dilation, sclerotic aortic valve, severe mitral annular calcification - Consulted cardiology: Rate control, anticoagulation - Patient now taking Eliquis 5mg BID again - 03/26: Metoprolol succinate decreased to 100mg daily as pt complaining of feeling very fatigued and this could possibly contribute - 03/28: Patient having elevated heart rate with minimal movement, increased metoprolol succinate to 100 mg twice daily - K > 4, Mg > 2 - Recommend close outpatient cardiology follow-up - Hyperthyroidism follow-up recommended as outpatient Dysphagia, nausea, vomiting, Johnson's esophagus - GI consulted. 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 Ulcers present. Large amount of fluid removed from stomach in setting of strangulated bowel. - Biopsies demonstrating ulcerative esophagitis - Patient continues to refuse protonix; continue to recommend she consider it due to Johnson's - Recommend establishing with GI as outpatient Elevated troponin - Noted on admission in setting of RVR, no acute conduction/repolarization abnormalities concerning for ACS - TTE as outlined above - no specific RWMAs - Likely secondary to RVR and pre-existing CAD, demand-ischemia Hyperthyroidism - Admission labs notable for TSH 0.259, Free T3 1.86, T4 1.88 - Thyroid U/S 03/14: Scattered nodules. Do not meet criteria for biopsy at present, but outpatient follow-up US will be required. Electrolyte disturbances - resolved Vertebral Lesion (T1) -- in setting of normal Ca, ALP; no cancer history - Patient complaining of chronic upper back pain - Spinal CT revealing of 1.3cm lucent lesion within T1 vertebrae, possibly a hemangioma - Consider outpatient nuclear medicine bone scan for further evaluation of metabolic activity Fall - Reason for admission. Multifactorial: weakness, AFib w/ RVR +/- HoTN - PT, OT, Rehab - as above Not Vaccinated Against COVID-19 - Provided patient on the benefits of vaccination, and repeatedly offer the patient she repeatedly refused. FEN: low fiber Code status: DNR/DNI DVT ppx: eliquis Case management: following Dispo: med/surg, DC planning as above Admission and Anticipated Discharge Date Admission Date: March 12, 2021 Supervising Physician Co-Signing Physician Notes Patient seen and examined, chart reviewed, case discussed with Dr. Karl Diaz and I agree with the assessment and plan as above except as otherwise noted General: Sleeping comfortably, arouses easily and in NAD. Cooperative. HEENT: Atraumatic, normocephalic. Pulm: Symmetrical chest rise. No increase work of breathing. No respiratory distress. Cardiac: Radial pulses intact and symmetrical. All labs and images reviewed Patient sleeping comfortably, arouses easily for provider exam with no complaints for going back to sleep. Patient is postop following strangulated hernia repair and SBO intervention. A. fib remains reasonably rate controlled, anticoagulated on DOAC. Pending placement at this time, possibly available Thursday. Subjective No acute events overnight. Patient doing well with no complaints. Ambulating with walker upon my visit without dfficulty. Review of Systems Review of Systems: Denies fever, chills, n/v, abd pain, CP, palp, SOB, MEJIA, dizziness Physical Exam Physical Exam: General: A&Ox3. NAD. HEENT: NCAT. Eyes - Sclera are white, anicteric, and without injection. MMM. Cardiac: RRR; S1 and S2 present with no murmurs, rubs, or gallops. Pulmonary: Good respiratory effort with symmetric expansion of the chest. No use of accessory muscles. Extremities: Upper and lower extremities are warm and well perfused, right leg with trace edema. Results & Data Results & Data ([facility]) Vital Signs (Past 12 Hours) Vital Signs Temp Pulse Resp BP Pulse Ox 04/05/21 22:20 36.5 C 72 16 129/76 95 04/05/21 21:16 36.5 C 93 H 17 127/83 97 Resident Activity Tracking Resident Involvement: Resident Care Provided Care Provided: Adult [facility] Medicine
[2021-04-06 08:02] LABS: Hematocrit (blood only) 29.4 % (37-47); Hemoglobin 8.9 g/dL (12.0-16.0); Mean Corpuscular Hemoglobin 28.5 pg (25-34); Mean Corpuscular Hgb Conc 30.3 g/dL (32-36); Mean Corpuscular Volume 94.2 fL (80-100); Mean Platelet Volume 9.2 fL (7.4-10.4); Platelet Count 456 K/uL (130-400); RDW Coefficient of Variation 16.1 % (11.5-14.5); RDW Standard Deviation 54.7 fL (36.4-46.3); Red Blood Count 3.12 M/uL (4.2-5.4); White Blood Count 3.54 K/uL (4.8-10.8)
[2021-04-06 08:20] LABS: BUN Creatinine Ratio 17.6 (10-20); Calcium 8.6 mg/dl (8.5-10.1); Creatinine Clr Calc Pharmacy 65.1 ml/min; Est GFR (African American) 94.8 ml/min; Est GFR (Non-African American) 81.8 ml/min; Potassium 3.7 mmol/L (3.5-5.1)
[2021-04-06] MEDS: METOPROLOL SUCC 50MG EXT REL TAB PO SCH ×2 (09:45→20:23)
[2021-04-06] MEDS: APIXABAN 5 MG TABLET PO SCH ×2 (09:45→20:23)
[2021-04-06] MEDS: PANTOprazole 40 MG TAB PO SCH ×2 (09:45→20:23)
[2021-04-06] MEDS: ADVANCED PROBIOTIC 1250 MG CAPSULE PO SCH (09:46)
[2021-04-06] MEDS: POTASSIUM CHLORIDE CRTAB 20 MEQ TABCR PO SCH (09:47)
--- NOTE | 2021-04-06 12:26 | Billing Data ---
Date of Service April 06, 2021 Coding Level of Care Code 24797 Subseq Hosp Care Lvl 1
--- NOTE | 2021-04-06 12:27 | Billing Data ---
Date of Service April 06, 2021 Coding Level of Care Code 08894 Subseq Hosp Care Lvl 1
--- NOTE | 2021-04-07 06:59 | Hospitalist Progress Note ---
Date of Service April 07, 2021 Assessment & Plan (1) Atrial fibrillation with rapid ventricular response: Plan: 80-year-old woman with no documented medical history (last seen by a provider in 2006) presented to the ED after falling with a 1-week history of diffuse weakness and dysphagia, subsequently found to have a strangulate R femoral hernia requiring repair and partial small bowel resection on 03/16; she was also found to be AFib w/ RVR on admission. Weakness/deconditioning Patient initially refused rehab but later agreeable. Patient's daughter, Jennifer updated on plan. -Awaiting placement for SNF, per case management - 03/25 patient refusing SNF placement and adamant that she prefers to go home. Her adult children reported being unable to care for her at [facility] and prefer she go to a facility. - 03/26 patient open to facility for a week as her children unable to care for her at home - CM to work on placement at SNF per discussion with family -- placement pending - Per CM note [facility] reviewing and applying for insurance auth 04/03 due to some issues with her insurance -- auth still pending, further information to follow; refer to CM note for details - Resolution less likely to occur over the weekend -- await Thursday for possible further info - Attempt made by CM for [facility] but no beds available; [facility] still pending Strangulated femoral hernia s/p repair and small bowel resection - Noted on 03/[address]-A/P after EGD, s/p laparotomy and bowel resection/hernia repair 03/16 - Surgery consulted: - OK to resume therapeutic anticoagulation - Discontinue antibiotics 03/24 - Tolerating low fiber diet - Plan to address calcified gallbladder as an outpatient - Surgical yajaira removed while in hospital Post-operative anemia - Admission Hgb normal on admission, noted now to be stable in the high 8s-low 9 range on multiple checks - Likely secondary to small amount of post-operative hemorrhage - Hemodynamically stable - Opt to transfuse if symptomatic or if Hgb < 7.5 Atrial fibrillation with RVR -- rates improving, RVR now intermittent - Noted on admission, alongside LBBB and anterolateral repolarization abnormalities since 2016 - TTE: Normal LV function, LVEF 55-60%; evidence of LBBB. No RWMAs. Mod cLVH. Severe L atrial dilation, sclerotic aortic valve, severe mitral annular calcification - Consulted cardiology: Rate control, anticoagulation - Patient now taking Eliquis 5mg BID again - 03/26: Metoprolol succinate decreased to 100mg daily as pt complaining of feeling very fatigued and this could possibly contribute - 03/28: Patient having elevated heart rate with minimal movement, increased metoprolol succinate to 100 mg twice daily - K > 4, Mg > 2 - Recommend close outpatient cardiology follow-up - Hyperthyroidism follow-up recommended as outpatient Dysphagia, nausea, vomiting, Johnson's esophagus - GI consulted. 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 Ulcers present. Large amount of fluid removed from stomach in setting of strangulated bowel. - Biopsies demonstrating ulcerative esophagitis - Patient continues to refuse protonix; continue to recommend she consider it due to Johnson's - Recommend establishing with GI as outpatient Elevated troponin - Noted on admission in setting of RVR, no acute conduction/repolarization abnormalities concerning for ACS - TTE as outlined above - no specific RWMAs - Likely secondary to RVR and pre-existing CAD, demand-ischemia Hyperthyroidism - Admission labs notable for TSH 0.259, Free T3 1.86, T4 1.88 - Thyroid U/S 03/14: Scattered nodules. Do not meet criteria for biopsy at present, but outpatient follow-up US will be required. Electrolyte disturbances - resolved Vertebral Lesion (T1) -- in setting of normal Ca, ALP; no cancer history - Patient complaining of chronic upper back pain - Spinal CT revealing of 1.3cm lucent lesion within T1 vertebrae, possibly a hemangioma - Consider outpatient nuclear medicine bone scan for further evaluation of metabolic activity Fall - Reason for admission. Multifactorial: weakness, AFib w/ RVR +/- HoTN - PT, OT, Rehab - as above Not Vaccinated Against COVID-19 - Provided patient on the benefits of vaccination, and repeatedly offer the patient she repeatedly refused. FEN: low fiber Code status: DNR/DNI DVT ppx: eliquis Case management: following Dispo: med/surg, DC planning as above Admission and Anticipated Discharge Date Admission Date: March 12, 2021 Supervising Physician Co-Signing Physician Notes Patient seen and examined, chart reviewed, case discussed with Dr. Karl Diaz and I agree with the assessment and plan as above except as otherwise noted General: Sleeping comfortably, arouses easily and in NAD. Cooperative. HEENT: Atraumatic, normocephalic. Pulm: Symmetrical chest rise. No increase work of breathing. No respiratory distress. Cardiac: Radial pulses intact and symmetrical. All labs and images reviewed Patient is resting comfortably. Has no complaints. Is anxiously awaiting discharge. Patient is postop following strangulated hernia repair and SBO intervention. A. fib remains reasonably rate controlled, anticoagulated on DOAC. Pending placement at this time, possibly available Thursday. Subjective No acute events overnight. Feels well overall. Mentioned she has some mild loose stools ever since she had the surgery. Explained this may be partly due to ~15cm bowel resection. She feels at the current time it is tolerable and prefers to watch for now. Review of Systems Review of Systems: Denies fever, chills, n/v, abd pain, CP, palp, SOB, MEJIA, dizziness Physical Exam Physical Exam: General: A&Ox3. NAD. HEENT: NCAT. Eyes - Sclera are white, anicteric, and without injection. MMM. Cardiac: RRR; S1 and S2 present with no murmurs, rubs, or gallops. Pulmonary: Good respiratory effort with symmetric expansion of the chest. No use of accessory muscles. Extremities: Upper and lower extremities are warm and well perfused, right leg with trace edema. Results & Data Results & Data ([facility]) Vital Signs (Past 12 Hours) Vital Signs Temp Pulse Resp BP Pulse Ox 04/06/21 22:38 36.9 C 85 16 122/79 94 04/06/21 20:20 86 115/77 Resident Activity Tracking Resident Involvement: Resident Care Provided Care Provided: Adult [facility]
[2021-04-07] MEDS: APIXABAN 5 MG TABLET PO SCH ×2 (08:20→20:01)
[2021-04-07] MEDS: METOPROLOL SUCC 50MG EXT REL TAB PO SCH ×2 (08:20→20:01)
[2021-04-07] MEDS: PANTOprazole 40 MG TAB PO SCH ×2 (08:20→20:01)
[2021-04-07] MEDS: ADVANCED PROBIOTIC 1250 MG CAPSULE PO SCH (08:20)
[2021-04-07] MEDS: POTASSIUM CHLORIDE CRTAB 20 MEQ TABCR PO SCH (08:50)
--- NOTE | 2021-04-07 17:46 | Billing Data ---
Date of Service April 07, 2021 Coding Level of Care Code 56068 Subseq Hosp Care Lvl 1
[2021-04-08] MEDS: APIXABAN 5 MG TABLET PO SCH ×2 (08:17→20:05)
[2021-04-08] MEDS: ADVANCED PROBIOTIC 1250 MG CAPSULE PO SCH (08:17)
[2021-04-08] MEDS: PANTOprazole 40 MG TAB PO SCH ×2 (08:17→20:05)
[2021-04-08] MEDS: METOPROLOL SUCC 50MG EXT REL TAB PO SCH ×2 (08:17→20:04)
[2021-04-08] MEDS: POTASSIUM CHLORIDE CRTAB 20 MEQ TABCR PO SCH (08:20)
--- NOTE | 2021-04-08 08:38 | Hospitalist Progress Note ---
Date of Service April 08, 2021 Assessment & Plan (1) Atrial fibrillation with rapid ventricular response: Plan: 80-year-old woman with no documented medical history (last seen by a provider in 2006) presented to the ED after falling with a 1-week history of diffuse weakness and dysphagia, subsequently found to have a strangulate R femoral hernia requiring repair and partial small bowel resection on 03/16; she was also found to be AFib w/ RVR on admission. Weakness/deconditioning Extended hospital stay. Patient initially refused rehab but later agreeable. Patient's daughter, Jennifer updated on plan. - Patient has refused rehab stay. - looking into patient going home as she has improved with PT and OT and daughter would be willing to stay with her mother initially, - potential for D/C to home on Thursday Strangulated femoral hernia s/p repair and small bowel resection - Noted on 03/[address]-A/P after EGD, s/p laparotomy and bowel resection/hernia repair 03/16 - Per Surgery recommendation: - Resumed therapeutic anticoagulation - D/almaz antibiotics 03/24 - Tolerating low fiber diet - Plan to address calcified gallbladder as an outpatient - Surgical yajaira removed while in hospital Post-operative anemia - hb normal on admission but likely hemoconcentrated. - h/h stable at 8s-low 9 postoperatively. Atrial fibrillation with RVR -- Rate now controlled - Noted on admission, alongside LBBB and anterolateral repolarization abnormalities since 2015 - TTE: Normal LV function, LVEF 55-60%; evidence of LBBB. No RWMAs. Mod cLVH. Severe L atrial dilation, sclerotic aortic valve, severe mitral annular calcification - Consulted cardiology: Rate control, anticoagulation - Now taking Eliquis 5mg BID again - Metoprolol succinate 100 mg twice daily - Recommend close outpatient cardiology follow-up - Hyperthyroidism follow-up recommended as outpatient Dysphagia, nausea, vomiting, Johnson's esophagus - GI consulted. 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 Ulcers present. Large amount of fluid removed from stomach in setting of strangulated bowel. - Biopsies demonstrating ulcerative esophagitis - Protonix 40mgs bid oral. - Will need outpatient GI follow up. Elevated troponin - Noted on admission in setting of RVR, no acute conduction/repolarization abnormalities concerning for ACS - TTE as outlined above - no specific RWMAs - Likely secondary to RVR and pre-existing CAD, demand-ischemia Hyperthyroidism - Admission labs notable for TSH 0.259, Free T3 1.86, T4 1.88 - Thyroid U/S 03/14: Scattered nodules. Do not meet criteria for biopsy at present, but outpatient follow-up US will be required. Electrolyte disturbances - resolved Vertebral Lesion (T1) -- in setting of normal Ca, ALP; no cancer history - Patient complaining of chronic upper back pain - Spinal CT revealing of 1.3cm lucent lesion within T1 vertebrae, possibly a hemangioma - Consider outpatient nuclear medicine bone scan for further evaluation of metabolic activity Fall - Reason for admission. Multifactorial: weakness, AFib w/ RVR +/- HoTN - PT, OT, Rehab - as above Not Vaccinated Against COVID-19 - Provided patient on the benefits of vaccination, and repeatedly offer the patient she repeatedly refused. FEN: low fiber Code status: DNR/DNI DVT ppx: eliquis Case management: following Dispo: med/surg, DC planning as above Admission and Anticipated Discharge Date Admission Date: March 12, 2021 Supervising Physician Co-Signing Physician Notes Resident Physician Supervision Note: I independently interviewed and examined the patient and verified the morris history and physical, reviewed labs and image studies and agree with resident Dr. Hobson findings and care plan. Subjective Dede Bowling was doing well today. She is frustrated and wanted to go home. She was pain free and had no questions. Review of Systems Review of Systems: Constitutional: denies fevers, chills Cardiac: denies chest pain, palpitations GI: denies nausea, vomiting, constipation, diarrhea : denies pain, frequency, urgency Pulm.: denies cough, shortness of breath Physical Exam Constitutional: well developed and well nourished; no acute distress Eyes: PERRL, conjunctivae normal, anicteric sclerae ENMT: external ear and nose normal, oropharynx normal Neck: normal visual inspection Respiratory: normal respiratory effort, lungs clear to auscultation Cardiovascular: RRR, no murmur, no edema Gastrointestinal (Abdomen): normal bowel sounds, soft, nontender, no hepatosplenomegaly Musculoskeletal: no cyanosis or clubbing, extremities motor strength 5/5 Skin: no rashes, warm and dry Neurologic: patellar DTR's 2+ bilat, sensation intact Psychiatric: A+Ox3, euthymic affect Results & Data Results & Data ([facility]) Vital Signs (Past 12 Hours) Vital Signs Temp Pulse Resp BP Pulse Ox 04/08/21 07:32 36.9 C 86 16 127/88 95 04/07/21 22:27 37.1 C 77 16 122/79 95 CBC Results Results Complete Blood Count Results: RBC 3.12 M/uL (4.2-5.4) L 04/06/21 WBC 3.54 K/uL (4.8-10.8) L 04/06/21 Hgb 8.9 g/dL (12.0-16.0) L 04/06/21 Hct 29.4 % (37-47) L 04/06/21 Plt Count 456 K/uL (130-400) H 04/06/21 Resident Activity Tracking Resident Involvement: Resident Care Provided Care Provided: Adult [facility]
--- NOTE | 2021-04-09 06:52 | Hospitalist Progress Note ---
Date of Service April 09, 2021 Assessment & Plan (1) Atrial fibrillation with rapid ventricular response: Plan: 80-year-old woman with no documented medical history (last seen by a provider in 2006) presented to the ED after falling with a 1-week history of diffuse weakness and dysphagia, subsequently found to have a strangulate R femoral hernia requiring repair and partial small bowel resection on 03/16; she was also found to be AFib w/ RVR on admission. Weakness/deconditioning Extended hospital stay. Patient initially refused rehab but later agreeable. Patient's daughter, Jennifer updated on plan. - Patient has refused rehab stay. - looking into patient going home as she has improved with PT and OT and daughter would be willing to stay with her mother initially, - potential for D/C to home on Thursday Strangulated femoral hernia s/p repair and small bowel resection - Noted on 03/[address] CT-A/P after EGD, s/p laparotomy and bowel resection/hernia repair 03/16 - Per Surgery recommendation: - Resumed therapeutic anticoagulation - D/almaz antibiotics 03/24 - Tolerating low fiber diet - Plan to address calcified gallbladder as an outpatient - Surgical yajaira removed while in hospital Post-operative anemia - hb normal on admission but likely hemoconcentrated. - h/h stable at 8s-low 9 postoperatively. Atrial fibrillation with RVR--Rate now controlled -Noted on admission, alongside LBBB and anterolateral repolarization abnormalities since 2015 - TTE: Normal LV function, LVEF 55-60%; evidence of LBBB. No RWMAs. Mod cLVH. Severe L atrial dilation, sclerotic aortic valve, severe mitral annular calcification - Consulted cardiology: Rate control, anticoagulation - Now taking Eliquis 5mg BID again - Metoprolol succinate 100 mg twice daily - Recommend close outpatient cardiology follow-up - Hyperthyroidism follow-up recommended as outpatient Dysphagia, nausea, vomiting, Johnson's esophagus - GI consulted. 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 Ulcers present. Large amount of fluid removed from stomach in setting of strangulated bowel. - Biopsies demonstrating ulcerative esophagitis - Protonix 40mgs bid oral. - Will need outpatient GI follow up. Elevated troponin - Noted on admission in setting of RVR, no acute conduction/repolarization abnormalities concerning for ACS - TTE as outlined above - no specific RWMAs - Likely secondary to RVR and pre-existing CAD, demand-ischemia Hyperthyroidism - Admission labs notable for TSH 0.259, Free T3 1.86, T4 1.88 - Thyroid U/S 03/14: Scattered nodules. Do not meet criteria for biopsy at present, but outpatient follow-up US will be required. Electrolyte disturbances-resolved Vertebral Lesion (T1)--in setting of normal Ca, ALP; no cancer history - Patient complaining of chronic upper back pain - Spinal CT revealing of 1.3cm lucent lesion within T1 vertebrae, possibly a hemangioma - Consider outpatient nuclear medicine bone scan for further evaluation of metabolic activity Fall - Reason for admission. Multifactorial: weakness, AFib w/ RVR +/- HoTN - PT, OT, Rehab - as above Not Vaccinated Against COVID-19 - Provided patient on the benefits of vaccination, and repeatedly offer the patient she repeatedly refused. FEN: low fiber Code status: DNR/DNI DVT ppx: eliquis Case management: following Dispo: med/surg, DC planning as above Admission and Anticipated Discharge Date Admission Date: March 12, 2021 Results & Data Results & Data ([facility]) Vital Signs (Past 12 Hours) Vital Signs Temp Pulse Resp BP Pulse Ox 04/08/21 22:40 36.6 C 85 18 110/65 96 04/08/21 20:03 88 119/76
[2021-04-09 08:02] LABS: Basophils # (auto) 0.03 K/uL (0-0.2); Basophils % (auto) 0.7 %; Eosinophils # (auto) 0.18 K/uL (0-0.5); Hematocrit (blood only) 32.6 % (37-47); Hemoglobin 9.9 g/dL (12.0-16.0); Immature Granulocytes # (auto) 0.02 K/uL (0.00-0.02); Immature Granulocytes % (auto) 0.4 %; Lymphocytes # (auto) 1.05 K/uL (1.2-3.4); Lymphocytes % (auto) 23.2 %; Mean Corpuscular Hemoglobin 28.4 pg (25-34); Mean Corpuscular Hgb Conc 30.4 g/dL (32-36); Mean Corpuscular Volume 93.4 fL (80-100); Mean Platelet Volume 9.3 fL (7.4-10.4); Monocytes # (auto) 0.78 K/uL (0.11-0.59); Monocytes % (auto) 17.2 %; Neutrophils # (auto) 2.47 K/uL (1.4-6.5); Neutrophils % (auto) 54.5 %; Platelet Count 464 K/uL (130-400); RDW Coefficient of Variation 15.8 % (11.5-14.5); RDW Standard Deviation 53.6 fL (36.4-46.3); Red Blood Count 3.49 M/uL (4.2-5.4); White Blood Count 4.53 K/uL (4.8-10.8)
[2021-04-09] MEDS: ADVANCED PROBIOTIC 1250 MG CAPSULE PO SCH (08:06)
[2021-04-09] MEDS: POTASSIUM CHLORIDE CRTAB 20 MEQ TABCR PO SCH (08:06)
[2021-04-09] MEDS: METOPROLOL SUCC 50MG EXT REL TAB PO SCH (08:07)
[2021-04-09] MEDS: PANTOprazole 40 MG TAB PO SCH (08:07)
[2021-04-09] MEDS: APIXABAN 5 MG TABLET PO SCH (08:07)
[2021-04-09 08:31] LABS: BUN Creatinine Ratio 15.4 (10-20); Calcium 8.8 mg/dl (8.5-10.1); Creatinine Clr Calc Pharmacy 61.6 ml/min; Est GFR (African American) 88.7 ml/min; Est GFR (Non-African American) 76.5 ml/min; Potassium 3.7 mmol/L (3.5-5.1)
--- NOTE | 2021-04-09 13:41 | Discharge Summary ---
Date of Service April 09, 2021 Admission HPI Per Admitting Provider Dede Bowling has no past medical history but has not seen her PCP Dr. Awad in, "years". She does not take any prescriptions but takes vitamins and supplements. She has been sick for one week with sore throat, head cold, congestion, and when her lung congestions started to clear she started to vomit with meals several times a day. Her last meal was on Thursday 7 days ago. She had a fall today where she fell to the ground while feeling weak. She did not lose consciousness and had a similar event a few days prior. She lives at home alone since her after Thanksgiving and has 2 levels to her home. She does not use any assisted devices. When I brought up that she would potentially need to start billiard player medication for her heart rate and potentially for a risk of stroke she was resistant s tating that she would not like to be on medications. She has concerns about the side effects of the medications and would prefer natural medicine. I discussed that there may not be natural alternatives to the medications and that we would discuss the risks and benefits of medications with her. She was okay with all of her current treatments with the exception of her Heparin drip. Admission Exam Per Admitting Provider Constitutional: well developed and well nourished; no acute distress E Eyes: PERRL, conjunctivae normal, anicteric sclerae ENMT: external ear and nose normal, oropharynx normal Neck: normal visual inspection Respiratory: normal respiratory effort, lungs clear to auscultation Cardiovascular: Rate/Rhythm: + tachycardic and + irregularly irregular Gastrointestinal (Abdomen): normal bowel sounds, soft, nontender, no hepatosplenomegaly Musculoskeletal: no cyanosis or clubbing, extremities motor strength 5/5 Skin: no rashes, warm and dry Neurologic: no focal motor deficits Psychiatric: Orientation: alert and oriented x 3 Principal Diagnosis Fall Discharge Exam Constitutional well developed and well nourished; no acute distress Eyes PERRL, conjunctivae normal, anicteric sclerae ENMT external ear and nose normal, oropharynx normal Neck normal visual inspection Respiratory normal respiratory effort, lungs clear to auscultation Gastrointestinal (Abdomen) normal bowel sounds, soft, nontender, no hepatosplenomegaly Musculoskeletal no cyanosis or clubbing, extremities motor strength 5/5 Skin no rashes, warm and dry Neurologic no focal motor deficits Psychiatric A+Ox3, euthymic affect Discharge Data Allergies Allergy/AdvReac Type Severity Reaction Status Date / Time No Known Allergies Allergy Verified 03/13/21 02:00 Consultations 03/12/21 20:57 ED Decision to Admit Stat 03/14/21 10:08 Consult Gastroenterology Routine 03/15/21 16:05 Consult Behavioral Health Liaison Routine 03/16/21 16:57 Consult General Surgery Stat 03/18/21 07:26 Consult Cardiology Routine Procedures Performed Operation Date: 03/15/21 15:30 Actual Procedures p EGD Biopsy Cytology - Ralf GardnerJori Xuan Operation Date: 03/16/21 19:00 Actual Procedures s Diagnostic Laparoscopy, - Kevin Mackey DO, FACS p Open Right Femoral Hernia Repair, Laparotomy, Small Bowel Resection with Anastamosis(Right) - Kevin Mackey DO, FACS Ordered Studies 03/12/21 19:17 CT head/brain wo con Stat 03/12/21 19:36 CT cervical spine wo con Stat 03/13/21 15:40 US thyroid Routine 03/16/21 12:55 CT abd pelvis oral and IV con Routine 03/28/21 13:39 US abdomen limited Routine Hospital Course (1) Weakness: 80-year-old woman with no documented medical history (last seen by a provider in 2006) presented to the ED after falling with a 1-week history of diffuse weakness and dysphagia, subsequently found to have a strangulated right femoral hernia requiring repair and partial small bowel resection on 03/16; she was also found to be AFib w/ RVR on admission. Strangulated femoral hernia s/p repair and small bowel resection - Noted on 03/[address]-A/P after EGD, s/p laparotomy and bowel resection/hernia repair 03/16 - Per Surgery recommendation: - Resumed therapeutic anticoagulation - completed antibiotics 03/24 - Tolerating low fiber diet - Plan to address calcified gallbladder as an outpatient - Surgical yajaira removed while in hospital Post-operative anemia - hgb normal on admission but was likely hemoconcentrated. - h/h stable prior to discharge. Atrial fibrillation with RVR--Rate now controlled -Noted on admission, alongside LBBB and anterolateral repolarization abnormalities since 2016 - TTE: Normal LV function, LVEF 55-60%; evidence of LBBB. No RWMAs. Mod cLVH. Severe L atrial dilation, sclerotic aortic valve, severe mitral annular calcification - Consulted cardiology: Rate control, anticoagulation - Now taking Eliquis 5mg BID - Metoprolol succinate 100 mg twice daily - Recommend close outpatient cardiology follow-up - Hyperthyroidism follow-up recommended as outpatient Dysphagia, nausea, vomiting, Johnson's esophagus - GI consulted. 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 Ulcers present. Large amount of fluid removed from stomach in setting of strangulated bowel. - Biopsies demonstrating ulcerative esophagitis - PPI 40mgs bid oral. - Will need outpatient GI follow up. Elevated troponin - Noted on admission in setting of RVR, no acute conduction/repolarization abnormalities concerning for ACS - TTE as outlined above - no specific RWMAs - Likely secondary to RVR and pre-existing CAD, demand-ischemia Hyperthyroidism - Admission labs notable for TSH 0.259, Free T3 1.86, T4 1.88 - Thyroid U/S 03/14: Scattered nodules. Do not meet criteria for biopsy at present, but outpatient follow-up US will be required. Electrolyte disturbances-resolved Vertebral Lesion (T1)--in setting of normal Ca, ALP; no cancer history - Patient complaining of chronic upper back pain - Spinal CT revealing of 1.3cm lucent lesion within T1 vertebrae, possibly a hemangioma - Consider outpatient nuclear medicine bone scan for further evaluation of metabolic activity Fall, with weakness and deconditioning due to prolonged hospital stay - Reason for admission. Multifactorial: weakness, AFib w/ RVR +/- HoTN (2) Atrial fibrillation with rapid ventricular response: (3) Fall: (4) Incarcerated right inguinal hernia: (5) Small bowel obstruction: (6) History of femoral hernia repair: (7) History of resection of small bowel: (8) LBBB (left bundle branch block): (9) Esophagitis: (10) Hyperthyroidism: Total Time Total Time Spent Total Time Spent (In Minutes): see attending attestation Discharge Plan Discharge Items Patient Disposition: Transfer [facility] Fac Reason For Visit: AF WITH RVR Discharge Diagnosis: open right femoral hernia repair with small bowel resection Activity: Per Instructions section Lifting: No more than 10 pounds Bathing Comment: may shower; no soaking in tubs/pools Exercise/Sports: Wait until after follow-up appointment Non-emergency contact: Primary Care Provider and Surgeon Call non-emergency contact if: you have any medication questions, your symptoms worsen, your pain is not controlled, your pain is worsening, you have a fever, your temperature is above 101.5, your wound has increased redness, your wound has increased drainage and your wound pain has increased Follow-up/Referrals: Kevin Mackey DO, FACS [Physician] - (Please call to schedule follow up in clinic within 1 month) Estevan Awad MD [Primary Care Provider] - Diet: Low Fiber Addtl Attending Provider Instructions: 80-year-old woman with no documented medical history (last seen by a provider in 2006) presented to the ED after falling with a 1-week history of diffuse weakness and dysphagia, subsequently found to have a strangulated right femoral hernia requiring repair and partial small bowel resection on 03/16; she was also found to be AFib w/ RVR on admission. Strangulated femoral hernia s/p repair and small bowel resection - Noted on 03/[address]-A/P after EGD, s/p laparotomy and bowel resection/hernia repair 03/16 - Per Surgery recommendation: - Resumed therapeutic anticoagulation - completed antibiotics 03/24 - Tolerating low fiber diet - Plan to address calcified gallbladder as an outpatient - Surgical yajaira removed while in hospital Post-operative anemia - hgb normal on admission but likely hemoconcentrated. - h/h stable prior to discharge. Atrial fibrillation with RVR--Rate now controlled -Noted on admission, alongside LBBB and anterolateral repolarization abnormalities since 2015 - TTE: Normal LV function, LVEF 55-60%; evidence of LBBB. No RWMAs. Mod cLVH. Severe L atrial dilation, sclerotic aortic valve, severe mitral annular calcification - Consulted cardiology: Rate control, anticoagulation - Now taking Eliquis 5mg BID again - Metoprolol succinate 100 mg twice daily - Recommend close outpatient cardiology follow-up - Hyperthyroidism follow-up recommended as outpatient Dysphagia, nausea, vomiting, Johnson's esophagus - GI consulted. 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 Ulcers present. Large amount of fluid removed from stomach in setting of strangulated bowel. - Biopsies demonstrating ulcerative esophagitis - PPI 40mgs bid oral. - Will need outpatient GI follow up. Elevated troponin - Noted on admission in setting of RVR, no acute conduction/repolarization abnormalities concerning for ACS - TTE as outlined above - no specific RWMAs - Likely secondary to RVR and pre-existing CAD, demand-ischemia Hyperthyroidism - Admission labs notable for TSH 0.259, Free T3 1.86, T4 1.88 - Thyroid U/S 03/14: Scattered nodules. Do not meet criteria for biopsy at present, but outpatient follow-up US will be required. Electrolyte disturbances-resolved Vertebral Lesion (T1)--in setting of normal Ca, ALP; no cancer history - Patient complaining of chronic upper back pain - Spinal CT revealing of 1.3cm lucent lesion within T1 vertebrae, possibly a hemangioma - Consider outpatient nuclear medicine bone scan for further evaluation of metabolic activity Fall, with weakness and deconditioning due to prolonged hospital stay - Reason for admission. Multifactorial: weakness, AFib w/ RVR +/- HoTN - Pending Studies at Discharge: Yes Studies:: surgical pathology Stand-Alone Forms: My [facility] Skilled Items Patient informed of condition?: Yes DNR: Yes Discharge Level of Care: Acute rehab Communicable Disease: No Discharge Prognosis: Improving Lines: Peripheral IV Urinary Catheter: No Medications and DC Order Prescriptions: New Eliquis 5 mg tablet 5 mg PO BID 30 Days Qty: 60 RF: 0 metoprolol succinate 100 mg tablet extended release 24 hr 100 mg PO BID Qty: 60 RF: 0 omeprazole 40 mg capsule,delayed release(DR/EC) 40 mg PO BID Qty: 60 RF: 0 Discharge Orders: Discharge Order (Routine); Ordered 04/09/21 Ordered By: Amarjit Graham/Other Patient Handouts: Soft [place] Diet Dc Admission Data Admit Date/Time: 03/12/21 22:34 Attending Provider: Celeste Newman Admit Provider: Christie Moreira Primary Care Provider: Estevan Awad Other Providers: [place] ; [facility] ; Christie Moreira ; Alex Lindo ; Kevin Mackey ; Juan Carlos Herman ; [facility] Other Interventions: Discharge Summary Assessment (RN) Last Done: 04/09/21 12:12 Supervising Physician Co-Signing Physician Notes Resident Physician Supervision Note: I independently interviewed and examined the patient and verified the morris history and physical, reviewed labs and image studies and agree with resident Dr. Hobson findings and care plan. Resident Activity Tracking Resident Involvement: Resident Care Provided Care Provided: Adult [facility] Medicine CBC Results Results Complete Blood Count Results: RBC 3.49 M/uL (4.2-5.4) L 04/09/21 WBC 4.53 K/uL (4.8-10.8) L 04/09/21 Hgb 9.9 g/dL (12.0-16.0) L 04/09/21 Hct 32.6 % (37-47) L 04/09/21 Plt Count 464 K/uL (130-400) H 04/09/21
== END 2021-04-09 15:46 | DRG 264 ==
LOC: ED 18:55 → SUATTDRO 22:34 → 2S 22:34 → 2N 03-23 18:16 → 3W 04-04 22:36